=== PATIENT | male | born 1950 | race Caucasian/White ===

== ENCOUNTER → 2018-01-07 | Outpatient (CLI) | payer MEDICARE | LOC: M RAD 09:54 | DX: M51.36 Other intervertebral disc degeneration, lumbar region (principal) | CPT/HCPCS: 72148 ==

== ENCOUNTER → 2018-03-20 | Outpatient (REF) | payer MEDICARE ==
[2018-03-20 18:12] LABS: BASO % 0.4 % (0.0-1.0); EOS # 0.1 10^3/uL (0.0-0.50); EOS % 0.7 % (0.0-3.0); HEMATOCRIT 50.1 % (42.0-52.0); HEMOGLOBIN 16.7 g/dl (13.5-17.5); IMMATURE GRANULOCYTE % 0.4 % (0-3.0); LYMPH # 1.8 10^3/uL (1.5-4.5); LYMPH % 21.3 % (24.0-44.0); MEAN CORPUSCULAR HEMOGLOBIN 30.8 pg (27.0-33.0); MEAN CORPUSCULAR HGB CONC 33.3 g/dl (32.0-36.5); MEAN CORPUSCULAR VOLUME 92.4 fl (80.0-96.0); MONO # 0.8 10^3/uL (0.0-0.8); MONO % 8.9 % (0.0-5.0); NEUTROPHILS # 5.8 10^3/uL (1.8-7.7); NEUTROPHILS % 68.3 % (36.0-66.0); PLATELET COUNT, AUTOMATED 251 10^3/uL (150-450); RED BLOOD COUNT 5.42 10^6/uL (4.30-6.10); RED CELL DISTRIBUTION WIDTH 12.8 % (11.5-14.5); WHITE BLOOD COUNT 8.5 10^3/uL (4.0-10.0)
[2018-03-20 18:31] LABS: ALBUMIN 3.9 GM/DL (3.2-5.2); ALBUMIN/GLOBULIN RATIO 1.18 (1.00-1.93); ALKALINE PHOSPHATASE 97 U/L (45-117); ALT/SGPT 23 U/L (12-78); ANION GAP 11 MEQ/L (8-16); AST/SGOT 12 U/L (7-37); BILIRUBIN,TOTAL 1.1 MG/DL (0.2-1.0); BLOOD UREA NITROGEN 15 MG/DL (7-18); CALCIUM LEVEL 8.9 MG/DL (8.8-10.2); CARBON DIOXIDE LEVEL 24 MEQ/L (21-32); CHLORIDE LEVEL 107 MEQ/L (98-107); CHOLESTEROL LEVEL 163 MG/DL (<200); CHOLESTEROL RISK RATIO 3.468 (<5); CREATININE FOR GFR 0.99 MG/DL (0.70-1.30); GLOMERULAR FILTRATION RATE > 60.0 (>49); GLUCOSE, FASTING 126 MG/DL (70-100); HDL CHOLESTEROL 47 MG/DL (>40); LDL CHOLESTEROL 89 MG/DL (<100); NON-HDL-C 116 MG/DL; POTASSIUM SERUM 4.2 MEQ/L (3.5-5.1); SODIUM LEVEL 142 MEQ/L (136-145); TOTAL PROTEIN 7.2 GM/DL (6.4-8.2); TRIGLYCERIDES LEVEL 135 MG/DL (<150)
== END ==
LOC: M LAB REF 17:39
DX: Z00.00 Encounter for general adult medical examination without abnormal findings (principal); F32.9 Major depressive disorder, single episode, unspecified; E11.9 Type 2 diabetes mellitus without complications; M51.9 Unspecified thoracic, thoracolumbar and lumbosacral intervertebral disc disorder; K57.30 Diverticulosis of large intestine without perforation or abscess without bleeding; E78.4 Other hyperlipidemia
CPT/HCPCS: 80053

== ENCOUNTER → 2020-07-06 | Outpatient (CLI) | payer MEDICARE ==
[~2020-07-06] MED LIST: ALPR0.5T3; ATOR40TA75; INFL10VL IV; METO1TAB33; MIRT-60
== END ==
LOC: M LABSMTC 10:33
PROVIDERS: ATTEND Anesthesiology
DX: Z01.812 Encounter for preprocedural laboratory examination (principal); Z20.822 Contact with and (suspected) exposure to COVID-19

== ENCOUNTER 2020-07-11 08:59 | Day surgery (SDC) | payer MEDICARE ==
[~2020-07-11] VITALS: Ht 172.7 cm; Wt 107.2 kg
[~2020-07-11 08:59] MED LIST changes: +LIDOCAINE 2% 100MG/5ML SDV (FOR ANES.) As Ordered ONE; +propofoL 200 MG/20 ML VIAL As Ordered ONE
--- OUTSIDE RECORDS SUMMARY | 2020-07-11 09:05 | CCD ---
Author Author Amparo Pérez DO Organization mAparo Pérez DO Address [address] [address] [place], [place] [phone] Care Team Providers Care Schedule Manager Name Role Phone Elisa TODD MA, Raphael Robles Unavailable Amparo Pérez DO Unavailable Sloan Curiel MD Unavailable Amparo Pérez DO PCP ENCOUNTERS Encounter Performer Loca tion Date Hypertension [SNOMED-CT: 99355894] Mahesh Pérez DO 06-26-2020 RHEUMATOID ARTHRITIS [SNOMED-CT: 27833534] N/A N/A 06-26-2020 ANXIETY STATE UNSPECIFIED [SNOMED-CT: 406412432] N/A N/A 06-26-2020 BACKACHE UNSPECIFIED [SNOMED-CT: 847965849] Raphael Pérez DO 06-26-2020 Stool DNA-based colorectal cancer screen ing positive [SNOMED-CT: 644950142] Dr. Amparo Pérez DO 05-23-2020 RHEUMATOID ARTHRITIS [SNOMED-CT: 59235323] N/A N/A 04-26-2020 DEPRESSIVE DISORDER NOT ELSEWHERE CLASSI FIED [SNOMED-CT: 694607530] N/A N/A 04-26-2020 ANXIETY STATE UNSPECIFIED [SNOMED-CT: 286043703] N/A N/A 04-26-2020 ROUTINE GENERAL MEDICAL EXAMINATION AT A HEALTH CARE FACILITY [SNOMED-CT: 669202006] Raphael Pérez DO 04-26-2020 Adenomatous polyp of rectum [SNOMED-CT: 3482053566051] Dr. Amparo Pérez DO 04-26-2020 Hypertension [SNOMED-CT: 92402822] Mahesh Pérez, DO 04-26-2020 Prediabetes [SNOMED-CT: 294945257] Mahesh Pérez, DO 04-26-2020 DIVERTICULOSIS OF COLON (WITHOUT HEMORRH AGE) [SNOMED-CT: 830009136] Raphael Pérez, DO 04-26-2020 HYPERPLASIA OF PROSTATE UNSPECIFIED WITH OUT URINARY OBSTRUCTION AND OTHER LOWER URINARY TRACT SYMPTOMS (LUTS) [SNOMED-CT: 685183754] Raphael Pérez, DO 04-26-2020 Spinal stenosis [SNOMED-CT: 67324569] Dr. Amparo Pérez, DO 02-25-2020 ANXIETY STATE UNSPECIFIED [SNOMED-CT: 212527416] N/A N/A 02-25-2020 Hypertension [SNOMED-CT: 37794773] Mahesh Pérez, DO 02-25-2020 BACKACHE UNSPECIFIED [SNOMED-CT: 289523725] Raphael Pérez, DO 12-27-2019 ANXIETY STATE UNSPECIFIED [SNOMED-CT: 412784794] N/A N/A 12-27-2019 BACKACHE UNSPECIFIED [SNOMED-CT: 260243244] Raphael Pérez, DO 10-27-2019 ANXIETY STATE UNSPECIFIED [SNOMED-CT: 690703083] N/A N/A 10-27-2019 RHEUMATOID ARTHRITIS [SNOMED-CT: 92229905] N/A N/A 10-27-2019 Tinnitus of left ear [SNOMED-CT: 6921601078997] Dr. Amparo Pérez, DO 08-20-2019 ANXIETY STATE UNSPECIFIED [SNOMED-CT: 154273429] N/A N/A 08-20-2019 Spinal stenosis [SNOMED-CT: 47752407] Dr. Amparo Pérez, DO 06-18-2019 Bilateral tinnitus [SNOMED-CT: 9478146611140] Dr. Amparo Pérez, DO 06-18-2019 Prediabetes [SNOMED-CT: 353298700] Mahesh Pérez, DO 06-18-2019 ANXIETY STATE UNSPECIFIED [SNOMED-CT: 218642196] N/A N/A 06-18-2019 DEPRESSIVE DISORDER NOT ELSEWHERE CLASSI FIED [SNOMED-CT: 468128935] N/A N/A 06-18-2019 Other hyperlipidemia [ICD10: E78.49] Dr. Amparo Pérez, DO 04-26-2019 Hypertension [SNOMED-CT: 28915024] Mahesh Pérez, DO 04-26-2019 Disorder of lumbar disc [SNOMED-CT: 907673682] Dr. Amparo Pérez, DO 04-26-2019 RHEUMATOID ARTHRITIS [SNOMED-CT: 76835104] N/A N/A 04-26-2019 DEPRESSIVE DISORDER NOT ELSEWHERE CLASSI FIED [SNOMED-CT: 540323713] N/A N/A 04-26-2019 ANXIETY STATE UNSPECIFIED [SNOMED-CT: 437050160] N/A N/A 04-26-2019 Diabetes mellitus [SNOMED-CT: 89825100] Dr. Amparo Pérez, DO 04-26-2019 Diabetes mellitus [SNOMED-CT: 10362064] Dr. Amparo Pérez, DO 02-22-2019 Spinal stenosis [SNOMED-CT: 53366581] Dr. Amparo Pérez, DO 02-22-2019 Disorder of lumbar disc [SNOMED-CT: 920769265] Dr. Amparo Pérez, DO 02-22-2019 ANXIETY STATE UNSPECIFIED [SNOMED-CT: 904156278] N/A N/A 02-22-2019 DEPRESSIVE DISORDER NOT ELSEWHERE CLASSI FIED [SNOMED-CT: 909542767] N/A N/A 02-22-2019 Spinal stenosis [SNOMED-CT: 99391897] Dr. Amparo Pérez, DO 12-23-2018 PAIN IN LIMB [SNOMED-CT: 86726645] Raphael Pérez, DO 12-23-2018 RHEUMATOID ARTHRITIS [SNOMED-CT: 26038843] N/A N/A 12-23-2018 ANXIETY STATE UNSPECIFIED [SNOMED-CT: 675447961] N/A N/A 12-23-2018 Spinal stenosis [SNOMED-CT: 06728653] Dr. Amparo Pérez, DO 10-21-2018 ANXIETY STATE UNSPECIFIED [SNOMED-CT: 271996650] N/A N/A 10-21-2018 Diabetes mellitus [SNOMED-CT: 67209119] Dr. Amparo Pérez, DO 10-21-2018 RHEUMATOID ARTHRITIS [SNOMED-CT: 71824417] N/A N/A 08-24-2018 BACKACHE UNSPECIFIED [SNOMED-CT: 856879389] Raphael Pérez, DO 08-24-2018 Spinal stenosis [SNOMED-CT: 53686995] Dr. Amparo Pérez, DO 08-24-2018 UNSPECIFIED ESSENTIAL HYPERTENSION [SNOMED-CT: 1356772 0] N/A N/A 06-19-2018 BACKACHE UNSPECIFIED [SNOMED-CT: 866079782] Raphael Pérez, DO 06-19-2018 DEPRESSIVE DISORDER NOT ELSEWHERE CLASSI FIED [SNOMED-CT: 883743039] N/A N/A 06-19-2018 Bilateral cataracts [SNOMED-CT: 89041392] Dr. Amparo Pérez, DO 04-27-2018 UNSPECIFIED ESSENTIAL HYPERTENSION [SNOMED-CT: 7699230 0] N/A N/A 04-27-2018 Prediabetes [SNOMED-CT: 0247089] Dr. Amparo Pérez, DO 04-27-2018 Exogenous hyperlipidemia [SNOMED-CT: 206227005] Dr. Amparo Pérez, DO 04-27-2018 RHEUMATOID ARTHRITIS [SNOMED-CT: 17677193] N/A N/A 04-27-2018 Diabetes mellitus [SNOMED-CT: 23544023] Dr. Amparo Pérez, DO 03-20-2018 Exogenous hyperlipidemia [SNOMED-CT: 158256778] Dr. Amparo Pérez, DO 03-20-2018 Disorder of lumbar disc [SNOMED-CT: 349386461] Dr. Amparo Pérez, DO 03-20-2018 DIVERTICULOSIS OF COLON (WITHOUT HEMORRH AGE) [SNOMED-CT: 847750438] Raphael Pérez, DO 03-20-2018 Disorder of lumbar disc [SNOMED-CT: 006965619] Dr. Amparo Pérez, DO 01-16-2018 Diabetes mellitus [SNOMED-CT: 28781702] Dr. Amparo Pérez, DO 01-16-2018 RHEUMATOID ARTHRITIS [SNOMED-CT: 81324445] N/A N/A 01-16-2018 UNSPECIFIED ESSENTIAL HYPERTENSION [SNOMED-CT: 4133306 0] N/A N/A 01-16-2018 Bilateral tinnitus [SNOMED-CT: 7679876010668] Dr. Amparo Pérez, DO 10-31-2017 Exogenous hyperlipidemia [SNOMED-CT: 486793696] Dr. Amparo Pérez, DO 10-31-2017 ANXIETY STATE UNSPECIFIED [SNOMED-CT: 452082958] N/A N/A 10-31-2017 DEPRESSIVE DISORDER NOT ELSEWHERE CLASSI FIED [SNOMED-CT: 119361860] N/A N/A 10-31-2017 UNSPECIFIED ESSENTIAL HYPERTENSION [SNOMED-CT: 6793889 0] N/A N/A 08-29-2017 RHEUMATOID ARTHRITIS [SNOMED-CT: 68046674] N/A N/A 08-29-2017 DEPRESSIVE DISORDER NOT ELSEWHERE CLASSI FIED [SNOMED-CT: 776921955] N/A N/A 08-29-2017 ANXIETY STATE UNSPECIFIED [SNOMED-CT: 559610091] N/A N/A 08-29-2017 Tinnitus of left ear [SNOMED-CT: 1428943924438] Dr. Amparo Pérez, DO 07-21-2017 Altered mental status [SNOMED-CT: 848799055] Dr. Ampaor Pérez, DO 07-21-2017 Headache [SNOMED-CT: 94522616] Thierry Pérez, DO 07-21-2017 Diabetes mellitus [SNOMED-CT: 06477187] Dr. Amparo Pérez, DO 07-21-2017 Disorder of lumbar disc [SNOMED-CT: 682577973] Dr. Amparo Pérez, DO 06-27-2017 RHEUMATOID ARTHRITIS [SNOMED-CT: 95773552] N/A N/A 06-27-2017 Diabetes mellitus [SNOMED-CT: 57146963] Dr. Amparo Pérez, DO 06-27-2017 ANXIETY STATE UNSPECIFIED [SNOMED-CT: 067235051] N/A N/A 06-27-2017 DEPRESSIVE DISORDER NOT ELSEWHERE CLASSI FIED [SNOMED-CT: 115478114] N/A N/A 04-28-2017 ANXIETY STATE UNSPECIFIED [SNOMED-CT: 455103036] N/A N/A 04-28-2017 Diabetes mellitus [SNOMED-CT: 07217172] Dr. Amparo Pérez, DO 04-28-2017 RHEUMATOID ARTHRITIS [SNOMED-CT: 41689988] N/A N/A 02-26-2017 UNSPECIFIED ESSENTIAL HYPERTENSION [SNOMED-CT: 0539432 0] N/A N/A 02-26-2017 Exogenous hyperlipidemia [SNOMED-CT: 667440939] Dr. Amparo Pérez, DO 02-26-2017 Hyperglycemia [SNOMED-CT: 06278874] Dr. Amparo Pérez, DO 02-26-2017 UNSPECIFIED ESSENTIAL HYPERTENSION [SNOMED-CT: 5757917 0] N/A N/A 12-25-2016 ANXIETY STATE UNSPECIFIED [SNOMED-CT: 128893256] N/A N/A 12-25-2016 UNSPECIFIED ESSENTIAL HYPERTENSION [SNOMED-CT: 1460632 0] N/A N/A 10-09-2016 ANXIETY STATE UNSPECIFIED [SNOMED-CT: 125198988] N/A N/A 10-09-2016 RHEUMATOID ARTHRITIS [SNOMED-CT: 77803578] N/A N/A 10-09-2016 BACKACHE UNSPECIFIED [SNOMED-CT: 320677628] Raphael Pérez, DO 08-28-2016 Disorder of lumbar disc [SNOMED-CT: 603414582] Dr. Amparo Pérez, DO 08-28-2016 DEPRESSIVE DISORDER NOT ELSEWHERE CLASSI FIED [SNOMED-CT: 751721820] N/A N/A 08-28-2016 ANXIETY STATE UNSPECIFIED [SNOMED-CT: 975079693] N/A N/A 08-28-2016 RHEUMATOID ARTHRITIS [SNOMED-CT: 69376366] N/A N/A 08-28-2016 Prediabetes [SNOMED-CT: 5254941] Dr. Amparo Pérez, DO 07-17-2016 ANXIETY STATE UNSPECIFIED [SNOMED-CT: 492460080] N/A N/A 07-17-2016 Hyperglycemia [SNOMED-CT: 36994680] Dr. Amparo Pérez, DO 07-17-2016 Prediabetes [SNOMED-CT: 9972466] Dr. Amparo Pérez, DO 06-05-2016 Disorder of lumbar disc [SNOMED-CT: 526755728] Dr. Amparo Pérez, DO 06-05-2016 ANXIETY STATE UNSPECIFIED [SNOMED-CT: 493737374] N/A N/A 06-05-2016 Hyperlipidemia [SNOMED-CT: 76837791] Dr. Amparo Pérez, DO 04-24-2016 HYPERPLASIA OF PROSTATE UNSPECIFIED WITH OUT URINARY OBSTRUCTION AND OTHER LOWER URINARY TRACT SYMPTOMS (LUTS) [SNOMED-CT: 229982894] Raphael Pérez, DO 04-24-2016 Hyperlipidemia [SNOMED-CT: 57635731] Dr. Amparo Pérez, DO 03-13-2016 UNSPECIFIED ESSENTIAL HYPERTENSION [SNOMED-CT: 2152625 0] N/A N/A 03-13-2016 Prediabetes [SNOMED-CT: 5052801] Dr. Amparo Pérez, DO 03-13-2016 Other specified vaccination [ICD10: Z23] Raphael Pérez, DO 03-13-2016 Disorder of lumbar disc [SNOMED-CT: 996605213] Dr. Amparo Pérez, DO 01-31-2016 BACKACHE UNSPECIFIED [SNOMED-CT: 984917726] Raphael Pérez, DO 01-31-2016 DEPRESSIVE DISORDER NOT ELSEWHERE CLASSI FIED [SNOMED-CT: 848041326] N/A N/A 01-31-2016 RHEUMATOID ARTHRITIS [SNOMED-CT: 22509502] N/A N/A 01-31-2016 RHEUMATOID ARTHRITIS [SNOMED-CT: 61816763] N/A N/A 12-27-2015 BACKACHE UNSPECIFIED [SNOMED-CT: 129293795] Raphael Pérez, DO 12-27-2015 DEPRESSIVE DISORDER NOT ELSEWHERE CLASSI FIED [SNOMED-CT: 261256189] N/A N/A 12-27-2015 ANXIETY STATE UNSPECIFIED [SNOMED-CT: 047075351] N/A N/A 12-27-2015 ANXIETY STATE UNSPECIFIED [SNOMED-CT: 489940650] N/A N/A 11-22-2015 UNSPECIFIED ESSENTIAL HYPERTENSION [SNOMED-CT: 3597118 0] N/A N/A 11-22-2015 Hyperlipidemia [SNOMED-CT: 57438220] Dr. Amparo Pérez, DO 11-22-2015 Disorder of lumbar disc [SNOMED-CT: 401364778] Dr. Amparo Pérez, DO 10-18-2015 ANXIETY STATE UNSPECIFIED [SNOMED-CT: 765957082] N/A N/A 10-18-2015 Disorder of lumbar disc [SNOMED-CT: 739075406] Dr. Amparo Pérez, DO 09-13-2015 Hyperlipidemia [SNOMED-CT: 95767800] Dr. Amparo Pérez, DO 09-13-2015 DIVERTICULOSIS OF COLON (WITHOUT HEMORRH AGE) [SNOMED-CT: 815104535] Raphael Pérez, DO 09-13-2015 Hyperglycemia [SNOMED-CT: 24444480] Dr. Amparo Pérez, DO 09-13-2015 Prediabetes [SNOMED-CT: 5097724] Dr. Amparo Pérez, DO 09-13-2015 PAIN IN LIMB [SNOMED-CT: 68421744] Raphael Pérez, DO 08-09-2015 RHEUMATOID ARTHRITIS [SNOMED-CT: 67992621] N/A N/A 08-09-2015 DEPRESSIVE DISORDER NOT ELSEWHERE CLASSI FIED [SNOMED-CT: 811829524] N/A N/A 08-09-2015 Disorder of lumbar disc [SNOMED-CT: 740000813] Dr. Amparo Pérez, DO 07-05-2015 PAIN IN LIMB [SNOMED-CT: 27802879] Raphael Pérez, DO 07-05-2015 REFLUX ESOPHAGITIS [SNOMED-CT: 25986916] N/A N/A 07-05-2015 Acute suppurative otitis media [SNOMED-CT: 637550775] Dr. Amparo Pérez, DO 05-31-2015 BACKACHE UNSPECIFIED [SNOMED-CT: 663976555] Raphael Pérez, DO 05-31-2015 RHEUMATOID ARTHRITIS [SNOMED-CT: 50242139] N/A N/A 05-31-2015 Disorder of lumbar disc [SNOMED-CT: 080223157] Dr. Amparo Pérez, DO 05-31-2015 Acute suppurative otitis media [SNOMED-CT: 853069993] Dr. Amparo Pérez, DO 05-24-2015 RHEUMATOID ARTHRITIS [SNOMED-CT: 02806700] N/A N/A 05-24-2015 Personal history of immunosuppressive therapy [ICD10: Z92.25] Dr. Amparo Pérez, DO 05-24-2015 Acute suppurative otitis media [SNOMED-CT: 274027500] Dr. Amparo Pérez, DO 05-17-2015 UNSPECIFIED ESSENTIAL HYPERTENSION [SNOMED-CT: 8649129 0] N/A N/A 04-26-2015 BACKACHE UNSPECIFIED [SNOMED-CT: 276750875] Raphael Pérez, DO 04-26-2015 PAIN IN LIMB [SNOMED-CT: 64595966] Raphael Pérez, DO 04-26-2015 RHEUMATOID ARTHRITIS [SNOMED-CT: 86675369] N/A N/A 04-26-2015 Hyperlipidemia [SNOMED-CT: 94574453] Dr. Amparo Pérez, DO 04-26-2015 UNSPECIFIED ESSENTIAL HYPERTENSION [SNOMED-CT: 9634060 0] N/A N/A 03-22-2015 BACKACHE UNSPECIFIED [SNOMED-CT: 541402632] Raphael Pérez, DO 03-22-2015 PAIN IN LIMB [SNOMED-CT: 35535063] Raphael Pérez, DO 03-22-2015 RHEUMATOID ARTHRITIS [SNOMED-CT: 85169079] N/A N/A 03-22-2015 BACKACHE UNSPECIFIED [SNOMED-CT: 748454747] Raphael Pérez, DO 02-15-2015 UNSPECIFIED ESSENTIAL HYPERTENSION [SNOMED-CT: 3324255 0] N/A N/A 02-15-2015 RHEUMATOID ARTHRITIS [SNOMED-CT: 45432098] N/A N/A 02-15-2015 BACKACHE UNSPECIFIED [SNOMED-CT: 610409153] Raphael Pérez, DO 01-11-2015 UNSPECIFIED ESSENTIAL HYPERTENSION [SNOMED-CT: 3594800 0] N/A N/A 01-11-2015 RHEUMATOID ARTHRITIS [SNOMED-CT: 91614974] N/A N/A 01-11-2015 UNSPECIFIED ESSENTIAL HYPERTENSION [SNOMED-CT: 4048706 0] N/A N/A 12-07-2014 RHEUMATOID ARTHRITIS [SNOMED-CT: 72372241] N/A N/A 12-07-2014 GLOSSITIS [SNOMED-CT: 47327973] Dr. Amparo Pérez, DO 11-02-2014 BACKACHE UNSPECIFIED [SNOMED-CT: 870251781] Raphael Pérez, DO 11-02-2014 RHEUMATOID ARTHRITIS [SNOMED-CT: 50236340] N/A N/A 11-02-2014 BACKACHE UNSPECIFIED [SNOMED-CT: 671965350] Raphael Pérez, DO 10-05-2014 RHEUMATOID ARTHRITIS [SNOMED-CT: 69522771] N/A N/A 10-05-2014 UNSPECIFIED ESSENTIAL HYPERTENSION [SNOMED-CT: 7681844 0] N/A N/A 10-05-2014 ANXIETY STATE UNSPECIFIED [SNOMED-CT: 272709290] N/A N/A 10-05-2014 ROUTINE GENERAL MEDICAL EXAMINATION AT A HEALTH CARE FACILITY [SNOMED-CT: 642131146] Raphael Pérez, DO 09-07-2014 ANXIETY STATE UNSPECIFIED [SNOMED-CT: 119520423] N/A N/A 08-10-2014 BACKACHE UNSPECIFIED [SNOMED-CT: 578677991] Raphael Pérez, DO 08-10-2014 DEPRESSIVE DISORDER NOT ELSEWHERE CLASSI FIED [SNOMED-CT: 769129158] N/A N/A 08-10-2014 GLOSSITIS [SNOMED-CT: 69561067] Dr. Amparo Pérez, DO 07-13-2014 RHEUMATOID ARTHRITIS [SNOMED-CT: 07651725] N/A N/A 07-13-2014 UNSPECIFIED ESSENTIAL HYPERTENSION [SNOMED-CT: 0623732 0] N/A N/A 07-13-2014 DEPRESSIVE DISORDER NOT ELSEWHERE CLASSI FIED [SNOMED-CT: 407650777] N/A N/A 07-13-2014 UNSPECIFIED ESSENTIAL HYPERTENSION [SNOMED-CT: 5678606 0] N/A N/A 05-16-2014 BACKACHE UNSPECIFIED [SNOMED-CT: 140832356] Raphael Pérez, DO 05-16-2014 RHEUMATOID ARTHRITIS [SNOMED-CT: 23986876] N/A N/A 03-25-2014 GLOSSITIS [SNOMED-CT: 91723041] Dr. Amparo Pérez, DO 03-25-2014 BACKACHE UNSPECIFIED [SNOMED-CT: 208363737] Raphael Pérez, DO 01-26-2014 REFLUX ESOPHAGITIS [SNOMED-CT: 95778521] N/A N/A 01-26-2014 UNSPECIFIED ESSENTIAL HYPERTENSION [SNOMED-CT: 0229849 0] N/A N/A 01-26-2014 RHEUMATOID ARTHRITIS [SNOMED-CT: 75659750] N/A N/A 01-26-2014 ANXIETY STATE UNSPECIFIED [SNOMED-CT: 705518084] N/A N/A 01-26-2014 GLOSSITIS [SNOMED-CT: 37203026] Dr. Amparo Pérez, DO 01-26-2014 MICROSCOPIC HEMATURIA [SNOMED-CT: 841297518] Dr. Amparo Pérez, DO 12-13-2013 ANXIETY STATE UNSPECIFIED [SNOMED-CT: 034812095] N/A N/A 12-13-2013 RHEUMATOID ARTHRITIS [SNOMED-CT: 00039768] N/A N/A 12-13-2013 BACKACHE UNSPECIFIED [SNOMED-CT: 647939257] Raphael Pérez, DO 12-13-2013 HYPERPLASIA OF PROSTATE UNSPECIFIED WITH OUT URINARY OBSTRUCTION AND OTHER LOWER URINARY TRACT SYMPTOMS (LUTS) [SNOMED-CT: 958234622] Raphael Pérez, DO 12-13-2013 PAIN IN LIMB [SNOMED-CT: 62263758] Raphael Pérez, DO 10-18-2013 RHEUMATOID ARTHRITIS [SNOMED-CT: 06921644] N/A N/A 10-18-2013 BACKACHE UNSPECIFIED [SNOMED-CT: 811615105] Raphael Pérez, DO 10-18-2013 ROUTINE GENERAL MEDICAL EXAMINATION AT A HEALTH CARE FACILITY [SNOMED-CT: 846408033] Raphael Pérez, DO 08-30-2013 PAIN IN LIMB [SNOMED-CT: 49741855] Raphael Pérez, DO 07-02-2013 UNSPECIFIED ESSENTIAL HYPERTENSION [SNOMED-CT: 7736510 0] N/A N/A 07-02-2013 UNSPECIFIED ESSENTIAL HYPERTENSION [SNOMED-CT: 4745775 0] N/A N/A 05-17-2013 RHEUMATOID ARTHRITIS [SNOMED-CT: 81426559] N/A N/A 03-26-2013 ANXIETY STATE UNSPECIFIED [SNOMED-CT: 369635272] N/A N/A 03-26-2013 NEED FOR PROPHYLACTIC VACCINATION AND IN OCULATION AGAINST INFLUENZA [SNOMED-CT: 027995975] Raphael Pérez, DO 03-26-2013 RHEUMATOID ARTHRITIS [SNOMED-CT: 31435610] N/A N/A 02-08-2013 ANXIETY STATE UNSPECIFIED [SNOMED-CT: 309920323] N/A N/A 02-08-2013 RHEUMATOID ARTHRITIS [SNOMED-CT: 33874826] N/A N/A 12-14-2012 UNSPECIFIED ESSENTIAL HYPERTENSION [SNOMED-CT: 1934756 0] N/A N/A 12-14-2012 DEPRESSIVE DISORDER NOT ELSEWHERE CLASSI FIED [SNOMED-CT: 823952610] N/A N/A 12-14-2012 DEPRESSIVE DISORDER NOT ELSEWHERE CLASSI FIED [SNOMED-CT: 602565192] N/A N/A 10-23-2012 ANXIETY STATE UNSPECIFIED [SNOMED-CT: 732128920] N/A N/A 10-23-2012 RHEUMATOID ARTHRITIS [SNOMED-CT: 41113531] N/A N/A 08-24-2012 UNSPECIFIED ESSENTIAL HYPERTENSION [SNOMED-CT: 1116594 0] N/A N/A 08-24-2012 ANXIETY STATE UNSPECIFIED [SNOMED-CT: 405235179] N/A N/A 08-24-2012 RHEUMATOID ARTHRITIS [SNOMED-CT: 86152817] N/A N/A 06-15-2012 UNSPECIFIED ESSENTIAL HYPERTENSION [SNOMED-CT: 4468891 0] N/A N/A 06-15-2012 ANXIETY STATE UNSPECIFIED [SNOMED-CT: 047469104] N/A N/A 06-15-2012 UNSPECIFIED ESSENTIAL HYPERTENSION [SNOMED-CT: 8948885 0] N/A N/A 04-10-2012 NEED FOR PROPHYLACTIC VACCINATION AND IN OCULATION AGAINST INFLUENZA [SNOMED-CT: 683162300] Raphael Pérez DO 04-10-2012 UNSPECIFIED ESSENTIAL HYPERTENSION [SNOMED-CT: 0344439 0] N/A N/A 02-03-2012 ANXIETY STATE UNSPECIFIED [SNOMED-CT: 627432033] N/A N/A 02-03-2012 ANXIETY STATE UNSPECIFIED [SNOMED-CT: 224883731] N/A N/A 12-11-2011 RHEUMATOID ARTHRITIS [SNOMED-CT: 96083870] N/A N/A 12-11-2011 SCREENING EXAMINATION FOR PULMONARY TUBE RCULOSIS [SNOMED-CT: 150309479] Raphael Pérez DO 12-11-2011 DIVERTICULOSIS OF COLON (WITHOUT HEMORRH AGE) [SNOMED-CT: 363333462] Raphael Pérez, DO 10-25-2011 ANXIETY STATE UNSPECIFIED [SNOMED-CT: 739481633] N/A N/A 10-25-2011 UNSPECIFIED ESSENTIAL HYPERTENSION [SNOMED-CT: 3491522 0] N/A N/A 07-24-2011 ANXIETY STATE UNSPECIFIED [SNOMED-CT: 419520518] N/A N/A 07-24-2011 IMPACTED CERUMEN [SNOMED-CT: 81419226] Raphael Pérez, DO 07-24-2011 UNSPECIFIED ESSENTIAL HYPERTENSION [SNOMED-CT: 6803900 0] N/A N/A 01-11-2011 ANXIETY STATE UNSPECIFIED [SNOMED-CT: 777348928] N/A N/A 01-11-2011 IMPACTED CERUMEN [SNOMED-CT: 14458013] Raphael Pérez, DO 01-11-2011 UNSPECIFIED ESSENTIAL HYPERTENSION [SNOMED-CT: 7228448 0] N/A N/A 11-19-2010 ANXIETY STATE UNSPECIFIED [SNOMED-CT: 675192422] N/A N/A 11-19-2010 IMPACTED CERUMEN [SNOMED-CT: 09417495] Raphael Pérez, DO 11-19-2010 RHEUMATOID ARTHRITIS [SNOMED-CT: 77471818] N/A N/A 09-05-2010 ANXIETY STATE UNSPECIFIED [SNOMED-CT: 067102271] N/A N/A 09-03-2010 RHEUMATOID ARTHRITIS [SNOMED-CT: 32569881] N/A N/A 09-03-2010 PAIN IN LIMB [SNOMED-CT: 09394116] Raphael Pérez, DO 06-27-2010 ANXIETY STATE UNSPECIFIED [SNOMED-CT: 444247816] N/A N/A 06-27-2010 CARPAL TUNNEL SYNDROME [SNOMED-CT: 65073510] Raphael Pérez, DO 03-28-2010 RHEUMATOID ARTHRITIS [SNOMED-CT: 23771973] N/A N/A 03-28-2010 CARPAL TUNNEL SYNDROME [SNOMED-CT: 54398289] Raphael Antonioard, DO 11-10-2009 RHEUMATOID ARTHRITIS [SNOMED-CT: 93669812] N/A N/A 11-10-2009 REFLUX ESOPHAGITIS [SNOMED-CT: 90777132] N/A N/A 11-10-2009 DEPRESSIVE DISORDER NOT ELSEWHERE CLASSI FIED [SNOMED-CT: 738806950] N/A N/A 11-10-2009 OTHER ABNORMAL GLUCOSE [SNOMED-CT: 932485639] Raphael Pérez Amparo Dickson Elisa, DO 09-11-2009 RHEUMATOID ARTHRITIS [SNOMED-CT: 74653717] N/A N/A 09-11-2009 REFLUX ESOPHAGITIS [SNOMED-CT: 89837872] N/A N/A 09-11-2009 DEPRESSIVE DISORDER NOT ELSEWHERE CLASSI FIED [SNOMED-CT: 712927202] N/A N/A 09-11-2009 RHEUMATOID ARTHRITIS [SNOMED-CT: 85717215] N/A N/A 07-12-2009 REFLUX ESOPHAGITIS [SNOMED-CT: 67115449] N/A N/A 07-12-2009 DEPRESSIVE DISORDER NOT ELSEWHERE CLASSI FIED [SNOMED-CT: 935072806] N/A N/A 07-12-2009 RHEUMATOID ARTHRITIS [SNOMED-CT: 47524573] N/A N/A 04-14-2009 UNSPECIFIED ESSENTIAL HYPERTENSION [SNOMED-CT: 4823707 0] N/A N/A 04-14-2009 DEPRESSIVE DISORDER NOT ELSEWHERE CLASSI FIED [SNOMED-CT: 256872131] N/A N/A 04-14-2009 ANXIETY STATE UNSPECIFIED [SNOMED-CT: 599375239] N/A N/A 04-14-2009 RHEUMATOID ARTHRITIS [SNOMED-CT: 80364483] N/A N/A 12-16-2008 UNSPECIFIED ESSENTIAL HYPERTENSION [SNOMED-CT: 2669049 0] N/A N/A 12-16-2008 DEPRESSIVE DISORDER NOT ELSEWHERE CLASSI FIED [SNOMED-CT: 999850691] N/A N/A 12-16-2008 ANXIETY STATE UNSPECIFIED [SNOMED-CT: 403468653] N/A N/A 12-16-2008 RHEUMATOID ARTHRITIS [SNOMED-CT: 21349720] N/A N/A 10-24-2008 UNSPECIFIED ESSENTIAL HYPERTENSION [SNOMED-CT: 9800008 0] N/A N/A 10-24-2008 DEPRESSIVE DISORDER NOT ELSEWHERE CLASSI FIED [SNOMED-CT: 742030269] N/A N/A 10-24-2008 ANXIETY STATE UNSPECIFIED [SNOMED-CT: 351875354] N/A N/A 10-24-2008 ALLERGIES AND ADVERSE REACTIONS Substance Reaction Sever ity Status sulfa drug (RxNorm: 30699) -- -- Active Sulfa (RxNorm: Unknown) -- -- Active FUNCTIONAL STATUS There is no cognitive and functional status saved for this patient. IMMUNIZATIONS Vaccine Date Status Flucelvax Quadrivalent (171) 03/23/20 9:08:38 AM Completed Adacel (115) 10/21/2018 9:47:02 AM Completed Pneumovax 23 (33) 03/20/2018 3:23:51 PM Completed Fluvirin (141) 03/13/2016 10:35:54 AM Completed Zoster Live (121) 09/13/2015 10:05:47 AM Refused Influenza vaccine, unknown (88) 03/22 10:25:04 AM Completed Afluria (141) 03/26/2013 12:14:58 PM Completed Fluvirin (141) 04/10/2012 12:39:45 PM Completed H1N1 07/12/2009 12:00:00 AM Completed MEDICAL EQUIPMENT Patient has no history of implanted devices. MEDICATIONS Medication Generic Name Instructions Dosage Start Date Status hydrocodone-acetaminophen 5 mg-325 mg or al tablet, [RxNorm: 779393] hydrocodone-acetaminophen one or two po qid prn pain 45 06/26/2020 Active ALPRAZolam 0.5 mg oral tablet, [RxNorm: 834773] ALPRAZolam one or one half po qid prn anxiety MDD4 120 06/26/2020 Active spironolactone 25 mg oral tablet, [RxNorm: 586245] spironolactone one po daily 30 04/26/2020 Active mirtazapine 30 mg oral tablet, [RxNorm: 409257] mirtazapine one po hs daily 30 04/26 Active Metoprolol Succinate ER 100 mg oral tabl et, extended release, [RxNorm: 159094] metoprolol one po daily 30 04/26/2020 Active atorvastatin 40 mg oral tablet, [RxNorm: 011509] atorvastatin one po daily 30 04/26/20 20 Active glucose testing strips Unknown use as directed bid ac 60 04/28/2017 Active glucometer Unknown use a s directed ac bid 1 04/28/2017 Active Remicade 100 mg intravenous injection, [RxNorm: 459242 ] inFLIXimab injected in [place] q 8 weeks 0 09/13/2015 Active aspirin 81 mg oral tablet, [RxNorm: 566701] aspirin one daily 1 09/13/2015 Active INSURANCE PROVIDERS Payer Name Policy Type P olicy ID Covered [employer] ID Policy [employer] MEDICARE Health Insurance [id number] [facility] Health Insurance [id number] ALTHEA RIVAS ASSESSMENTS # UNSPECIFIED ESSENTIAL HYPERTENSION (I10): # RHEUMATOID ARTHRITIS (M06.9): # ANXIETY STATE UNSPECIFIED (F41.9): # BACKACHE UNSPECIFIED (M54.9): PROBLEMS Problem Problem Status D ate Started Date Resolved Date Inactivated MICROSCOPIC HEMATURIA [SNOMED-CT: 141674676] Active 12-13-2013 NA NA HYPERPLASIA OF PROSTATE UNSPECIFIED WITH OUT URINARY OBSTRUCTION AND OTHER LOWER URINARY TRACT SYMPTOMS (LUTS) [SNOMED-CT: 083573347] Active 12-13-2013 NA NA OTHER ABNORMAL GLUCOSE [SNOMED-CT: 226187919] Active 09-11-2009 NA NA Exogenous hyperlipidemia [SNOMED-CT: 155383789] Active 02-26-2017 NA NA Hyperglycemia [SNOMED-CT: 20798684] Active 02-26-2017 NA NA Tinnitus of left ear [SNOMED-CT: 9586876175261] Active 07-21-2017 NA NA Altered mental status [SNOMED-CT: 879516237] Active 07-21-2017 NA NA Stool DNA-based colorectal cancer screen ing positive [SNOMED-CT: 409426845] Active 05-23-2020 NA NA Prediabetes [SNOMED-CT: 2957766] Active 09-13-2015 NA NA BACKACHE UNSPECIFIED [SNOMED-CT: 368280025] Active 10-18-2013 NA NA SCREENING EXAMINATION FOR PULMONARY TUBE RCULOSIS [SNOMED-CT: 940103490] Active 12-11-2011 NA NA Adenomatous polyp of rectum [SNOMED-CT: 0586314002651] Active 04-26-2020 NA NA RHEUMATOID ARTHRITIS [SNOMED-CT: 83943720] Active 10-23-2008 NA NA UNSPECIFIED ESSENTIAL HYPERTENSION [SNOMED-CT: 7369224 0] Active 10-23-2008 NA NA DEPRESSIVE DISORDER NOT ELSEWHERE CLASSI FIED [SNOMED-CT: 429257806] Active 10-23-2008 NA NA ANXIETY STATE UNSPECIFIED [SNOMED-CT: 868567291] Active 10-23-2008 NA NA ROUTINE GENERAL MEDICAL EXAMINATION AT A HEALTH CARE FACILITY [SNOMED-CT: 424512711] Active 08-30-2013 NA NA Bilateral cataracts [SNOMED-CT: 78741973] Active 04-27-2018 NA NA Hyperlipidemia [SNOMED-CT: 20408013] Activ e 04-26-2015 NA NA Diabetes mellitus [SNOMED-CT: 52192798] Resolved 04-28-2017 04-26-2019 NA Prediabetes [SNOMED-CT: 918891600] Active 04-26-2019 NA NA Other hyperlipidemia [ICD10: E78.49] Activ e 04-26-2019 NA NA Hypertension [SNOMED-CT: 84856379] Active 04-26-2019 NA NA Other specified vaccination [ICD10: Z23] Active 03-13-2016 NA NA GLOSSITIS [SNOMED-CT: [id number]] Active 01-26-2014 NA NA CARPAL TUNNEL SYNDROME [SNOMED-CT: 85102393] Active 11-10-2009 NA NA PAIN IN LIMB [SNOMED-CT: 17759353] Active 06-27-2010 NA NA Headache [SNOMED-CT: 82764265] Active 07-21-2017 NA NA Bilateral tinnitus [SNOMED-CT: 2876807124743] Active 10-31-2017 NA NA IMPACTED CERUMEN [SNOMED-CT: 27288961] Active 11-19-2010 NA NA Spinal stenosis [SNOMED-CT: 86938877] Active 08-24-2018 NA NA Hyperglycemia [SNOMED-CT: 34547522] Active 09-13-2015 NA NA NEED FOR PROPHYLACTIC VACCINATION AND IN OCULATION AGAINST INFLUENZA [SNOMED-CT: 371644809] Active 04-10-2012 NA NA Acute suppurative otitis media [SNOMED-CT: 402526419] Active 05-17-2015 NA NA Personal history of immunosuppressive therapy [ICD10: Z92.25] Active 05-24-2015 NA NA Disorder of lumbar disc [SNOMED-CT: 251068776] Active 05-31-2015 NA NA DIVERTICULOSIS OF COLON (WITHOUT HEMORRH AGE) [SNOMED-CT: 040269531] Active 10-25-2011 NA NA REFLUX ESOPHAGITIS [SNOMED-CT: 85020227] Active 07-12-2009 NA NA HYPERPLASIA OF PROSTATE UNSPECIFIED [SNOMED-CT: 589903 004] Inactive 07-12-2009 NA 12-13-2013 PROCEDURES Procedure Date CPT Code Procedure 06/26/2020 08:54:10 [id number] Telephone evaluation and management service by a physician or other qualified health clinical care leader who may report evaluation and management services provided to an established patient, parent, or guardian not originating from a related E/M service provided within the previous 7 days nor leading to an E/M service or procedure within the next 24 hours or soonest available appointment; 5-10 minutes of medical discussion 05/23/2020 11:51:40 39859 Telephone evaluation and management service by a physician or other qualified health clinical care leader who may report evaluation and management services provided to an established patient, parent, or guardian not originating from a related E/M service provided within the previous 7 days nor leading to an E/M service or procedure within the next 24 hours or soonest available appointment; 5-10 minutes of medical discussion 04/26/2020 08:59:14 G0439 ANNUAL WELLNESS VISIT, SUBSEQUENT 04/26/2020 08:59:14 [id number] Eligible clinician attests to documenting in the medical record they obtained, updated, or reviewed the patient's current medications 04/26/2020 08:59:14 1036F Current tobacco non-user (CAD, CAP, COPD, PV) (DM) (IBD) 04/26/2020 08:59:14 1123F Advance Care Planning discussed and documented advance care plan or surrogate decision maker documented in the medical record (DEM) (ZAC, Pall Cr) 02/25/2020 09:27:14 [id number] Office or other outpatient visit for the evaluation and management of an established patient, which requires at least 2 of these 3 ruiz components: An expanded problem focused history; An expanded problem focused examination; Medical decision making of low complexity. Counseling and coordination of care with other providers or agencies are provided consistent with the nature of the problem(s) and the patient's and/or family's needs. Usually, the presenting problem(s) are of low to moderate severity. Physicians typically spend 15 minutes wsqw-mk-raiw with the patient and/or family. 12/27/2019 09:18:25 01583 Office or other outpatient visit for the evaluation and management of an established patient, which requires at least 2 of these 3 ruiz components: An expanded problem focused history; An expanded problem focused examination; Medical decision making of low complexity. Counseling and coordination of care with other providers or agencies are provided consistent with the nature of the problem(s) and the patient's and/or family's needs. Usually, the presenting problem(s) are of low to moderate severity. Physicians typically spend 15 minutes xamc-gq-pogi with the patient and/or family. 10/27/2019 09:14:09 63754 Office or other outpatient visit for the evaluation and management of an established patient, which requires at least 2 of these 3 ruiz components: An expanded problem focused history; An expanded problem focused examination; Medical decision making of low complexity. Counseling and coordination of care with other providers or agencies are provided consistent with the nature of the problem(s) and the patient's and/or family's needs. Usually, the presenting problem(s) are of low to moderate severity. Physicians typically spend 15 minutes ndmo-qz-klia with the patient and/or family. 08/20/2019 09:14:36 66408 Office or other outpatient visit for the evaluation and management of an established patient, which requires at least 2 of these 3 ruiz components: An expanded problem focused history; An expanded problem focused examination; Medical decision making of low complexity. Counseling and coordination of care with other providers or agencies are provided consistent with the nature of the problem(s) and the patient's and/or family's needs. Usually, the presenting problem(s) are of low to moderate severity. Physicians typically spend 15 minutes oene-zh-yemg with the patient and/or family. 06/18/2019 09:14:14 84459 Office or other outpatient visit for the evaluation and management of an established patient, which requires at least 2 of these 3 ruiz components: An expanded problem focused history; An expanded problem focused examination; Medical decision making of low complexity. Counseling and coordination of care with other providers or agencies are provided consistent with the nature of the problem(s) and the patient's and/or family's needs. Usually, the presenting problem(s) are of low to moderate severity. Physicians typically spend 15 minutes ldog-tf-ccvl with the patient and/or family. 04/26/2019 08:33:50 G0439 ANNUAL WELLNESS VISIT, SUBSEQUENT 04/26/2019 08:33:50 [id number] Eligible clinician attests to documenting in the medical record they obtained, updated, or reviewed the patient's current medications 04/26/2019 08:33:50 1036F Current tobacco non-user (CAD, CAP, COPD, PV) (DM) (IBD) 04/26/2019 08:33:50 1123F Advance Care Planning discussed and documented advance care plan or surrogate decision maker documented in the medical record (DEM) (ZAC, Pall Cr) 02/22/2019 08:35:14 72351 Office or other outpatient visit for the evaluation and management of an established patient, which requires at least 2 of these 3 ruiz components: An expanded problem focused history; An expanded problem focused examination; Medical decision making of low complexity. Counseling and coordination of care with other providers or agencies are provided consistent with the nature of the problem(s) and the patient's and/or family's needs. Usually, the presenting problem(s) are of low to moderate severity. Physicians typically spend 15 minutes dahq-ui-kvoe with the patient and/or family. 02/22/2019 08:35:14 [id number] Eligible clinician attests to documenting in the medical record they obtained, updated, or reviewed the patient's current medications 12/23/2018 09:11:54 59438 Office or other outpatient visit for the evaluation and management of an established patient, which requires at least 2 of these 3 ruiz components: An expanded problem focused history; An expanded problem focused examination; Medical decision making of low complexity. Counseling and coordination of care with other providers or agencies are provided consistent with the nature of the problem(s) and the patient's and/or family's needs. Usually, the presenting problem(s) are of low to moderate severity. Physicians typically spend 15 minutes jwar-xx-fitl with the patient and/or family. 12/23/2018 09:11:54 [id number] Eligible clinician attests to documenting in the medical record they obtained, updated, or reviewed the patient's current medications 10/21/2018 09:10:09 38748 Office or other outpatient visit for the evaluation and management of an established patient, which requires at least 2 of these 3 ruiz components: An expanded problem focused history; An expanded problem focused examination; Medical decision making of low complexity. Counseling and coordination of care with other providers or agencies are provided consistent with the nature of the problem(s) and the patient's and/or family's needs. Usually, the presenting problem(s) are of low to moderate severity. Physicians typically spend 15 minutes vlbd-nw-yaqd with the patient and/or family. 10/21/2018 09:10:09 52442 Hemoglobin; glycosylated (A1C) by device cleared by FDA for home use 10/21/2018 09:10:09 [id number] Eligible clinician attests to documenting in the medical record they obtained, updated, or reviewed the patient's current medications 10/21/2018 09:10:09 52527 Tetanus, diphtheria toxoids and acellular pertussis vaccine (Tdap), when administered to individuals 7 years or older, for intramuscular use 10/21/2018 09:10:09 66745 Immunization administration (includes percutaneous, intradermal, subcutaneous, or intramuscular injections); one vaccine (single or combination vaccine/toxoid) 08/24/2018 09:32:54 68744 Office or other outpatient visit for the evaluation and management of an established patient, which requires at least 2 of these 3 ruiz components: A detailed history; A detailed examination; Medical decision making of moderate complexity. Counseling and/or coordination of care with other providers or agencies are provided consistent with the nature of the problem(s) and the patient's and/or family's n eeds. Usually, the presenting problem(s) are of moderate to high severity. Physicians typically spend 25 minutes uzan-tq-zsgm with the patient and/or family. 06/19/2018 09:55:21 64500 Office or other outpatient visit for the evaluation and management of an established patient, which requires at least 2 of these 3 ruiz components: An expanded problem focused history; An expanded problem focused examination; Medical decision making of low complexity. Counseling and coordination of care with other providers or agencies are provided consistent with the nature of the problem(s) and the patient's and/or family's needs. Usually, the presenting problem(s) are of low to moderate severity. Physicians typically spend 15 minutes viky-nh-vzoq with the patient and/or family. 06/19/2018 09:55:21 [id number] Eligible clinician attests to documenting in the medical record they obtained, updated, or reviewed the patient's current medications 04/27/2018 11:19:49 65369 Office or other outpatient visit for the evaluation and management of an established patient, which requires at least 2 of these 3 ruiz components: A detailed history; A detailed examination; Medical decision making of moderate complexity. Counseling and/or coordination of care with other providers or agencies are provided consistent with the nature of the problem(s) and the patient's and/or family's n eeds. Usually, the presenting problem(s) are of moderate to high severity. Physicians typically spend 25 minutes qqmc-ih-hkty with the patient and/or family. 04/27/2018 11:19:49 [id number] Eligible clinician attests to documenting in the medical record they obtained, updated, or reviewed the patient's current medications 03/20/2018 09:03:16 G0439 ANNUAL WELLNESS VISIT, SUBSEQUENT 03/20/2018 09:03:16 06688 Collection of venous blood by venipuncture 03/20/2018 09:03:16 46729 Hemoglobin; glycosylated (A1C) by device cleared by FDA for home use 03/20/2018 09:03:16 3044F Most recent hemoglobin A1c (HbA1c) level less than 7.0% (DM) 03/20/2018 09:03:16 3017F Colorectal cancer screening results documented and reviewed (PV) 03/20/2018 09:03:16 1036F Current tobacco non-user (CAD, CAP, COPD, PV) (DM) (IBD) 03/20/2018 09:03:16 [id number] Eligible clinician attests to documenting in the medical record they obtained, updated, or reviewed the patient's current medications 03/20/2018 09:03:16 2022F Dilated retinal eye exam with interpretation by an dockmaster or theatrical rigger documented and reviewed (DM) 03/20/2018 09:03:16 1123F Advance Care Planning discussed and documented advance care plan or surrogate decision maker documented in the medical record (DEM) (ZAC, Pall Cr) 01/16/2018 08:30:09 62245 Office or other outpatient visit for the evaluation and management of an established patient, which requires at least 2 of these 3 ruiz components: An expanded problem focused history; An expanded problem focused examination; Medical decision making of low complexity. Counseling and coordination of care with other providers or agencies are provided consistent with the nature of the problem(s) and the patient's and/or family's needs. Usually, the presenting problem(s) are of low to moderate severity. Physicians typically spend 15 minutes wutc-rx-omqz with the patient and/or family. 01/16/2018 08:30:09 [id number] Eligible clinician attests to documenting in the medical record they obtained, updated, or reviewed the patient's current medications 01/16/2018 08:30:09 1036F Current tobacco non-user (CAD, CAP, COPD, PV) (DM) (IBD) 10/31/2017 09:17:00 10201 Office or other outpatient visit for the evaluation and management of an established patient, which requires at least 2 of these 3 ruiz components: A detailed history; A detailed examination; Medical decision making of moderate complexity. Counseling and/or coordination of care with other providers or agencies are provided consistent with the nature of the problem(s) and the patient's and/or family's n eeds. Usually, the presenting problem(s) are of moderate to high severity. Physicians typically spend 25 minutes aczr-sw-pbgr with the patient and/or family. 10/31/2017 09:17:00 [id number] Eligible clinician attests to documenting in the medical record they obtained, updated, or reviewed the patient's current medications 10/31/2017 09:17:00 1036F Current tobacco non-user (CAD, CAP, COPD, PV) (DM) (IBD) 10/31/2017 09:17:00 2021F Dilated retinal eye exam with interpretation by an dockmaster or theatrical rigger documented and reviewed (DM) 08/29/2017 08:33:05 68319 Office or other outpatient visit for the evaluation and management of an established patient, which requires at least 2 of these 3 ruiz components: A detailed history; A detailed examination; Medical decision making of moderate complexity. Counseling and/or coordination of care with other providers or agencies are provided consistent with the nature of the problem(s) and the patient's and/or family's n eeds. Usually, the presenting problem(s) are of moderate to high severity. Physicians typically spend 25 minutes rsrd-oz-ctnu with the patient and/or family. 07/21/2017 09:22:42 16638 Office or other outpatient visit for the evaluation and management of an established patient, which requires at least 2 of these 3 ruiz components: A detailed history; A detailed examination; Medical decision making of moderate complexity. Counseling and/or coordination of care with other providers or agencies are provided consistent with the nature of the problem(s) and the patient's and/or family's n eeds. Usually, the presenting problem(s) are of moderate to high severity. Physicians typically spend 25 minutes furb-bk-akno with the patient and/or family. 07/21/2017 09:22:42 50263 Hemoglobin; glycosylated (A1C) by device cleared by FDA for home use 07/21/2017 09:22:42 3044F Most recent hemoglobin A1c (HbA1c) level less than 7.0% (DM) 06/27/2017 08:36:35 50654 Office or other outpatient visit for the evaluation and management of an established patient, which requires at least 2 of these 3 ruiz components: A detailed history; A detailed examination; Medical decision making of moderate complexity. Counseling and/or coordination of care with other providers or agencies are provided consistent with the nature of the problem(s) and the patient's and/or family's n eeds. Usually, the presenting problem(s) are of moderate to high severity. Physicians typically spend 25 minutes lhei-qc-lcgk with the patient and/or family. 06/27/2017 08:36:35 1036F Current tobacco non-user (CAD, CAP, COPD, PV) (DM) (IBD) 06/27/2017 08:36:35 [id number] Eligible clinician attests to documenting in the medical record they obtained, updated, or reviewed the patient's current medications 04/28/2017 09:04:31 43847 Office or other outpatient visit for the evaluation and management of an established patient, which requires at least 2 of these 3 ruiz components: A detailed history; A detailed examination; Medical decision making of moderate complexity. Counseling and/or coordination of care with other providers or agencies are provided consistent with the nature of the problem(s) and the patient's and/or family's n eeds. Usually, the presenting problem(s) are of moderate to high severity. Physicians typically spend 25 minutes jzvg-do-xxfx with the patient and/or family. 04/28/2017 09:04:31 1036F Current tobacco non-user (CAD, CAP, COPD, PV) (DM) (IBD) 04/28/2017 09:04:31 3044F Most recent hemoglobin A1c (HbA1c) level less than 7.0% (DM) 04/28/2017 09:04:31 [id number] Eligible clinician attests to documenting in the medical record they obtained, updated, or reviewed the patient's current medications 03/10/2017 14:43:19 3044F Most recent hemoglobin A1c (HbA1c) level less than 7.0% (DM) 02/26/2017 08:57:30 G0439 ANNUAL WELLNESS VISIT, SUBSEQUENT 02/26/2017 08:57:30 1036F Current tobacco non-user (CAD, CAP, COPD, PV) (DM) (IBD) 02/26/2017 08:57:30 [id number] Eligible clinician attests to documenting in the medical record they obtained, updated, or reviewed the patient's current medications 12/25/2016 09:02:26 29479 Office or other outpatient visit for the evaluation and management of an established patient, which requires at least 2 of these 3 ruiz components: An expanded problem focused history; An expanded problem focused examination; Medical decision making of low complexity. Counseling and coordination of care with other providers or agencies are provided consistent with the nature of the problem(s) and the patient's and/or family's needs. Usually, the presenting problem(s) are of low to moderate severity. Physicians typically spend 15 minutes aqxt-rx-ttir with the patient and/or family. 10/09/2016 09:02:56 29828 Office or other outpatient visit for the evaluation and management of an established patient, which requires at least 2 of these 3 ruiz components: An expanded problem focused history; An expanded problem focused examination; Medical decision making of low complexity. Counseling and coordination of care with other providers or agencies are provided consistent with the nature of the problem(s) and the patient's and/or family's needs. Usually, the presenting problem(s) are of low to moderate severity. Physicians typically spend 15 minutes khmf-hg-qvzw with the patient and/or family. 08/28/2016 08:58:27 28248 Office or other outpatient visit for the evaluation and management of an established patient, which requires at least 2 of these 3 ruiz components: An expanded problem focused history; An expanded problem focused examination; Medical decision making of low complexity. Counseling and coordination of care with other providers or agencies are provided consistent with the nature of the problem(s) and the patient's and/or family's needs. Usually, the presenting problem(s) are of low to moderate severity. Physicians typically spend 15 minutes vkbd-sd-ahms with the patient and/or family. 07/17/2016 08:58:45 99971 Office or other outpatient visit for the evaluation and management of an established patient, which requires at least 2 of these 3 ruiz components: A detailed history; A detailed examination; Medical decision making of moderate complexity. Counseling and/or coordination of care with other providers or agencies are provided consistent with the nature of the problem(s) and the patient's and/or family's n eeds. Usually, the presenting problem(s) are of moderate to high severity. Physicians typically spend 25 minutes sfqi-cl-xsed with the patient and/or family. 06/05/2016 09:32:15 47700 Office or other outpatient visit for the evaluation and management of an established patient, which requires at least 2 of these 3 ruiz components: An expanded problem focused history; An expanded problem focused examination; Medical decision making of low complexity. Counseling and coordination of care with other providers or agencies are provided consistent with the nature of the problem(s) and the patient's and/or family's needs. Usually, the presenting problem(s) are of low to moderate severity. Physicians typically spend 15 minutes adqe-le-qcrk with the patient and/or family. 04/24/2016 09:41:36 38925 Office or other outpatient visit for the evaluation and management of an established patient, which requires at least 2 of these 3 ruiz components: An expanded problem focused history; An expanded problem focused examination; Medical decision making of low complexity. Counseling and coordination of care with other providers or agencies are provided consistent with the nature of the problem(s) and the patient's and/or family's needs. Usually, the presenting problem(s) are of low to moderate severity. Physicians typically spend 15 minutes peuw-oy-upab with the patient and/or family. 04/24/2016 09:41:36 65151 Collection of venous blood by venipuncture 03/13/2016 10:04:03 16653 Office or other outpatient visit for the evaluation and management of an established patient, which requires at least 2 of these 3 ruiz components: An expanded problem focused history; An expanded problem focused examination; Medical decision making of low complexity. Counseling and coordination of care with other providers or agencies are provided consistent with the nature of the problem(s) and the patient's and/or family's needs. Usually, the presenting problem(s) are of low to moderate severity. Physicians typically spend 15 minutes iswz-bh-gkfj with the patient and/or family. 03/13/2016 10:04:03 Q2037 FLUVRIN 03/13/2016 10:04:03 G0008 ADMINISTRATION OF FLU VACCINE (V04.81) 03/13/2016 10:04:03 76711 Skin test; tuberculosis, intradermal 01/31/2016 08:59:31 10098 Office or other outpatient visit for the evaluation and management of an established patient, which requires at least 2 of these 3 ruiz components: An expanded problem focused history; An expanded problem focused examination; Medical decision making of low complexity. Counseling and coordination of care with other providers or agencies are provided consistent with the nature of the problem(s) and the patient's and/or family's needs. Usually, the presenting problem(s) are of low to moderate severity. Physicians typically spend 15 minutes thtc-xb-sfet with the patient and/or family. 12/27/2015 09:34:39 43143 Office or other outpatient visit for the evaluation and management of an established patient, which requires at least 2 of these 3 ruiz components: A detailed history; A detailed examination; Medical decision making of moderate complexity. Counseling and/or coordination of care with other providers or agencies are provided consistent with the nature of the problem(s) and the patient's and/or family's n eeds. Usually, the presenting problem(s) are of moderate to high severity. Physicians typically spend 25 minutes hooj-ue-jmxy with the patient and/or family. 11/22/2015 09:35:26 24013 Office or other outpatient visit for the evaluation and management of an established patient, which requires at least 2 of these 3 ruiz components: An expanded problem focused history; An expanded problem focused examination; Medical decision making of low complexity. Counseling and coordination of care with other providers or agencies are provided consistent with the nature of the problem(s) and the patient's and/or family's needs. Usually, the presenting problem(s) are of low to moderate severity. Physicians typically spend 15 minutes uxiz-om-qrun with the patient and/or family. 10/18/2015 09:36:50 08051 Office or other outpatient visit for the evaluation and management of an established patient, which requires at least 2 of these 3 ruiz components: An expanded problem focused history; An expanded problem focused examination; Medical decision making of low complexity. Counseling and coordination of care with other providers or agencies are provided consistent with the nature of the problem(s) and the patient's and/or family's needs. Usually, the presenting problem(s) are of low to moderate severity. Physicians typically spend 15 minutes ldvw-wk-wpdh with the patient and/or family. 09/13/2015 09:28:05 [id number] Office or other outpatient visit for the evaluation and management of an established patient, which requires at least 2 of these 3 ruiz components: A detailed history; A detailed examination; Medical decision making of moderate complexity. Counseling and/or coordination of care with other providers or agencies are provided consistent with the nature of the problem(s) and the patient's and/or family's n eeds. Usually, the presenting problem(s) are of moderate to high severity. Physicians typically spend 25 minutes cvdv-ri-dcfm with the patient and/or family. 08/09/2015 09:28:48 [id number] Office or other outpatient visit for the evaluation and management of an established patient, which requires at least 2 of these 3 ruiz components: An expanded problem focused history; An expanded problem focused examination; Medical decision making of low complexity. Counseling and coordination of care with other providers or agencies are provided consistent with the nature of the problem(s) and the patient's and/or family's needs. Usually, the presenting problem(s) are of low to moderate severity. Physicians typically spend 15 minutes tgep-kx-aggp with the patient and/or family. 07/05/2015 09:26:40 [id number] Office or other outpatient visit for the evaluation and management of an established patient, which requires at least 2 of these 3 ruiz components: An expanded problem focused history; An expanded problem focused examination; Medical decision making of low complexity. Counseling and coordination of care with other providers or agencies are provided consistent with the nature of the problem(s) and the patient's and/or family's needs. Usually, the presenting problem(s) are of low to moderate severity. Physicians typically spend 15 minutes peua-ey-qxio with the patient and/or family. 05/31/2015 09:27:13 [id number] Office or other outpatient visit for the evaluation and management of an established patient, which requires at least 2 of these 3 ruiz components: An expanded problem focused history; An expanded problem focused examination; Medical decision making of low complexity. Counseling and coordination of care with other providers or agencies are provided consistent with the nature of the problem(s) and the patient's and/or family's needs. Usually, the presenting problem(s) are of low to moderate severity. Physicians typically spend 15 minutes vmry-sy-gkhp with the patient and/or family. 05/24/2015 09:31:02 [id number] Office or other outpatient visit for the evaluation and management of an established patient, which requires at least 2 of these 3 ruiz components: An expanded problem focused history; An expanded problem focused examination; Medical decision making of low complexity. Counseling and coordination of care with other providers or agencies are provided consistent with the nature of the problem(s) and the patient's and/or family's needs. Usually, the presenting problem(s) are of low to moderate severity. Physicians typically spend 15 minutes npub-ws-qlyp with the patient and/or family. 05/17/2015 08:45:07 [id number] Office or other outpatient visit for the evaluation and management of an established patient, which requires at least 2 of these 3 ruiz components: An expanded problem focused history; An expanded problem focused examination; Medical decision making of low complexity. Counseling and coordination of care with other providers or agencies are provided consistent with the nature of the problem(s) and the patient's and/or family's needs. Usually, the presenting problem(s) are of low to moderate severity. Physicians typically spend 15 minutes cmzo-bp-szqz with the patient and/or family. 04/26/2015 10:00:01 [id number] Office or other outpatient visit for the evaluation and management of an established patient, which requires at least 2 of these 3 ruiz components: An expanded problem focused history; An expanded problem focused examination; Medical decision making of low complexity. Counseling and coordination of care with other providers or agencies are provided consistent with the nature of the problem(s) and the patient's and/or family's needs. Usually, the presenting problem(s) are of low to moderate severity. Physicians typically spend 15 minutes mrmn-ns-rjza with the patient and/or family. 03/22/2015 10:00:36 91151 Office or other outpatient visit for the evaluation and management of an established patient, which requires at least 2 of these 3 ruiz components: An expanded problem focused history; An expanded problem focused examination; Medical decision making of low complexity. Counseling and coordination of care with other providers or agencies are provided consistent with the nature of the problem(s) and the patient's and/or family's needs. Usually, the presenting problem(s) are of low to moderate severity. Physicians typically spend 15 minutes frmh-qc-qkbl with the patient and/or family. 02/15/2015 10:03:31 [id number] Office or other outpatient visit for the evaluation and management of an established patient, which requires at least 2 of these 3 ruiz components: An expanded problem focused history; An expanded problem focused examination; Medical decision making of low complexity. Counseling and coordination of care with other providers or agencies are provided consistent with the nature of the problem(s) and the patient's and/or family's needs. Usually, the presenting problem(s) are of low to moderate severity. Physicians typically spend 15 minutes pxor-sj-gfef with the patient and/or family. 01/11/2015 10:12:53 [id number] Office or other outpatient visit for the evaluation and management of an established patient, which requires at least 2 of these 3 ruiz components: An expanded problem focused history; An expanded problem focused examination; Medical decision making of low complexity. Counseling and coordination of care with other providers or agencies are provided consistent with the nature of the problem(s) and the patient's and/or family's needs. Usually, the presenting problem(s) are of low to moderate severity. Physicians typically spend 15 minutes okrb-ql-jkzf with the patient and/or family. 12/07/2014 11:25:37 [id number] WELCOME TO MEDICARE " ANNUAL WELLNESS VISIT" 11/02/2014 09:32:01 [id number] Office or other outpatient visit for the evaluation and management of an established patient, which requires at least 2 of these 3 ruiz components: An expanded problem focused history; An expanded problem focused examination; Medical decision making of low complexity. Counseling and coordination of care with other providers or agencies are provided consistent with the nature of the problem(s) and the patient's and/or family's needs. Usually, the presenting problem(s) are of low to moderate severity. Physicians typically spend 15 minutes ydst-nk-lpch with the patient and/or family. 11/02/2014 09:32:01 [id number] Skin test; tuberculosis, intradermal 10/05/2014 09:30:13 [id number] Office or other outpatient visit for the evaluation and management of an established patient, which requires at least 2 of these 3 ruiz components: An expanded problem focused history; An expanded problem focused examination; Medical decision making of low complexity. Counseling and coordination of care with other providers or agencies are provided consistent with the nature of the problem(s) and the patient's and/or family's needs. Usually, the presenting problem(s) are of low to moderate severity. Physicians typically spend 15 minutes vtlz-yj-bsof with the patient and/or family. 10/05/2014 09:30:13 [id number] Collection of venous blood by venipuncture 09/07/2014 09:33:26 [id number] Periodic comprehensive preventive medicine reevaluation and management of an individual including an age and gender appropriate history, examination, counseling/anticipatory guidance/risk factor reduction interventions, and the ordering of laboratory/diagnostic procedures, established patient; 40-64 years 08/10/2014 00:00:00 [id number] Office or other outpatient visit for the evaluation and management of an established patient, which requires at least 2 of these 3 ruiz components: An expanded problem focused history; An expanded problem focused examination; Medical decision making of low complexity. Counseling and coordination of care with other providers or agencies are provided consistent with the nature of the problem(s) and the patient's and/or family's needs. Usually, the presenting problem(s) are of low to moderate severity. Physicians typically spend 15 minutes lomy-kz-lold with the patient and/or family. 07/13/2014 00:00:00 [id number] Office or other outpatient visit for the evaluation and management of an established patient, which requires at least 2 of these 3 ruiz components: An expanded problem focused history; An expanded problem focused examination; Medical decision making of low complexity. Counseling and coordination of care with other providers or agencies are provided consistent with the nature of the problem(s) and the patient's and/or family's needs. Usually, the presenting problem(s) are of low to moderate severity. Physicians typically spend 15 minutes xhbp-pp-jgjm with the patient and/or family. 05/16/2014 00:00:00 [id number] Office or other outpatient visit for the evaluation and management of an established patient, which requires at least 2 of these 3 ruiz components: An expanded problem focused history; An expanded problem focused examination; Medical decision making of low complexity. Counseling and coordination of care with other providers or agencies are provided consistent with the nature of the problem(s) and the patient's and/or family's needs. Usually, the presenting problem(s) are of low to moderate severity. Physicians typically spend 15 minutes skao-eq-snfp with the patient and/or family. 03/25/2014 00:00:00 [id number] Office or other outpatient visit for the evaluation and management of an established patient, which requires at least 2 of these 3 ruiz components: An expanded problem focused history; An expanded problem focused examination; Medical decision making of low complexity. Counseling and coordination of care with other providers or agencies are provided consistent with the nature of the problem(s) and the patient's and/or family's needs. Usually, the presenting problem(s) are of low to moderate severity. Physicians typically spend 15 minutes vqbu-fg-nzfh with the patient and/or family. 01/26/2014 00:00:00 [id number] Collection of venous blood by venipuncture 01/26/2014 00:00:00 [id number] Office or other outpatient visit for the evaluation and management of an established patient, which requires at least 2 of these 3 ruiz components: An expanded problem focused history; An expanded problem focused examination; Medical decision making of low complexity. Counseling and coordination of care with other providers or agencies are provided consistent with the nature of the problem(s) and the patient's and/or family's needs. Usually, the presenting problem(s) are of low to moderate severity. Physicians typically spend 15 minutes rziq-lt-aufl with the patient and/or family. 12/13/2013 00:00:00 21424 Office or other outpatient visit for the evaluation and management of an established patient, which requires at least 2 of these 3 ruiz components: An expanded problem focused history; An expanded problem focused examination; Medical decision making of low complexity. Counseling and coordination of care with other providers or agencies are provided consistent with the nature of the problem(s) and the patient's and/or family's needs. Usually, the presenting problem(s) are of low to moderate severity. Physicians typically spend 15 minutes bpgl-lo-gsuw with the patient and/or family. 12/13/2013 00:00:00 [id number] Skin test; tuberculosis, intradermal 10/18/2013 00:00:00 43012 Office or other outpatient visit for the evaluation and management of an established patient, which requires at least 2 of these 3 ruiz components: An expanded problem focused history; An expanded problem focused examination; Medical decision making of low complexity. Counseling and coordination of care with other providers or agencies are provided consistent with the nature of the problem(s) and the patient's and/or family's needs. Usually, the presenting problem(s) are of low to moderate severity. Physicians typically spend 15 minutes jyhu-gn-yvvu with the patient and/or family. 08/30/2013 00:00:00 [id number] Periodic comprehensive preventive medicine reevaluation and management of an individual including an age and gender appropriate history, examination, counseling/anticipatory guidance/risk factor reduction interventions, and the ordering of laboratory/diagnostic procedures, established patient; 40-64 years 07/02/2013 12:24:29 [id number] Office or other outpatient visit for the evaluation and management of an established patient, which requires at least 2 of these 3 ruiz components: An expanded problem focused history; An expanded problem focused examination; Medical decision making of low complexity. Counseling and coordination of care with other providers or agencies are provided consistent with the nature of the problem(s) and the patient's and/or family's needs. Usually, the presenting problem(s) are of low to moderate severity. Physicians typically spend 15 minutes uoyz-lo-fnty with the patient and/or family. 05/17/2013 10:00:23 [id number] Office or other outpatient visit for the evaluation and management of an established patient, which requires at least 2 of these 3 ruiz components: An expanded problem focused history; An expanded problem focused examination; Medical decision making of low complexity. Counseling and coordination of care with other providers or agencies are provided consistent with the nature of the problem(s) and the patient's and/or family's needs. Usually, the presenting problem(s) are of low to moderate severity. Physicians typically spend 15 minutes skhy-vu-fujh with the patient and/or family. 03/26/2013 12:08:28 62400 Immunization administration (includes percutaneous, intradermal, subcutaneous, or intramuscular injections); one vaccine (single or combination vaccine/toxoid) 03/26/2013 12:08:28 [id number] Office or other outpatient visit for the evaluation and management of an established patient, which requires at least 2 of these 3 ruiz components: An expanded problem focused history; An expanded problem focused examination; Medical decision making of low complexity. Counseling and coordination of care with other providers or agencies are provided consistent with the nature of the problem(s) and the patient's and/or family's needs. Usually, the presenting problem(s) are of low to moderate severity. Physicians typically spend 15 minutes ndjy-ms-shcn with the patient and/or family. 02/08/2013 11:26:02 [id number] Office or other outpatient visit for the evaluation and management of an established patient, which requires at least 2 of these 3 ruiz components: An expanded problem focused history; An expanded problem focused examination; Medical decision making of low complexity. Counseling and coordination of care with other providers or agencies are provided consistent with the nature of the problem(s) and the patient's and/or family's needs. Usually, the presenting problem(s) are of low to moderate severity. Physicians typically spend 15 minutes devw-ik-gmzr with the patient and/or family. 12/14/2012 10:21:27 11134 Office or other outpatient visit for the evaluation and management of an established patient, which requires at least 2 of these 3 ruiz components: An expanded problem focused history; An expanded problem focused examination; Medical decision making of low complexity. Counseling and coordination of care with other providers or agencies are provided consistent with the nature of the problem(s) and the patient's and/or family's needs. Usually, the presenting problem(s) are of low to moderate severity. Physicians typically spend 15 minutes epsw-if-hppg with the patient and/or family. 12/14/2012 10:21:27 81899 Skin test; tuberculosis, intradermal 10/23/2012 09:19:25 [id number] Office or other outpatient visit for the evaluation and management of an established patient, which requires at least 2 of these 3 ruiz components: An expanded problem focused history; An expanded problem focused examination; Medical decision making of low complexity. Counseling and coordination of care with other providers or agencies are provided consistent with the nature of the problem(s) and the patient's and/or family's needs. Usually, the presenting problem(s) are of low to moderate severity. Physicians typically spend 15 minutes xvqn-gn-eyhz with the patient and/or family. 08/24/2012 08:54:45 [id number] Office or other outpatient visit for the evaluation and management of an established patient, which requires at least 2 of these 3 ruiz components: An expanded problem focused history; An expanded problem focused examination; Medical decision making of low complexity. Counseling and coordination of care with other providers or agencies are provided consistent with the nature of the problem(s) and the patient's and/or family's needs. Usually, the presenting problem(s) are of low to moderate severity. Physicians typically spend 15 minutes jjkx-wq-bqzq with the patient and/or family. 06/15/2012 10:51:20 [id number] Office or other outpatient visit for the evaluation and management of an established patient, which requires at least 2 of these 3 ruiz components: An expanded problem focused history; An expanded problem focused examination; Medical decision making of low complexity. Counseling and coordination of care with other providers or agencies are provided consistent with the nature of the problem(s) and the patient's and/or family's needs. Usually, the presenting problem(s) are of low to moderate severity. Physicians typically spend 15 minutes mmld-pn-hily with the patient and/or family. 04/10/2012 12:16:15 [id number] FLUVRIN 04/10/2012 12:16:15 [id number] Immunization administration (includes percutaneous, intradermal, subcutaneous, or intramuscular injections); one vaccine (single or combination vaccine/toxoid) 04/10/2012 12:16:15 [id number] Office or other outpatient visit for the evaluation and management of an established patient, which requires at least 2 of these 3 ruiz components: An expanded problem focused history; An expanded problem focused examination; Medical decision making of low complexity. Counseling and coordination of care with other providers or agencies are provided consistent with the nature of the problem(s) and the patient's and/or family's needs. Usually, the presenting problem(s) are of low to moderate severity. Physicians typically spend 15 minutes hdsx-dj-nnee with the patient and/or family. 02/03/2012 08:29:20 [id number] Office or other outpatient visit for the evaluation and management of an established patient, which requires at least 2 of these 3 ruiz components: An expanded problem focused history; An expanded problem focused examination; Medical decision making of low complexity. Counseling and coordination of care with other providers or agencies are provided consistent with the nature of the problem(s) and the patient's and/or family's needs. Usually, the presenting problem(s) are of low to moderate severity. Physicians typically spend 15 minutes fbxe-sa-qazb with the patient and/or family. 12/11/2011 09:49:25 44631 Skin test; tuberculosis, intradermal 12/11/2011 09:49:25 [id number] Office or other outpatient visit for the evaluation and management of an established patient, which requires at least 2 of these 3 ruiz components: A problem focused history; A problem focused examination; Straightforward medical decision making. Counseling and/or coordination of care with other providers or agencies are provided consistent with the nature of the problem(s) and the patient's and/or f amily's needs. Usually, the presenting problem(s) are self limited or minor. Physicians typically spend 10 minutes vkqj-pf-toog with the patient and/or family. 10/25/2011 12:22:42 [id number] Office or other outpatient visit for the evaluation and management of an established patient, which requires at least 2 of these 3 ruiz components: An expanded problem focused history; An expanded problem focused examination; Medical decision making of low complexity. Counseling and coordination of care with other providers or agencies are provided consistent with the nature of the problem(s) and the patient's and/or family's needs. Usually, the presenting problem(s) are of low to moderate severity. Physicians typically spend 15 minutes vbhv-gl-ptoi with the patient and/or family. 07/24/2011 11:25:11 [id number] Office or other outpatient visit for the evaluation and management of an established patient, which requires at least 2 of these 3 ruiz components: An expanded problem focused history; An expanded problem focused examination; Medical decision making of low complexity. Counseling and coordination of care with other providers or agencies are provided consistent with the nature of the problem(s) and the patient's and/or family's needs. Usually, the presenting problem(s) are of low to moderate severity. Physicians typically spend 15 minutes dmpr-gc-uwtu with the patient and/or family. 01/11/2011 09:55:27 [id number] Office or other outpatient visit for the evaluation and management of an established patient, which requires at least 2 of these 3 ruiz components: An expanded problem focused history; An expanded problem focused examination; Medical decision making of low complexity. Counseling and coordination of care with other providers or agencies are provided consistent with the nature of the problem(s) and the patient's and/or family's needs. Usually, the presenting problem(s) are of low to moderate severity. Physicians typically spend 15 minutes twjx-kc-psln with the patient and/or family. 11/19/2010 11:12:31 [id number] Removal impacted cerumen (separate procedure), 1 or both ears 11/19/2010 11:12:31 [id number] Office or other outpatient visit for the evaluation and management of an established patient, which requires at least 2 of these 3 ruiz components: An expanded problem focused history; An expanded problem focused examination; Medical decision making of low complexity. Counseling and coordination of care with other providers or agencies are provided consistent with the nature of the problem(s) and the patient's and/or family's needs. Usually, the presenting problem(s) are of low to moderate severity. Physicians typically spend 15 minutes nxpe-xm-iajr with the patient and/or family. 09/05/2010 09:43:38 [id number] Skin test; tuberculosis, intradermal 09/03/2010 00:00:00 12138 Office or other outpatient visit for the evaluation and management of an established patient, which requires at least 2 of these 3 ruiz components: A problem focused history; A problem focused examination; Straightforward medical decision making. Counseling and/or coordination of care with other providers or agencies are provided consistent with the nature of the problem(s) and the patient's and/or f amily's needs. Usually, the presenting problem(s) are self limited or minor. Physicians typically spend 10 minutes zppv-pu-ccjk with the patient and/or family. 06/27/2010 00:00:00 [id number] Office or other outpatient visit for the evaluation and management of an established patient, which requires at least 2 of these 3 ruiz components: A detailed history; A detailed examination; Medical decision making of moderate complexity. Counseling and/or coordination of care with other providers or agencies are provided consistent with the nature of the problem(s) and the patient's and/or family's n eeds. Usually, the presenting problem(s) are of moderate to high severity. Physicians typically spend 25 minutes gpxz-qs-mbxg with the patient and/or family. 03/28/2010 00:00:00 [id number] Office or other outpatient visit for the evaluation and management of an established patient, which requires at least 2 of these 3 ruiz components: A detailed history; A detailed examination; Medical decision making of moderate complexity. Counseling and/or coordination of care with other providers or agencies are provided consistent with the nature of the problem(s) and the patient's and/or family's n eeds. Usually, the presenting problem(s) are of moderate to high severity. Physicians typically spend 25 minutes [id number] with the patient and/or family. 03/28/2010 00:00:00 [id number] Collection of venous blood by venipuncture 01/10/2010 00:00:00 [id number] Office or other outpatient visit for the evaluation and management of an established patient, which requires at least 2 of these 3 ruiz components: An expanded problem focused history; An expanded problem focused examination; Medical decision making of low complexity. Counseling and coordination of care with other providers or agencies are provided consistent with the nature of the problem(s) and the patient's and/or family's needs. Usually, the presenting problem(s) are of low to moderate severity. Physicians typically spend 15 minutes [id number] with the patient and/or family. 11/10/2009 00:00:00 [id number] Office or other outpatient visit for the evaluation and management of an established patient, which requires at least 2 of these 3 ruiz components: An expanded problem focused history; An expanded problem focused examination; Medical decision making of low complexity. Counseling and coordination of care with other providers or agencies are provided consistent with the nature of the problem(s) and the patient's and/or family's needs. Usually, the presenting problem(s) are of low to moderate severity. Physicians typically spend 15 minutes [id number] with the patient and/or family. 09/11/2009 00:00:00 [id number] Collection of venous blood by venipuncture 09/11/2009 00:00:00 [id number] Office or other outpatient visit for the evaluation and management of an established patient, which requires at least 2 of these 3 ruiz components: An expanded problem focused history; An expanded problem focused examination; Medical decision making of low complexity. Counseling and coordination of care with other providers or agencies are provided consistent with the nature of the problem(s) and the patient's and/or family's needs. Usually, the presenting problem(s) are of low to moderate severity. Physicians typically spend 15 minutes onau-[id number] with the patient and/or family. 07/12/2009 00:00:00 [id number] ADMINISTRATION OF TH H1N1 VACCINE 07/12/2009 00:00:00 [id number] Office or other outpatient visit for the evaluation and management of an established patient, which requires at least 2 of these 3 ruiz components: An expanded problem focused history; An expanded problem focused examination; Medical decision making of low complexity. Counseling and coordination of care with other providers or agencies are provided consistent with the nature of the problem(s) and the patient's and/or family's needs. Usually, the presenting problem(s) are of low to moderate severity. Physicians typically spend 15 minutes acbl-[id number] with the patient and/or family. 04/14/2009 00:00:00 [id number] Office or other outpatient visit for the evaluation and management of an established patient, which requires at least 2 of these 3 ruiz components: An expanded problem focused history; An expanded problem focused examination; Medical decision making of low complexity. Counseling and coordination of care with other providers or agencies are provided consistent with the nature of the problem(s) and the patient's and/or family's needs. Usually, the presenting problem(s) are of low to moderate severity. Physicians typically spend 15 minutes [id number] with the patient and/or family. 12/16/2008 00:00:00 [id number] Office or other outpatient visit for the evaluation and management of an established patient, which requires at least 2 of these 3 ruiz components: An expanded problem focused history; An expanded problem focused examination; Medical decision making of low complexity. Counseling and coordination of care with other providers or agencies are provided consistent with the nature of the problem(s) and the patient's and/or family's needs. Usually, the presenting problem(s) are of low to moderate severity. Physicians typically spend 15 minutes [id number]-[id number] with the patient and/or family. 10/24/2008 00:00:00 05813 Office or other outpatient visit for the evaluation and management of an established patient, which requires at least 2 of these 3 ruiz components: An expanded problem focused history; An expanded problem focused examination; Medical decision making of low complexity. Counseling and coordination of care with other providers or agencies are provided consistent with the nature of the problem(s) and the patient's and/or family's needs. Usually, the presenting problem(s) are of low to moderate severity. Physicians typically spend 15 minutes [id number] with the patient and/or family. 10/24/2008 00:00:00 [id number] Collection of venous blood by venipuncture REASON FOR REFERRAL No Reason for Referral information available. RESULTS Result Type Result Value Relevant Reference Range Interpretation Date HGBA1C 6.8 % 4.5-6.2 H 04/26/2019 10:59:00 ESTIMATED AVERAGE GLUCOSE 148.5 mg/dL -- No Flag 04/26/2019 10:59:00 PSA 0.78 ng/mL 0.0-4.0 No Flag 04/26/2019 10:55:00 CHOLESTEROL 141 mg/dL 0- 200 No Flag 04/26/2019 10:40:00 TRIGLYCERIDES 123 mg/dL 0-150 No Flag 04/26/2019 10:40:00 LDL CHOLESTEROL 79 mg/dL 0-100 No Flag 04/26/2019 10:40:00 HDL CHOLESTEROL 37 mg/dL 40-60 L 04/26/2019 10:40:00 CHOL/HDL RATIO 3.8 0.0- 5.0 No Flag 04/26/2019 10:40:00 WHITE BLOOD COUNT 6.5 K/mm3 4.0-10.0 No Flag 04/26/2019 10:11:00 RED BLOOD COUNT 5.18 M/mm3 4.50-6.00 No Flag 04/26/2019 10:11:00 HEMOGLOBIN 15.8 gm/dL 14 .0-18.0 No Flag 04/26/2019 10:11:00 HEMATOCRIT 46.5 % 42.0-5 4.0 No Flag 04/26/2019 10:11:00 MEAN CELL VOLUME 89.8 fl 80-96 No Flag 04/26/2019 10:11:00 MEAN CORPUSCULAR HEMOGLOB 30.5 pg 27.0-31.0 No Flag 04/26/2019 10:11:00 MEAN CORPUSCULAR HGB CONC 34.0 g/dl 32.0- 36.0 No Flag 04/26/2019 10:11:00 RED CELL DISTRIBUTION WID 12.0 % 10.0-14.5 No Flag 04/26/2019 10:11:00 PLATELET COUNT 236 K/mm3 172-450 No Flag 04/26/2019 10:11:00 MEAN PLATELET VOLUME 9.8 fl 9.0-13.0 No Flag 04/26/2019 10:11:00 GRAN % 57.7 % 50-80.0 No Flag 04/26/2019 10:11:00 IG% 0.2 % 0.0-0.2 No Flag 04/26/2019 10:11:00 LYMPH % 27.5 % 25.0-50.0 No Flag 04/26/2019 10:11:00 MONO % 10.0 % 2.0-10.0 No Flag 04/26/2019 10:11:00 EOS % 4.0 % 0-5.0 No Flag 04/26/2019 10:11:00 BASO % 0.6 % 0.0-2.0 No Flag 04/26/2019 10:11:00 GRAN # 3.7 K/mm3 2.0-8.00 No Flag 04/26/2019 10:11:00 IG# 0.0 K/mm3 0.0-0.2 No Flag 04/26/2019 10:11:00 LYMPH # 1.8 K/mm3 1.0-5.0 No Flag 04/26/2019 10:11:00 MONO # 0.7 K/mm3 0.10-1. 20 No Flag 04/26/2019 10:11:00 EOS # 0.3 K/mm3 0.0-0.5 No Flag 04/26/2019 10:11:00 BASO # 0.0 K/mm3 0.0-0.2 No Flag 04/26/2019 10:11:00 GLOMERULAR FILTRATION RATE > 60.0 >49 No Flag 03/20/2018 18:31:00 GLUCOSE, FASTING 126 MG/DL 70-100 H 03/20/2018 18:31:00 BLOOD UREA NITROGEN 15 MG/DL 7-18 No Flag 03/20/2018 18:31:00 CREATININE FOR GFR 0.99 MG/DL 0.70-1.30 No Flag 03/20/2018 18:31:00 SODIUM LEVEL 142 MEQ/L 1 36-145 No Flag 03/20/2018 18:31:00 POTASSIUM SERUM 4.2 MEQ/L 3.5-5.1 No Flag 03/20/2018 18:31:00 CHLORIDE LEVEL 107 MEQ/L 98-107 No Flag 03/20/2018 18:31:00 CARBON DIOXIDE LEVEL 24 MEQ/L 21-32 No Flag 03/20/2018 18:31:00 ANION GAP 11 MEQ/L 8-16 No Flag 03/20/2018 18:31:00 CALCIUM LEVEL 8.9 MG/DL 8.8-10.2 No Flag 03/20/2018 18:31:00 AST/SGOT 12 U/L 7-37 No Flag 03/20/2018 18:31:00 ALT/SGPT 23 U/L 12-78 No Flag 03/20/2018 18:31:00 ALKALINE PHOSPHATASE 97 U/L 45-117 No Flag 03/20/2018 18:31:00 BILIRUBIN,TOTAL 1.1 MG/DL 0.2-1.0 H 03/20/2018 18:31:00 TOTAL PROTEIN 7.2 GM/DL 6.4-8.2 No Flag 03/20/2018 18:31:00 ALBUMIN 3.9 GM/DL 3.2-5.2 No Flag 03/20/2018 18:31:00 ALBUMIN/GLOBULIN RATIO 1.18 1.00-1.93 No Flag 03/20/2018 18:31:00 TRIGLYCERIDES LEVEL 135 MG/DL <150 No Flag 03/20/2018 18:31:00 CHOLESTEROL LEVEL 163 MG/DL <200 No Flag 03/20/2018 18:31:00 HDL CHOLESTEROL 47 MG/DL >40 No Flag 03/20/2018 18:31:00 LDL CHOLESTEROL 89 MG/DL <100 No Flag 03/20/2018 18:31:00 NON-HDL-C 116 MG/DL -- No Flag 03/20/2018 18:31:00 CHOLESTEROL RISK RATIO 3.468 <5 No Flag 03/20/2018 18:31:00 WHITE BLOOD COUNT 8.5 10 3/uL 4.0-10.0 No Flag 03/20/2018 18:13:00 RED BLOOD COUNT 5.42 10 6/uL 4.30-6.10 No Flag 03/20/2018 18:13:00 HEMOGLOBIN 16.7 g/dl 13. 5-17.5 No Flag 03/20/2018 18:13:00 HEMATOCRIT 50.1 % 42.0-5 2.0 No Flag 03/20/2018 18:13:00 MEAN CORPUSCULAR VOLUME 92.4 fl 80.0-96.0 No Flag 03/20/2018 18:13:00 MEAN CORPUSCULAR HEMOGLOBIN 30.8 pg 27.0- 33.0 No Flag 03/20/2018 18:13:00 MEAN CORPUSCULAR HGB CONC 33.3 g/dl 32.0- 36.5 No Flag 03/20/2018 18:13:00 RED CELL DISTRIBUTION WIDTH 12.8 % 11.5-14.5 No Flag 03/20/2018 18:13:00 PLATELET COUNT, AUTOMATED 251 10 3/uL 150- 450 No Flag 03/20/2018 18:13:00 NUCLEATED RED BLOOD CELL % 0.0 % 0-0 No Flag 03/20/2018 18:13:00 NEUTROPHILS % 68.3 % 36. 0-66.0 H 03/20/2018 18:13:00 LYMPH % 21.3 % 24.0-44.0 L 03/20/2018 18:13:00 MONO % 8.9 % 0.0-5.0 H 03/20/2018 18:13:00 EOS % 0.7 % 0.0-3.0 No Flag 03/20/2018 18:13:00 BASO % 0.4 % 0.0-1.0 No Flag 03/20/2018 18:13:00 IMMATURE GRANULOCYTE % 0.4 % 0-3.0 No Flag 03/20/2018 18:13:00 NEUTROPHILS # 5.8 10 3/uL 1.8-7.7 No Flag 03/20/2018 18:13:00 LYMPH # 1.8 10 3/uL 1.5- 4.5 No Flag 03/20/2018 18:13:00 MONO # 0.8 10 3/uL 0.0-0 .8 No Flag 03/20/2018 18:13:00 EOS # 0.1 10 3/uL 0.0-0. 50 No Flag 03/20/2018 18:13:00 BASO # 0.0 10 3/uL 0.0-0 .2 No Flag 03/20/2018 18:13:00 IMMATURE GRANULOCYTE # 0.0 10 3/uL 0-0 No Flag 03/20/2018 18:13:00 AST 23 U/L 15-37 No Flag 08/16/2017 09:09:00 ALT 48 U/L 12-78 No Flag 08/16/2017 09:09:00 ALKALINE PHOSPHATASE 103 U/L 20-150 No Flag 08/16/2017 09:09:00 TOTAL BILIRUBIN 0.6 mg/dL 0.2-1.0 No Flag 08/16/2017 09:09:00 DIRECT BILIRUBIN 0.16 mg/dL 0-0.2 No Flag 08/16/2017 09:09:00 TOTAL PROTEIN 6.5 g/dl 6 .4-8.2 No Flag 08/16/2017 09:09:00 ALBUMIN 3.7 gm/dL 3.4-5.0 No Flag 08/16/2017 09:09:00 C REACTIVE PROTEIN 1.9 mg/L 0.0-5.0 No Flag 07/21/2017 10:13:00 WHITE BLOOD COUNT 8.2 K/mm3 4.0-10.0 No Flag 07/21/2017 09:22:00 RED BLOOD COUNT 5.59 M/mm3 4.50-6.00 No Flag 07/21/2017 09:22:00 HEMOGLOBIN 16.9 gm/dL 14 .0-18.0 No Flag 07/21/2017 09:22:00 HEMATOCRIT 49.9 % 42.0-5 4.0 No Flag 07/21/2017 09:22:00 MEAN CELL VOLUME 89.3 fl 80-96 No Flag 07/21/2017 09:22:00 MEAN CORPUSCULAR HEMOGLOB 30.2 pg 27.0-31.0 No Flag 07/21/2017 09:22:00 MEAN CORPUSCULAR HGB CONC 33.9 g/dl 32.0- 36.0 No Flag 07/21/2017 09:22:00 RED CELL DISTRIBUTION WID 12.7 % 10.0-14.5 No Flag 07/21/2017 09:22:00 PLATELET COUNT 335 K/mm3 172-450 No Flag 07/21/2017 09:22:00 MEAN PLATELET VOLUME 9.6 fl 9.0-13.0 No Flag 07/21/2017 09:22:00 GRAN % 63.9 % 50-80.0 No Flag 07/21/2017 09:22:00 LYMPH % 23.5 % 25.0-50.0 L 07/21/2017 09:22:00 MONO % 10.7 % 2.0-10.0 H 07/21/2017 09:22:00 EOS % 1.5 % 0-5.0 No Flag 07/21/2017 09:22:00 BASO % 0.4 % 0.0-2.0 No Flag 07/21/2017 09:22:00 GRAN # 5.2 2.0-8.00 No Flag 07/21/2017 09:22:00 LYMPH # 1.9 1.0-5.0 No Flag 07/21/2017 09:22:00 MONO # 0.9 0.10-1.20 No Flag 07/21/2017 09:22:00 EOS # 0.1 0.0-0.5 No Flag 07/21/2017 09:22:00 BASO # 0.0 K/mm3 0.0-0.2 No Flag 07/21/2017 09:22:00 WHITE BLOOD COUNT 8.2 K/mm3 4.0-10.0 No Flag 07/21/2017 09:22:00 RED BLOOD COUNT 5.59 M/mm3 4.50-6.00 No Flag 07/21/2017 09:22:00 HEMOGLOBIN 16.9 gm/dL 14 .0-18.0 No Flag 07/21/2017 09:22:00 HEMATOCRIT 49.9 % 42.0-5 4.0 No Flag 07/21/2017 09:22:00 MEAN CELL VOLUME 89.3 fl 80-96 No Flag 07/21/2017 09:22:00 MEAN CORPUSCULAR HEMOGLOB 30.2 pg 27.0-31.0 No Flag 07/21/2017 09:22:00 MEAN CORPUSCULAR HGB CONC 33.9 g/dl 32.0- 36.0 No Flag 07/21/2017 09:22:00 RED CELL DISTRIBUTION WID 12.7 % 10.0-14.5 No Flag 07/21/2017 09:22:00 PLATELET COUNT 335 K/mm3 172-450 No Flag 07/21/2017 09:22:00 MEAN PLATELET VOLUME 9.6 fl 9.0-13.0 No Flag 07/21/2017 09:22:00 GRAN % 63.9 % 50-80.0 No Flag 07/21/2017 09:22:00 LYMPH % 23.5 % 25.0-50.0 L 07/21/2017 09:22:00 MONO % 10.7 % 2.0-10.0 H 07/21/2017 09:22:00 EOS % 1.5 % 0-5.0 No Flag 07/21/2017 09:22:00 BASO % 0.4 % 0.0-2.0 No Flag 07/21/2017 09:22:00 GRAN # 5.2 2.0-8.00 No Flag 07/21/2017 09:22:00 LYMPH # 1.9 1.0-5.0 No Flag 07/21/2017 09:22:00 MONO # 0.9 0.10-1.20 No Flag 07/21/2017 09:22:00 EOS # 0.1 0.0-0.5 No Flag 07/21/2017 09:22:00 BASO # 0.0 K/mm3 0.0-0.2 No Flag 07/21/2017 09:22:00 GLOMERULAR FILTRATION RAT 67 mL/min -- No Flag 06/12/2017 09:07:00 GLUCOSE 125 mg/dL 74-106 H 06/12/2017 09:07:00 BLOOD UREA NITROGEN 11 mg/dL 7-18 No Flag 06/12/2017 09:07:00 CREATININE 1.1 mg/dL 0.7 -1.3 No Flag 06/12/2017 09:07:00 SODIUM 144 mmol/L 136-145 No Flag 06/12/2017 09:07:00 POTASSIUM 4.3 mmol/L 3.5 -5.1 No Flag 06/12/2017 09:07:00 CHLORIDE 105 mmol/L 98-1 07 No Flag 06/12/2017 09:07:00 CO2 32 mmol/L 23-34 No Flag 06/12/2017 09:07:00 CALCIUM 9.0 mg/dL 8.5-10 .1 No Flag 06/12/2017 09:07:00 ANION GAP 7.0 mmol/L 5-12 No Flag 06/12/2017 09:07:00 URINE MICROALBUMIN 16.3 mg/L 1.3-20.0 No Flag 06/12/2017 09:00:00 URINE CREATININE 228.9 mg/dL -- No Flag 06/12/2017 09:00:00 MICROALBUMIN/CREATININE R 7 ug/mg -- No Flag 06/12/2017 09:00:00 PSA 1.25 ng/mL 0.0-4.0 No Flag 03/10/2017 10:40:00 CHOLESTEROL 145 mg/dL 0- 200 No Flag 03/10/2017 10:24:00 TRIGLYCERIDES 119 mg/dL 0-150 No Flag 03/10/2017 10:24:00 LDL CHOLESTEROL 81 mg/dL 0-100 No Flag 03/10/2017 10:24:00 HDL CHOLESTEROL 40 mg/dL >40 No Flag 03/10/2017 10:24:00 CHOL/HDL RATIO 3.6 0.0- 5.0 No Flag 03/10/2017 10:24:00 HGBA1C 6.5 % 4.5-6.2 H 03/10/2017 10:04:00 ESTIMATED AVERAGE GLUCOSE 139.9 mg/dL -- No Flag 03/10/2017 10:04:00 WHITE BLOOD COUNT 7.2 K/mm3 4.0-10.0 No Flag 03/10/2017 09:47:00 RED BLOOD COUNT 5.00 M/mm3 4.50-6.00 No Flag 03/10/2017 09:47:00 HEMOGLOBIN 15.5 gm/dL 14 .0-18.0 No Flag 03/10/2017 09:47:00 HEMATOCRIT 45.6 % 42.0-5 4.0 No Flag 03/10/2017 09:47:00 MEAN CELL VOLUME 91.2 fl 80-96 No Flag 03/10/2017 09:47:00 MEAN CORPUSCULAR HEMOGLOB 31.0 pg 27.0-31.0 No [facility] 03/10/2017 09:47:00 MEAN CORPUSCULAR HGB CONC 34.0 g/dl 32.0- 36.0 No [facility] 03/10/2017 09:47:00 RED CELL DISTRIBUTION WID 13.1 % 10.0-14.5 No [facility] 03/10/2017 09:47:00 PLATELET COUNT 279 K/mm3 172-450 No [facility] 03/10/2017 09:47:00 MEAN PLATELET VOLUME 9.6 fl 9.0-13.0 No [facility] 03/10/2017 09:47:00 GRAN % 57.0 % 50-80.0 No [facility] 03/10/2017 09:47:00 LYMPH % 28.8 % 25.0-50.0 No [facility] 03/10/2017 09:47:00 MONO % 10.4 % 2.0-10.0 H 03/10/2017 09:47:00 EOS % 3.1 % 0-5.0 No [facility] 03/10/2017 09:47:00 BASO % 0.7 % 0.0-2.0 No [facility] 03/10/2017 09:47:00 GRAN # 4.1 2.0-8.00 No [facility] 03/10/2017 09:47:00 LYMPH # 2.1 1.0-5.0 No [facility] 03/10/2017 09:47:00 MONO # 0.8 0.10-1.20 No [facility] 03/10/2017 09:47:00 EOS # 0.2 0.0-0.5 No [facility] 03/10/2017 09:47:00 BASO # 0.1 K/mm3 0.0-0.2 No [facility] 03/10/2017 09:47:00 CREATININE 1.1 mg/dL 0.6 -1.3 No [facility] 09/09/2016 11:36:00 ALT 35 U/L 12-78 No [facility] 09/09/2016 11:36:00 WHITE BLOOD COUNT 8.7 K/mm3 4.0-10.0 No [facility] 09/09/2016 10:54:00 RED BLOOD COUNT 5.25 M/mm3 4.50-6.00 No [facility] 09/09/2016 10:54:00 HEMOGLOBIN 16.0 gm/dL 14 .0-18.0 No [facility] 09/09/2016 10:54:00 HEMATOCRIT 47.7 % 42.0-5 4.0 No Flag 09/09/2016 10:54:00 MEAN CELL VOLUME 90.9 fl 80-96 No Flag 09/09/2016 10:54:00 MEAN CORPUSCULAR HEMOGLOB 30.5 pg 27.0-31.0 No Flag 09/09/2016 10:54:00 MEAN CORPUSCULAR HGB CONC 33.5 g/dl 32.0- 36.0 No Flag 09/09/2016 10:54:00 RED CELL DISTRIBUTION WID 12.6 % 10.0-14.5 No Flag 09/09/2016 10:54:00 PLATELET COUNT 241 K/mm3 172-450 No Flag 09/09/2016 10:54:00 MEAN PLATELET VOLUME 9.7 fl 9.0-13.0 No Flag 09/09/2016 10:54:00 GRAN % 51.3 % 50-80.0 No Flag 09/09/2016 10:54:00 LYMPH % 32.6 % 25.0-50.0 No Flag 09/09/2016 10:54:00 MONO % 9.7 % 2.0-10.0 No Flag 09/09/2016 10:54:00 EOS % 5.5 % 0-5.0 H 09/09/2016 10:54:00 BASO % 0.9 % 0.0-2.0 No Flag 09/09/2016 10:54:00 GRAN # 4.5 2.0-8.00 No Flag 09/09/2016 10:54:00 LYMPH # 2.8 1.0-5.0 No Flag 09/09/2016 10:54:00 MONO # 0.8 0.10-1.20 No Flag 09/09/2016 10:54:00 EOS # 0.5 0.0-0.5 No Flag 09/09/2016 10:54:00 BASO # 0.1 K/mm3 0.0-0.2 No Flag 09/09/2016 10:54:00 GLOMERULAR FILTRATION RATE > 60.0 >49 No Flag 04/24/2016 17:15:00 GLUCOSE, FASTING 118 MG/DL 80-110 H 04/24/2016 17:15:00 BLOOD UREA NITROGEN 12 MG/DL 7-18 No Flag 04/24/2016 17:15:00 CREATININE FOR GFR 1.08 MG/DL 0.70-1.30 No Flag 04/24/2016 17:15:00 SODIUM LEVEL 140 MEQ/L 1 36-145 No Flag 04/24/2016 17:15:00 POTASSIUM SERUM 4.7 MEQ/L 3.5-5.1 No Flag 04/24/2016 17:15:00 CHLORIDE LEVEL 103 MEQ/L 98-107 No Flag 04/24/2016 17:15:00 CARBON DIOXIDE LEVEL 30 MEQ/L 21-32 No Flag 04/24/2016 17:15:00 ANION GAP 7 MEQ/L 8-16 L 04/24/2016 17:15:00 CALCIUM LEVEL 9.1 MG/DL 8.8-10.2 No Flag 04/24/2016 17:15:00 AST/SGOT 21 U/L 15-37 No Flag 04/24/2016 17:15:00 ALT/SGPT 46 U/L 12-78 No Flag 04/24/2016 17:15:00 ALKALINE PHOSPHATASE 107 U/L 45-117 No Flag 04/24/2016 17:15:00 BILIRUBIN,TOTAL 1.1 MG/DL 0.2-1.0 H 04/24/2016 17:15:00 TOTAL PROTEIN 7.7 GM/DL 6.4-8.2 No Flag 04/24/2016 17:15:00 ALBUMIN 4.2 GM/DL 3.2-5.2 No Flag 04/24/2016 17:15:00 ALBUMIN/GLOBULIN RATIO 1.20 1.00-1.93 No Flag 04/24/2016 17:15:00 TRIGLYCERIDES LEVEL 181 MG/DL <150 H 04/24/2016 17:15:00 CHOLESTEROL LEVEL 169 MG/DL <200 No Flag 04/24/2016 17:15:00 HDL CHOLESTEROL 45 MG/DL >40 No Flag 04/24/2016 17:15:00 LDL CHOLESTEROL 87.8 MG/DL <100 No Flag 04/24/2016 17:15:00 NON-HDL-C 124 MG/DL -- No Flag 04/24/2016 17:15:00 CHOLESTEROL RISK RATIO 3.755 <5 No Flag 04/24/2016 17:15:00 PROSTATIC SPECIFIC AG MONITOR 0.98 NG/ML < 4.0 No Flag 04/24/2016 17:15:00 N/A Service Date and Time: // Technologist: Exam Requested: Reason for Patient Visit: MOUTH & EPIGASTRIC BURNING Reason for Exam: Patient Name: Althea Rivas Procedure Date: 03/26/2016 1:53 PM Date of : 1950 Age: 65 Room: [facility] Gender: Male Note Status: Finalized Procedure: Upper GI endoscopy Indications: Burning sensation of mouth and throat Providers: Sloan Curiel MD Referring MD: Amparo Pérez DO Requesting Provider: Medicines: Monitored Anesthesia Care Complications: No immediate complications. Procedure: Pre-Anesthesia Assessment: - Prior to the procedure, a History and Physical was performed, and patient medications and allergies were reviewed. The patient is competent. The risks and benefits of the procedure and the sedation options and risks were discussed with the patient. All questions were answered and informed consent was obtained. Patient identification and proposed procedure were verified by the physician, the nurse and the double needle operator in the procedure room. Mental Status Examination: alert and oriented. Airway Examination: normal oropharyngeal airway and neck mobility. CV Examination: regular rate and rhythm. Prophylactic Antibiotics: The patient does not require prophylactic antibiotics. Prior Anticoagulants: The patient has taken no previous anticoagulant or antiplatelet agents. ASA Grade Assessment: II - A patient with mild systemic disease. After reviewing the risks and benefits, the patient was deemed in satisfactory condition to undergo the procedure. The anesthesia plan was to use monitored anesthesia care (MAC). Immediately prior to administration of medications, the patient was re-assessed for adequacy to receive sedatives. The heart rate, respiratory rate, oxygen saturations, blood pressure, adequacy of pulmonary ventilation, and response to care were monitored throughout the procedure. The physical status of the patient was re-assessed after the procedure. The Endoscope was introduced through the mouth, and advanced to the second part of duodenum. The upper GI endoscopy was accomplished without difficulty. The patient tolerated the procedure well. Findings: The examined esophagus was normal. Biopsies were taken with a cold forceps for histology from the distal esophagus.. A 2 cm hiatus hernia was present. The entire examined stomach was normal. Biopsies were taken with a cold forceps for Helicobacter pylori testing. Biopsies were taken from the prepyloric stomach and the 1st portion of the duodenum. The first part of the duodenum and 2nd part of the duodenum were normal. Impression: - Normal esophagus. Biopsied. - 2 cm hiatus hernia. - Normal stomach. Biopsied. - Normal first part of the duodenum and 2nd part of the duodenum. Recommendation: - Await pathology results. - Telephone endoscopist for pathology results in 10 days. Sloan Curiel MD 03/26/2016 4:24:25 PM Number of Addenda: 0 Note Initiated On: 03/26/2016 1:53 PM Estimated Blood Loss: Estimated blood loss was minimal. DD: MARTHA 03/26/2016 1353 DT: CAMERON 03/26/2016 1353 DS: MARTHA 03/26/2016 1624 N/A N/A 03/26/2016 13:53:00 CREATININE 1.1 mg/dL 0.6 -1.3 No Flag 12/11/2015 08:36:00 ALT 41 U/L 12-78 No Flag 12/11/2015 08:36:00 WHITE BLOOD COUNT 8.1 K/mm3 4.0-10.0 No Flag 12/11/2015 07:56:00 RED BLOOD COUNT 5.30 M/mm3 4.50-6.00 No Flag 12/11/2015 07:56:00 HEMOGLOBIN 16.7 gm/dL 14 .0-18.0 No Flag 12/11/2015 07:56:00 HEMATOCRIT 49.4 % 42.0-5 4.0 No Flag 12/11/2015 07:56:00 MEAN CELL VOLUME 93.2 fl 80-96 No Flag 12/11/2015 07:56:00 MEAN CORPUSCULAR HEMOGLOB 31.5 pg 27.0-31.0 H 12/11/2015 07:56:00 MEAN CORPUSCULAR HGB CONC 33.8 g/dl 32.0- 36.0 No Flag 12/11/2015 07:56:00 RED CELL DISTRIBUTION WID 12.8 % 10.0-14.5 No Flag 12/11/2015 07:56:00 PLATELET COUNT 261 K/mm3 172-450 No Flag 12/11/2015 07:56:00 MEAN PLATELET VOLUME 9.9 fl 9.0-13.0 No Flag 12/11/2015 07:56:00 GRAN % 60.9 % 50-80.0 No Flag 12/11/2015 07:56:00 LYMPH % 25.8 % 25.0-50.0 No Flag 12/11/2015 07:56:00 MONO % 9.9 % 2.0-10.0 No Flag 12/11/2015 07:56:00 EOS % 2.9 % 0-5.0 No Flag 12/11/2015 07:56:00 BASO % 0.5 % 0.0-2.0 No Flag 12/11/2015 07:56:00 GRAN # 4.9 2.0-8.00 No Flag 12/11/2015 07:56:00 LYMPH # 2.1 1.0-5.0 No Flag 12/11/2015 07:56:00 MONO # 0.8 0.10-1.20 No Flag 12/11/2015 07:56:00 EOS # 0.2 0.0-0.5 No Flag 12/11/2015 07:56:00 BASO # 0.0 K/mm3 0.0-0.2 No Flag 12/11/2015 07:56:00 C REACTIVE PROTEIN < 0.5 mg/L 0.0-5.0 No Flag 09/06/2015 10:09:00 WHITE BLOOD COUNT 8.6 K/mm3 4.0-10.0 No Flag 07/26/2015 10:48:00 RED BLOOD COUNT 5.35 M/mm3 4.50-6.00 No Flag 07/26/2015 10:48:00 HEMOGLOBIN 16.5 gm/dL 14 .0-18.0 No Flag 07/26/2015 10:48:00 HEMATOCRIT 49.1 % 42.0-5 4.0 No Flag 07/26/2015 10:48:00 MEAN CELL VOLUME 91.8 fl 80-96 No Flag 07/26/2015 10:48:00 MEAN CORPUSCULAR HEMOGLOB 30.8 pg 27.0-31.0 No Flag 07/26/2015 10:48:00 MEAN CORPUSCULAR HGB CONC 33.6 g/dl 32.0- 36.0 No Flag 07/26/2015 10:48:00 RED CELL DISTRIBUTION WID 12.8 % 10.0-14.5 No Flag 07/26/2015 10:48:00 PLATELET COUNT 267 K/mm3 172-450 No Flag 07/26/2015 10:48:00 MEAN PLATELET VOLUME 9.8 fl 9.0-13.0 No Flag 07/26/2015 10:48:00 GRAN % 53.1 % 50-80.0 No Flag 07/26/2015 10:48:00 LYMPH % 33.2 % 25.0-50.0 No Flag 07/26/2015 10:48:00 MONO % 10.0 % 2.0-10.0 No Flag 07/26/2015 10:48:00 EOS % 3.1 % 0-5.0 No Flag 07/26/2015 10:48:00 BASO % 0.6 % 0.0-2.0 No Flag 07/26/2015 10:48:00 GRAN # 4.6 2.0-8.00 No Flag 07/26/2015 10:48:00 LYMPH # 2.9 1.0-5.0 No Flag 07/26/2015 10:48:00 MONO # 0.9 0.10-1.20 No Flag 07/26/2015 10:48:00 EOS # 0.3 0.0-0.5 No Flag 07/26/2015 10:48:00 BASO # 0.1 K/mm3 0.0-0.2 No Flag 07/26/2015 10:48:00 PSA 1.0 ng/mL 0.0-4.0 No Flag 02/15/2015 11:31:00 CHOLESTEROL 153 mg/dL 0- 200 No Flag 02/13/2015 13:22:00 TRIGLYCERIDES 120 mg/dL 0-150 No Flag 02/13/2015 13:22:00 LDL CHOLESTEROL 91 mg/dL 0-100 No Flag 02/13/2015 13:22:00 HDL CHOLESTEROL 38 mg/dL >40 L 02/13/2015 13:22:00 CHOL/HDL RATIO 4.0 0.0- 5.0 No Flag 02/13/2015 13:22:00 WHITE BLOOD COUNT 6.8 K/mm3 4.0-10.0 No Flag 02/13/2015 12:12:00 RED BLOOD COUNT 5.20 M/mm3 4.50-6.00 No Flag 02/13/2015 12:12:00 HEMOGLOBIN 16.1 gm/dL 14 .0-18.0 No Flag 02/13/2015 12:12:00 HEMATOCRIT 48.0 % 42.0-5 4.0 No Flag 02/13/2015 12:12:00 MEAN CELL VOLUME 92.3 fl 80-96 No Flag 02/13/2015 12:12:00 MEAN CORPUSCULAR HEMOGLOB 31.0 pg 27.0-31.0 No Flag 02/13/2015 12:12:00 MEAN CORPUSCULAR HGB CONC 33.5 g/dl 32.0- 36.0 No Flag 02/13/2015 12:12:00 RED CELL DISTRIBUTION WID 12.6 % 10.0-14.5 No Flag 02/13/2015 12:12:00 PLATELET COUNT 241 K/mm3 172-450 No Flag 02/13/2015 12:12:00 MEAN PLATELET VOLUME 10.1 fl 9.0-13.0 No Flag 02/13/2015 12:12:00 GRAN % 57.8 % 50-80.0 No Flag 02/13/2015 12:12:00 LYMPH % 29.7 % 25.0-50.0 No Flag 02/13/2015 12:12:00 MONO % 8.4 % 2.0-10.0 No Flag 02/13/2015 12:12:00 EOS % 3.4 % 0-5.0 No Flag 02/13/2015 12:12:00 BASO % 0.7 % 0.0-2.0 No Flag 02/13/2015 12:12:00 GRAN # 3.9 2.0-8.00 No Flag 02/13/2015 12:12:00 LYMPH # 2.0 1.0-5.0 No Flag 02/13/2015 12:12:00 MONO # 0.6 -- No Flag 02/13/2015 12:12:00 EOS # 0.2 0.0-0.5 No Flag 02/13/2015 12:12:00 BASO # 0.1 K/mm3 0.0-0.4 No Flag 02/13/2015 12:12:00 SOCIAL HISTORY Social History Observation Description Dates Observed Smoking Status Former smoker, [SNOME D-CT: [id number]], 0.50 pk yrs/5.00 yrs quit 09/07/2014 - 09/07/2014 TREATMENT PLAN Encounter Date [facility] 06/26/2020 08:54:10 PRESCRIBE: hydrocodone-acetaminophen 5 mg-325 mg oral tablet, one or two po qid prn pain, # 45, RF: 0. (Transmitted by Amparo Pérez DO) (MDD 8 tab) PRESCRIBE: ALPRAZolam 0.5 mg oral tablet, one or one half po qid prn anxiety MDD4, # 120, RF: 0. (Transmitted by Amparo Pérez DO) 8 min phone only 06/26/2020 08:54:10 PRESCRIBE: hydrocodone-acetaminophen 5 mg-325 mg oral tablet, one or two po qid prn pain, # 45, RF: 0. (Transmitted by Amparo Pérez DO) (MDD 8 tab) PRESCRIBE: ALPRAZolam 0.5 mg oral tablet, one or one half po qid prn anxiety MDD4, # 120, RF: 0. (Transmitted by Amparo Pérez DO) 8 min phone only 06/26/2020 08:54:10 PRESCRIBE: hydrocodone-acetaminophen 5 mg-325 mg oral tablet, one or two po qid prn pain, # 45, RF: 0. (Transmitted by Amparo Pérez DO) (MDD 8 tab) PRESCRIBE: ALPRAZolam 0.5 mg oral tablet, one or one half po qid prn anxiety MDD4, # 120, RF: 0. (Transmitted by Amparo Pérez DO) 8 min phone only 05/23/2020 11:51:40 PRESCRIBE: ALPRAZolam 0.5 mg oral tablet, one or one half po qid prn anxiety MDD4, # 120, RF: 0. (Transmitted by Amparo Pérez DO) ORDERED/ADVISED: Order Date 05-24-2020 - Sloan Curiel (Surgery) (colonoscopy) 7 min phone only 05/23/2020 11:51:40 PRESCRIBE: ALPRAZolam 0.5 mg oral tablet, one or one half po qid prn anxiety MDD4, # 120, RF: 0. (Transmitted by Amparo Pérez DO) ORDERED/ADVISED: Order Date 05-24-2020 - [facility] Curiel (Surgery) (colonoscopy) 7 min phone only 05/23/2020 11:51:40 PRESCRIBE: ALPRAZolam 0.5 mg oral tablet, one or one half po qid prn anxiety MDD4, # 120, RF: 0. (Transmitted by Amparo Pérez DO) ORDERED/ADVISED: Order Date 05-24-2020 - Sloan Curiel (Surgery) (colonoscopy) 7 min phone only 04/26/2020 08:59:14 Plan printed and provided to patient: PRESCRIBE: hydrocodone-acetaminophen 5 mg-325 mg oral tablet, one or two po qid prn pain, # 45, RF: 0. (Transmitted by Amparo Pérez DO) (MDD 8 tab) PRESCRIBE: ALPRAZolam 0.5 mg oral tablet, one or one half po qid prn anxiety MDD4, # 120, RF: 0. (Transmitted by Amparo Pérez DO) PRESCRIBE: spironolactone 25 mg oral tablet, one po daily, # 30, RF: 5. (Transmitted by Amparo Pérez DO) PRESCRIBE: mirtazapine 30 mg oral tablet, one po hs daily, # 30, RF: 5. ( Transmitted by Amparo Pérez DO) PRESCRIBE: Metoprolol Succinate ER 100 mg oral tablet, extended release, one po daily, # 30, RF: 5. (Transmitted by Amparo Pérez DO) PRESCRIBE: atorvastatin 40 mg oral tablet, one po daily, # 30, RF: 5. (Transmitted by Amparo Pérez DO) CHANGED Current Meds: Remicade 100 mg intravenous injection PROVIDED HM: Tobacco use counseling and interventions: non- adults Given: NI PROVIDED HM: High Blood Pressure in Adults: Screening Given: good at infusion....114/80 ORDERED/ADVISED: Order Date 04-26-2020 - Cologuard (D12.8, F41.9, F32.9, K57.30, I10, R73.03, M06.9, Z00.00) ORDERED/ADVISED: Order Date 04-26-2020 - HGBA1C (D12.8, F41.9, F32.9, K57.30, N40.0, I10, R73.03, M06.9, Z00.00) - Lipid Panel (D12.8, F41.9, F32.9, K57.30, N40.0, I10, R73.03, M06.9, Z00.00) - PSA, total (Prostate Specific Antigen) (D12.8, F41.9, F32.9, K57.30, N40.0, I10, R73.03, M06.9, Z00.00) 04/26/2020 08:59:14 Plan printed and provided to patient: PRESCRIBE: hydrocodone-acetaminophen 5 mg-325 mg oral tablet, one or two po qid prn pain, # 45, RF: 0. (Transmitted by Amparo Pérez DO) (MDD 8 tab) PRESCRIBE: ALPRAZolam 0.5 mg oral tablet, one or one half po qid prn anxiety MDD4, # 120, RF: 0. (Transmitted by Amparo Pérez DO) PRESCRIBE: spironolactone 25 mg oral tablet, one po daily, # 30, RF: 5. (Transmitted by Amparo Pérez DO) PRESCRIBE: mirtazapine 30 mg oral tablet, one po hs daily, # 30, RF: 5. ( Transmitted by Amparo Pérez DO) PRESCRIBE: Metoprolol Succinate ER 100 mg oral tablet, extended release, one po daily, # 30, RF: 5. (Transmitted by Amparo Pérez DO) PRESCRIBE: atorvastatin 40 mg oral tablet, one po daily, # 30, RF: 5. (Transmitted by Amparo Pérez DO) CHANGED Current Meds: Remicade 100 mg intravenous injection PROVIDED HM: Tobacco use counseling and interventions: non- adults Given: NI PROVIDED HM: High Blood Pressure in Adults: Screening Given: good at infusion....114/80 ORDERED/ADVISED: Order Date 04-26-2020 - Cologuard (D12.8, F41.9, F32.9, K57.30, I10, R73.03, M06.9, Z00.00) ORDERED/ADVISED: Order Date 04-26-2020 - HGBA1C (D12.8, F41.9, F32.9, K57.30, N40.0, I10, R73.03, M06.9, Z00.00) - Lipid Panel (D12.8, F41.9, F32.9, K57.30, N40.0, I10, R73.03, M06.9, Z00.00) - PSA, total (Prostate Specific Antigen) (D12.8, F41.9, F32.9, K57.30, N40.0, I10, R73.03, M06.9, Z00.00) 04/26/2020 08:59:14 Plan printed and provided to patient: PRESCRIBE: hydrocodone-acetaminophen 5 mg-325 mg oral tablet, one or two po qid prn pain, # 45, RF: 0. (Transmitted by Amparo Pérez DO) (MDD 8 tab) PRESCRIBE: ALPRAZolam 0.5 mg oral tablet, one or one half po qid prn anxiety MDD4, # 120, RF: 0. (Transmitted by Amparo Pérez DO) PRESCRIBE: spironolactone 25 mg oral tablet, one po daily, # 30, RF: 5. (Transmitted by Amparo Pérez DO) PRESCRIBE: mirtazapine 30 mg oral tablet, one po hs daily, # 30, RF: 5. ( Transmitted by Amparo Pérez DO) PRESCRIBE: Metoprolol Succinate ER 100 mg oral tablet, extended release, one po daily, # 30, RF: 5. (Transmitted by Amparo Pérez DO) PRESCRIBE: atorvastatin 40 mg oral tablet, one po daily, # 30, RF: 5. (Transmitted by Amparo Pérez DO) CHANGED Current Meds: Remicade 100 mg intravenous injection PROVIDED HM: Tobacco use counseling and interventions: non- adults Given: NI PROVIDED HM: High Blood Pressure in Adults: Screening Given: good at infusion....114/80 ORDERED/ADVISED: Order Date 04-26-2020 - Cologuard (D12.8, F41.9, F32.9, K57.30, I10, R73.03, M06.9, Z00.00) ORDERED/ADVISED: Order Date 04-26-2020 - HGBA1C (D12.8, F41.9, F32.9, K57.30, N40.0, I10, R73.03, M06.9, Z00.00) - Lipid Panel (D12.8, F41.9, F32.9, K57.30, N40.0, I10, R73.03, M06.9, Z00.00) - PSA, total (Prostate Specific Antigen) (D12.8, F41.9, F32.9, K57.30, N40.0, I10, R73.03, M06.9, Z00.00) 02/25/2020 09:27:14 PRESCRIBE: hydrocodone-acetaminophen 5 mg-325 mg oral tablet, one or two po qid prn pain, # 45, RF: 0. (Transmitted by Amparo Pérez DO) (MDD 8 tab) PRESCRIBE: ALPRAZolam 0.5 mg oral tablet, one or one half po qid prn anxiety MDD4, # 120, RF: 0. (Transmitted by Amparo Pérez DO) 02/25/2020 09:27:14 PRESCRIBE: hydrocodone-acetaminophen 5 mg-325 mg oral tablet, one or two po qid prn pain, # 45, RF: 0. (Transmitted by Amparo Pérez DO) (MDD 8 tab) PRESCRIBE: ALPRAZolam 0.5 mg oral tablet, one or one half po qid prn anxiety MDD4, # 120, RF: 0. (Transmitted by Amparo Pérez DO) 02/25/2020 09:27:14 PRESCRIBE: hydrocodone-acetaminophen 5 mg-325 mg oral tablet, one or two po qid prn pain, # 45, RF: 0. (Transmitted by Amparo Pérez DO) (MDD 8 tab) PRESCRIBE: ALPRAZolam 0.5 mg oral tablet, one or one half po qid prn anxiety MDD4, # 120, RF: 0. (Transmitted by Amparo Pérez DO) 12/27/2019 09:18:25 PRESCRIBE: hydrocodone-acetaminophen 5 mg-325 mg oral tablet, one or two po qid prn pain, # 45, RF: 0. (Transmitted by Amparo Pérez DO) (MDD 8 tab) PRESCRIBE: ALPRAZolam 0.5 mg oral tablet, one or one half po qid prn anxiety MDD4, # 120, RF: 0. (Transmitted by Amparo Pérez DO) Be kind, be calm, be safe. phone/video 15min 12/27/2019 09:18:25 PRESCRIBE: hydrocodone-acetaminophen 5 mg-325 mg oral tablet, one or two po qid prn pain, # 45, RF: 0. (Transmitted by Amparo Pérez DO) (MDD 8 tab) PRESCRIBE: ALPRAZolam 0.5 mg oral tablet, one or one half po qid prn anxiety MDD4, # 120, RF: 0. (Transmitted by Amparo Pérez DO) Be kind, be calm, be safe. phone/video 15min 12/27/2019 09:18:25 PRESCRIBE: hydrocodone-acetaminophen 5 mg-325 mg oral tablet, one or two po qid prn pain, # 45, RF: 0. (Transmitted by Amparo Pérez DO) (MDD 8 tab) PRESCRIBE: ALPRAZolam 0.5 mg oral tablet, one or one half po qid prn anxiety MDD4, # 120, RF: 0. (Transmitted by Amparo Pérez DO) Be kind, be calm, be safe. phone/video 15min 10/27/2019 09:14:09 PRESCRIBE: spironolactone 25 mg oral tablet, one po daily, # 30, RF: 5. (Transmitted by Amparo Pérez DO) PRESCRIBE: mirtazapine 30 mg oral tablet, one po hs daily, # 30, RF: 5. (Transmitted by Amparo Pérez DO) PRESCRIBE: Metoprolol Succinate ER 100 mg oral tablet, extended release, one po daily, # 30, RF: 5. (Transmitted by Amparo Pérez DO) PRESCRIBE: atorvastatin 40 mg oral tablet, one po daily, # 30, RF: 5. (Transmitted by Amparo Pérez DO) PRESCRIBE: hydrocodone-acetaminophen 5 mg-325 mg oral tablet, one or two po qid prn pain, # 45, RF: 0. (Transmitted by Amparo Pérez DO) (MDD 8 tab) PRESCRIBE: ALPRAZolam 0.5 mg oral tablet, one or one half po qid prn anxiety MDD4, # 120, RF: 0. (Transmitted by Amparo Pérze DO) I have discussed with this patient the natural history of this disease and potential for worsening and what those early hallmarks maybe. Please call me should you have any further questions or concerns or worsening of your condition. Monitor temp and call if fever >100 You are the one to use a mask if sick and self quarentine for 14 days to protect others from you if necessary. "Social communication with physical isolation. " [facility] [phone] [facility] [phone] 10/27/2019 09:14:09 PRESCRIBE: spironolactone 25 mg oral tablet, one po daily, # 30, RF: 5. (Transmitted by Amparo Pérez DO) PRESCRIBE: mirtazapine 30 mg oral tablet, one po hs daily, # 30, RF: 5. (Transmitted by Amparo Pérez, ) PRESCRIBE: Metoprolol Succinate ER 100 mg oral tablet, extended release, one po daily, # 30, RF: 5. (Transmitted by Amparo Pérez DO) PRESCRIBE: atorvastatin 40 mg oral tablet, one po daily, # 30, RF: 5. (Transmitted by Amparo Pérez DO) PRESCRIBE: hydrocodone-acetaminophen 5 mg-325 mg oral tablet, one or two po qid prn pain, # 45, RF: 0. (Transmitted by Amparo Pérez DO) (MDD 8 tab) PRESCRIBE: ALPRAZolam 0.5 mg oral tablet, one or one half po qid prn anxiety MDD4, # 120, RF: 0. (Transmitted by Amparo Pérez DO) I have discussed with this patient the natural history of this disease and potential for worsening and what those early hallmarks maybe. Please call me should you have any further questions or concerns or worsening of your condition. Monitor temp and call if fever >100 You are the one to use a mask if sick and self quarentine for 14 days to protect others from you if necessary. "Social communication with physical isolation. " [facility] [phone] [facility] [phone] 10/27/2019 09:14:09 PRESCRIBE: spironolactone 25 mg oral tablet, one po daily, # 30, RF: 5. (Transmitted by Amparo Pérez, ) PRESCRIBE: mirtazapine 30 mg oral tablet, one po hs daily, # 30, RF: 5. (Transmitted by Amparo Pérez, DO) PRESCRIBE: Metoprolol Succinate ER 100 mg oral tablet, extended release, one po daily, # 30, RF: 5. (Transmitted by Amparo Péerz, DO) PRESCRIBE: atorvastatin 40 mg oral tablet, one po daily, # 30, RF: 5. (Transmitted by Amparo Pérez, ) PRESCRIBE: hydrocodone-acetaminophen 5 mg-325 mg oral tablet, one or two po qid prn pain, # 45, RF: 0. (Transmitted by Amparo Pérez DO) (MDD 8 tab) PRESCRIBE: ALPRAZolam 0.5 mg oral tablet, one or one half po qid prn anxiety MDD4, # 120, RF: 0. (Transmitted by Amparo Pérez DO) I have discussed with this patient the natural history of this disease and potential for worsening and what those early hallmarks maybe. Please call me should you have any further questions or concerns or worsening of your condition. Monitor temp and call if fever >100 You are the one to use a mask if sick and self quarentine for 14 days to protect others from you if necessary. "Social communication with physical isolation. " [facility] [phone] [facility] [phone] 08/20/2019 09:14:36 Plan printed and provided to patient: PRESCRIBE: ALPRAZolam 0.5 mg oral tablet, one or one half po qid prn anxiety MDD4, # 120, RF: 0. (Transmitted by Amparo Pérez DO) 08/20/2019 09:14:36 Plan printed and provided to patient: PRESCRIBE: ALPRAZolam 0.5 mg oral tablet, one or one half po qid prn anxiety MDD4, # 120, RF: 0. (Transmitted by Amparo Pérez DO) 08/20/2019 09:14:36 Plan printed and provided to patient: PRESCRIBE: ALPRAZolam 0.5 mg oral tablet, one or one half po qid prn anxiety MDD4, # 120, RF: 0. (Transmitted by Amparo Pérez DO) 06/18/2019 09:14:14 Plan printed and provided to patient: PRESCRIBE: hydrocodone-acetaminophen 5 mg-325 mg oral tablet, one or two po qid prn pain, # 45, RF: 0. (Transmitted by Amparo Pérez DO) (MDD 8 tab) PRESCRIBE: ALPRAZolam 0.5 mg oral tablet, one or one half po qid prn anxiety MDD4, # 120, RF: 0. (Transmitted by Amparo Pérez DO) 06/18/2019 09:14:14 Plan printed and provided to patient: PRESCRIBE: hydrocodone-acetaminophen 5 mg-325 mg oral tablet, one or two po qid prn pain, # 45, RF: 0. (Transmitted by Amparo Pérez DO) (MDD 8 tab) PRESCRIBE: ALPRAZolam 0.5 mg oral tablet, one or one half po qid prn anxiety MDD4, # 120, RF: 0. (Transmitted by Amparo Pérez DO) 06/18/2019 09:14:14 Plan printed and provided to patient: PRESCRIBE: hydrocodone-acetaminophen 5 mg-325 mg oral tablet, one or two po qid prn pain, # 45, RF: 0. (Transmitted by Amparo Pérez DO) (MDD 8 tab) PRESCRIBE: ALPRAZolam 0.5 mg oral tablet, one or one half po qid prn anxiety MDD4, # 120, RF: 0. (Transmitted by Amparo Pérez DO) 04/26/2019 08:33:50 Plan printed and provided to patient: PRESCRIBE: ALPRAZolam 0.5 mg oral tablet, one or one half po qid prn anxiety MDD4, # 120, RF: 0. (Transmitted by Amparo Pérez DO) PRESCRIBE: spironolactone 25 mg oral tablet, one po daily, # 30, RF: 5. (Transmitted by Amparo Pérez DO) PRESCRIBE: mirtazapine 30 mg oral tablet, one po hs daily, # 30, RF: 5. ( Transmitted by Amparo Pérez DO) PRESCRIBE: Metoprolol Succinate ER 100 mg oral tablet, extended release, one po daily, # 30, RF: 5. (Transmitted by Amparo Pérez DO) PRESCRIBE: atorvastatin 40 mg oral tablet, one po daily, # 30, RF: 5. (Transmitted by Amparo Pérez DO) CHANGED Current Meds: hydrocodone-acetaminophen 5 mg-325 mg oral tablet PROVIDED HM: High Blood Pressure in Adults: Screening Given: 144/96 PROVIDED HM: Assess Adult Immunization Status Given: You should get a prevnar 13 booster PROVIDED HM: Tobacco use counseling and interventions: non- adults Given: NI PROVIDED HM: Screening for Lung Cancer Given: not a candidate PROVIDED HM: Screening for Hepatitis C Given: done last year and neg PROVIDED HM: Screening and Behavioral Counseling Interventions in Primary Care to Reduce Alcohol Misuse in Adults Given: NI PROVIDED HM: Screening for Depression in Adults Given: 2 question screen neg PROVIDED HM: Screening for Anxiety Given: on meds okay ORDERED/ADVISED: Order Date 04-26-2019 - CBC with diff (automated) (F41.9, F32.9, M51.9, I10, E78.49, R73.03, M06.9, Z00.00) - CMP (Complete Metabolic Panel) (F41.9, F32.9, M51.9, I10, E78.49, R73.03, M06.9, Z00.00) - HGBA1C (F41.9, F32.9, M51.9, I10, E78.49, R73.03, M06.9, Z00.00) - Lipid Panel (F41.9, F32.9, M51.9, I10, E78.49, R73.03, M06.9, Z00.00) - PSA, total (Prostate Specific Antigen) (chronic prostatitis) (F41.9, F32.9, M51.9, I10, E78.49, R73.03, M06.9, Z00.00) 04/26/2019 08:33:50 Plan printed and provided to patient: PRESCRIBE: ALPRAZolam 0.5 mg oral tablet, one or one half po qid prn anxiety MDD4, # 120, RF: 0. (Transmitted by Amparo Pérez DO) PRESCRIBE: spironolactone 25 mg oral tablet, one po daily, # 30, RF: 5. (Transmitted by Amparo Pérez, ) PRESCRIBE: mirtazapine 30 mg oral tablet, one po hs daily, # 30, RF: 5. ( Transmitted by Amparo Pérez, ) PRESCRIBE: Metoprolol Succinate ER 100 mg oral tablet, extended release, one po daily, # 30, RF: 5. (Transmitted by Amparo Pérez, ) PRESCRIBE: atorvastatin 40 mg oral tablet, one po daily, # 30, RF: 5. (Transmitted by Amparo Pérez DO) CHANGED Current Meds: hydrocodone-acetaminophen 5 mg-325 mg oral tablet PROVIDED HM: High Blood Pressure in Adults: Screening Given: 144/96 PROVIDED HM: Assess Adult Immunization Status Given: You should get a prevnar 13 booster PROVIDED HM: Tobacco use counseling and interventions: non- adults Given: NI PROVIDED HM: Screening for Lung Cancer Given: not a candidate PROVIDED HM: Screening for Hepatitis C Given: done last year and neg PROVIDED HM: Screening and Behavioral Counseling Interventions in Primary Care to Reduce Alcohol Misuse in Adults Given: NI PROVIDED HM: Screening for Depression in Adults Given: 2 question screen neg PROVIDED HM: Screening for Anxiety Given: on meds okay ORDERED/ADVISED: Order Date 04-26-2019 - CBC with diff (automated) (F41.9, F32.9, M51.9, I10, E78.49, R73.03, M06.9, Z00.00) - CMP (Complete Metabolic Panel) (F41.9, F32.9, M51.9, I10, E78.49, R73.03, M06.9, Z00.00) - HGBA1C (F41.9, F32.9, M51.9, I10, E78.49, R73.03, M06.9, Z00.00) - Lipid Panel (F41.9, F32.9, M51.9, I10, E78.49, R73.03, M06.9, Z00.00) - PSA, total (Prostate Specific Antigen) (chronic prostatitis) (F41.9, F32.9, M51.9, I10, E78.49, R73.03, M06.9, Z00.00) 04/26/2019 08:33:50 Plan printed and provided to patient: PRESCRIBE: ALPRAZolam 0.5 mg oral tablet, one or one half po qid prn anxiety MDD4, # 120, RF: 0. (Transmitted by Amparo Pérez DO) PRESCRIBE: spironolactone 25 mg oral tablet, one po daily, # 30, RF: 5. (Transmitted by Amparo Pérez DO) PRESCRIBE: mirtazapine 30 mg oral tablet, one po hs daily, # 30, RF: 5. ( Transmitted by Amparo Pérez DO) PRESCRIBE: Metoprolol Succinate ER 100 mg oral tablet, extended release, one po daily, # 30, RF: 5. (Transmitted by Amparo Pérez DO) PRESCRIBE: atorvastatin 40 mg oral tablet, one po daily, # 30, RF: 5. (Transmitted by Amparo Pérez DO) CHANGED Current Meds: hydrocodone-acetaminophen 5 mg-325 mg oral tablet PROVIDED HM: High Blood Pressure in Adults: Screening Given: 144/96 PROVIDED HM: Assess Adult Immunization Status Given: You should get a prevnar 13 booster PROVIDED HM: Tobacco use counseling and interventions: non- adults Given: NI PROVIDED HM: Screening for Lung Cancer Given: not a candidate PROVIDED HM: Screening for Hepatitis C Given: done last year and neg PROVIDED HM: Screening and Behavioral Counseling Interventions in Primary Care to Reduce Alcohol Misuse in Adults Given: NI PROVIDED HM: Screening for Depression in Adults Given: 2 question screen neg PROVIDED HM: Screening for Anxiety Given: on meds okay ORDERED/ADVISED: Order Date 04-26-2019 - CBC with diff (automated) (F41.9, F32.9, M51.9, I10, E78.49, R73.03, M06.9, Z00.00) - CMP (Complete Metabolic Panel) (F41.9, F32.9, M51.9, I10, E78.49, R73.03, M06.9, Z00.00) - HGBA1C (F41.9, F32.9, M51.9, I10, E78.49, R73.03, M06.9, Z00.00) - Lipid Panel (F41.9, F32.9, M51.9, I10, E78.49, R73.03, M06.9, Z00.00) - PSA, total (Prostate Specific Antigen) (chronic prostatitis) (F41.9, F32.9, M51.9, I10, E78.49, R73.03, M06.9, Z00.00) 04/26/2019 08:33:50 Plan printed and provided to patient: PRESCRIBE: ALPRAZolam 0.5 mg oral tablet, one or one half po qid prn anxiety MDD4, # 120, RF: 0. (Transmitted by Amparo Pérez DO) PRESCRIBE: spironolactone 25 mg oral tablet, one po daily, # 30, RF: 5. (Transmitted by Amparo Pérez, ) PRESCRIBE: mirtazapine 30 mg oral tablet, one po hs daily, # 30, RF: 5. ( Transmitted by Amparo Pérez, ) PRESCRIBE: Metoprolol Succinate ER 100 mg oral tablet, extended release, one po daily, # 30, RF: 5. (Transmitted by Amparo Pérez DO) PRESCRIBE: atorvastatin 40 mg oral tablet, one po daily, # 30, RF: 5. (Transmitted by Amparo Pérez DO) CHANGED Current Meds: hydrocodone-acetaminophen 5 mg-325 mg oral tablet PROVIDED HM: High Blood Pressure in Adults: Screening Given: 144/96 PROVIDED HM: Assess Adult Immunization Status Given: You should get a prevnar 13 booster PROVIDED HM: Tobacco use counseling and interventions: non- adults Given: NI PROVIDED HM: Screening for Lung Cancer Given: not a candidate PROVIDED HM: Screening for Hepatitis C Given: done last year and neg PROVIDED HM: Screening and Behavioral Counseling Interventions in Primary Care to Reduce Alcohol Misuse in Adults Given: NI PROVIDED HM: Screening for Depression in Adults Given: 2 question screen neg PROVIDED HM: Screening for Anxiety Given: on meds okay ORDERED/ADVISED: Order Date 04-26-2019 - CBC with diff (automated) (F41.9, F32.9, M51.9, I10, E78.49, R73.03, M06.9, Z00.00) - CMP (Complete Metabolic Panel) (F41.9, F32.9, M51.9, I10, E78.49, R73.03, M06.9, Z00.00) - HGBA1C (F41.9, F32.9, M51.9, I10, E78.49, R73.03, M06.9, Z00.00) - Lipid Panel (F41.9, F32.9, M51.9, I10, E78.49, R73.03, M06.9, Z00.00) - PSA, total (Prostate Specific Antigen) (chronic prostatitis) (F41.9, F32.9, M51.9, I10, E78.49, R73.03, M06.9, Z00.00) 04/26/2019 08:33:50 Plan printed and provided to patient: PRESCRIBE: ALPRAZolam 0.5 mg oral tablet, one or one half po qid prn anxiety MDD4, # 120, RF: 0. (Transmitted by Amparo Pérez DO) PRESCRIBE: spironolactone 25 mg oral tablet, one po daily, # 30, RF: 5. (Transmitted by Amparo Pérez DO) PRESCRIBE: mirtazapine 30 mg oral tablet, one po hs daily, # 30, RF: 5. ( Transmitted by Amparo Pérez, ) PRESCRIBE: Metoprolol Succinate ER 100 mg oral tablet, extended release, one po daily, # 30, RF: 5. (Transmitted by Amparo Pérez DO) PRESCRIBE: atorvastatin 40 mg oral tablet, one po daily, # 30, RF: 5. (Transmitted by Amparo Pérez DO) CHANGED Current Meds: hydrocodone-acetaminophen 5 mg-325 mg oral tablet PROVIDED HM: High Blood Pressure in Adults: Screening Given: 144/96 PROVIDED HM: Assess Adult Immunization Status Given: You should get a prevnar 13 booster PROVIDED HM: Tobacco use counseling and interventions: non- adults Given: NI PROVIDED HM: Screening for Lung Cancer Given: not a candidate PROVIDED HM: Screening for Hepatitis C Given: done last year and neg PROVIDED HM: Screening and Behavioral Counseling Interventions in Primary Care to Reduce Alcohol Misuse in Adults Given: NI PROVIDED HM: Screening for Depression in Adults Given: 2 question screen neg PROVIDED HM: Screening for Anxiety Given: on meds okay ORDERED/ADVISED: Order Date 04-26-2019 - CBC with diff (automated) (F41.9, F32.9, M51.9, I10, E78.49, R73.03, M06.9, Z00.00) - CMP (Complete Metabolic Panel) (F41.9, F32.9, M51.9, I10, E78.49, R73.03, M06.9, Z00.00) - HGBA1C (F41.9, F32.9, M51.9, I10, E78.49, R73.03, M06.9, Z00.00) - Lipid Panel (F41.9, F32.9, M51.9, I10, E78.49, R73.03, M06.9, Z00.00) - PSA, total (Prostate Specific Antigen) (chronic prostatitis) (F41.9, F32.9, M51.9, I10, E78.49, R73.03, M06.9, Z00.00) 02/22/2019 08:35:14 Plan printed and provided to patient: PRESCRIBE: hydrocodone-acetaminophen 5 mg-325 mg oral tablet, one or two po qid prn pain, # 45, RF: 0. (Transmitted by Amparo Pérez DO) PRESCRIBE: ALPRAZolam 0.5 mg oral tablet, one or one half po qid prn anxiety MDD4, # 120, RF: 0. (Transmitted by Amparo Pérez DO) PRESCRIBE: mirtazapine 30 mg oral tablet, one po hs daily, # 30, RF: 1. (Transmitted by Amparo Pérez DO) PRESCRIBE: Metoprolol Succinate ER 100 mg oral tablet, extended release, one po daily, # 30, RF: 1. (Transmitted by Amparo Pérez DO) PRESCRIBE: atorvastatin 40 mg oral tablet, one po daily, # 30, RF: 1. (Transmitted by Amparo Pérez, ) 02/22/2019 08:35:14 Plan printed and provided to patient: PRESCRIBE: hydrocodone-acetaminophen 5 mg-325 mg oral tablet, one or two po qid prn pain, # 45, RF: 0. (Transmitted by Amparo Pérez DO) PRESCRIBE: ALPRAZolam 0.5 mg oral tablet, one or one half po qid prn anxiety MDD4, # 120, RF: 0. (Transmitted by Amparo Pérez DO) PRESCRIBE: mirtazapine 30 mg oral tablet, one po hs daily, # 30, RF: 1. (Transmitted by Amparo Pérez DO) PRESCRIBE: Metoprolol Succinate ER 100 mg oral tablet, extended release, one po daily, # 30, RF: 1. (Transmitted by Amparo Pérez DO) PRESCRIBE: atorvastatin 40 mg oral tablet, one po daily, # 30, RF: 1. (Transmitted by Amparo Pérez DO) 02/22/2019 08:35:14 Plan printed and provided to patient: PRESCRIBE: hydrocodone-acetaminophen 5 mg-325 mg oral tablet, one or two po qid prn pain, # 45, RF: 0. (Transmitted by Amparo Pérez DO) PRESCRIBE: ALPRAZolam 0.5 mg oral tablet, one or one half po qid prn anxiety MDD4, # 120, RF: 0. (Transmitted by Amparo Pérez DO) PRESCRIBE: mirtazapine 30 mg oral tablet, one po hs daily, # 30, RF: 1. (Transmitted by Amparo Pérez DO) PRESCRIBE: Metoprolol Succinate ER 100 mg oral tablet, extended release, one po daily, # 30, RF: 1. (Transmitted by Amparo Pérez DO) PRESCRIBE: atorvastatin 40 mg oral tablet, one po daily, # 30, RF: 1. (Transmitted by Amparo Pérez DO) 12/23/2018 09:11:54 Plan printed and provided to patient: PRESCRIBE: hydrocodone-acetaminophen 5 mg-325 mg oral tablet, one or two po qid prn pain, # 45, RF: 0. (Transmitted by Amparo Pérez DO) PRESCRIBE: ALPRAZolam 0.5 mg oral tablet, one or one half po qid prn anxiety MDD4, # 120, RF: 0. (Transmitted by Amparo Pérez DO) 12/23/2018 09:11:54 Plan printed and provided to patient: PRESCRIBE: hydrocodone-acetaminophen 5 mg-325 mg oral tablet, one or two po qid prn pain, # 45, RF: 0. (Transmitted by Amparo Pérez DO) PRESCRIBE: ALPRAZolam 0.5 mg oral tablet, one or one half po qid prn anxiety MDD4, # 120, RF: 0. (Transmitted by Amparo Pérez DO) 12/23/2018 09:11:54 Plan printed and provided to patient: PRESCRIBE: hydrocodone-acetaminophen 5 mg-325 mg oral tablet, one or two po qid prn pain, # 45, RF: 0. (Transmitted by Amparo Pérez DO) PRESCRIBE: ALPRAZolam 0.5 mg oral tablet, one or one half po qid prn anxiety MDD4, # 120, RF: 0. (Transmitted by Amparo Pérez DO) 10/21/2018 09:10:09 Plan printed and provided to patient: PRESCRIBE: spironolactone 25 mg oral tablet, one po daily, # 30, RF: 5. (Transmitted by Amparo Pérez DO) PRESCRIBE: hydrocodone-acetaminophen 5 mg-325 mg oral tablet, one or two po qid prn pain, # 45, RF: 0. (Transmitted by Amparo Pérez DO) PRESCRIBE: ALPRAZolam 0.5 mg oral tablet, one or one half po qid prn anxiety MDD4, # 120, RF: 0. (Transmitted by Amparo Pérez DO) PROVIDED HM: Recommendations for Testing HgbA1C in Individuals with Diabetes Mellitus Given: 5.9% PROVIDED VACCINATION: 1 dose of Adacel (Adolescent & Adult), 0.5 ml IM in the Left Deltoid (Mfg: [employer] PA[employer] lot no. [id number], expires 06/13/2020) 10/21/2018 09:10:09 Plan printed and provided to patient: PRESCRIBE: spironolactone 25 mg oral tablet, one po daily, # 30, RF: 5. (Transmitted by Amparo Pérez DO) PRESCRIBE: hydrocodone-acetaminophen 5 mg-325 mg oral tablet, one or two po qid prn pain, # 45, RF: 0. (Transmitted by Amparo Pérez DO) PRESCRIBE: ALPRAZolam 0.5 mg oral tablet, one or one half po qid prn anxiety MDD4, # 120, RF: 0. (Transmitted by Amparo Pérez DO) PROVIDED HM: Recommendations for Testing HgbA1C in Individuals with Diabetes Mellitus Given: 5.9% PROVIDED VACCINATION: 1 dose of Adacel (Adolescent & Adult), 0.5 ml IM in the Left Deltoid (Mfg: [employer] lot no. [id number], expires 06/13/2020) 10/21/2018 09:10:09 Plan printed and provided to patient: PRESCRIBE: spironolactone 25 mg oral tablet, one po daily, # 30, RF: 5. (Transmitted by Amparo Pérez DO) PRESCRIBE: hydrocodone-acetaminophen 5 mg-325 mg oral tablet, one or two po qid prn pain, # 45, RF: 0. (Transmitted by Amparo Pérez DO) PRESCRIBE: ALPRAZolam 0.5 mg oral tablet, one or one half po qid prn anxiety MDD4, # 120, RF: 0. (Transmitted by Amparo Pérez DO) PROVIDED HM: Recommendations for Testing HgbA1C in Individuals with Diabetes Mellitus Given: 5.9% PROVIDED VACCINATION: 1 dose of Adacel (Adolescent & Adult), 0.5 ml IM in the Left Deltoid (Mfg: [employer] PA[employer] lot no. [id number], expires 06/13/2020) 08/24/2018 09:32:54 Plan printed and provided to patient: PRESCRIBE: mirtazapine 30 mg oral tablet, one po hs daily, # 30, RF: 5. (Transmitted by Amparo Pérez DO) PRESCRIBE: ALPRAZolam 0.5 mg oral tablet, one or one half po qid prn anxiety MDD4, # 120, RF: 0. (Transmitted by Amparo Pérez DO) PRESCRIBE: hydrocodone-acetaminophen 5 mg-325 mg oral tablet, one or two po qid prn pain, # 45, RF: 0. (Transmitted by Amparo Pérez DO) Letter for remicaide written 08/24/2018 09:32:54 Plan printed and provided to patient: PRESCRIBE: mirtazapine 30 mg oral tablet, one po hs daily, # 30, RF: 5. (Transmitted by Amparo Pérez DO) PRESCRIBE: ALPRAZolam 0.5 mg oral tablet, one or one half po qid prn anxiety MDD4, # 120, RF: 0. (Transmitted by Amparo Pérez DO) PRESCRIBE: hydrocodone-acetaminophen 5 mg-325 mg oral tablet, one or two po qid prn pain, # 45, RF: 0. (Transmitted by Amparo Pérez DO) Letter for remicaide written 08/24/2018 09:32:54 Plan printed and provided to patient: PRESCRIBE: mirtazapine 30 mg oral tablet, one po hs daily, # 30, RF: 5. (Transmitted by Amparo Pérez DO) PRESCRIBE: ALPRAZolam 0.5 mg oral tablet, one or one half po qid prn anxiety MDD4, # 120, RF: 0. (Transmitted by Amparo Pérez DO) PRESCRIBE: hydrocodone-acetaminophen 5 mg-325 mg oral tablet, one or two po qid prn pain, # 45, RF: 0. (Transmitted by Amparo Pérez DO) Letter for remicaide written 06/19/2018 09:55:21 Plan printed and provided to patient: PRESCRIBE: hydrocodone-acetaminophen 5 mg-325 mg oral tablet, one or two po qid prn pain, # 45, RF: 0. (Transmitted by Amparo Pérez DO) PRESCRIBE: ALPRAZolam 0.5 mg oral tablet, one or one half po qid prn anxiety MDD4, # 120, RF: 0. (Transmitted by Amparo Pérez DO) 06/19/2018 09:55:21 Plan printed and provided to patient: PRESCRIBE: hydrocodone-acetaminophen 5 mg-325 mg oral tablet, one or two po qid prn pain, # 45, RF: 0. (Transmitted by Amparo Pérez DO) PRESCRIBE: ALPRAZolam 0.5 mg oral tablet, one or one half po qid prn anxiety MDD4, # 120, RF: 0. (Transmitted by Amparo Pérez DO) 06/19/2018 09:55:21 Plan printed and provided to patient: PRESCRIBE: hydrocodone-acetaminophen 5 mg-325 mg oral tablet, one or two po qid prn pain, # 45, RF: 0. (Transmitted by Amparo Pérez DO) PRESCRIBE: ALPRAZolam 0.5 mg oral tablet, one or one half po qid prn anxiety MDD4, # 120, RF: 0. (Transmitted by Amparo Pérez DO) 04/27/2018 11:19:49 PRESCRIBE: hydrocodone-acetaminophen 5 mg-325 mg oral tablet, one or two po qid prn pain, # 45, RF: 0. (Transmitted by Amparo Pérez DO) PRESCRIBE: ALPRAZolam 0.5 mg oral tablet, one or one half po qid prn anxiety MDD4, # 120, RF: 0. (Transmitted by Amparo [place], ) He has no clincal predictors of perioperative risk. His EKG shows NSR. His activity level is about 8 mets. He had some annual labs in february this year that were all normal. He will be fasting because his meds are all at night. ORDERED/ADVISED: Order Date 04-27-2018 - EKG (F41.9, H26.9, E78.4, R73.02, M06.9, I10) 04/27/2018 11:19:49 PRESCRIBE: hydrocodone-acetaminophen 5 mg-325 mg oral tablet, one or two po qid prn pain, # 45, RF: 0. (Transmitted by [employer], ) PRESCRIBE: ALPRAZolam 0.5 mg oral tablet, one or one half po qid prn anxiety MDD4, # 120, RF: 0. (Transmitted by Amparo [place], DO) He has no clincal predictors of perioperative risk. His EKG shows NSR. His activity level is about 8 mets. He had some annual labs in february this that were all normal. He will be fasting because his meds are all at night. ORDERED/ADVISED: Order Date 04-27-2018 - EKG (F41.9, H26.9, E78.4, R73.02, M06.9, I10) 04/27/2018 11:19:49 PRESCRIBE: hydrocodone-acetaminophen 5 mg-325 mg oral tablet, one or two po qid prn pain, # 45, RF: 0. (Transmitted by [employer], DO) PRESCRIBE: ALPRAZolam 0.5 mg oral tablet, one or one half po qid prn anxiety MDD4, # 120, RF: 0. (Transmitted by [employer], DO) He has no clincal predictors of perioperative risk. His EKG shows NSR. His activity level is about 8 mets. He had some annual labs in february this that were all normal. He will be fasting because his meds are all at night. ORDERED/ADVISED: Order Date 04-27-2018 - EKG (F41.9, H26.9, E78.4, R73.02, M06.9, I10) 03/20/2018 09:03:16 Plan printed and provided to patient: PRESCRIBE: hydrocodone-acetaminophen 5 mg-325 mg oral tablet, one or two po qid prn pain, # 45, RF: 0. (Transmitted by Amparo Pérez DO) PRESCRIBE: ALPRAZolam 0.5 mg oral tablet, one or one half po qid prn anxiety MDD4, # 120, RF: 0. (Transmitted by Amparo Pérez DO) PRESCRIBE: Metoprolol Succinate ER 100 mg oral tablet, extended release, one po daily, # 30, RF: 11. (Transmitted by Amparo Pérez DO) PRESCRIBE: atorvastatin 40 mg oral tablet, one po daily, # 30, RF: 11. (Transmitted by Amparo Pérez DO) ORDERED/ADVISED: Order Date 03-20-2018 - CBC with diff (automated) (F32.9, E11.9, M51.9, K57.30, E78.4, Z00.00) - CMP (Complete Metabolic Panel) (F32.9, E11.9, M51.9, K57.30, E78.4, Z00.00) - Lipid Panel (F32.9, E11.9, M51.9, K57.30, E78.4, Z00.00) PROVIDED HM: High Blood Pressure in Adults: Screening Given: 110/74 PROVIDED HM: Recommendations for Testing HgbA1C in Individuals with Diabetes Mellitus Given: 6.1% PROVIDED HM: Screening and Behavioral Counseling Interventions in Primary Care to Reduce Alcohol Misuse in Adults Given: NI PROVIDED HM: Screening for Lung Cancer Given: Patient has declined this Decision Support. No 30 pack year hx PROVIDED HM: Screening for Abdominal Aortic Aneurysm (AAA) in Male Ever Smokers Given: done and neg PROVIDED HM: Assess Adult Immunization Status Given: You could get prevnar 13 with your flushot this year. PROVIDED VACCINATION: (Given Elsewhere) Pneumococcal 23-valent, in the past 200503/20/2018 09:03:16 Plan printed and provided to patient: PRESCRIBE: hydrocodone-acetaminophen 5 mg-325 mg oral tablet, one or two po qid prn pain, # 45, RF: 0. (Transmitted by Amparo Pérez DO) PRESCRIBE: ALPRAZolam 0.5 mg oral tablet, one or one half po qid prn anxiety MDD4, # 120, RF: 0. (Transmitted by Amparo Pérez, ) PRESCRIBE: Metoprolol Succinate ER 100 mg oral tablet, extended release, one po daily, # 30, RF: 11. (Transmitted by Amparo Pérez DO) PRESCRIBE: atorvastatin 40 mg oral tablet, one po daily, # 30, RF: 11. (Transmitted by Amparo Pérez DO) ORDERED/ADVISED: Order Date 03-20-2018 - CBC with diff (automated) (F32.9, E11.9, M51.9, K57.30, E78.4, Z00.00) - CMP (Complete Metabolic Panel) (F32.9, E11.9, M51.9, K57.30, E78.4, Z00.00) - Lipid Panel (F32.9, E11.9, M51.9, K57.30, E78.4, Z00.00) PROVIDED HM: High Blood Pressure in Adults: Screening Given: 110/74 PROVIDED HM: Recommendations for Testing HgbA1C in Individuals with Diabetes Mellitus Given: 6.1% PROVIDED HM: Screening and Behavioral Counseling Interventions in Primary Care to Reduce Alcohol Misuse in Adults Given: NI PROVIDED HM: Screening for Lung Cancer Given: Patient has declined this Decision Support. No 30 pack year hx PROVIDED HM: Screening for Abdominal Aortic Aneurysm (AAA) in Male Ever Smokers Given: done and neg PROVIDED HM: Assess Adult Immunization Status Given: You could get prevnar 13 with your flushot this year. 03/20/2018 09:03:16 Plan printed and provided to patient: PRESCRIBE: hydrocodone-acetaminophen 5 mg-325 mg oral tablet, one or two po qid prn pain, # 45, RF: 0. (Transmitted by Amparo Pérez DO) PRESCRIBE: ALPRAZolam 0.5 mg oral tablet, one or one half po qid prn anxiety MDD4, # 120, RF: 0. (Transmitted by Amparo Pérez DO) PRESCRIBE: Metoprolol Succinate ER 100 mg oral tablet, extended release, one po daily, # 30, RF: 11. (Transmitted by Amparo Pérez DO) PRESCRIBE: atorvastatin 40 mg oral tablet, one po daily, # 30, RF: 11. (Transmitted by Amparo Pérez DO) ORDERED/ADVISED: Order Date 03-20-2018 - CBC with diff (automated) (F32.9, E11.9, M51.9, K57.30, E78.4, Z00.00) - CMP (Complete Metabolic Panel) (F32.9, E11.9, M51.9, K57.30, E78.4, Z00.00) - Lipid Panel (F32.9, E11.9, M51.9, K57.30, E78.4, Z00.00) PROVIDED HM: High Blood Pressure in Adults: Screening Given: 110/74 PROVIDED HM: Recommendations for Testing HgbA1C in Individuals with Diabetes Mellitus Given: 6.1% PROVIDED HM: Screening and Behavioral Counseling Interventions in Primary Care to Reduce Alcohol Misuse in Adults Given: NI PROVIDED HM: Screening for Lung Cancer Given: Patient has declined this Decision Support. No 30 pack year hx PROVIDED HM: Screening for Abdominal Aortic Aneurysm (AAA) in Male Ever Smokers Given: done and neg PROVIDED HM: Assess Adult Immunization Status Given: You could get prevnar 13 with your flushot this year. 01/16/2018 08:30:09 Plan printed and provided to patient: PRESCRIBE: hydrocodone-acetaminophen 5 mg-325 mg oral tablet, one or two po qid prn pain, # 45, RF: 0. (Transmitted by Amparo Pérez DO) PRESCRIBE: ALPRAZolam 0.5 mg oral tablet, one or one half po qid prn anxiety MDD4, # 120, RF: 0. (Transmitted by Amparo Pérez DO) PRESCRIBE: mirtazapine 30 mg oral tablet, one po hs daily, # 30, RF: 5. (Transmitted by Amparo Pérez DO) PROVIDED HM: Screening for Lung Cancer Given: Not a candidate. PROVIDED HM: Screening for Depression in Adults Given: Neg PROVIDED HM: Tobacco use counseling and interventions: non- adults Given: NI 01/16/2018 08:30:09 Plan printed and provided to patient: PRESCRIBE: hydrocodone-acetaminophen 5 mg-325 mg oral tablet, one or two po qid prn pain, # 45, RF: 0. (Transmitted by Amparo Pérez DO) PRESCRIBE: ALPRAZolam 0.5 mg oral tablet, one or one half po qid prn anxiety MDD4, # 120, RF: 0. (Transmitted by Amparo Pérez DO) PRESCRIBE: mirtazapine 30 mg oral tablet, one po hs daily, # 30, RF: 5. (Transmitted by Amparo Pérez DO) PROVIDED HM: Screening for Lung Cancer Given: Not a candidate. PROVIDED HM: Screening for Depression in Adults Given: Neg PROVIDED HM: Tobacco use counseling and interventions: non- adults Given: NI 01/16/2018 08:30:09 Plan printed and provided to patient: PRESCRIBE: hydrocodone-acetaminophen 5 mg-325 mg oral tablet, one or two po qid prn pain, # 45, RF: 0. (Transmitted by Amparo Pérez DO) PRESCRIBE: ALPRAZolam 0.5 mg oral tablet, one or one half po qid prn anxiety MDD4, # 120, RF: 0. (Transmitted by Amparo Pérez DO) PRESCRIBE: mirtazapine 30 mg oral tablet, one po hs daily, # 30, RF: 5. (Transmitted by Amparo Pérez DO) PROVIDED HM: Screening for Lung Cancer Given: Not a candidate. PROVIDED HM: Screening for Depression in Adults Given: Neg PROVIDED HM: Tobacco use counseling and interventions: non- adults Given: NI 10/31/2017 09:17:00 Plan printed and provided to patient: PRESCRIBE: ALPRAZolam 0.5 mg oral tablet, one or one half po qid prn anxiety MDD4, # 120, RF: 0. PROVIDED HM: Screening for Diabetic Retinopathy Given: two months ago has cataracts Counseling and coordination of care: time a significant factor for this patient encounter...30minutes FTF 10/31/2017 09:17:00 Plan printed and provided to patient: PRESCRIBE: ALPRAZolam 0.5 mg oral tablet, one or one half po qid prn anxiety MDD4, # 120, RF: 0. PROVIDED HM: Screening for Diabetic Retinopathy Given: two months ago has cataracts 10/31/2017 09:17:00 Plan printed and provided to patient: PRESCRIBE: ALPRAZolam 0.5 mg oral tablet, one or one half po qid prn anxiety MDD4, # 120, RF: 0. PROVIDED HM: Screening for Diabetic Retinopathy Given: two months ago has cataracts 08/29/2017 08:33:05 Plan printed and provided to patient: PRESCRIBE: hydrocodone-acetaminophen 5 mg-325 mg oral tablet, one or two po qid prn pain, # 45, RF: 0. PRESCRIBE: ALPRAZolam 0.5 mg oral tablet, one or one half po qid prn anxiety MDD4, # 120, RF: 0. PRESCRIBE: mirtazapine 30 mg oral tablet, one po hs daily, # 30, RF: 5. (Transmi tted by Amparo Pérez DO) PRESCRIBE: Metoprolol Succinate ER 100 mg oral tablet, extended release, one po daily, # 30, RF: 5. (Transmitted by Amparo Pérez DO) PRESCRIBE: atorvastatin 40 mg oral tablet, one po daily, # 30, RF: 5. (Transmitted by Amparo Pérez DO) ADDED Current Meds: mirtazapine 30 mg oral tablet, one po hs daily, # 0, RF: 0. Counseling and coordination of care: time a significant factor for this patient encounter...35minutes FTF Report fever chills or mental status changes. 08/29/2017 08:33:05 Plan printed and provided to patient: PRESCRIBE: hydrocodone-acetaminophen 5 mg-325 mg oral tablet, one or two po qid prn pain, # 45, RF: 0. PRESCRIBE: ALPRAZolam 0.5 mg oral tablet, one or one half po qid prn anxiety MDD4, # 120, RF: 0. PRESCRIBE: mirtazapine 30 mg oral tablet, one po hs daily, # 30, RF: 5. (Transmi tted by Amparo Pérez DO) PRESCRIBE: Metoprolol Succinate ER 100 mg oral tablet, extended release, one po daily, # 30, RF: 5. (Transmitted by Amparo Pérez DO) PRESCRIBE: atorvastatin 40 mg oral tablet, one po daily, # 30, RF: 5. (Transmitted by Amparo Pérez DO) ADDED Current Meds: mirtazapine 30 mg oral tablet, one po hs daily, # 0, RF: 0. Report fever chills or mental status changes. 08/29/2017 08:33:05 Plan printed and provided to patient: PRESCRIBE: hydrocodone-acetaminophen 5 mg-325 mg oral tablet, one or two po qid prn pain, # 45, RF: 0. PRESCRIBE: ALPRAZolam 0.5 mg oral tablet, one or one half po qid prn anxiety MDD4, # 120, RF: 0. PRESCRIBE: mirtazapine 30 mg oral tablet, one po hs daily, # 30, RF: 5. (Transmi tted by Amparo Pérez DO) PRESCRIBE: Metoprolol Succinate ER 100 mg oral tablet, extended release, one po daily, # 30, RF: 5. (Transmitted by Amparo Pérez DO) PRESCRIBE: atorvastatin 40 mg oral tablet, one po daily, # 30, RF: 5. (Transmitted by Amparo Pérez DO) ADDED Current Meds: mirtazapine 30 mg oral tablet, one po hs daily, # 0, RF: 0. Report fever chills or mental status changes. 07/21/2017 09:22:42 Plan printed and provided to patient: PRESCRIBE: Augmentin 875 mg-125 mg oral tablet, one po bid for 20 days, # 40, RF: 0. (Transmitted by Amparo Pérez DO) PRESCRIBE: mirtazapine 15 mg oral tablet, one or two po hs, # 60, RF: 1. (Transmitted by Amparo Pérez DO) ORDERED/ADVISED: - CT- IAC's (attn left) ICD Codes (R41.82, H93.12) - CT - Head ICD Codes (R41.82, H93.12) PROVIDED HM: Recommendations for Testing HgbA1C in Individuals with Diabetes Mellitus Given: 5.9% 07/21/2017 09:22:42 Plan printed and provided to patient: PRESCRIBE: Augmentin 875 mg-125 mg oral tablet, one po bid for 20 days, # 40, RF: 0. (Transmitted by Amparo Pérez DO) PRESCRIBE: mirtazapine 15 mg oral tablet, one or two po hs, # 60, RF: 1. (Transmitted by Amparo Pérez DO) ORDERED/ADVISED: - CT- IAC's (attn left) ICD Codes (R41.82, H93.12) - CT - Head ICD Codes (R41.82, H93.12) PROVIDED HM: Recommendations for Testing HgbA1C in Individuals with Diabetes Mellitus Given: 5.9% 07/21/2017 09:22:42 Plan printed and provided to patient: PRESCRIBE: Augmentin 875 mg-125 mg oral tablet, one po bid for 20 days, # 40, RF: 0. (Transmitted by Amparo Pérez DO) PRESCRIBE: mirtazapine 15 mg oral tablet, one or two po hs, # 60, RF: 1. (Transmitted by Amparo Pérez DO) ORDERED/ADVISED: - CT- IAC's (attn left) ICD Codes (R41.82, H93.12) - CT - Head ICD Codes (R41.82, H93.12) PROVIDED HM: Recommendations for Testing HgbA1C in Individuals with Diabetes Mellitus Given: 5.9% 06/27/2017 08:36:35 Plan printed and provided to patient: Counseling and coordination of care: time a significant factor for this patient encounter...35minutes FTF PRESCRIBE: ALPRAZolam 0.5 mg oral tablet, one or one half po qid prn anxiety MDD4, # 120 , RF: 0. PRESCRIBE: HYDROcodone-acetaminophen 5 mg-325 mg oral tablet, one or two po qid prn pain, # 45 , RF: 0. PRESCRIBE: HYDROcodone-acetaminophen 5 mg-325 mg oral tablet, one po tid prn pain, # 90, RF: 0. 06/27/2017 08:36:35 Plan printed and provided to patient: PRESCRIBE: ALPRAZolam 0.5 mg oral tablet, one or one half po qid prn anxiety MDD4, # 120 , RF: 0. PRESCRIBE: HYDROcodone-acetaminophen 5 mg-325 mg oral tablet, one or two po qid prn pain, # 45 , RF: 0. PRESCRIBE: HYDROcodone-acetaminophen 5 mg-325 mg oral tablet, one po tid prn pain, # 90, RF: 0. 06/27/2017 08:36:35 Plan printed and provided to patient: PRESCRIBE: ALPRAZolam 0.5 mg oral tablet, one or one half po qid prn anxiety MDD4, # 120 , RF: 0. PRESCRIBE: HYDROcodone-acetaminophen 5 mg-325 mg oral tablet, one or two po qid prn pain, # 45 , RF: 0. PRESCRIBE: HYDROcodone-acetaminophen 5 mg-325 mg oral tablet, one po tid prn pain, # 90, RF: 0. 04/28/2017 09:04:31 PRESCRIBE: glucose testing strips, use as directed bid ac, # 60, RF: 5. (Transmitted by Amparo Pérez DO) PRESCRIBE: glucometer, use as directed ac bid, # 1, RF: 0. (Transmitted by Amparo Pérez, DO) PRESCRIBE: glucose testing strips, use as directed bid ac, # 60 , RF: 5. PRESCRIBE: glucometer, use as directed ac bid, # 1 , RF: 0. Plan printed and provided to patient: PRESCRIBE: metFORMIN 500 mg oral tablet, extended release, one half po after largest meal, # 45, RF: 2. (Transmitted by Amparo Pérez, DO) PRESCRIBE: ALPRAZolam 0.5 mg oral tablet, one or one half po qid prn anxiety MDD4, # 120, RF: 0. PROVIDED HM: DSME Given: Ask: Did you know? For every 1% decrease in HGBAC, there is evidence for 21% decrease in diabetes related complication....14% decrease in risk of PR.....12%decrease risk of stroke...and a 37% decrease risk of microvascular complication(kidney failure/blindness/loss of limb). Advise: if young need tighter control....6% if possible ADA recommends <7% AACE recommend <6.5% If over 75 ok for <8% Where are you? 6.5% Assess: Where do you want your diabetes numbers to be? How do you want to manage this? Do you understand the balance between diet/excercise/medication? The tools available for management? What information do you need? Assist: I can get you the information/tools you desire? Can I get you the information/tools you desire? What do we have to work with? Time/Travel/Tastes/Treatments?? Arrange: Director Marketing Analytics? www.eatright.org Soft Shoe Dancer?www.diabeteseducator.org Pharmacy/Pharmacy benefits Literature? Recipes Diabetes [place] www.diabetes.org www.ncbde.org www.diabeeseducator.org/deap www.ndep.nih.gov www.diabetes.org www.learningaboutdiabetes.org www.diabeticconnect.com www.whatPressMatrixnow.com www.diabeteswhattoknow.com www.peersforprogress.org 7 ruiz areas PROVIDED HM: Recommendations for Testing HgbA1C in Individuals with Diabetes Mellitus Given: 6.5% PROVIDED HM: Screening for Diabetic Neuropathy Given: not present PROVIDED HM: Recommendations for Diabetic Foot Care Given: discussed ORDERED/ADVISED: - BMP (Basic Metabolic Panel) ICD Codes (E11.9) - Urine microalbumin ICD Codes (E11.9) 04/28/2017 09:04:31 PRESCRIBE: glucose testing strips, use as directed bid ac, # 60, RF: 5. (Transmitted by Amparo Pérez, DO) PRESCRIBE: glucometer, use as directed ac bid, # 1, RF: 0. (Transmitted by [employer], DO) PRESCRIBE: glucose testing strips, use as directed bid ac, # 60 , RF: 5. PRESCRIBE: glucometer, use as directed ac bid, # 1 , RF: 0. Plan printed and provided to patient: PRESCRIBE: metFORMIN 500 mg oral tablet, extended release, one half po after largest meal, # 45, RF: 2. (Transmitted by Amparo [place], DO) PRESCRIBE: ALPRAZolam 0.5 mg oral tablet, one or one half po qid prn anxiety MDD4, # 120, RF: 0. PROVIDED HM: DSME Given: Ask: Did you know? For every 1% decrease in HGBAC, there is evidence for 21% decrease in diabetes related complication....14% decrease in risk of PR.....12%decrease risk of stroke...and a 37% decrease risk of microvascular complication(kidney failure/blindness/loss of limb). Advise: if young need tighter control....6% if possible ADA recommends <7% AACE recommend <6.5% If over 75 ok for <8% Where are you? 6.5% Assess: Where do you want your diabetes numbers to be? How do you want to manage this? Do you understand the balance between diet/excercise/medication? The tools available for management? What information do you need? Assist: I can get you the information/tools you desire? Can I get you the information/tools you desire? What do we have to work with? Time/Travel/Tastes/Treatments?? Arrange: Director Marketing Analytics? www.eatright.org Soft Shoe Dancer?www.diabeteseducator.org Pharmacy/Pharmacy benefits Literature? Recipes Diabetes Jackson www.diabetes.org www.ncbde.org www.diabeeseducator.org/deap www.ndep.nih.gov www.diabetes.org www.learningaboutdiabetes.org www.diabeticconnect.com www.Kappa Primenow.com www.diabeteswhattoknow.com www.peersforprogress.org 7 ruiz areas PROVIDED HM: Recommendations for Testing HgbA1C in Individuals with Diabetes Mellitus Given: 6.5% PROVIDED HM: Screening for Diabetic Neuropathy Given: not present PROVIDED HM: Recommendations for Diabetic Foot Care Given: discussed ORDERED/ADVISED: - BMP (Basic Metabolic Panel) ICD Codes (E11.9) - Urine microalbumin ICD Codes (E11.9) 04/28/2017 09:04:31 PRESCRIBE: glucose testing strips, use as directed bid ac, # 60, RF: 5. (Transmitted by [employer] Deep Sea Technologiesard, DO) PRESCRIBE: glucometer, use as directed ac bid, # 1, RF: 0. (Transmitted by [employer] Deep Sea Technologiesard, DO) PRESCRIBE: glucose testing strips, use as directed bid ac, # 60 , RF: 5. PRESCRIBE: glucometer, use as directed ac bid, # 1 , RF: 0. Plan printed and provided to patient: PRESCRIBE: metFORMIN 500 mg oral tablet, extended release, one half po after largest meal, # 45, RF: 2. (Transmitted by [employer], Xcerion) PRESCRIBE: ALPRAZolam 0.5 mg oral tablet, one or one half po qid prn anxiety MDD4, # 120, RF: 0. PROVIDED HM: DSME Given: Ask: Did you know? For every 1% decrease in HGBAC, there is evidence for 21% decrease in diabetes related complication....14% decrease in risk of PR.....12%decrease risk of stroke...and a 37% decrease risk of microvascular complication(kidney failure/blindness/loss of limb). Advise: if young need tighter control....6% if possible ADA recommends <7% AACE recommend <6.5% If over 75 ok for <8% Where are you? 6.5% Assess: Where do you want your diabetes numbers to be? How do you want to manage this? Do you understand the balance between diet/excercise/medication? The tools available for management? What information do you need? Assist: I can get you the information/tools you desire? Can I get you the information/tools you desire? What do we have to work with? Time/Travel/Tastes/Treatments?? Arrange: Director Marketing Analytics? www.eatright.org Soft Shoe Dancer?www.diabeteseducator.org Pharmacy/Pharmacy benefits Literature? Recipes Diabetes Jackson www.diabetes.org www.ncbde.org www.diabeeseducator.org/deap www.ndep.nih.gov www.diabetes.org www.learningaboutdiabetes.org www.diabeticconnect.com www.Kappa Primeno[employer] Media.Iceberg www.diabeteswhattPressMatrixnow.com www.peersforprogress.org 7 ruiz areas PROVIDED HM: Recommendations for Testing HgbA1C in Individuals with Diabetes Mellitus Given: 6.5% PROVIDED HM: Screening for Diabetic Neuropathy Given: not present PROVIDED HM: Recommendations for Diabetic Foot Care Given: discussed ORDERED/ADVISED: - BMP (Basic Metabolic Panel) ICD Codes (E11.9) - Urine microalbumin ICD Codes (E11.9) 02/26/2017 08:57:30 Plan printed and provided to patient: PRESCRIBE: ALPRAZolam 0.5 mg oral tablet, one or one half po qid prn anxiety MDD4, # 120, RF: 0. PRESCRIBE: Metoprolol Succinate ER 100 mg oral tablet, extended release, one po daily, # 30, RF: 5. (Transmitted by Amparo Pérez DO) PRESCRIBE: metoprolol succinate 100 mg oral tablet, extended release, one po daily, # 30, RF: 5. (Transmitted by Amparo Pérez DO) PRESCRIBE: atorvastatin 40 mg oral tablet, one po daily, # 30, RF: 5. (Transmitted by Amparo Pérez DO) PROVIDED HM: Diabetes Prevention Program Given: Maura Manley....[phone] [facility]...[phone] ( Anita Frye) [facility]....[phone] [id number] (Haley Short) [facility] [place] [facility] [place]....[phone] (Maura Grissom) PROVIDED HM: medication adherence Given: No an issue ORDERED/ADVISED: - CBC with diff (automated) ICD Codes (E78.4, R73.9, M06.9, Z00.00, I10) - CMP (Complete Metabolic Panel) ICD Codes (E78.4, R73.9, M06.9, Z00.00, I10) - HGA1C ICD Codes (E78.4, R73.9, M06.9, Z00.00, I10) - Lipid Panel ICD Codes (E78.4, R73.9, M06.9, Z00.00, I10) - PSA, total (Prostate Specific Antigen) (BPH) ICD Codes (E78.4, R73.9, M06.9, Z00.00, I10) PROVIDED HM: Colorectal Cancer: Screening Given: will be seeing Dr. Curiel. Has heard from him. Patient will arrange this PROVIDED HM: High Blood Pressure in Adults: Screening Given: 132/70 02/26/2017 08:57:30 Plan printed and provided to patient: PRESCRIBE: ALPRAZolam 0.5 mg oral tablet, one or one half po qid prn anxiety MDD4, # 120, RF: 0. PRESCRIBE: Metoprolol Succinate ER 100 mg oral tablet, extended release, one po daily, # 30, RF: 5. (Transmitted by Amparo Pérez DO) PRESCRIBE: metoprolol succinate 100 mg oral tablet, extended release, one po daily, # 30, RF: 5. (Transmitted by Amparo Pérez DO) PRESCRIBE: atorvastatin 40 mg oral tablet, one po daily, # 30, RF: 5. (Transmitted by Amparo Pérez DO) PROVIDED HM: Diabetes Prevention Program Given: Maura Manley....[phone] [facility]...[phone] ( Anita Frye) [facility]....[phone] [id number] (Haley Short) [facility] [place] [place]....[phone] (Maura Grissom) PROVIDED HM: medication adherence Given: No an issue ORDERED/ADVISED: - CBC with diff (automated) ICD Codes (E78.4, R73.9, M06.9, Z00.00, I10) - CMP (Complete Metabolic Panel) ICD Codes (E78.4, R73.9, M06.9, Z00.00, I10) - HGA1C ICD Codes (E78.4, R73.9, M06.9, Z00.00, I10) - Lipid Panel ICD Codes (E78.4, R73.9, M06.9, Z00.00, I10) - PSA, total (Prostate Specific Antigen) (BPH) ICD Codes (E78.4, R73.9, M06.9, Z00.00, I10) PROVIDED HM: Colorectal Cancer: Screening Given: will be seeing Dr. Curiel. Has heard from him. Patient will arrange this PROVIDED HM: High Blood Pressure in Adults: Screening Given: 132/70 02/26/2017 08:57:30 Plan printed and provided to patient: PRESCRIBE: ALPRAZolam 0.5 mg oral tablet, one or one half po qid prn anxiety MDD4, # 120, RF: 0. PRESCRIBE: Metoprolol Succinate ER 100 mg oral tablet, extended release, one po daily, # 30, RF: 5. (Transmitted by Amparo Pérez DO) PRESCRIBE: metoprolol succinate 100 mg oral tablet, extended release, one po daily, # 30, RF: 5. (Transmitted by Amparo Pérez DO) PRESCRIBE: atorvastatin 40 mg oral tablet, one po daily, # 30, RF: 5. (Transmitted by Amparo Pérez DO) PROVIDED HM: Diabetes Prevention Program Given: Maura Manley....[phone] [facility]...[phone] ( Anita Frye) [facility]....[phone] [id number] ([facility]....[phone] (Maura Grissom) PROVIDED HM: medication adherence Given: No an issue ORDERED/ADVISED: - CBC with diff (automated) ICD Codes (E78.4, R73.9, M06.9, Z00.00, I10) - CMP (Complete Metabolic Panel) ICD Codes (E78.4, R73.9, M06.9, Z00.00, I10) - HGA1C ICD Codes (E78.4, R73.9, M06.9, Z00.00, I10) - Lipid Panel ICD Codes (E78.4, R73.9, M06.9, Z00.00, I10) - PSA, total (Prostate Specific Antigen) (BPH) ICD Codes (E78.4, R73.9, M06.9, Z00.00, I10) PROVIDED HM: Colorectal Cancer: Screening Given: will be seeing Dr. Curiel. Has heard from him. Patient will arrange this PROVIDED HM: High Blood Pressure in Adults: Screening Given: 132/70 12/25/2016 09:02:26 Plan printed and provided to patient: PRESCRIBE: ALPRAZolam 0.5 mg oral tablet, one or one half po qid prn anxiety MDD4, # 120, RF: 0. REMOVED from Current Meds: DULoxetine 60 mg oral delayed release capsule, one po daily for a week then two po daily, # 60, RF: 5. (Transmitted by Amparo Pérez Xcerion) Date Prescribed: 03/13/2016 12/25/2016 09:02:26 Plan printed and provided to patient: PRESCRIBE: ALPRAZolam 0.5 mg oral tablet, one or one half po qid prn anxiety MDD4, # 120, RF: 0. REMOVED from Current Meds: DULoxetine 60 mg oral delayed release capsule, one po daily for a week then two po daily, # 60, RF: 5. (Transmitted by Amparo FriedensburgDO elizabeth) Date Prescribed: 03/13/2016 12/25/2016 09:02:26 Plan printed and provided to patient: PRESCRIBE: ALPRAZolam 0.5 mg oral tablet, one or one half po qid prn anxiety MDD4, # 120, RF: 0. REMOVED from Current Meds: DULoxetine 60 mg oral delayed release capsule, one po daily for a week then two po daily, # 60, RF: 5. (Transmitted by [employer] Deep Sea Technologieselizabeth Xcerion) Date Prescribed: 03/13/2016 10/09/2016 09:02:56 Plan printed and provided to patient: PRESCRIBE: ALPRAZolam 0.5 mg oral tablet, one or one half po qid prn anxiety MDD4, # 120, RF: 0. PROVIDED HM: High Blood Pressure in Adults: Screening Given: 124/70 PROVIDED HM: Screening for Colorectal Cancer in Adults Aged 50-75 yrs Given: just received his letter from Dr. Finch PROVIDED HM: Tobacco use counseling and interventions: non- adults Given: NI 10/09/2016 09:02:56 Plan printed and provided to patient: PRESCRIBE: ALPRAZolam 0.5 mg oral tablet, one or one half po qid prn anxiety MDD4, # 120, RF: 0. PROVIDED HM: High Blood Pressure in Adults: Screening Given: 124/70 PROVIDED HM: Screening for Colorectal Cancer in Adults Aged 50-75 yrs Given: just received his letter from Dr. Finch PROVIDED HM: Tobacco use counseling and interventions: non- adults Given: NI 10/09/2016 09:02:56 Plan printed and provided to patient: PRESCRIBE: ALPRAZolam 0.5 mg oral tablet, one or one half po qid prn anxiety MDD4, # 120, RF: 0. PROVIDED HM: High Blood Pressure in Adults: Screening Given: 124/70 PROVIDED HM: Screening for Colorectal Cancer in Adults Aged 50-75 yrs Given: just received his letter from Dr. Finch PROVIDED HM: Tobacco use counseling and interventions: non- adults Given: NI 08/28/2016 08:58:27 Plan printed and provided to patient: PRESCRIBE: ALPRAZolam 0.5 mg oral tablet, one or one half po qid prn anxiety MDD4, # 120, RF: 0. PRESCRIBE: metoprolol succinate 100 mg oral tablet, extended release, one po daily, # 30, RF: 5. (Transmitted by Amparo Pérez DO) PRESCRIBE: atorvastatin 40 mg oral tablet, one po daily, # 30, RF: 5. (Transmitted by Amparo Pérez DO) PRESCRIBE: DULoxetine 30 mg oral delayed release capsule, one po daily, # 30, RF: 5. (Transmitted by Amparo Pérez DO) [email or web address] (tens units) 08/28/2016 08:58:27 Plan printed and provided to patient: PRESCRIBE: ALPRAZolam 0.5 mg oral tablet, one or one half po qid prn anxiety MDD4, # 120, RF: 0. PRESCRIBE: metoprolol succinate 100 mg oral tablet, extended release, one po daily, # 30, RF: 5. (Transmitted by Amparo Pérez DO) PRESCRIBE: atorvastatin 40 mg oral tablet, one po daily, # 30, RF: 5. (Transmitted by Amparo Pérez DO) PRESCRIBE: DULoxetine 30 mg oral delayed release capsule, one po daily, # 30, RF: 5. (Transmitted by [employer]) [employer] (tens units) 08/28/2016 08:58:27 Plan printed and provided to patient: PRESCRIBE: ALPRAZolam 0.5 mg oral tablet, one or one half po qid prn anxiety MDD4, # 120, RF: 0. PRESCRIBE: metoprolol succinate 100 mg oral tablet, extended release, one po daily, # 30, RF: 5. (Transmitted by [employer]) PRESCRIBE: atorvastatin 40 mg oral tablet, one po daily, # 30, RF: 5. (Transmitted by [employer]) PRESCRIBE: DULoxetine 30 mg oral delayed release capsule, one po daily, # 30, RF: 5. (Transmitted by [employer]) [email or web address] (tens units) 07/17/2016 08:58:45 Plan printed and provided to patient: PRESCRIBE: ALPRAZolam 0.5 mg oral tablet, one or one half po qid prn anxiety MDD4, # 120, RF: 0. PROVIDED HM: CDSMP Given: 1. Healthy Eating: Count Carbs/Read Labels/Measure Servings/Develop an eating plan/Set healthy eating goals. 2. Being Active: Think of things you like to do/Take it slow/Check BS levels/Keep track of Activity/Excercise with a friend/Take a class/Join an adult league 3. Monitoring: Blood sugar/BP/weight/cholesterol/kidney health/eye health/foot health 4. Taking Medication: Diabetes meds/bp meds/cholesterol meds(statins)/vaccinations. 5. Problem Solving: Don't beat yourself up/Analyze your day/Learn from it/Discuss possible solutions/Try new solutions 6. Reducing Risks: Don't smoke/Visit eye doc at least once a year/Don't forget the dentist/ Take care of your feet/Listen to your body 7. Healthy Coping: Seek support/Move your body/Think positive/Be good to yourself/ [place] [employer] Educators....7 behaviors for diabetes self m anagement. PROVIDED HM: DPP Given: Maura Manley....[phone] [facility]...[phone] ( Anita Merinomeghna) [facility]....[phone] [id number] (Haley Short) [facility] [place]....[phone] (Maura Jaciel) [facility] Diabetes education [phone] 07/17/2016 08:58:45 Plan printed and provided to patient: PRESCRIBE: ALPRAZolam 0.5 mg oral tablet, one or one half po qid prn anxiety MDD4, # 120, RF: 0. PROVIDED HM: CDSMP Given: 1. Healthy Eating: Count Carbs/Read Labels/Measure Servings/Develop an eating plan/Set healthy eating goals. 2. Being Active: Think of things you like to do/Take it slow/Check BS levels/Keep track of Activity/Excercise with a friend/Take a class/Join an adult league 3. Monitoring: Blood sugar/BP/weight/cholesterol/kidney health/eye health/foot health 4. Taking Medication: Diabetes meds/bp meds/cholesterol meds(statins)/vaccinations. 5. Problem Solving: Don't beat yourself up/Analyze your day/Learn from it/Discuss possible solutions/Try new solutions 6. Reducing Risks: Don't smoke/Visit eye doc at least once a year/Don't forget the dentist/ Take care of your feet/Listen to your body 7. Healthy Coping: Seek support/Move your body/Think positive/Be good to yourself/ [employer]ators....7 behaviors for diabetes self m anagement. PROVIDED HM: DPP Given: Maura Manley....[phone] [facility]...[phone] ( Anita Merinomeghna) [facility]....[phone] [id number] (AleishaMargarita Short) [facility] [place]....[phone] (Maura Jaciel) [facility] Diabetes education [phone] 07/17/2016 08:58:45 Plan printed and provided to patient: PRESCRIBE: ALPRAZolam 0.5 mg oral tablet, one or one half po qid prn anxiety MDD4, # 120, RF: 0. PROVIDED HM: CDSMP Given: 1. Healthy Eating: Count Carbs/Read Labels/Measure Servings/Develop an eating plan/Set healthy eating goals. 2. Being Active: Think of things you like to do/Take it slow/Check BS levels/Keep track of Activity/Excercise with a friend/Take a class/Join an adult league 3. Monitoring: Blood sugar/BP/weight/cholesterol/kidney health/eye health/foot health 4. Taking Medication: Diabetes meds/bp meds/cholesterol meds(statins)/vaccinations. 5. Problem Solving: Don't beat yourself up/Analyze your day/Learn from it/Discuss possible solutions/Try new solutions 6. Reducing Risks: Don't smoke/Visit eye doc at least once a year/Don't forget the dentist/ Take care of your feet/Listen to your body 7. Healthy Coping: Seek support/Move your body/Think positive/Be good to yourself/ [employer]ators....7 behaviors for diabetes self m anagement. PROVIDED HM: DPP Given: Maura Manley....[phone] [facility]...[phone] ( Anita Frye) [facility]....[phone] [id number] (Haley Short) [facility] [place]....[phone] (Maura Grissom) [facility] Diabetes education [phone] 06/05/2016 09:32:15 Plan printed and provided to patient: PRESCRIBE: Valtrex 1 g oral tablet, two po now then one bid for 12 hours, # 5, RF: 5. (Transmitted by Amparo Pérez DO) PRESCRIBE: Valtrex 1 g oral tablet, two po now then one bid for 12 hours, # 1, RF: 1. PRESCRIBE: ALPRAZolam 0.5 mg oral tablet, one or one half po qid prn anxiety MDD4, # 120, RF: 0. PROVIDED HM: Assessment of Fall Risk in Community-Dwelling Older Adults Given: Urged to walk at least 3 times/week and eat a more plant based diet. diabetes info given to patient PROVIDED HM: Screening for Depression in Adults Given: Neg PROVIDED HM: medication adherence Given: Today we discussed the possibility of combination medications and strategies for reminders to take medications to improve adherence to medication regimen. We discuss the risks and benefits of the medications, missing doses and possibility of self-management of medications 06/05/2016 09:32:15 Plan printed and provided to patient: PRESCRIBE: Valtrex 1 g oral tablet, two po now then one bid for 12 hours, # 5, RF: 5. (Transmitted by Amparo Pérez DO) PRESCRIBE: Valtrex 1 g oral tablet, two po now then one bid for 12 hours, # 1, RF: 1. PRESCRIBE: ALPRAZolam 0.5 mg oral tablet, one or one half po qid prn anxiety MDD4, # 120, RF: 0. PROVIDED HM: Assessment of Fall Risk in Community-Dwelling Older Adults Given: Urged to walk at least 3 times/week and eat a more plant based diet. diabetes info given to patient PROVIDED HM: Screening for Depression in Adults Given: Neg PROVIDED HM: medication adherence Given: Today we discussed the possibility of combination medications and strategies for reminders to take medications to improve adherence to medication regimen. We discuss the risks and benefits of the medications, missing doses and possibility of self-management of medications 06/05/2016 09:32:15 Plan printed and provided to patient: PRESCRIBE: Valtrex 1 g oral tablet, two po now then one bid for 12 hours, # 5, RF: 5. (Transmitted by Amparo Pérez DO) PRESCRIBE: Valtrex 1 g oral tablet, two po now then one bid for 12 hours, # 1, RF: 1. PRESCRIBE: ALPRAZolam 0.5 mg oral tablet, one or one half po qid prn anxiety MDD4, # 120, RF: 0. PROVIDED HM: Assessment of Fall Risk in Community-Dwelling Older Adults Given: Urged to walk at least 3 times/week and eat a more plant based diet. diabetes info given to patient PROVIDED HM: Screening for Depression in Adults Given: Neg PROVIDED HM: medication adherence Given: Today we discussed the possibility of combination medications and strategies for reminders to take medications to improve adherence to medication regimen. We discuss the risks and benefits of the medications, missing doses and possibility of self-management of medications 04/24/2016 09:41:36 Plan printed and provided to patient: PRESCRIBE: ALPRAZolam 0.5 mg oral tablet, one or one half po qid prn anxiety MDD4, # 120, RF: 0. ORDERED/ADVISED: - CMP (Complete Metabolic Panel) ICD Codes (E78.5, N40.0) - Lipid Panel ICD Codes (E78.5, N40.0) - PSA, total (Prostate Specific Antigen) ICD Codes (E78.5, N40.0) 04/24/2016 09:41:36 Plan printed and provided to patient: PRESCRIBE: ALPRAZolam 0.5 mg oral tablet, one or one half po qid prn anxiety MDD4, # 120, RF: 0. ORDERED/ADVISED: - CMP (Complete Metabolic Panel) ICD Codes (E78.5, N40.0) - Lipid Panel ICD Codes (E78.5, N40.0) - PSA, total (Prostate Specific Antigen) ICD Codes (E78.5, N40.0) 04/24/2016 09:41:36 Plan printed and provided to patient: PRESCRIBE: ALPRAZolam 0.5 mg oral tablet, one or one half po qid prn anxiety MDD4, # 120, RF: 0. ORDERED/ADVISED: - CMP (Complete Metabolic Panel) ICD Codes (E78.5, N40.0) - Lipid Panel ICD Codes (E78.5, N40.0) - PSA, total (Prostate Specific Antigen) ICD Codes (E78.5, N40.0) 03/13/2016 10:04:03 Plan printed and provided to patient: PRESCRIBE: DULoxetine 60 mg oral delayed release capsule, one po daily for a week then two po daily, # 60, RF: 5. (Transmitted by Amparo Pérez DO) PRESCRIBE: atorvastatin 40 mg oral tablet, one po daily, # 30, RF: 5. (Transmitted by Amparo Pérez, ) PRESCRIBE: metoprolol succinate 100 mg oral tablet, extended release, one po daily, # 30, RF: 5. (Transmitted by Amparo Pérez DO) PRESCRIBE: ALPRAZolam 0.5 mg oral tablet, one or one half po qid prn anxiety MDD4, # 120, RF: 0. PROVIDED VACCINATION: 1 dose of Fluvirin, 0.5 mL IM in the Left Deltoid ([facility]: [facility] lot no. [id number], expires 11/13/2016) PPD .1 intradermal [id number] 03/13/2016 10:04:03 Plan printed and provided to patient: PRESCRIBE: DULoxetine 60 mg oral delayed release capsule, one po daily for a week then two po daily, # 60, RF: 5. (Transmitted by Amparo Pérez DO) PRESCRIBE: atorvastatin 40 mg oral tablet, one po daily, # 30, RF: 5. (Transmitted by Amparo Pérez DO) PRESCRIBE: metoprolol succinate 100 mg oral tablet, extended release, one po daily, # 30, RF: 5. (Transmitted by Amparo Pérez DO) PRESCRIBE: ALPRAZolam 0.5 mg oral tablet, one or one half po qid prn anxiety MDD4, # 120, RF: 0. PROVIDED VACCINATION: 1 dose of Fluvirin, 0.5 mL IM in the Left Deltoid (Mfg: OT HER lot no. [id number], expires 11/13/2016) PPD .1 intradermal [id number] 03/13/2016 10:04:03 Plan printed and provided to patient: PRESCRIBE: DULoxetine 60 mg oral delayed release capsule, one po daily for a week then two po daily, # 60, RF: 5. (Transmitted by Amparo Pérez DO) PRESCRIBE: atorvastatin 40 mg oral tablet, one po daily, # 30, RF: 5. (Transmitted by Amparo Pérez DO) PRESCRIBE: metoprolol succinate 100 mg oral tablet, extended release, one po daily, # 30, RF: 5. (Transmitted by Amparo Pérez DO) PRESCRIBE: ALPRAZolam 0.5 mg oral tablet, one or one half po qid prn anxiety MDD4, # 120, RF: 0. PROVIDED VACCINATION: 1 dose of Fluvirin, 0.5 mL IM in the Left Deltoid (Mfg: OT [employer] lot no. [id number], expires 11/13/2016) PPD .1 intradermal [id number] 01/31/2016 08:59:31 Plan printed and provided to patient: PRESCRIBE: ALPRAZolam 0.5 mg oral tablet, one or one half po qid prn anxiety MDD4, # 120, RF: 0. PRESCRIBE: Xanax 0.5 mg oral tablet, one or one half po qid prn anxiety MDD4, # 120, RF: 0. PRESCRIBE: DULoxetine 30 mg oral delayed release capsule, one po daily for a week then two po daily, # 60, RF: 1. (Transmitted by Amparo Pérez DO) DISCONTINUE: gabapentin 100 mg oral capsule two at hs and one po qid prn neuropathic pain, REASON: PRESCRIBE: dicyclomine 20 mg oral tablet, one or two po qid prn abdomenal pain, # 120, RF: 5. (Transmitted by Amparo Pérez DO) PROVIDED HM: Healthy Diet and Physical Activity: Counseling Adults with High Risk of CVD Given: Urged to walk at least 3 times/week and eat a more plant based diet 01/31/2016 08:59:31 Plan printed and provided to patient: PRESCRIBE: ALPRAZolam 0.5 mg oral tablet, one or one half po qid prn anxiety MDD4, # 120, RF: 0. PRESCRIBE: Xanax 0.5 mg oral tablet, one or one half po qid prn anxiety MDD4, # 120, RF: 0. PRESCRIBE: DULoxetine 30 mg oral delayed release capsule, one po daily for a week then two po daily, # 60, RF: 1. (Transmitted by Amparo Pérez DO) DISCONTINUE: gabapentin 100 mg oral capsule two at hs and one po qid prn neuropathic pain, REASON: PRESCRIBE: dicyclomine 20 mg oral tablet, one or two po qid prn abdomenal pain, # 120, RF: 5. (Transmitted by Amparo Pérez DO) PROVIDED HM: Healthy Diet and Physical Activity: Counseling Adults with High Risk of CVD Given: Urged to walk at least 3 times/week and eat a more plant based diet 01/31/2016 08:59:31 Plan printed and provided to patient: PRESCRIBE: ALPRAZolam 0.5 mg oral tablet, one or one half po qid prn anxiety MDD4, # 120, RF: 0. PRESCRIBE: Xanax 0.5 mg oral tablet, one or one half po qid prn anxiety MDD4, # 120, RF: 0. PRESCRIBE: DULoxetine 30 mg oral delayed release capsule, one po daily for a week then two po daily, # 60, RF: 1. (Transmitted by Amparo Pérez DO) DISCONTINUE: gabapentin 100 mg oral capsule two at hs and one po qid prn neuropathic pain, REASON: PRESCRIBE: dicyclomine 20 mg oral tablet, one or two po qid prn abdomenal pain, # 120, RF: 5. (Transmitted by Amparo Pérez DO) PROVIDED HM: Healthy Diet and Physical Activity: Counseling Adults with High Risk of CVD Given: Urged to walk at least 3 times/week and eat a more plant based diet 12/27/2015 09:34:39 Plan printed and provided to patient: PRESCRIBE: baclofen 10 mg oral tablet, one or two po tid prn back spasms, # 90, RF: 5. (Transmitted by Amparo Pérez DO) Read about cymbalta or duloxetine. ORDERED/ADVISED: - Sloan Curiel (Surgery) (EGD stomach burning) 30minutes FTF 11/22/2015 09:35:26 Plan printed and provided to patient: PRESCRIBE: Xanax 0.5 mg oral tablet, one or one half po qid prn anxiety MDD4, # 120, RF: 0. PRESCRIBE: HYDROcodone-acetaminophen 5 mg-325 mg oral tablet, one po tid prn pain, # 90, RF: 0. 10/18/2015 09:36:50 Plan printed and provided to patient: Hydrocodone and Xanax scripts written. 09/13/2015 09:28:05 Plan printed and provided to patient: PRESCRIBE: Xanax 0.5 mg oral tablet, one or one half po qid prn anxiety MDD4, # 120, RF: 0. PRESCRIBE: HYDROcodone-acetaminophen 5 mg-325 mg oral tablet, one po tid prn pain, # 90, RF: 0. REMOVED from Current Meds: folic acid 1 mg oral tablet, one po daily, # 30, RF: 5. (Transmitted by Amparo Pérez DO) PRESCRIBE: metoprolol succinate 100 mg oral tablet, extended release, one po daily, # 30, RF: 5. (Transmitted by Amparo Pérez DO) PRESCRIBE: Lipitor 40 mg oral tablet, one po daily, # 30, RF: 5. (Transmitted by Amparo Pérez DO) PRESCRIBE: folic acid 1 mg oral tablet, one po daily, # 30, RF: 5. (Transmitted by Amparo Pérez DO) DISCONTINUE: Augmentin 875 mg-125 mg oral tablet one po bid, REASON: done PROVIDED HM: Counseling to Prevent Tobacco Use and Tobacco-Caused Disease in Adults and Women Given: NI PROVIDED HM: Screening for High Blood Pressure in Adults Given: 118/80 PROVIDED HM: Screening for Colorectal Cancer in Adults Aged 50-75 yrs Given: due 2017 PROVIDED VACCINATION: (Refused) Zoster, contraindicated with remicaide 08/09/2015 09:28:48 Plan printed and provided to patient: PRESCRIBE: HYDROcodone-acetaminophen 5 mg-325 mg oral tablet, one po tid prn pain, # 90, RF: 0. PRESCRIBE: Xanax 0.5 mg oral tablet, one or one half po qid prn anxiety MDD4, # 120, RF: 0. 07/05/2015 09:26:40 Plan printed and provided to patient: PRESCRIBE: HYDROcodone-acetaminophen 5 mg-325 mg oral tablet, one po tid prn pain, # 90, RF: 0. PRESCRIBE: Xanax 0.5 mg oral tablet, one or one half po qid prn anxiety MDD4, # 120, RF: 0. 05/31/2015 09:27:13 PRESCRIBE: Xanax 0.5 mg oral tablet, one or one half po qid prn anxiety MDD4, # 120, RF: 0. PRESCRIBE: HYDROcodone-acetaminophen 5 mg-325 mg oral tablet, one po tid prn pain, # 90, RF: 0. PRESCRIBE: Cortisporin otic solution, 4 gtts into EAC on the left qid, # 10, RF: 0. (Transmitted by Amparo Pérez DO) 05/24/2015 09:31:02 Plan printed and provided to patient: PRESCRIBE: Augmentin 875 mg-125 mg oral tablet, one po bid, # 20, RF: 0. (Transmitted by Amparo Pérez DO) Will extend the antibiotic tx another 10 days 05/17/2015 08:45:07 PRESCRIBE: Augmentin 875 mg-125 mg oral tablet, one po bid, # 20, RF: 0. (Transmitted by Amparo Pérez DO) 04/26/2015 10:00:01 PRESCRIBE: Xanax 0.5 mg oral tablet, one or one half po qid prn anxiety MDD4, # 120, RF: 0. PRESCRIBE: HYDROcodone-acetaminophen 5 mg-325 mg oral tablet, one po tid prn pain, # 90, RF: 0. 03/22/2015 10:00:36 Plan printed and provided to patient: PRESCRIBE: metoprolol succinate 100 mg oral tablet, extended release, one po daily, # 30, RF: 5. (Transmitted by Amparo Pérez DO) PRESCRIBE: Lipitor 40 mg oral tablet, one po daily, # 30, RF: 5. (Transmitted by Amparo Pérez DO) PRESCRIBE: Xanax 0.5 mg oral tablet, one or one half po qid prn anxiety MDD4, # 180, RF: 0. PRESCRIBE: HYDROcodone-acetaminophen 5 mg-325 mg oral tablet, one po tid prn pain, # 90, RF: 0. DISCONTINUE: Xanax 0.25 mg oral tablet One or two tablets po qid prn anxiety MDD #6, REASON: not taking PROVIDED VACCINATION: (Given Elsewhere) Influenza, done at [facility] 02/15/2015 10:03:31 Plan printed and provided to patient: PRESCRIBE: Zostavax subcutaneous injection, one dose sq now or in 30 days, # 1, RF: 0. PRESCRIBE: Xanax 0.25 mg oral tablet, One or two tablets po qid prn anxiety MDD #6, # 180, RF: 0. PRESCRIBE: HYDROcodone-acetaminophen 5 mg-325 mg oral tablet, one po tid prn pain, # 90, RF: 0. 01/11/2015 10:12:53 PRESCRIBE: Xanax 0.25 mg oral tablet, One or two tablets po qid prn anxiety MDD #6, # 180, RF: 0. PRESCRIBE: HYDROcodone-acetaminophen 5 mg-325 mg oral tablet, one po tid prn pain, # 90, RF: 0. Maximize the gabapention 12/07/2014 11:25:37 Plan printed and provided to patient: PRESCRIBE: Lidoderm 5% topical film, apply one or two to affected area for 12 hours daily prn, # 60, RF: 5. (Transmitted by Amparo Pérez DO) PRESCRIBE: HYDROcodone-acetaminophen 5 mg-325 mg oral tablet, one po tid prn pain, # 90, RF: 0. PRESCRIBE: Xanax 0.25 mg oral tablet, One or two tablets po qid prn anxiety MDD #6, # 180, RF: 0. ORDERED/ADVISED: - CBC with diff (automated) ICD Codes (272.4, 714.0, V70.0, 401.9) - CMP (Complete Metabolic Panel) ICD Codes (272.4, 714.0, V70.0, 401.9) - Lipid Panel ICD Codes (272.4, 714.0, V70.0, 401.9) - PSA, total (Prostate Specific Antigen) ICD Codes (272.4, 714.0, V70.0, 401.9) ORDERED/ADVISED: - CXR - PA & Lat ICD Codes (272.4, 714.0, V70.0, 401.9) - EKG ICD Codes (272.4, 714.0, V70.0, 401.9) ORDERED/ADVISED: - Ultrasound Aorta ICD Codes (401.9) 11/02/2014 09:32:01 PRESCRIBE: Xanax 0.25 mg oral tablet, One or two tablets po qid prn anxiety MDD #6, # 180, RF: 0. PRESCRIBE: HYDROcodone-acetaminophen 5 mg-325 mg oral tablet, one or two po daily prn pain, # 60, RF: 0. PPD .1ml Left forearm [id number] Exp 10/13 implanted The following text was added by Alex Pérez, [facility], [place] on Tuesday November 04, 2014 12:00 PM: PPD read: Omm negative 10/05/2014 09:30:13 PRESCRIBE: cholecalciferol 50,000 intl units oral capsule, one po weekly, # 12, RF: 1. (Transmitted by Amparo Pérez DO) Instructions printed and provided to patient: PRESCRIBE: HYDROcodone-acetaminophen 5 mg-325 mg oral tablet, one or two po daily prn pain, # 60, RF: 0. PRESCRIBE: Xanax 0.25 mg oral tablet, One or two tablets po qid prn anxiety MDD #6, # 180, RF: 0. ORDERED/ADVISED: - CBC with diff (automated) ICD9 Codes (300.00, 724.5, 714.0, 401.9) - CMP (Complete Metabolic Panel) ICD9 Codes (300.00, 724.5, 714.0, 401.9) 09/07/2014 09:33:26 PRESCRIBE: Xanax 0.25 mg oral tablet, One or two tablets po qid prn anxiety MDD #6, # 180, RF: 0. PRESCRIBE: HYDROcodone-acetaminophen 5 mg-325 mg oral tablet, one or two po daily prn pain, # 60, RF: 0. PROVIDED HM: Screening for Lipid Disorders in Adults (Male) Given: LDL 83 last january PROVIDED HM: Counseling to Prevent Tobacco Use and Tobacco-Caused Disease in Adults and Women Given: NI PROVIDED HM: Screening for Colorectal Cancer in Adults Aged 50-75 yrs Given: due in 2017 PROVIDED: Patient Education (09/07/2014) 08/10/2014 09:28:21 PRESCRIBE: Xanax 0.25 mg oral tablet, One or two tablets po qid prn anxiety MDD #6, # 180, RF: 0. PRESCRIBE: HYDROcodone-acetaminophen 5 mg-325 mg oral tablet, one or two po daily prn pain, # 60, RF: 0. We discussed next months scripts and getting them timely. 07/13/2014 12:33:34 Instructions printed and provided to patient: PRESCRIBE: Lidocaine Viscous 2% mucous membrane solution, swish and spit bid prn burning tongue, DO NOT SWALLOW, # 100, RF: 1. (Transmitted by Amparo Pérez DO) REMOVED from Current Meds: METHOTREXATE 2.5mg, 6 po weekly, # 0, RF: NONE. Date Prescribed: 10/23/2008 PRESCRIBE: Xanax 0.25 mg oral tablet, One or two tablets po qid prn anxiety MDD #6, # 180, RF: 0. PRESCRIBE: HYDROcodone-acetaminophen 5 mg-325 mg oral tablet, one or two po daily prn pain, # 60, RF: 0. 05/16/2014 11:04:57 CHANGED Current Meds: gabapentin 100 mg oral capsule PRESCRIBE: Xanax 0.25 mg oral tablet, One or two tablets po qid prn anxiety MDD #6, # 180, RF: 0. PRESCRIBE: HYDROcodone-acetaminophen 5 mg-325 mg oral tablet, one or two po daily prn pain, # 60, RF: 0. PROVIDED: Patient Education (05/16/2014) 03/25/2014 09:52:29 Instructions printed and provided to patient: PRESCRIBE: gabapentin 100 mg oral capsule, two at hs and one po qid prn neuropathic pain, # 120, RF: 5. PRESCRIBE: Xanax 0.25 mg oral tablet, One or two tablets po qid prn anxiety MDD #6, # 180, RF: 0. PRESCRIBE: Vicodin 5 mg-500 mg oral tablet, one or two po daily prn pain, # 60, RF: 0. PRESCRIBE: metoprolol succinate 100 mg oral tablet, extended release, one po daily, # 30, RF: 5. (Transmitted by Amparo Pérez DO) PRESCRIBE: Lipitor 40 mg oral tablet, one po daily, # 30, RF: 5. (Transmitted by Amparo Pérez, ) PRESCRIBE: Vitamin D3 2000 intl units oral capsule, one po daily, 01/26/2014 09:29:10 Instructions printed and provided to patient: PRESCRIBE: Xanax 0.25 mg oral tablet, One or two tablets po qid prn anxiety MDD #6, # 180, RF: 0. PRESCRIBE: Vicodin 5 mg-500 mg oral tablet, one or two po daily prn pain, # 60, RF: 0. ORDERED/ADVISED: - 25 vit D and 1, 25 vit D ICD9 Codes (300.00, 724.5, 272.4, 530.11, 714.0, 401.9) - B12 level, Folate ICD9 Codes (300.00, 724.5, 272.4, 530.11, 714.0, 401.9) - CBC with diff (automated) ICD9 Codes (300.00, 724.5, 272.4, 530.11, 714.0, 401.9) - CMP (Complete Metabolic Panel) ICD9 Codes (300.00, 724.5, 272.4, 530.11, 714.0, 401.9) - Lipid Panel ICD9 Codes (300.00, 724.5, 272.4, 530.11, 714.0, 401.9) - Magnesium Level ICD9 Codes (300.00, 724.5, 272.4, 530.11, 714.0, 401.9) - TSH ICD9 Codes (300.00, 724.5, 272.4, 530.11, 714.0, 401.9) ORDERED/ADVISED: - Blood Draw QUALITY NURSE site consulted prior to scheduled drug prescription. 12/13/2013 09:01:43 Instructions printed and provided to patient: PRESCRIBE: Xanax 0.25 mg oral tablet, One or two tablets po qid prn anxiety MDD #6, # 180, RF: 0. PRESCRIBE: Vicodin 5 mg-500 mg oral tablet, one or two po daily prn pain, # 60, RF: 0. QUALITY NURSE site consulted prior to scheduled drug prescription. ORDERED/ADVISED: - Urine for cytology (x3) ICD9 Codes (599.72) ORDERED/ADVISED: - Ultrasound, kidneys and bladder ICD9 Codes (599.72) .1 ml sq left forearm Lot [id number] Exp 11/11 PPD ORDERED/ADVISED: - Ultrasound, kidneys and bladder The following text was added by Paulette Hanley, NOT YET REVIEWED on Tuesday December 17, 2013 12:03 PM: PPD : PPD read: 0mm Negative 10/18/2013 12:05:56 PRESCRIBE: XANAX TABLETS 0.25 MG, One or two tablets po qid prn anxiety MDD #6, # 180, RF: NONE. PRESCRIBE: Vicodin 5 mg-500 mg oral tablet, one or two po daily prn pain, # 60, RF: 0. QUALITY NURSE site consulted prior to scheduled drug prescription. Recommend that he start taking a multiple 08/30/2013 10:28:36 PRESCRIBE: PriLOSEC 20 mg oral delayed release capsule, one po daily, # 30, RF: 5. (Transmitted by Amparo Pérez DO) PRESCRIBE: metoprolol succinate 100 mg oral tablet, extended release, one po daily, # 30, RF: 5. (Transmitted by Amparo Pérez, ) PRESCRIBE: Lipitor 40 mg oral tablet, one po daily, # 30, RF: 5. (Transmitted by Amparo Pérez DO) Instructions printed and provided to patient: PRESCRIBE: Vicodin 5 mg-500 mg oral tablet, one or two po daily prn pain, # 60, RF: 0. PRESCRIBE: XANAX TABLETS 0.25 MG, One or two tablets po qid prn anxiety MDD #6, # 180, RF: NONE. REVIEWED EBM:Sjorgren's syndrome PROVIDED HM: Screening for Colorectal Cancer in Adults Aged 50-75 yrs Given: due in 2017 PROVIDED HM: Screening for High Blood Pressure in Adults Given: 100/80 PROVIDED HM: Screening for Lipid Disorders in Adults (Male) Given: LDL 148 He was actually off his lipitor when this was done. PROVIDED HM: Counseling to Prevent Tobacco Use and Tobacco-Caused Disease in Adults and Women Given: NI ORDERED/ADVISED: - CMP (Complete Metabolic Panel) ICD9 Codes (272.4, 714.0, 401.9) - Lipid Panel ICD9 Codes (272.4, 714.0, 401.9) 07/02/2013 12:24:29 PRESCRIBE: XANAX TABLETS 0.25 MG, One tablet po qid prn anxiety MDD #4, # 120, RF: NONE. PRESCRIBE: Vicodin 5 mg-500 mg oral tablet, one or two po daily prn pain, # 60, RF: 0. QUALITY NURSE site consulted prior to scheduled drug prescription. 05/17/2013 10:00:23 Instructions printed and provided to patient: PRESCRIBE: Vicodin 5 mg-500 mg oral tablet, one or two po daily prn pain, # 60, RF: 0. PRESCRIBE: XANAX TABLETS 0.25 MG, One tablet po qid prn anxiety MDD #4, # 120, RF: NONE. QUALITY NURSE site consulted prior to scheduled drug prescription. 03/26/2013 12:08:28 PRESCRIBE: XANAX TABLETS 0.25 MG, One tablet po qid prn anxiety MDD #4, # 120, RF: NONE. PRESCRIBE: Vicodin 5 mg-500 mg oral tablet, one or two po daily prn pain, # 60, RF: 0. PRESCRIBE: Lipitor 40 mg oral tablet, one po daily, # 30, RF: 5. (Transmitted by Amparo Pérez DO) PRESCRIBE: metoprolol succinate 100 mg oral tablet, extended release, one po daily, # 30, RF: 5. (Transmitted by Amparo Pérez DO) PROVIDED VACCINATION: 1 dose of Afluria, 0.5 ml IM in the L DELTOID (Mfg: [facility] lot no. [id number], expires 12/17/2013) QUALITY NURSE site consulted prior to scheduled drug prescription. 02/08/2013 11:26:02 Instructions printed and provided to patient: PRESCRIBE: XANAX TABLETS 0.25 MG, One tablet po qid prn anxiety MDD #4, # 120, RF: NONE. PRESCRIBE: Vicodin 5 mg-500 mg oral tablet, one or two po daily prn pain, # 60, RF: 0. 12/14/2012 10:21:27 Instructions printed and provided to patient: [id number] .1 ml left forearm exp 12/11 [employer] PRESCRIBE: PriLOSEC 20 mg oral delayed release capsule, one po daily, # 30, RF: 5. (Transmitted by Amparo Pérez DO) PRESCRIBE: XANAX TABLETS 0.25 MG, One tablet po qid prn anxiety MDD #4, # 120, RF: NONE. PRESCRIBE: Vicodin 5 mg-500 mg oral tablet, one or two po daily prn pain, # 60, RF: 0. ORDERED/ADVISED: - CBC with diff (automated) ICD9 Codes (311, 600.9, 272.4, 714.0, 401.9) - CMP (Complete Metabolic Panel) ICD9 Codes (311, 600.9, 272.4, 714.0, 401.9) - Lipid Panel ICD9 Codes (311, 600.9, 272.4, 714.0, 401.9) - PSA, total (Prostate Specific Antigen) ICD9 Codes (311, 600.9, 272.4, 714.0, 401.9) PROVIDED: Patient Education (12/14/2012) prostate cancer screening The following text was added by Paulette Hanley, NOT YET REVIEWED on Sunday December 16, 2012 09:16 AM: PPD: PPD read: Negative "0"mm 10/23/2012 09:19:25 PRESCRIBE: Vicodin 5 mg-500 mg oral tablet, one or two po daily prn pain, # 60, RF: 0. PRESCRIBE: XANAX TABLETS 0.25 MG, One tablet po qid prn anxiety MDD #4, # 120, RF: NONE. 50% of this visit was spent discussing the diagnosis, natural history of the disease, risks/benefits of and various treatment options. 08/24/2012 08:54:45 Instructions printed and provided to patient: PRESCRIBE: XANAX TABLETS 0.25 MG, One tablet po qid prn anxiety MDD #4, # 120, RF: NONE. PRESCRIBE: Vicodin 5 mg-500 mg oral tablet, one or two po daily prn pain, # 30, RF: 1. PRESCRIBE: metoprolol succinate 100 mg oral tablet, extended release, one po daily, # 30, RF: 5. (Transmitted by Amparo Pérez DO) PRESCRIBE: Lipitor 40 mg oral tablet, one po daily, # 30, RF: 5. (Transmitted by Amparo Pérez DO) PROVIDED HM: Screening for Colorectal Cancer in Adults Aged 50-75 yrs Given: done 2011 PROVIDED HM: Screening for Lipid Disorders in Adults (Male) Given: LDL 93 PROVIDED HM: Counseling to Prevent Tobacco Use and Tobacco-Caused Disease in Adults Given: NI 06/15/2012 10:51:20 PRESCRIBE: Vicodin 5 mg-500 mg oral tablet, one or two po daily prn pain, # 30, RF: 1. Instructions printed and provided to patient: PRESCRIBE: PriLOSEC 20 mg oral delayed release capsule, one po daily, # 30, RF: 5. (Transmitted by Amparo Pérez DO) PRESCRIBE: XANAX TABLETS 0.25 MG, One tablet po qid prn anxiety MDD #4, # 120, RF: NONE. Date Prescribed: 06/26/2012 ORDERED/ADVISED: - Right foot (metatarsal pain) ORDERED/ADVISED: - BMP (Basic Metabolic Panel) ICD9 Codes (300.00, 714.0, 401.9) - Uric Acid ICD9 Codes (300.00, 714.0, 401.9) 04/10/2012 12:16:15 PRESCRIBE: XANAX TABLETS 0.25 MG, One tablet po qid prn anxiety MDD #4, # 120, RF: NONE. PROVIDED VACCINATION: 1 dose of Fluvirin, 0.5 ml IM in the L DELTOID (Mfg: [employer] lot no. [id number], expires 12/18/2012) 02/03/2012 08:29:20 Instructions printed and provided to patient: PRESCRIBE: Zostavax subcutaneous injection, one dose now, # 1, RF: 0. PRESCRIBE: metoprolol succinate 100 mg oral tablet, extended release, one po daily, # 30, RF: 5. (Transmitted by Amparo Pérez DO) PRESCRIBE: Lipitor 40 mg oral tablet, one po daily, # 30, RF: 5. (Transmitted by Amparo Pérez DO) PRESCRIBE: XANAX TABLETS 0.25 MG, One tablet po qid prn anxiety MDD #4, # 120, RF: NONE. ORDERED/ADVISED: - CBC with diff (automated) ICD9 Codes (300.00, 272.4, 401.9) - CMP (Complete Metabolic Panel) ICD9 Codes (300.00, 272.4, 401.9) - Lipid Panel ICD9 Codes (300.00, 272.4, 401.9) 12/11/2011 09:49:25 PRESCRIBE: XANAX TABLETS 0.25 MG, One tablet po qid prn anxiety MDD #4, # 120, RF: NONE. PPD planted left [id number] .1ml 10/25/2011 12:22:42 PRESCRIBE: XANAX TABLETS 0.25 MG, One tablet po qid prn anxiety MDD #4, # 120, RF: NONE. 07/24/2011 11:25:11 Instructions printed and provided to patient: PRESCRIBE: XANAX TABLETS 0.25 MG, One tablet po qid prn anxiety MDD #4, # 120, RF: NONE. PRESCRIBE: Denavir 1% topical cream, use as directed prn, # 1, RF: 5. (Transmitted by Amparo Pérez, DO) PRESCRIBE: VALTREX CAPLETS 1 GM, two po now then one bid for 12 hours, # 4, RF: 5. (Transmitted by Amparo Pérez, DO) PRESCRIBE: Prozac 20 mg oral capsule, one po daily, # 30, RF: 5. (Transmitted by Amparo Pérez, DO) PRESCRIBE: metoprolol succinate 100 mg oral tablet, extended release, one po daily, # 30, RF: 5. (Transmitted by Amparo Pérez, DO) PRESCRIBE: Lipitor 40 mg oral tablet, one po daily, # 30, RF: 5. (Transmitted by Amparo Pérez, DO) PROVIDED HM: Aspirin for the Primary Prevention of Myocardial Infarction Given: Longstanding PROVIDED HM: Counseling to Prevent Tobacco Use and Tobacco-Caused Disease in Adults Given: NI PROVIDED HM: Screening for Lipid Disorders in Adults (Male) Given: LDL 116 07/10 PROVIDED HM: Screening for High Blood Pressure in Adults Given: 110/72 PROVIDED HM: Screening for Colorectal Cancer in Adults Aged 50-75 yrs Given: [place] [address] Curiel. adenomatous polyps Will need to go this year as he was supposed to go two years later. He got a letter from [facility] a few years ago. ORDERED/ADVISED: - Lipid Panel (Hyperlipidemia) ICD9 Codes (300.00, 380.4, 272.4, 401.9) ORDERED/ADVISED: - Sloan Curiel (Surgery) (colonoscopy) ICD9 Codes (300.00, 380.4, 272.4, 401.9) 01/11/2011 09:55:27 PRESCRIBE: Lipitor 80 mg oral tablet, One half tablet once daily, # 15, RF: 5. (Transmitted by Amparo Pérez DO) PRESCRIBE: XANAX TABLETS 0.25 MG, One tablet po qid prn anxiety MDD #4, # 120, RF: NONE. ORDERED/ADVISED: - HgAc ICD9 Codes (300.00, 380.4, 272.4, 401.9) - BMP (Basic Metabolic Panel) (Hyperglycemia) ICD9 Codes (300.00, 380.4, 272.4, 401.9) 11/19/2010 11:12:31 50% of this visit was spent discussing the diagnosis, natural history of the disease, risks/benefits of and various treatment options. PRESCRIBE: XANAX TABLETS 0.25 MG, One tablet po qid prn anxiety MDD #4, # 120, RF: NONE. PRESCRIBE: metoprolol succinate 100 mg oral tablet, extended release, one po daily, # 30, RF: 5. (transmitted to pharmacy) PRESCRIBE: Prozac 20 mg oral capsule, one po daily, # 30, RF: 5. (transmitted to pharmacy) PRESCRIBE: Lipitor 80 mg oral tablet, One half tablet once daily, # 15, RF: 5. (transmitted to pharmacy) Ears irrigated. 09/05/2010 09:43:38 PPD planted left [id number] Exp 09/08 The following text was added by Alex Pérez, [facility], [place] on 09/07/2010 3:45:36 PM: PPD read: 0mm....negative 09/03/2010 11:30:18 He will need to return for ppd as we are out. We will call when it comes in. PRESCRIBE: XANAX TABLETS 0.25 MG, One tablet po qid prn anxiety MDD #4, # 120, RF: NONE. 06/27/2010 09:02:02 50% of this visit (25 minutes) was spent discussing the diagnosis, natural history of the disease, risks/benefits of and various treatment options. Pt is probably going to help. PRESCRIBE: Lipitor 80 mg oral tablet, One half tablet once daily, # 15, RF: 5. (transmitted to pharmacy) PRESCRIBE: XANAX TABLETS 0.25 MG, One tablet po qid prn anxiety MDD #4, # 120, RF: NONE. (transmitted to pharmacy) PRESCRIBE: XANAX TABLETS 0.25 MG, One tablet po qid prn anxiety MDD #4, # 120, RF: NONE. Ordered/Advised: - Custom Order (PT eval and treat regarding post op carpal tunnel with persistent hand pain.) ICD9 Codes (354.0) 03/28/2010 11:43:53 He is free of cardiovascular symptoms. He is already on a beta stacie. He has no history of DARCI. His only predictor of increased cardiovascular risk would be his sinus bradycardia being a rhythm other than sinus but this is due to betablocker and should not interfer with his proposed surgery. His activity level is over 4 mets. He plays golf. He does not yet have a diagnosis of diabetes but he is being careful as his bs has been elevated in the past. I will check this again today. His last remicaid was over 8 weeks ago. He takes his methotrexate on friday and plans to skip it the day of surgery. He takes ASA 81mg daily. Ordered/Advised: - BMP (Basic Metabolic Panel) ICD9 Codes (790.6, 272.4) His medical conditions would be considered optimized for him to proceed with his surgery. 01/10/2010 10:39:42 50% of this visit was spent discussing the diagnosis, natural history of the disease, risks/benefits of and various treatment options. Extensive discussion regarding the diagnosis of diabetes , its natural history, nutrition and excercise and medication effects on blood sugars. Questions were answered. PRESCRIBE: XANAX TABLETS 0.25 MG, One tablet po qid prn anxiety MDD #4, # 120, RF: NONE. PRESCRIBE: LIPITOR TABLET 80 MG, One half tablet once daily, # 15, RF: 5. Ordered/Advised: - Diabetic Teaching ICD9 Codes (354.0, 311, 600.9, 790.6, 530.11, 714.0) 11/10/2009 10:17:43 50% of this visit was spent discussing the diagnosis, natural history of the disease, risks/benefits of and various treatment options. Purpose, side effects, and potential unintended consequences of nsaid usage. PRESCRIBE: Prozac 20mg, one po daily, # 30, RF: 5. PRESCRIBE: Toprol XL 100mg, one po daily, # 30, RF: 5. PRESCRIBE: XANAX TABLETS 0.25 MG, One tablet po qid prn anxiety MDD #4, # 120, RF: NONE. Ordered/Advised: - Keshawn Gaytan (OrthopedicSurgery) ICD9 Codes (311, 600.9, 790.29, 272.4, 530.11, 714.0) 09/11/2009 08:42:21 50% of this visit was spent discussing the diagnosis, natural history of the disease, risks/benefits of and various treatment options. Extensive discussion regarding the diagnosis of diabetes , its natural history, nutrition and excercise and medication effects on blood sugars. Questions were answered. Carbs, calories and fat. Excercise. Ordered/Advised: - HgAc ICD9 Codes (311, 600.9, 272.4, 530.11, 714.0) - BMP (Basic Metabolic Panel) (Hyperglycemia) ICD9 Codes (311, 600.9, 272.4, 530.11, 714.0) PRESCRIBE: XANAX TABLETS 0.25 MG, One tablet po qid prn anxiety MDD #4, # 120, RF: NONE. 07/12/2009 11:37:47 PRESCRIBE: LIPITOR TABLET 80 MG, One half tablet once daily, # 15, RF: 5. PRESCRIBE: XANAX TABLETS 0.25 MG, One tablet po qid prn anxiety MDD #4, # 120, RF: NONE. ADVISED/ORDERED: LFS BMP Lipid profile PSA VACCINATION: First dose of H1N1, 0.5 ml IM in the Left deltoid (Mfg: [employer] lot no. [id number], expires 12/27/2009) 04/14/2009 10:58:27 PRESCRIBE: Toprol XL 100mg, one po daily, # 30, RF: 5. PRESCRIBE: Prozac 20mg, one po daily, # 30, RF: 5. PRESCRIBE: XANAX TABLETS 0.25 MG, One tablet po qid prn anxiety MDD #4, # 120, RF: NONE. He will do his colonoscopy this winter. He will call Dr. Curiel himself. 50% of this visits was spent discussing diagnoses and treatment options as well as R/B of various options. Fluvaccine discussion.....has had his regular flushot. 12/16/2008 14:22:42 PRESCRIBE: XANAX TABLETS 0.25 MG, One tablet po qid prn anxiety, # 120, RF: NONE. ADVISED/ORDERED: Urinalysis 10/24/2008 10:50:45 PRESCRIBE: LIPITOR TABLET 80 MG, One half tablet once daily, # 15, RF: 5. PRESCRIBE: Toprol XL 100mg, one po daily, # 30, RF: 5. ADVISED/ORDERED: Complete Blood Count (CBC) Basic Metabolic Panel (BMP) Liver Function Tests (LFTs) Lipids PSA ADVISED/ORDERED: Urinalysis Vision Exam VITAL SIGNS Encounter Height (in) We ight (lb) BMI (kg/m2) BP Sys (mmHg) BP Fernandez (mmHg) Heart Rate (/min) O2 % BldC Oximetry O2 % BldC Oximetry (on O2) Body Temp erature Respiratory Rate (/min) Head Circumf OFC by Tape measure 04/26/2020 08:59:14 -- 2 37 -- 114 80 -- -- -- -- - - -- 08/20/2019 09:14:36 68 2 41 36.6 132 76 54 98 -- -- -- -- 06/18/2019 09:14:14 68 2 42 36.8 108 80 56 98 -- -- -- -- 04/26/2019 08:33:50 68 2 46 37.4 128 72 55 98 -- -- -- -- 02/22/2019 08:35:14 68 2 40 36.5 110 80 63 98 -- -- -- -- 12/23/2018 09:11:54 68 2 44 37.1 114 74 58 98 -- -- -- -- 10/21/2018 09:10:09 68 2 46 37.4 150 84 58 98 -- -- -- -- 08/24/2018 09:32:54 68 2 43 36.9 122 84 61 98 -- -- -- -- 06/19/2018 09:55:21 68 2 38 36.2 134 82 56 97 -- -- -- -- 04/27/2018 11:19:49 68 2 34 35.6 110 86 60 97 -- -- -- -- 03/20/2018 09:03:16 68 2 32 35.3 110 74 50 98 -- -- -- -- 01/16/2018 08:30:09 68 2 31 35.1 116 80 57 98 -- -- -- -- 10/31/2017 09:17:00 68 2 31 35.1 110 82 52 98 -- -- -- -- 08/29/2017 08:33:05 68 2 30 35.0 120 86 63 98 -- -- -- -- 07/21/2017 09:22:42 68 2 45 37.3 118 86 53 98 -- 95.2 F -- -- 06/27/2017 08:36:35 68 2 45 37.3 120 80 57 99 -- -- -- -- 04/28/2017 09:04:31 68 2 36 35.9 110 82 77 98 -- -- -- -- 02/26/2017 08:57:30 68 2 34 35.6 132 70 62 98 -- -- -- -- 12/25/2016 09:02:26 68 2 36 35.9 132 94 65 98 -- -- -- -- 10/09/2016 09:02:56 68 2 35 35.7 124 74 60 98 -- -- -- -- 08/28/2016 08:58:27 68 2 39 36.3 120 60 63 98 -- -- -- -- 07/17/2016 08:58:45 68 2 28 34.7 106 66 65 98 -- -- -- -- 06/05/2016 09:32:15 68 2 36 35.9 108 70 57 98 -- -- -- -- 04/24/2016 09:41:36 68 2 21 33.6 108 80 62 99 -- -- -- -- 03/13/2016 10:04:03 68 2 19 33.3 90 70 64 98 -- -- -- -- 01/31/2016 08:59:31 68 2 20 33.5 132 68 52 98 -- -- -- -- 12/27/2015 09:34:39 68 2 19 33.3 108 74 50 98 -- -- -- -- 11/22/2015 09:35:26 68 2 25 34.2 126 70 58 98 -- -- -- -- 10/18/2015 09:36:50 68 2 22 33.8 120 80 53 98 -- -- -- -- 09/13/2015 09:28:05 68 2 26 34.4 118 80 52 98 -- -- -- -- 08/09/2015 09:28:48 68 2 26 34.4 120 80 58 98 -- -- -- -- 07/05/2015 09:26:40 68 2 21 33.6 100 68 52 98 -- -- -- -- 05/31/2015 09:27:13 68 2 17 33.0 92 70 60 98 -- -- -- -- 05/24/2015 09:31:02 -- -- -- 108 70 100 98 -- -- -- -- 05/17/2015 08:45:07 68 2 28 34.7 130 88 57 98 -- 97.9 F -- -- 04/26/2015 10:00:01 68 2 30 35.0 108 76 53 99 -- -- -- -- 03/22/2015 10:00:36 68 2 26 34.4 120 80 52 97 -- -- -- -- 02/15/2015 10:03:31 68 2 26 34.4 104 74 50 98 -- -- -- -- 01/11/2015 10:12:53 68 2 30 35.0 118 86 58 98 -- -- -- -- 12/07/2014 11:25:37 68 2 31 35.1 122 90 55 98 -- -- -- -- 11/02/2014 09:32:01 68 2 32 35.3 122 80 52 98 -- -- -- -- 10/05/2014 09:30:13 68 2 33 35.4 110 86 59 98 -- -- -- -- 09/07/2014 09:33:26 68 2 37 36.0 110 82 60 98 -- -- -- -- 08/10/2014 09:28:21 68 2 37 36.1 104 70 65 98 -- -- -- -- 07/13/2014 12:33:34 68 2 38 36.3 110 80 52 99 -- -- -- -- 05/16/2014 11:04:57 68 2 36 36.0 108 80 58 98 -- -- -- -- 03/25/2014 09:52:29 68 2 36 36.0 120 86 63 97 -- -- -- -- 01/26/2014 09:29:10 68 2 37 36.1 110 76 65 98 -- -- -- -- 12/13/2013 09:01:43 68 2 37 36.1 102 76 58 98 -- -- -- -- 10/18/2013 12:05:56 68 2 30 35.0 98 70 60 98 -- -- -- -- 08/30/2013 10:28:36 68 2 30 35.0 100 80 56 98 -- -- -- -- 07/02/2013 12:24:29 68 2 30 35.0 100 70 66 -- -- -- - - -- 05/17/2013 10:00:23 68 2 36 36.0 118 84 52 -- -- -- - - -- 03/26/2013 12:08:28 68 2 34 35.7 106 80 65 -- -- -- - - -- 02/08/2013 11:26:02 68 2 34 35.7 104 80 65 -- -- -- - - -- 12/14/2012 10:21:27 68 2 34 35.7 108 78 61 -- -- -- - - -- 10/23/2012 09:19:25 68 2 35 35.8 102 76 50 -- -- -- - - -- 08/24/2012 08:54:45 68 2 41 36.7 120 88 82 -- -- -- - - -- 06/15/2012 10:51:20 68 2 39 36.4 108 78 55 -- -- -- - - -- 04/10/2012 12:16:15 68 2 38 36.3 110 86 59 -- -- -- - - -- 02/03/2012 08:29:20 68 2 41 36.7 98 70 61 -- -- -- - - -- 12/11/2011 09:49:25 68 2 38 36.3 106 72 60 -- -- -- - - -- 10/25/2011 12:22:42 68 2 43 37.0 108 70 56 -- -- -- - - -- 07/24/2011 11:25:11 68 2 42 36.9 110 72 57 -- -- -- - - -- 01/11/2011 09:55:27 68 2 27 34.6 108 74 59 -- -- -- - - -- 11/19/2010 11:12:31 68 2 32 35.2 110 76 56 -- -- -- - - -- 09/03/2010 11:30:18 68 2 32 35.2 96 62 61 -- -- -- - - -- 06/27/2010 09:02:02 -- -- -- 102 70 64 -- -- -- - - -- 03/28/2010 11:43:53 68 2 25 34.2 114 80 50 -- -- -- - - -- 01/10/2010 10:39:42 -- 2 18.5 -- 120 78 58 -- -- -- - - -- 11/10/2009 10:17:43 68 2 25 34.2 120 88 63 -- -- -- - - -- 09/11/2009 08:42:21 -- -- -- 102 76 62 -- -- -- - - -- 07/12/2009 11:37:47 -- -- -- 110 80 53 -- -- -- - - -- 04/14/2009 10:58:27 68 2 35 35.7 112 80 61 -- -- -- - - -- 12/16/2008 14:22:42 68 2 35 35.7 132 92 80 -- -- -- - - -- 10/24/2008 10:50:45 68 2 31 35.1 112 92 58 -- -- -- - - -- GOALS No Goals Information. HEALTH CONCERNS No health concerns information is available. MENTAL STATUS No Mental Status information.
--- OUTSIDE RECORDS SUMMARY | 2020-07-11 09:05 | CCD | Continuity of Care Document ---
Author Author [facility] Organization [facility] Address Unknown Phone Unavailable Care Team Providers Care Powder Room Attendant Name Role Phone [facility] [place] JACKSON Unavailable Unavailable Allergies, Adverse Reactions, Alerts Substance Reaction Status Criticality No Known Allergies Active No Information Medications Medication Instructions Dosage Effective Dates (start - stop) Sta tus Comments Remicade 100 mg intravenous solution infuse 800 millig kiley by intravenous route every 8 weeks 800 milligram - Active prednisone 5 mg tablet take 3 Tablet by oral route every day decrease by 1 tab every 5 days 15 MG - Active atorvastatin 40 mg tablet take 1 tablet by oral route every day 40 MG - Active metoprolol tartrate 100 mg tablet take 1 tablet by ora l route 2 times every day with meals 100 MG - Active alprazolam 0.5 mg tablet take 1 tablet by oral route 3 times dianna day 0.5 MG - Active Problems Condition Type Effective Dates (start - stop) Clinical S tatus Comments Rheumatoid arthritis with rheumatoid fac tor of multiple sites without organ or systems involvement Diagnosis interpretation (observable entity) Other terminal carman (current) drug therapy Diagnosis inter pretation (observable entity) Rheu arthritis w rheu factor mult site w/o org/sys inv olv Diagnosis interpretation (observable entity) Rheu arthritis w rheu factor mult site w/o org/sys inv olv Diagnosis interpretation (observable entity) Rheu arthritis w rheu factor mult site w/o org/sys inv olv Diagnosis interpretation (observable entity) Other skilled nursing (current) drug therapy Diagnosis inter pretation (observable entity) Rheu arthritis w rheu factor mult site w/o org/sys inv olv Diagnosis interpretation (observable entity) Rheu arthritis w rheu factor mult site w/o org/sys inv olv Diagnosis interpretation (observable entity) Other terminal carman (current) drug therapy Diagnosis inter pretation (observable entity) Rheu arthritis w rheu factor mult site w/o org/sys inv olv Diagnosis interpretation (observable entity) Rheu arthritis w rheu factor mult site w/o org/sys inv olv Diagnosis interpretation (observable entity) Rheu arthritis w rheu factor mult site w/o org/sys inv olv Diagnosis interpretation (observable entity) Other skilled nursing (current) drug therapy Diagnosis inter pretation (observable entity) Rheu arthritis w rheu factor mult site w/o org/sys inv olv Diagnosis interpretation (observable entity) Rheu arthritis w rheu factor mult site w/o org/sys inv olv Diagnosis interpretation (observable entity) Rheu arthritis w rheu factor mult site w/o org/sys inv olv Diagnosis interpretation (observable entity) Other terminal carman (current) drug therapy Diagnosis inter pretation (observable entity) Rheu arthritis w rheu factor mult site w/o org/sys inv olv Diagnosis interpretation (observable entity) Other terminal carman (current) drug therapy Diagnosis inter pretation (observable entity) Rheu arthritis w rheu factor mult site w/o org/sys inv olv Diagnosis interpretation (observable entity) Rheu arthritis w rheu factor mult site w/o org/sys inv olv Diagnosis interpretation (observable entity) Rheu arthritis w rheu factor mult site w/o org/sys inv olv Diagnosis interpretation (observable entity) Rheu arthritis w rheu factor mult site w/o org/sys inv olv Diagnosis interpretation (observable entity) Other skilled nursing (current) drug therapy Diagnosis inter pretation (observable entity) Rheu arthritis w rheu factor mult site w/o org/sys inv olv Diagnosis interpretation (observable entity) Rheu arthritis w rheu factor mult site w/o org/sys inv olv Diagnosis interpretation (observable entity) Other terminal carman (current) drug therapy Diagnosis inter pretation (observable entity) Polyarthritis, unspecified Diagnosis interpretation (observable ent ity) Rheu arthritis w rheu factor mult site w/o org/sys inv olv Diagnosis interpretation (observable entity) Rheu arthritis w rheu factor mult site w/o org/sys inv olv Diagnosis interpretation (observable entity) Other skilled nursing (current) drug therapy Diagnosis inter pretation (observable entity) Rheu arthritis w rheu factor mult site w/o org/sys inv olv Diagnosis interpretation (observable entity) Rheu arthritis w rheu factor mult site w/o org/sys inv olv Diagnosis interpretation (observable entity) Other terminal carman (current) drug therapy Diagnosis inter pretation (observable entity) Rheumatoid arthritis w/ rheumatoid facto r of multiple sites w/o organ involvement Diagnosis interpretation (observable entity) Rheumatoid arthritis w/ rheumatoid facto r of multiple sites w/o organ involvement Diagnosis interpretation (observable entity) Rheumatoid arthritis w/ rheumatoid facto r of multiple sites w/o organ involvement Diagnosis interpretation (observable entity) Other skilled nursing drug therapy Diagnosis interpretation (observable e ntity) Rheumatoid arthritis w/ rheumatoid facto r of multiple sites w/o organ involvement Diagnosis interpretation (observable entity) Other terminal carman drug therapy Diagnosis interpretation (observable e ntity) Polyarthritis Diagnosis interpretation (observable entity) Rheumatoid arthritis, unspecified Diagnosis interpretation ( observable entity) Rheumatoid arthritis, unspecified Diagnosis interpretation ( observable entity) Rheumatoid arthritis, unspecified Diagnosis interpretation ( observable entity) Other terminal carman drug therapy Diagnosis interpretation (observable e ntity) High Blood Pressure Problem (finding) Active High Cholesterol Problem (finding) Active Anxiety Problem (finding) Active Rheumatoid Arthritis Problem (finding) Active Procedures Procedure Date OFFICE/OUTPATIENT VISIT, EST Results Test Name Date and Time Measure Units Reference Range Abnormal Flag St atus Comments No Information Advance Directives Directive Yes / No Effective Date File Name No Information Encounters Encounter Description Practice Location Reason(s) For Visit Diagnose s Date Provider Providers Copied on Encounter OFFICE/OUTPATIENT VISIT, EST [facility], [address] [place], [place], [id number], tel:[phone] [facility] Rheumatoid arthritis (chief complaint) Rheumatoid arth ritis with rheumatoid factor of multiple sites without organ or systems involvementOther skilled nursing (current) drug therapy [facility]. [address], [place], [id number], [place]. tel:[phone] Referring Provider: Amparo Pérez, [address] [place] [address], [address]. tel:[phone] [facility], [address] [place] [address], [id number], [place] tel:[phone] [facility] Rheu arthritis w rheu factor mult site w/o org/sys involv A bdquincy Cho. [address] [place] [address], [id number], [place]. tel:[phone] Referring Provider: Amparo Pérez, [address] [place] [address], [address]. tel:[phone] [facility], [address] [place] [address], [id number], [place] tel:[phone] [facility] Rheu arthritis w rheu factor mult site w/o org/sys involv A bdquincy Cho. [address] [place] [address], [id number], [place]. tel:[phone] Referring Provider: Amparo Pérez, [address] [place] [address], [address]. tel:[phone] [facility], [address] [place] [address], [id number], [place] tel:[phone] [facility] Rheu arthritis w rheu factor mult site w/o org/sys involvOther skilled nursing (current) drug therapy Yessy Cueva. [address] [place] [address], [id number], [place]. tel:[phone] Referring Provider: Amparo Pérez, [address] [place] [address], [address]. tel:[phone] [facility], [address] [place] [address], [id number], [place] tel:[phone] [facility] Rheu arthritis w rheu factor mult site w/o org/sys involv A bdquincy Cho. [address] [place] [address], [id number], [place]. tel:[phone] Referring Provider: Amparo Pérez, [address] [place] [address], [address]. tel:[phone] [facility], [address] [place] [address], [id number], [place] tel:[phone] [facility] Rheu arthritis w rheu factor mult site w/o org/sys involvOther terminal carman (current) [facility] [address] [facility], [address], [place], [address], [place]. tel:[phone] Referring Provider: Amparo Pérez, [address] [place] [address], [address]. tel:[phone] [facility], [address] [place] [address], [id number], [place] tel:[phone] [facility] Rhe arthritis w rheu factor mult site w/o org/sys involv Marah pearsonmaryanne Severiano. [address] [place] [address], [id number], [place]. tel:[phone] Referring Provider: Amparo Pérez, [address] [place] [address], [address]. tel:[phone] [facility], [address] [place] [address], [id number], [place] tel:[phone] [facility] Rhe arthritis w rheu factor mult site w/o org/sys involv Marah العلي. [address] [place] [address], [id number], [place]. tel:[phone] Referring Provider: Amparo Pérez, [address] [place] [address], [address]. tel:[phone] [facility], [address] [place] [address], [id number], [place] tel:[phone] [facility] Rheu arthritis w rheu factor mult site w/o org/sys involvOther skilled nursing (current) drug therapy Koby FRANCIS September. [address] [facility], [address], [place], [address], [place]. tel:[phone] Referring Provider: Amparo Pérez, [address] [place] [address], [address]. tel:[phone] [facility], [address] [place] [address], [id number], [place] tel:[phone] [facility] Rheu arthritis w rheu factor mult site w/o org/sys involv Marah pearsonmaryanne Severiano. [address] [place] [address], [id number], [place]. tel:[phone] Referring Provider: Amparo Pérez, [address] [place] [address], [address]. tel:[phone] [facility], [address] [place] [address], [id number], [place] tel:[phone] [facility] Rheu arthritis w rheu factor mult site w/o org/sys involv Marah العلي. [address] [place] [address], [id number], [place]. tel:[phone] Referring Provider: Amparo Pérez, [address] [place] [address], [address]. tel:[phone] [facility], [address] [place] [address], [id number], [place] tel:[phone] [facility] Rheu arthritis w rheu factor mult site w/o org/sys involvOther terminal carman (current) drug therapy Yessy Cueva. [address] [place] [address], [id number], [place]. tel:[phone] Referring Provider: Amparo Pérez [address] [place], [address]. tel:[phone] [facility], [address] [place] [address], [id number], [place] tel:[phone] [facility] Rheu arthritis w rheu factor mult site w/o org/sys involv Marah العلي. [address] [place] [address], [id number], [place]. tel:[phone] Referring Provider: Amparo Pérez, [address] [place] [address], [address]. tel:[phone] [facility], [address] [place] [address], [id number], [place] tel:[phone] [facility] Other terminal carman (current) drug therapyRheu arthritis w rheu factor mult site w/o org/sys involv Koby FRANCIS September. [address] [facility], [address], [place], [address], [place]. tel:[phone] Referring Provider: Amparo Pérez, [address] [place] [address], [address]. tel:[phone] [facility], [address] [place] [address], [id number], [place] tel:[phone] [facility] Rheu arthritis w rheu factor mult site w/o org/sys involv Marah العلي. [address] [place] [address], [id number], [place]. tel:[phone] Referring Provider: Amparo Pérez, [address] [place] [address], [address]. tel:[phone] [facility], [address] [place] [address], [id number], [place] tel:[phone] [facility] Rheu arthritis w rheu factor mult site w/o org/sys involv Marah pearsonmaryanne Severiano. [address] [place] [address], [id number], [place]. tel:[phone] Referring Provider: Amparo Pérez, [address] [place] [address], [address]. tel:[phone] [facility], [address] [place] [address], [id number], [place] tel:[phone] [facility] Rheu arthritis w rheu factor mult site w/o org/sys involvOther terminal carman (current) drug therapy Koby FRANCIS September. [address] [facility], [address] [place] [address], [address], [place]. tel:[phone] Referring Provider: Amparo Pérez, [address] [place] [address], [address]. tel:[phone] [facility], [address] [place] [address], [id number], [place] tel:[phone] [facility] Rheu arthritis w rheu factor mult site w/o org/sys involv Marah العلي. [address] [place] [address], [id number], [place]. tel:[phone] Referring Provider: Amparo Pérez, [address] [place] [address], [address]. tel:[phone] [facility], [address] [place] [address], [id number], [place] tel:[phone] [facility] Rheu arthritis w rheu factor mult site w/o org/sys involvOther skilled nursing (current) drug therapyPolyarthritis, unspecified Koby Reyes September. [address], [address], [place], [address], [place]. tel:[phone] Referring Provider: Amparo Pérez, [address] [place] [address] [place], [address]. tel:[phone] [facility], [address] [place] [address], [id number], [place] tel:[phone] [facility] Rheu arthritis w rheu factor mult site w/o org/sys involv Marah lilimaryanne Iniguezgonzález. [address] [place] [address], [id number], [place]. tel:[phone] Referring Provider: Amparo Pérez, [address] [place] [address], [address]. tel:[phone] [facility], [address] [place] [address], [id number], [place] tel:[phone] [facility] Rheu arthritis w rheu factor mult site w/o org/sys involvOther skilled nursing (current) drug therapy Koby FRANCIS [place]. [address], [address], [place], [address], [place]. tel:[phone] Referring Provider: Amparo Pérez, [address] [place] [address], [address]. tel:[phone] [facility], [address] [place] [address], [id number], [place] tel:[phone] [facility] Rheu arthritis w rheu factor mult site w/o org/sys involv Marah العلي. [address] [place] [address], [id number], [place]. tel:[phone] Referring Provider: Amparo Pérez, [address] [place] [address], [address]. tel:[phone] [facility], [address] [place] [address], [id number], [place] tel:[phone] [facility] Rheu arthritis w rheu factor mult site w/o org/sys involvOther terminal carman (current) drug therapy Koby FRANCIS September. [address], [address], [place], [address], [place]. tel:[phone] Referring Provider: Amparo Pérez, [address] [place] [address], [address]. tel:[phone] [facility], [address] [place] [address], [id number], [place] tel:[phone] [facility] Rheumatoid arthritis w/ rheumatoid factor of multiple sites w/o organ involvement Ann-Marie العلي. [address] [place] [address], [id number], [place]. tel:[phone] Referring Provider: Kishor Ambrosio, [address] [place] [address], [address]. tel:[phone] [facility], [address] [place] [address], [id number], [place] tel:[phone] [facility] Rheumatoid arthritis w/ rheumatoid factor of multiple sites w/o organ involvement Ann-Marie العلي. [address] [place] [address], [id number], [place]. tel:[phone] Referring Provider: Amparo Pérez, [address] [place] [address], [address]. tel:[phone] [facility], [address] [place] [address], [id number], [place] tel:[phone] [facility] Rheumatoid arthritis w/ rheumatoid factor of multiple sites w/o organ involvementOther skilled nursing drug therapy Koby FRANCIS September. [address] [facility], [address], [place], [address], [place]. tel:[phone] [facility], [address] [place] [address], [id number], [place] tel:[phone] [facility] Rheumatoid arthritis w/ rheumatoid factor of multiple sites w/o organ involvementOther skilled nursing drug therapyPolyarthritis Koby FRANCIS [place]. [address], [address], [place], [address], [place]. tel:[phone] Referring Provider: Amparo Pérez, [address] [facility], [place], [address]. tel:[phone] [facility], [address] [place] [address], [id number], [place] tel:[phone] [facility] Rheumatoid arthritis, unspecified Ann-Marie العلي. [address] [place], [place], [id number], [place]. tel:[phone] Referring Provider: Kishor Ambrosio, [address] [place] [address], [address]. tel:[phone] [facility], [address] [place] [address], [id number], [place] tel:[phone] [facility] Rheumatoid arthritis, unspecified Giselemaryanne Severiano. [address] [place] [address], [id number], [place]. tel:[phone] Referring Provider: Kishor Ambrosio, [address] [place] [address], [address]. tel:[phone] [facility], [address] [place] [address], [id number], [place] tel:[phone] [facility] Rheumatoid arthritis, unspecifiedOther skilled nursing drug therapy Keyon العلي. [address] [place] [address], [id number], [place]. tel:[phone] Referring Provider: Kishor Ambrosio, [address] [place] [address], [address]. tel:[phone] Family History Family Member Type Diagnosis Age At Onset Brother Problem (finding) Rheumatoid Arthritis Immunizations Vaccine Date Status Comments Flucelvax administered Source: Othe r Provider Pneumo (2 yrs or older) (PPV23) administered Source: Other Provider Influenza, injectable, MDCK, preservativ e free, 0.5 mL dosage, Flucelvax Quad administered Source: New Immuniza tion Record Influenza, injectable, quadrivalent, spl it virus, 18 years or older Afluria Quad [id number] administered Note: Invalid docume nted admin date was //2016. ; Source: Other Provider Payers Payer name Insurance type Covered republican ID Authorization(s ) Medicare [id number] AARP Supplement CI [id number] Medicare [id number] AARP Supplement CI [id number] Social History Type Description Quantity Date Captured Comments Alcohol Use Details Unknown Caffeine Use Details Unknown Tobacco Use Status No Information Smoking Status No Information Sex Male Vital Signs Date / Time: Height Weight BMI Pulse Rate Blood Pressure Temperatu re Respiratory Rate Body Surface Area Head Circumference BMI percentile Pulse Ox In haled Ox No Information Chief Complaint And Reason For Visit From encounter dated '06/20/2020 10:23'. Rheumatoid arthritis (chief complaint). Description: Patient is experiencing gen eralized morning stiffness for 10 Minutes. Patient denies having abdominal pain , diarrhea, infection, loss of appetite, fever, rash, pleuritic pain and shortne ss of breath (dyspnea).Patient is currently taking Remicade IV with no side effe cts. Reason For Referral Reason For Referral No Information Plan Of Treatment Date Type Action Status Goal Tobacco cessation counseling com pleted Goal Tobacco cessation counseling com pleted Goal Tobacco cessation counseling com pleted Appointment Tommy Busch BOOKED Appointment Tommy Busch BOOKED Appointment Tommy Busch BOOKED History Of Present Illness Encounter Date Complaint History Of Present I llness Rheumatoid arthritis Patient is experien cing generalized morning stiffness for 10 Minutes. Patient denies having abdominal pain, diarrhea, infection, loss of appetite, fever, rash, pleuritic pain and shortness of breath (dyspnea).Patient is currently taking Remicade IV with no side effects. Functional Status Date Functional Assessment No Information Medications Administered Medication Instructions Dosage Effective Dates (start - stop) Sta tus Comments No Information Instructions Date Instruction Additional Informati on Risks/benefits of medications reviewed Discussed importance of hold ing DMARDs/ biologics if patient develops an infection and to notify the treating physician Discussed / Reviewed Labs Risks/benefits of medications reviewed Discussed importance of hold ing DMARDs/ biologics if patient develops an infection and to notify the treating physician Labs ordered to check disease activity. Labs ordered to check blood counts, liver and kidney functions to monitor safety of medication. Discussed / Reviewed Labs Reviewed importance of compl iance/adherence to medications prescribed Risks/benefits of medications reviewed Discussed importance of hold ing DMARDs/ biologics if patient develops an infection and to notify the treating physician Reviewed importance of compl iance/adherence to medications prescribed Risks/benefits of medications reviewed Discussed importance of hold ing DMARDs/ biologics if patient develops an infection and to notify the treating physician Reviewed importance of compl iance/adherence to medications prescribed Risks/benefits of medications reviewed Discussed importance of hold ing DMARDs/ biologics if patient develops an infection and to notify the treating physician Reviewed importance of compl iance/adherence to medications prescribed Risks/benefits of medications reviewed Discussed importance of hold ing DMARDs/ biologics if patient develops an infection and to notify the treating physician Reviewed importance of compl iance/adherence to medications prescribed Risks/benefits of medications reviewed Discussed importance of hold ing DMARDs/ biologics if patient develops an infection and to notify the treating physician Call if symptoms persist Reviewed importance of compl iance/adherence to medications prescribed Risks/benefits of medications reviewed Discussed importance of hold ing DMARDs/ biologics if patient develops an infection and to notify the treating physician Reviewed importance of compl iance/adherence to medications prescribed Risks/benefits of medications reviewed Discussed importance of hold ing DMARDs/ biologics if patient develops an infection and to notify the treating physician Reviewed importance of compl iance/adherence to medications prescribed Risks/benefits of medications reviewed Discussed importance of hold ing DMARDs/ biologics if patient develops an infection and to notify the treating physician Call if symptoms persist Physical Examination Exam Findings Details Head/Face Normal Skull - Normal. Hair and scalp - Normal.
--- OUTSIDE RECORDS SUMMARY | 2020-07-11 09:06 | CCD | Continuity of Care Document ---
Author Author Tommy ANNA [facility] Organization Unknown Address [address], [address] [place] [address] Phone [phone] Care Team Providers [employer] Name Role Phone Amparo Pérez D.O. AUTM [phone] Problems Active Problems Provider Date Essential hypertension Sloan Curiel M.D. Onset: 6 Social History Type Date Description Comments Sex Unknown ETOH Use Denies alcohol use Recreational Drug Use Denies Drug Use Tobacco Use Start: Unknown End: Patient is a former smoker Allergies, Adverse Reactions, Alerts Description No Known Drug Allergies Medications Active Medications SIG Qnty Indications Ordering Provide r Date Remicade 100mg Solution Rec q 8weeks Unknown Aspirin 81mg Tablets DR 1 by mouth every day Unknown Alprazolam 0.5mg Tablets 1 by mouth three times a day Unknown Atorvastatin Calcium 40mg Tablets 1 by mouth every day Unknown Metoprolol Tartrate 100mg Tablets daily Unknown Milk Of Magnesia 1200mg/15ML Suspe nsion 30ML Daily Unknown Spironolactone 25mg Tablets Take One Tablet By Mouth Daily Unknown Mirtazapine 30mg Tablets Take One Tablet By Mouth AT Bedtime Unknown Immunizations Description No Information Available Vital Signs Date Vital Result Comment 06/07/2020 11:38am BP Systolic 142 mmHg BP Diastolic 86 mmHg Height 68 inches 5'8" Weight 241.25 lb BMI (Body Mass Index) 36.7 kg/m2 [place] Body Weight 140 lb Weight 109.431 kg BSA (Body Surface Area) 2.21 m2 02/19/2016 9:58am BP Systolic 151 mmHg BP Diastolic 90 mmHg Heart Rate 64 /min Height 68 inches 5'8" Weight 221.50 lb BMI (Body Mass Index) 33.7 kg/m2 [place] Body Weight 140 lb Weight 100.472 kg BSA (Body Surface Area) 2.13 m2 Results Description No Information Available Procedures Description No Information Available Medical Devices Description No Information Available Encounters Description No Information Available Assessments Description No Information Available Plan of Treatment No Information Available Functional Status Description No Information Available Mental Status Description No Information Available Referrals Refer to Reason for Referral Status Appt Date Sloan Curiel M.D. +AINSLEY, TIFF Scheduled 1 08/08/2019 [facility] [address] [place] [address] [phone]
--- OUTSIDE RECORDS SUMMARY | 2020-07-11 09:06 | CCD ---
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 Amparo Pérez DO 05-23-2020 RHEUMATOID ARTHRITIS [SNOMED-CT: 06214576] N/A N/A 04-26-2020 DEPRESSIVE DISORDER NOT ELSEWHERE CLASSI FIED [SNOMED-CT: 592155658] N/A N/A 04-26-2020 ANXIETY STATE UNSPECIFIED [SNOMED-CT: 422287254] N/A N/A 04-26-2020 ROUTINE GENERAL MEDICAL EXAMINATION AT A HEALTH CARE FACILITY [SNOMED-CT: 670595065] Raphael Pérez DO 04-26-2020 Adenomatous polyp of rectum [SNOMED-CT: 7626682092394] Dr. Amparo Pérez DO 04-26-2020 Hypertension [SNOMED-CT: 79659194] Mahesh Pérez DO 04-26-2020 Prediabetes [SNOMED-CT: 174801306] Mahesh Pérez DO 04-26-2020 DIVERTICULOSIS OF COLON (WITHOUT HEMORRH AGE) [SNOMED-CT: 613763968] Raphael Pérez DO 04-26-2020 HYPERPLASIA OF PROSTATE UNSPECIFIED WITH OUT URINARY OBSTRUCTION AND OTHER LOWER URINARY TRACT SYMPTOMS (LUTS) [SNOMED-CT: 777364356] Raphael Pérez, DO 04-26-2020 Spinal stenosis [SNOMED-CT: 36411499] Dr. Amparo Pérez, DO 02-25-2020 ANXIETY STATE UNSPECIFIED [SNOMED-CT: 588591895] N/A N/A 02-25-2020 Hypertension [SNOMED-CT: 42573624] Mahesh Pérez, DO 02-25-2020 BACKACHE UNSPECIFIED [SNOMED-CT: 493686665] Raphael Pérez, DO 12-27-2019 ANXIETY STATE UNSPECIFIED [SNOMED-CT: 507766728] N/A N/A 12-27-2019 BACKACHE UNSPECIFIED [SNOMED-CT: 608187437] Raphael Pérez, DO 10-27-2019 ANXIETY STATE UNSPECIFIED [SNOMED-CT: 826114175] N/A N/A 10-27-2019 RHEUMATOID ARTHRITIS [SNOMED-CT: 09420617] N/A N/A 10-27-2019 Tinnitus of left ear [SNOMED-CT: 5532478129454] Dr. Amparo Pérez, DO 08-20-2019 ANXIETY STATE UNSPECIFIED [SNOMED-CT: 173236386] N/A N/A 08-20-2019 Spinal stenosis [SNOMED-CT: 26175460] Dr. Amparo Pérez, DO 06-18-2019 Bilateral tinnitus [SNOMED-CT: 8363527647139] Dr. Amparo Pérez, DO 06-18-2019 Prediabetes [SNOMED-CT: 595911778] Mahesh Pérez, DO 06-18-2019 ANXIETY STATE UNSPECIFIED [SNOMED-CT: 216790748] N/A N/A 06-18-2019 DEPRESSIVE DISORDER NOT ELSEWHERE CLASSI FIED [SNOMED-CT: 474695886] N/A N/A 06-18-2019 Other hyperlipidemia [ICD10: E78.49] Dr. Amparo Pérez, DO 04-26-2019 Hypertension [SNOMED-CT: 00804375] Mahesh Pérez, DO 04-26-2019 Disorder of lumbar disc [SNOMED-CT: 341957113] Dr. Amparo Pérez, DO 04-26-2019 RHEUMATOID ARTHRITIS [SNOMED-CT: 24154130] N/A N/A 04-26-2019 DEPRESSIVE DISORDER NOT ELSEWHERE CLASSI FIED [SNOMED-CT: 634711507] N/A N/A 04-26-2019 ANXIETY STATE UNSPECIFIED [SNOMED-CT: 671036488] N/A N/A 04-26-2019 Diabetes mellitus [SNOMED-CT: 46424924] Dr. Ampaor Pérez, DO 04-26-2019 Diabetes mellitus [SNOMED-CT: 81611434] Dr. Amparo Pérez, DO 02-22-2019 Spinal stenosis [SNOMED-CT: 01187561] Dr. Amparo Pérez, DO 02-22-2019 Disorder of lumbar disc [SNOMED-CT: 748998805] Dr. Amparo Pérez, DO 02-22-2019 ANXIETY STATE UNSPECIFIED [SNOMED-CT: 221506905] N/A N/A 02-22-2019 DEPRESSIVE DISORDER NOT ELSEWHERE CLASSI FIED [SNOMED-CT: 418063451] N/A N/A 02-22-2019 Spinal stenosis [SNOMED-CT: 53705037] Dr. Amparo Pérez, DO 12-23-2018 PAIN IN LIMB [SNOMED-CT: 78518962] Raphael Pérez, DO 12-23-2018 RHEUMATOID ARTHRITIS [SNOMED-CT: 41380343] N/A N/A 12-23-2018 ANXIETY STATE UNSPECIFIED [SNOMED-CT: 537082724] N/A N/A 12-23-2018 Spinal stenosis [SNOMED-CT: 82445895] Dr. Amparo Pérez, DO 10-21-2018 ANXIETY STATE UNSPECIFIED [SNOMED-CT: 683818669] N/A N/A 10-21-2018 Diabetes mellitus [SNOMED-CT: 40364590] Dr. Amparo Pérez, DO 10-21-2018 RHEUMATOID ARTHRITIS [SNOMED-CT: 25276241] N/A N/A 08-24-2018 BACKACHE UNSPECIFIED [SNOMED-CT: 108414070] Raphael Pérez, DO 08-24-2018 Spinal stenosis [SNOMED-CT: 47715797] Dr. Amparo Pérez, DO 08-24-2018 UNSPECIFIED ESSENTIAL HYPERTENSION [SNOMED-CT: 9001343 0] N/A N/A 06-19-2018 BACKACHE UNSPECIFIED [SNOMED-CT: 330864871] Raphael Pérez, DO 06-19-2018 DEPRESSIVE DISORDER NOT ELSEWHERE CLASSI FIED [SNOMED-CT: 528196253] N/A N/A 06-19-2018 Bilateral cataracts [SNOMED-CT: 99305400] Dr. Amparo Pérez, DO 04-27-2018 UNSPECIFIED ESSENTIAL HYPERTENSION [SNOMED-CT: 4976467 0] N/A N/A 04-27-2018 Prediabetes [SNOMED-CT: 5778746] Dr. Amparo Pérez, DO 04-27-2018 Exogenous hyperlipidemia [SNOMED-CT: 105556599] Dr. Amparo Pérez, DO 04-27-2018 RHEUMATOID ARTHRITIS [SNOMED-CT: 94663055] N/A N/A 04-27-2018 Diabetes mellitus [SNOMED-CT: 14435188] Dr. Amparo Pérez, DO 03-20-2018 Exogenous hyperlipidemia [SNOMED-CT: 793592424] Dr. Amparo Pérez, DO 03-20-2018 Disorder of lumbar disc [SNOMED-CT: 956590893] Dr. Amparo Pérez, DO 03-20-2018 DIVERTICULOSIS OF COLON (WITHOUT HEMORRH AGE) [SNOMED-CT: 764378774] Raphael Pérez, DO 03-20-2018 Disorder of lumbar disc [SNOMED-CT: 873248687] Dr. Amparo Pérez, DO 01-16-2018 Diabetes mellitus [SNOMED-CT: 72117801] Dr. Amparo Pérez, DO 01-16-2018 RHEUMATOID ARTHRITIS [SNOMED-CT: 12109153] N/A N/A 01-16-2018 UNSPECIFIED ESSENTIAL HYPERTENSION [SNOMED-CT: 4216233 0] N/A N/A 01-16-2018 Bilateral tinnitus [SNOMED-CT: 5578948508482] Dr. Amparo Pérez, DO 10-31-2017 Exogenous hyperlipidemia [SNOMED-CT: 201521555] Dr. Amparo Pérez, DO 10-31-2017 ANXIETY STATE UNSPECIFIED [SNOMED-CT: 770672018] N/A N/A 10-31-2017 DEPRESSIVE DISORDER NOT ELSEWHERE CLASSI FIED [SNOMED-CT: 723048368] N/A N/A 10-31-2017 UNSPECIFIED ESSENTIAL HYPERTENSION [SNOMED-CT: 3296949 0] N/A N/A 08-29-2017 RHEUMATOID ARTHRITIS [SNOMED-CT: 70148460] N/A N/A 08-29-2017 DEPRESSIVE DISORDER NOT ELSEWHERE CLASSI FIED [SNOMED-CT: 078233567] N/A N/A 08-29-2017 ANXIETY STATE UNSPECIFIED [SNOMED-CT: 032564318] N/A N/A 08-29-2017 Tinnitus of left ear [SNOMED-CT: 3015974695888] Dr. Amparo Pérez, DO 07-21-2017 Altered mental status [SNOMED-CT: 099764232] Dr. Amparo Pérez, DO 07-21-2017 Headache [SNOMED-CT: 54941833] Thierry Pérez, DO 07-21-2017 Diabetes mellitus [SNOMED-CT: 43232275] Dr. Amparo Pérez, DO 07-21-2017 Disorder of lumbar disc [SNOMED-CT: 174899789] Dr. Amparo Pérez, DO 06-27-2017 RHEUMATOID ARTHRITIS [SNOMED-CT: 87131059] N/A N/A 06-27-2017 Diabetes mellitus [SNOMED-CT: 91689389] Dr. Amparo Pérez, DO 06-27-2017 ANXIETY STATE UNSPECIFIED [SNOMED-CT: 295894560] N/A N/A 06-27-2017 DEPRESSIVE DISORDER NOT ELSEWHERE CLASSI FIED [SNOMED-CT: 814962029] N/A N/A 04-28-2017 ANXIETY STATE UNSPECIFIED [SNOMED-CT: 957732984] N/A N/A 04-28-2017 Diabetes mellitus [SNOMED-CT: 49146229] Dr. Amparo Pérez, DO 04-28-2017 RHEUMATOID ARTHRITIS [SNOMED-CT: 67077004] N/A N/A 02-26-2017 UNSPECIFIED ESSENTIAL HYPERTENSION [SNOMED-CT: 5160866 0] N/A N/A 02-26-2017 Exogenous hyperlipidemia [SNOMED-CT: 717211132] Dr. Amparo Pérez, DO 02-26-2017 Hyperglycemia [SNOMED-CT: 89862398] Dr. Amparo Pérez, DO 02-26-2017 UNSPECIFIED ESSENTIAL HYPERTENSION [SNOMED-CT: 3414979 0] N/A N/A 12-25-2016 ANXIETY STATE UNSPECIFIED [SNOMED-CT: 814400848] N/A N/A 12-25-2016 UNSPECIFIED ESSENTIAL HYPERTENSION [SNOMED-CT: 5770074 0] N/A N/A 10-09-2016 ANXIETY STATE UNSPECIFIED [SNOMED-CT: 631284078] N/A N/A 10-09-2016 RHEUMATOID ARTHRITIS [SNOMED-CT: 00466483] N/A N/A 10-09-2016 BACKACHE UNSPECIFIED [SNOMED-CT: 028043826] Raphael Pérez, DO 08-28-2016 Disorder of lumbar disc [SNOMED-CT: 403272002] Dr. Amparo Pérez, DO 08-28-2016 DEPRESSIVE DISORDER NOT ELSEWHERE CLASSI FIED [SNOMED-CT: 140804242] N/A N/A 08-28-2016 ANXIETY STATE UNSPECIFIED [SNOMED-CT: 515091821] N/A N/A 08-28-2016 RHEUMATOID ARTHRITIS [SNOMED-CT: 08443355] N/A N/A 08-28-2016 Prediabetes [SNOMED-CT: 4812174] Dr. Amparo Pérez, DO 07-17-2016 ANXIETY STATE UNSPECIFIED [SNOMED-CT: 785793036] N/A N/A 07-17-2016 Hyperglycemia [SNOMED-CT: 81908356] Dr. Amparo Pérez, DO 07-17-2016 Prediabetes [SNOMED-CT: 6600329] Dr. Amparo Pérez, DO 06-05-2016 Disorder of lumbar disc [SNOMED-CT: 336712405] Dr. Amparo Pérez, DO 06-05-2016 ANXIETY STATE UNSPECIFIED [SNOMED-CT: 945901921] N/A N/A 06-05-2016 Hyperlipidemia [SNOMED-CT: 54924604] Dr. Amparo Pérez, DO 04-24-2016 HYPERPLASIA OF PROSTATE UNSPECIFIED WITH OUT URINARY OBSTRUCTION AND OTHER LOWER URINARY TRACT SYMPTOMS (LUTS) [SNOMED-CT: 536681845] Raphael Pérez, DO 04-24-2016 Hyperlipidemia [SNOMED-CT: 04442894] Dr. Amparo Pérez, DO 03-13-2016 UNSPECIFIED ESSENTIAL HYPERTENSION [SNOMED-CT: 2638364 0] N/A N/A 03-13-2016 Prediabetes [SNOMED-CT: 8246404] Dr. Amparo Pérez, DO 03-13-2016 Other specified vaccination [ICD10: Z23] Raphael Pérez, DO 03-13-2016 Disorder of lumbar disc [SNOMED-CT: 519743776] Dr. Amparo Pérez, DO 01-31-2016 BACKACHE UNSPECIFIED [SNOMED-CT: 645346545] Raphael Pérez, DO 01-31-2016 DEPRESSIVE DISORDER NOT ELSEWHERE CLASSI FIED [SNOMED-CT: 742289962] N/A N/A 01-31-2016 RHEUMATOID ARTHRITIS [SNOMED-CT: 23103841] N/A N/A 01-31-2016 RHEUMATOID ARTHRITIS [SNOMED-CT: 12266304] N/A N/A 12-27-2015 BACKACHE UNSPECIFIED [SNOMED-CT: 226865794] Raphael Pérez, DO 12-27-2015 DEPRESSIVE DISORDER NOT ELSEWHERE CLASSI FIED [SNOMED-CT: 938494410] N/A N/A 12-27-2015 ANXIETY STATE UNSPECIFIED [SNOMED-CT: 681596362] N/A N/A 12-27-2015 ANXIETY STATE UNSPECIFIED [SNOMED-CT: 225486544] N/A N/A 11-22-2015 UNSPECIFIED ESSENTIAL HYPERTENSION [SNOMED-CT: 0821565 0] N/A N/A 11-22-2015 Hyperlipidemia [SNOMED-CT: 18047433] Dr. Amparo Pérez, DO 11-22-2015 Disorder of lumbar disc [SNOMED-CT: 403145418] Dr. Amparo Pérez, DO 10-18-2015 ANXIETY STATE UNSPECIFIED [SNOMED-CT: 801394394] N/A N/A 10-18-2015 Disorder of lumbar disc [SNOMED-CT: 883762353] Dr. Amparo Pérez, DO 09-13-2015 Hyperlipidemia [SNOMED-CT: 32409229] Dr. Amparo Pérez, DO 09-13-2015 DIVERTICULOSIS OF COLON (WITHOUT HEMORRH AGE) [SNOMED-CT: 018559762] Raphael Pérez, DO 09-13-2015 Hyperglycemia [SNOMED-CT: 96159207] Dr. Amparo Pérez, DO 09-13-2015 Prediabetes [SNOMED-CT: 4348874] Dr. Amparo Pérez, DO 09-13-2015 PAIN IN LIMB [SNOMED-CT: 13413677] Raphael Pérez, DO 08-09-2015 RHEUMATOID ARTHRITIS [SNOMED-CT: 20303407] N/A N/A 08-09-2015 DEPRESSIVE DISORDER NOT ELSEWHERE CLASSI FIED [SNOMED-CT: 777772710] N/A N/A 08-09-2015 Disorder of lumbar disc [SNOMED-CT: 908120716] Dr. Amparo Pérez, DO 07-05-2015 PAIN IN LIMB [SNOMED-CT: 39871959] Raphael Pérez, DO 07-05-2015 REFLUX ESOPHAGITIS [SNOMED-CT: 63062962] N/A N/A 07-05-2015 Acute suppurative otitis media [SNOMED-CT: 655374698] Dr. Amparo Pérez, DO 05-31-2015 BACKACHE UNSPECIFIED [SNOMED-CT: 553763620] Raphael Pérez, DO 05-31-2015 RHEUMATOID ARTHRITIS [SNOMED-CT: 18711324] N/A N/A 05-31-2015 Disorder of lumbar disc [SNOMED-CT: 975245092] Dr. Amparo Pérez, DO 05-31-2015 Acute suppurative otitis media [SNOMED-CT: 460146990] Dr. Amparo Pérez, DO 05-24-2015 RHEUMATOID ARTHRITIS [SNOMED-CT: 56121197] N/A N/A 05-24-2015 Personal history of immunosuppressive therapy [ICD10: Z92.25] Dr. Amparo Pérez, DO 05-24-2015 Acute suppurative otitis media [SNOMED-CT: 636021808] Dr. Amparo Pérez, DO 05-17-2015 UNSPECIFIED ESSENTIAL HYPERTENSION [SNOMED-CT: 3700471 0] N/A N/A 04-26-2015 BACKACHE UNSPECIFIED [SNOMED-CT: 231447128] Raphael Pérez, DO 04-26-2015 PAIN IN LIMB [SNOMED-CT: 57041175] Raphael Pérez, DO 04-26-2015 RHEUMATOID ARTHRITIS [SNOMED-CT: 14762834] N/A N/A 04-26-2015 Hyperlipidemia [SNOMED-CT: 39031609] Dr. Amparo Pérez, DO 04-26-2015 UNSPECIFIED ESSENTIAL HYPERTENSION [SNOMED-CT: 1738215 0] N/A N/A 03-22-2015 BACKACHE UNSPECIFIED [SNOMED-CT: 827534934] Raphael Pérez, DO 03-22-2015 PAIN IN LIMB [SNOMED-CT: 51142511] Raphael Pérez, DO 03-22-2015 RHEUMATOID ARTHRITIS [SNOMED-CT: 61747888] N/A N/A 03-22-2015 BACKACHE UNSPECIFIED [SNOMED-CT: 180476617] Raphael Pérez, DO 02-15-2015 UNSPECIFIED ESSENTIAL HYPERTENSION [SNOMED-CT: 2301710 0] N/A N/A 02-15-2015 RHEUMATOID ARTHRITIS [SNOMED-CT: 70169544] N/A N/A 02-15-2015 BACKACHE UNSPECIFIED [SNOMED-CT: 996083987] Raphael Pérez, DO 01-11-2015 UNSPECIFIED ESSENTIAL HYPERTENSION [SNOMED-CT: 2151402 0] N/A N/A 01-11-2015 RHEUMATOID ARTHRITIS [SNOMED-CT: 90346902] N/A N/A 01-11-2015 UNSPECIFIED ESSENTIAL HYPERTENSION [SNOMED-CT: 4379105 0] N/A N/A 12-07-2014 RHEUMATOID ARTHRITIS [SNOMED-CT: 28964749] N/A N/A 12-07-2014 GLOSSITIS [SNOMED-CT: 14889367] Dr. Amparo Pérez, DO 11-02-2014 BACKACHE UNSPECIFIED [SNOMED-CT: 091485606] Raphael Pérez, DO 11-02-2014 RHEUMATOID ARTHRITIS [SNOMED-CT: 77534622] N/A N/A 11-02-2014 BACKACHE UNSPECIFIED [SNOMED-CT: 119712500] Raphael Pérez, DO 10-05-2014 RHEUMATOID ARTHRITIS [SNOMED-CT: 00790600] N/A N/A 10-05-2014 UNSPECIFIED ESSENTIAL HYPERTENSION [SNOMED-CT: 1466035 0] N/A N/A 10-05-2014 ANXIETY STATE UNSPECIFIED [SNOMED-CT: 623336168] N/A N/A 10-05-2014 ROUTINE GENERAL MEDICAL EXAMINATION AT A HEALTH CARE FACILITY [SNOMED-CT: 014632985] Raphael Pérez, DO 09-07-2014 ANXIETY STATE UNSPECIFIED [SNOMED-CT: 151110362] N/A N/A 08-10-2014 BACKACHE UNSPECIFIED [SNOMED-CT: 605248827] Raphael Pérez, DO 08-10-2014 DEPRESSIVE DISORDER NOT ELSEWHERE CLASSI FIED [SNOMED-CT: 068695151] N/A N/A 08-10-2014 GLOSSITIS [SNOMED-CT: 99054915] Dr. Amparo Pérez, DO 07-13-2014 RHEUMATOID ARTHRITIS [SNOMED-CT: 63517573] N/A N/A 07-13-2014 UNSPECIFIED ESSENTIAL HYPERTENSION [SNOMED-CT: 4495698 0] N/A N/A 07-13-2014 DEPRESSIVE DISORDER NOT ELSEWHERE CLASSI FIED [SNOMED-CT: 546171749] N/A N/A 07-13-2014 UNSPECIFIED ESSENTIAL HYPERTENSION [SNOMED-CT: 4274930 0] N/A N/A 05-16-2014 BACKACHE UNSPECIFIED [SNOMED-CT: 537139558] Raphael Pérez, DO 05-16-2014 RHEUMATOID ARTHRITIS [SNOMED-CT: 86534805] N/A N/A 03-25-2014 GLOSSITIS [SNOMED-CT: 36101028] Dr. Amparo Pérez, DO 03-25-2014 BACKACHE UNSPECIFIED [SNOMED-CT: 841642981] Raphael Pérez, DO 01-26-2014 REFLUX ESOPHAGITIS [SNOMED-CT: 30153731] N/A N/A 01-26-2014 UNSPECIFIED ESSENTIAL HYPERTENSION [SNOMED-CT: 4559854 0] N/A N/A 01-26-2014 RHEUMATOID ARTHRITIS [SNOMED-CT: 38164846] N/A N/A 01-26-2014 ANXIETY STATE UNSPECIFIED [SNOMED-CT: 025960228] N/A N/A 01-26-2014 GLOSSITIS [SNOMED-CT: 03126480] Dr. Amparo Pérez, DO 01-26-2014 MICROSCOPIC HEMATURIA [SNOMED-CT: 839523498] Dr. Amparo Pérez, DO 12-13-2013 ANXIETY STATE UNSPECIFIED [SNOMED-CT: 097307141] N/A N/A 12-13-2013 RHEUMATOID ARTHRITIS [SNOMED-CT: 44316910] N/A N/A 12-13-2013 BACKACHE UNSPECIFIED [SNOMED-CT: 139179023] Raphael Pérez, DO 12-13-2013 HYPERPLASIA OF PROSTATE UNSPECIFIED WITH OUT URINARY OBSTRUCTION AND OTHER LOWER URINARY TRACT SYMPTOMS (LUTS) [SNOMED-CT: 212080140] Raphael Pérez, DO 12-13-2013 PAIN IN LIMB [SNOMED-CT: 18508042] Raphael Pérez, DO 10-18-2013 RHEUMATOID ARTHRITIS [SNOMED-CT: 42499578] N/A N/A 10-18-2013 BACKACHE UNSPECIFIED [SNOMED-CT: 808332446] Raphael Pérez, DO 10-18-2013 ROUTINE GENERAL MEDICAL EXAMINATION AT A HEALTH CARE FACILITY [SNOMED-CT: 600896631] Raphael Pérez, DO 08-30-2013 PAIN IN LIMB [SNOMED-CT: 58573995] Raphael Pérez, DO 07-02-2013 UNSPECIFIED ESSENTIAL HYPERTENSION [SNOMED-CT: 4517437 0] N/A N/A 07-02-2013 UNSPECIFIED ESSENTIAL HYPERTENSION [SNOMED-CT: 0224261 0] N/A N/A 05-17-2013 RHEUMATOID ARTHRITIS [SNOMED-CT: 86585396] N/A N/A 03-26-2013 ANXIETY STATE UNSPECIFIED [SNOMED-CT: 136038681] N/A N/A 03-26-2013 NEED FOR PROPHYLACTIC VACCINATION AND IN OCULATION AGAINST INFLUENZA [SNOMED-CT: 712529973] Raphael Pérez, DO 03-26-2013 RHEUMATOID ARTHRITIS [SNOMED-CT: 14821345] N/A N/A 02-08-2013 ANXIETY STATE UNSPECIFIED [SNOMED-CT: 787490822] N/A N/A 02-08-2013 RHEUMATOID ARTHRITIS [SNOMED-CT: 48394585] N/A N/A 12-14-2012 UNSPECIFIED ESSENTIAL HYPERTENSION [SNOMED-CT: 7410761 0] N/A N/A 12-14-2012 DEPRESSIVE DISORDER NOT ELSEWHERE CLASSI FIED [SNOMED-CT: 563317719] N/A N/A 06-17-2013 DEPRESSIVE DISORDER NOT ELSEWHERE CLASSI FIED [SNOMED-CT: 443940952] N/A N/A 10-23-2012 ANXIETY STATE UNSPECIFIED [SNOMED-CT: 870044806] N/A N/A 10-23-2012 RHEUMATOID ARTHRITIS [SNOMED-CT: 13920780] N/A N/A 08-24-2012 UNSPECIFIED ESSENTIAL HYPERTENSION [SNOMED-CT: 4513537 0] N/A N/A 08-24-2012 ANXIETY STATE UNSPECIFIED [SNOMED-CT: 221807775] N/A N/A 08-24-2012 RHEUMATOID ARTHRITIS [SNOMED-CT: 12667437] N/A N/A 06-15-2012 UNSPECIFIED ESSENTIAL HYPERTENSION [SNOMED-CT: 8331981 0] N/A N/A 06-15-2012 ANXIETY STATE UNSPECIFIED [SNOMED-CT: 541273456] N/A N/A 06-15-2012 UNSPECIFIED ESSENTIAL HYPERTENSION [SNOMED-CT: 8263863 0] N/A N/A 04-10-2012 NEED FOR PROPHYLACTIC VACCINATION AND IN OCULATION AGAINST INFLUENZA [SNOMED-CT: 661123154] Raphael Pérez DO 04-10-2012 UNSPECIFIED ESSENTIAL HYPERTENSION [SNOMED-CT: 1063031 0] N/A N/A 02-03-2012 ANXIETY STATE UNSPECIFIED [SNOMED-CT: 372079216] N/A N/A 02-03-2012 ANXIETY STATE UNSPECIFIED [SNOMED-CT: 769836085] N/A N/A 12-11-2011 RHEUMATOID ARTHRITIS [SNOMED-CT: 72319965] N/A N/A 12-11-2011 SCREENING EXAMINATION FOR PULMONARY TUBE RCULOSIS [SNOMED-CT: 098878016] Raphael Pérez DO 12-11-2011 DIVERTICULOSIS OF COLON (WITHOUT HEMORRH AGE) [SNOMED-CT: 227310317] Raphael Pérez DO 10-25-2011 ANXIETY STATE UNSPECIFIED [SNOMED-CT: 283293682] N/A N/A 10-25-2011 UNSPECIFIED ESSENTIAL HYPERTENSION [SNOMED-CT: 2731405 0] N/A N/A 07-24-2011 ANXIETY STATE UNSPECIFIED [SNOMED-CT: 509688997] N/A N/A 07-24-2011 IMPACTED CERUMEN [SNOMED-CT: 11729747] Raphael Dickson Elisa, DO 07-24-2011 UNSPECIFIED ESSENTIAL HYPERTENSION [SNOMED-CT: 2912636 0] N/A N/A 01-11-2011 ANXIETY STATE UNSPECIFIED [SNOMED-CT: 587903666] N/A N/A 01-11-2011 IMPACTED CERUMEN [SNOMED-CT: 81312344] Raphael Dickson Elisa, DO 01-11-2011 UNSPECIFIED ESSENTIAL HYPERTENSION [SNOMED-CT: 8124406 0] N/A N/A 11-19-2010 ANXIETY STATE UNSPECIFIED [SNOMED-CT: 247910091] N/A N/A 11-19-2010 IMPACTED CERUMEN [SNOMED-CT: 85042126] Raphael Elisa Lymanann-marie Dickosn Elisa, DO 11-19-2010 RHEUMATOID ARTHRITIS [SNOMED-CT: 33747973] N/A N/A 09-05-2010 ANXIETY STATE UNSPECIFIED [SNOMED-CT: 499891031] N/A N/A 09-03-2010 RHEUMATOID ARTHRITIS [SNOMED-CT: 82883653] N/A N/A 09-03-2010 PAIN IN LIMB [SNOMED-CT: 25964474] Raphael Pérez, DO 06-27-2010 ANXIETY STATE UNSPECIFIED [SNOMED-CT: 193520804] N/A N/A 06-27-2010 CARPAL TUNNEL SYNDROME [SNOMED-CT: 07937336] Raphael Pérez, DO 03-28-2010 RHEUMATOID ARTHRITIS [SNOMED-CT: 62261092] N/A N/A 03-28-2010 CARPAL TUNNEL SYNDROME [SNOMED-CT: 13820979] Raphael Christensen Yessi Elisa, DO 11-10-2009 RHEUMATOID ARTHRITIS [SNOMED-CT: 72200819] N/A N/A 11-10-2009 REFLUX ESOPHAGITIS [SNOMED-CT: 63971378] N/A N/A 11-10-2009 DEPRESSIVE DISORDER NOT ELSEWHERE CLASSI FIED [SNOMED-CT: 557258443] N/A N/A 11-10-2009 OTHER ABNORMAL GLUCOSE [SNOMED-CT: 431499831] Raphael Pérez DO 09-11-2009 RHEUMATOID ARTHRITIS [SNOMED-CT: 77760550] N/A N/A 09-11-2009 REFLUX ESOPHAGITIS [SNOMED-CT: 92766957] N/A N/A 09-11-2009 DEPRESSIVE DISORDER NOT ELSEWHERE CLASSI FIED [SNOMED-CT: 625224408] N/A N/A 09-11-2009 RHEUMATOID ARTHRITIS [SNOMED-CT: 60143638] N/A N/A 07-12-2009 REFLUX ESOPHAGITIS [SNOMED-CT: 42406547] N/A N/A 07-12-2009 DEPRESSIVE DISORDER NOT ELSEWHERE CLASSI FIED [SNOMED-CT: 903890113] N/A N/A 07-12-2009 RHEUMATOID ARTHRITIS [SNOMED-CT: 84610761] N/A N/A 04-14-2009 UNSPECIFIED ESSENTIAL HYPERTENSION [SNOMED-CT: 5191028 0] N/A N/A 04-14-2009 DEPRESSIVE DISORDER NOT ELSEWHERE CLASSI FIED [SNOMED-CT: 611449653] N/A N/A 04-14-2009 ANXIETY STATE UNSPECIFIED [SNOMED-CT: 251284471] N/A N/A 04-14-2009 RHEUMATOID ARTHRITIS [SNOMED-CT: 37349063] N/A N/A 12-16-2008 UNSPECIFIED ESSENTIAL HYPERTENSION [SNOMED-CT: 5228130 0] N/A N/A 12-16-2008 DEPRESSIVE DISORDER NOT ELSEWHERE CLASSI FIED [SNOMED-CT: 048318749] N/A N/A 12-16-2008 ANXIETY STATE UNSPECIFIED [SNOMED-CT: 047445405] N/A N/A 12-16-2008 RHEUMATOID ARTHRITIS [SNOMED-CT: 04492908] N/A N/A 10-24-2008 UNSPECIFIED ESSENTIAL HYPERTENSION [SNOMED-CT: 3630411 0] N/A N/A 10-24-2008 DEPRESSIVE DISORDER NOT ELSEWHERE CLASSI FIED [SNOMED-CT: 918722251] N/A N/A 10-24-2008 ANXIETY STATE UNSPECIFIED [SNOMED-CT: 102691394] N/A N/A 10-24-2008 ALLERGIES AND ADVERSE REACTIONS Substance Reaction Sever ity Status sulfa drug (RxNorm: 84102) -- -- Active Sulfa (RxNorm: Unknown) -- -- Active FUNCTIONAL STATUS There is no cognitive and functional status saved for this patient. IMMUNIZATIONS Vaccine Date Status Flucelvax Quadrivalent (171) 03/23/20 19 9:08:38 AM Completed Adacel (115) 10/21/2018 9:47:02 [...] Generic Name Instructions Dosage Start Date Status ALPRAZolam 0.5 mg oral tablet, [RxNorm: 685042] ALPRAZolam one or one half po qid prn anxiety MDD4 120 05/24/2020 Active hydrocodone-acetaminophen 5 mg-325 mg or al tablet, [RxNorm: 354617] hydrocodone-acetaminophen one or two po qid prn pain 45 04/26/2020 Active spironolactone 25 mg oral tablet, [RxNorm: 562754] spironolactone one po daily 30 04/26/2020 Active mirtazapine 30 mg oral tablet, [RxNorm: 849296] mirtazapine one po hs daily 30 04/26 Active Metoprolol Succinate ER 100 mg oral tabl et, extended release, [RxNorm: 621511] metoprolol one po daily 30 04/26/2020 Active atorvastatin 40 mg oral tablet, [RxNorm: 449227] atorvastatin one po daily 30 04/26/20 20 Active glucose testing strips Unknown use as directed bid ac 60 04/28/2017 Active glucometer Unknown use a s directed ac bid 1 04/28/2017 Active Remicade 100 mg intravenous injection, [RxNorm: 567960 ] inFLIXimab injected in [place] q 8 weeks 0 09/13/2015 Active aspirin 81 mg oral tablet, [RxNorm: 542315] aspirin one daily 1 09/13/2015 Active INSURANCE PROVIDERS Payer Name Policy Type P robert ID Covered Libertarian ID Policy [employer] MEDICARE Health Insurance [id number] [facility] Health Insurance [id number] ALTHEA RIVAS ASSESSMENTS # Stool DNA-based colorectal cancer screening positive (R85.89): PROBLEMS Problem Problem Status D ate Started Date Resolved Date Inactivated MICROSCOPIC HEMATURIA [SNOMED-CT: 061197406] Active 12-13-2013 NA NA HYPERPLASIA OF PROSTATE UNSPECIFIED WITH OUT URINARY OBSTRUCTION AND OTHER LOWER URINARY TRACT SYMPTOMS (LUTS) [SNOMED-CT: 909921187] Active 12-13-2013 NA NA OTHER ABNORMAL GLUCOSE [SNOMED-CT: 528380500] Active 09-11-2009 NA NA Exogenous hyperlipidemia [SNOMED-CT: 015965876] Active 02-26-2017 NA NA Hyperglycemia [SNOMED-CT: 34234748] Active 02-26-2017 NA NA Tinnitus of left ear [SNOMED-CT: 2199722455872] Active 07-21-2017 NA NA Altered mental status [SNOMED-CT: 092081782] Active 07-21-2017 NA NA Stool DNA-based colorectal cancer screen ing positive [SNOMED-CT: 567906903] Active 05-23-2020 NA NA Prediabetes [SNOMED-CT: 1997767] Active 09-13-2015 NA NA BACKACHE UNSPECIFIED [SNOMED-CT: 806893828] Active 10-18-2013 NA NA SCREENING EXAMINATION FOR PULMONARY TUBE RCULOSIS [SNOMED-CT: 287575523] Active 12-11-2011 NA NA Adenomatous polyp of rectum [SNOMED-CT: 8254482624487] Active 04-26-2020 NA NA RHEUMATOID ARTHRITIS [SNOMED-CT: 63424542] Active 10-23-2008 NA NA UNSPECIFIED ESSENTIAL HYPERTENSION [SNOMED-CT: 9597838 0] Active 10-23-2008 NA NA DEPRESSIVE DISORDER NOT ELSEWHERE CLASSI FIED [SNOMED-CT: 228129829] Active 10-23-2008 NA NA ANXIETY STATE UNSPECIFIED [SNOMED-CT: 217483991] Active 10-23-2008 NA NA ROUTINE GENERAL MEDICAL EXAMINATION AT A HEALTH CARE FACILITY [SNOMED-CT: 281132751] Active 08-30-2013 NA NA Bilateral cataracts [SNOMED-CT: 44009883] Active 04-27-2018 NA NA Hyperlipidemia [SNOMED-CT: 84340470] Activ e 04-26-2015 NA NA Diabetes mellitus [SNOMED-CT: 73581991] Resolved 04-28-2017 04-26-2019 NA Prediabetes [SNOMED-CT: 540742349] Active 04-26-2019 NA NA Other hyperlipidemia [ICD10: E78.49] Activ e 04-26-2019 NA NA Hypertension [SNOMED-CT: 26138137] Active 04-26-2019 NA NA Other specified vaccination [ICD10: Z23] Active 03-13-2016 NA NA GLOSSITIS [SNOMED-CT: 18858348] Active 01-26-2014 NA NA CARPAL TUNNEL SYNDROME [SNOMED-CT: 80721264] Active 11-10-2009 NA NA PAIN IN LIMB [SNOMED-CT: 91093450] Active 06-27-2010 NA NA Headache [SNOMED-CT: 86063510] Active 07-21-2017 NA NA Bilateral tinnitus [SNOMED-CT: 5121915233151] Active 10-31-2017 NA NA IMPACTED CERUMEN [SNOMED-CT: 90161106] Active 11-19-2010 NA NA Spinal stenosis [SNOMED-CT: 70826122] Active 08-24-2018 NA NA Hyperglycemia [SNOMED-CT: 05506876] Active 09-13-2015 NA NA NEED FOR PROPHYLACTIC VACCINATION AND IN OCULATION AGAINST INFLUENZA [SNOMED-CT: 128610725] Active 04-10-2012 NA NA Acute suppurative otitis media [SNOMED-CT: 958062576] Active 05-17-2015 NA NA Personal history of immunosuppressive therapy [ICD10: Z92.25] Active 05-24-2015 NA NA Disorder of lumbar disc [SNOMED-CT: 873697106] Active 05-31-2015 NA NA DIVERTICULOSIS OF COLON (WITHOUT HEMORRH AGE) [SNOMED-CT: 311464656] Active 10-25-2011 NA NA REFLUX ESOPHAGITIS [SNOMED-CT: 25968244] Active 07-12-2009 NA NA HYPERPLASIA OF PROSTATE UNSPECIFIED [SNOMED-CT: 067556 004] Inactive 07-12-2009 NA 12-13-2013 PROCEDURES Procedure Date CPT Code Procedure 05/23/2020 11:51:40 81037 Telephone evaluation and management service by a physician or other qualified health tree care foreman who may report evaluation and management services [...] record (DEM) ([facility], [facility]) 02/25/2020 09:27:14 09424 Office or other outpatient visit for the [...] moderate severity. Physicians typically spend 15 minutes ezbd-zo-pwek with the patient and/or family. 12/27/2019 09:18:25 11757 Office or other outpatient visit for the [...] moderate severity. Physicians typically spend 15 minutes ebmt-nr-jrad with the patient and/or family. 10/27/2019 09:14:09 51334 Office or other outpatient visit for the [...] moderate severity. Physicians typically spend 15 minutes gkoi-hj-uzgh with the patient and/or family. 08/20/2019 09:14:36 51478 Office or other outpatient visit for the [...] moderate severity. Physicians typically spend 15 minutes kask-gu-gybx with the patient and/or family. 06/18/2019 09:14:14 95602 Office or other outpatient visit for the [...] moderate severity. Physicians typically spend 15 minutes iabe-is-ksok with the patient and/or family. 04/26/2019 08:33:50 [...] record (DEM) ([facility], Pall [facility]) 02/22/2019 08:35:14 40670 Office or other outpatient visit for the [...] moderate severity. Physicians typically spend 15 minutes gvpp-co-pemr with the patient and/or family. 02/22/2019 08:35:14 [id number] Eligible clinician attests to documenting in the medical record they obtained, updated, or reviewed the patient's current medications 12/23/2018 09:11:54 18778 Office or other outpatient visit for the [...] moderate severity. Physicians typically spend 15 minutes eyfz-cq-sgyt with the patient and/or family. 12/23/2018 09:11:54 [id number] Eligible clinician attests to documenting in the medical record they obtained, updated, or reviewed the patient's current medications 10/21/2018 09:10:09 66051 Office or other outpatient visit for the [...] moderate severity. Physicians typically spend 15 minutes nmsv-oz-nnsz with the patient and/or family. 10/21/2018 09:10:09 44377 Hemoglobin; glycosylated (A1C) by device cleared by FDA for home use 10/21/2018 09:10:09 [id number] Eligible clinician attests to documenting in the medical record they obtained, updated, or reviewed the patient's current medications 10/21/2018 09:10:09 52069 Tetanus, diphtheria toxoids and acellular pertussis vaccine (Tdap), when administered to individuals 7 years or older, for intramuscular use 10/21/2018 09:10:09 59392 Immunization administration (includes percutaneous, intradermal, subcutaneous, or intramuscular injections); one vaccine (single or combination vaccine/toxoid) 08/24/2018 09:32:54 60931 Office or other outpatient visit for the [...] high severity. Physicians typically spend 25 minutes xmlb-qv-tgql with the patient and/or family. 06/19/2018 09:55:21 54837 Office or other outpatient visit for the [...] moderate severity. Physicians typically spend 15 minutes dgzb-dl-llmq with the patient and/or family. 06/19/2018 09:55:21 [id number] Eligible clinician attests to documenting in the medical record they obtained, updated, or reviewed the patient's current medications 04/27/2018 11:19:49 11605 Office or other outpatient visit for the [...] high severity. Physicians typically spend 25 minutes ybaz-sg-xymu with the patient and/or family. 04/27/2018 11:19:49 [id number] Eligible clinician attests to documenting in the medical record they obtained, updated, or reviewed the patient's current medications 03/20/2018 09:03:16 G0439 ANNUAL WELLNESS VISIT, SUBSEQUENT 03/20/2018 09:03:16 55454 Collection of venous blood by venipuncture 03/20/2018 09:03:16 05882 Hemoglobin; glycosylated (A1C) by device cleared by [...] reviewed the patient's current medications 03/20/2018 09:03:16 2F Dilated retinal eye exam with interpretation by an bobbin inspector or supervisor waterworks documented and reviewed (DM) 03/20/2018 09:03:16 1123F Advance Care Planning discussed and documented advance care plan or surrogate decision maker documented in the medical record (DEM) ([facility], [facility]) 01/16/2018 08:30:09 79005 Office or other outpatient visit for the [...] moderate severity. Physicians typically spend 15 minutes fiut-zm-oppw with the patient and/or family. 01/16/2018 08:30:09 [id number] Eligible clinician attests to documenting in the medical record they obtained, updated, or reviewed the patient's current medications 01/16/2018 08:30:09 1036F Current tobacco non-user (CAD, CAP, COPD, PV) (DM) (IBD) 10/31/2017 09:17:00 31080 Office or other outpatient visit for the [...] high severity. Physicians typically spend 25 minutes dawz-df-kdgc with the patient and/or family. 10/31/2017 09:17:00 [id number] Eligible clinician attests to documenting in the medical record they obtained, updated, or reviewed the patient's current medications 10/31/2017 09:17:00 1036F Current tobacco non-user (CAD, CAP, COPD, PV) (DM) (IBD) 10/31/2017 09:17:00 2022F Dilated retinal eye exam with interpretation by an bobbin inspector or supervisor waterworks documented and reviewed (DM) 08/29/2017 08:33:05 86712 Office or other outpatient visit for the [...] high severity. Physicians typically spend 25 minutes prag-ya-ijgn with the patient and/or family. 07/21/2017 09:22:42 20747 Office or other outpatient visit for the [...] high severity. Physicians typically spend 25 minutes ztmm-cy-bjgw with the patient and/or family. 07/21/2017 09:22:42 91649 Hemoglobin; glycosylated (A1C) by device cleared by FDA for home use 07/21/2017 09:22:42 3044F Most recent hemoglobin A1c (HbA1c) level less than 7.0% (DM) 06/27/2017 08:36:35 61187 Office or other outpatient visit for the [...] high severity. Physicians typically spend 25 minutes loow-gs-xird with the patient and/or family. 06/27/2017 08:36:35 1036F Current tobacco non-user (CAD, CAP, COPD, PV) (DM) (IBD) 06/27/2017 08:36:35 G8427 Eligible clinician attests to documenting in the medical record they obtained, updated, or reviewed the patient's current medications 04/28/2017 09:04:31 03536 Office or other outpatient visit for the [...] high severity. Physicians typically spend 25 minutes ttnc-av-dppy with the patient and/or family. 04/28/2017 09:04:31 [...] reviewed the patient's current medications 12/25/2016 09:02:26 91721 Office or other outpatient visit for the [...] moderate severity. Physicians typically spend 15 minutes bhch-gp-gabs with the patient and/or family. 10/09/2016 09:02:56 35827 Office or other outpatient visit for the [...] moderate severity. Physicians typically spend 15 minutes isly-cv-ajay with the patient and/or family. 08/28/2016 08:58:27 65123 Office or other outpatient visit for the [...] moderate severity. Physicians typically spend 15 minutes qxtr-aq-yvak with the patient and/or family. 07/17/2016 08:58:45 11243 Office or other outpatient visit for the [...] high severity. Physicians typically spend 25 minutes qfjl-ym-lboa with the patient and/or family. 06/05/2016 09:32:15 30209 Office or other outpatient visit for the [...] moderate severity. Physicians typically spend 15 minutes pafr-kg-nbtm with the patient and/or family. 04/24/2016 09:41:36 64514 Office or other outpatient visit for the [...] moderate severity. Physicians typically spend 15 minutes fdvq-xs-laln with the patient and/or family. 04/24/2016 09:41:36 91207 Collection of venous blood by venipuncture 03/13/2016 10:04:03 29355 Office or other outpatient visit for the [...] moderate severity. Physicians typically spend 15 minutes cvib-hj-iakb with the patient and/or family. 03/13/2016 10:04:03 Q2037 FLUVRIN 03/13/2016 10:04:03 G0008 ADMINISTRATION OF FLU VACCINE (V04.81) 03/13/2016 10:04:03 88818 Skin test; tuberculosis, intradermal 01/31/2016 08:59:31 53048 Office or other outpatient visit for the [...] moderate severity. Physicians typically spend 15 minutes ggma-yx-bvei with the patient and/or family. 12/27/2015 09:34:39 57134 Office or other outpatient visit for the [...] high severity. Physicians typically spend 25 minutes iusz-sy-rchl with the patient and/or family. 11/22/2015 09:35:26 32141 Office or other outpatient visit for the [...] moderate severity. Physicians typically spend 15 minutes gajy-gj-wntd with the patient and/or family. 10/18/2015 09:36:50 97599 Office or other outpatient visit for the [...] moderate severity. Physicians typically spend 15 minutes zlbs-kp-gdwz with the patient and/or family. 09/13/2015 09:28:05 57201 Office or other outpatient visit for the [...] high severity. Physicians typically spend 25 minutes kyec-mn-xyzr with the patient and/or family. 08/09/2015 09:28:48 83024 Office or other outpatient visit for the [...] moderate severity. Physicians typically spend 15 minutes ezjy-pp-uppq with the patient and/or family. 07/05/2015 09:26:40 75680 Office or other outpatient visit for the [...] moderate severity. Physicians typically spend 15 minutes gkib-rp-jwvl with the patient and/or family. 05/31/2015 09:27:13 89907 Office or other outpatient visit for the [...] moderate severity. Physicians typically spend 15 minutes tusv-iw-gxby with the patient and/or family. 05/24/2015 09:31:02 47984 Office or other outpatient visit for the [...] moderate severity. Physicians typically spend 15 minutes gidd-sy-jckr with the patient and/or family. 05/17/2015 08:45:07 28321 Office or other outpatient visit for the [...] moderate severity. Physicians typically spend 15 minutes xswl-zm-yvga with the patient and/or family. 04/26/2015 10:00:01 22273 Office or other outpatient visit for the [...] moderate severity. Physicians typically spend 15 minutes rotp-zt-tkho with the patient and/or family. 03/22/2015 10:00:36 53018 Office or other outpatient visit for the [...] moderate severity. Physicians typically spend 15 minutes veej-if-bmms with the patient and/or family. 02/15/2015 10:03:31 36781 Office or other outpatient visit for the [...] moderate severity. Physicians typically spend 15 minutes lycf-du-aqrg with the patient and/or family. 01/11/2015 10:12:53 09076 Office or other outpatient visit for the [...] moderate severity. Physicians typically spend 15 minutes bmpm-dh-pjtn with the patient and/or family. 12/07/2014 11:25:37 G0402 WELCOME TO MEDICARE " ANNUAL WELLNESS VISIT" 11/02/2014 09:32:01 57504 Office or other outpatient visit for the [...] moderate severity. Physicians typically spend 15 minutes mben-tw-fyrp with the patient and/or family. 11/02/2014 09:32:01 90917 Skin test; tuberculosis, intradermal 10/05/2014 09:30:13 81511 Office or other outpatient visit for the [...] moderate severity. Physicians typically spend 15 minutes cnwk-gk-gvyl with the patient and/or family. 10/05/2014 09:30:13 60547 Collection of venous blood by venipuncture 09/07/2014 09:33:26 09278 Periodic comprehensive preventive medicine reevaluation and management of an individual including an age and gender appropriate history, examination, counseling/anticipatory guidance/risk factor reduction interventions, and the ordering of laboratory/diagnostic procedures, established patient; 40-64 years 08/10/2014 00:00:00 84883 Office or other outpatient visit [...] moderate severity. Physicians typically spend 15 minutes ybxc-xg-tbvv with the patient and/or family. 07/13/2014 00:00:00 54040 Office or other outpatient visit for the [...] moderate severity. Physicians typically spend 15 minutes jmvj-sl-dzjq with the patient and/or family. 05/16/2014 00:00:00 50242 Office or other outpatient visit for the [...] moderate severity. Physicians typically spend 15 minutes qxrn-po-xaqa with the patient and/or family. 03/25/2014 00:00:00 17766 Office or other outpatient visit for the [...] moderate severity. Physicians typically spend 15 minutes dkbf-de-nind with the patient and/or family. 01/26/2014 00:00:00 42265 Collection of venous blood by venipuncture 01/26/2014 00:00:00 74063 Office or other outpatient visit for the [...] moderate severity. Physicians typically spend 15 minutes eure-ov-oorf with the patient and/or family. 12/13/2013 00:00:00 26989 Office or other outpatient visit for the [...] moderate severity. Physicians typically spend 15 minutes mnlb-gv-hfon with the patient and/or family. 12/13/2013 00:00:00 37286 Skin test; tuberculosis, intradermal 10/18/2013 00:00:00 86593 Office or other outpatient visit for the [...] moderate severity. Physicians typically spend 15 minutes mgwt-wx-cigm with the patient and/or family. 08/30/2013 00:00:00 52208 Periodic comprehensive preventive medicine reevaluation and management of an individual including an age and gender appropriate history, examination, counseling/anticipatory guidance/risk factor reduction interventions, and the ordering of laboratory/diagnostic procedures, established patient; 40-64 years 07/02/2013 12:24:29 15457 Office or other outpatient visit for the [...] moderate severity. Physicians typically spend 15 minutes qnnf-ir-kgec with the patient and/or family. 05/17/2013 10:00:23 82493 Office or other outpatient visit for the [...] moderate severity. Physicians typically spend 15 minutes ncdz-ts-exsw with the patient and/or family. 03/26/2013 12:08:28 89345 Immunization administration (includes percutaneous, intradermal, subcutaneous, or intramuscular injections); one vaccine (single or combination vaccine/toxoid) 03/26/2013 12:08:28 25592 Office or other outpatient visit for the [...] moderate severity. Physicians typically spend 15 minutes lbzb-dq-rpsh with the patient and/or family. 02/08/2013 11:26:02 42903 Office or other outpatient visit for the [...] moderate severity. Physicians typically spend 15 minutes gupt-bt-klqh with the patient and/or family. 12/14/2012 10:21:27 79165 Office or other outpatient visit for the [...] moderate severity. Physicians typically spend 15 minutes mqpf-mk-amjj with the patient and/or family. 12/14/2012 10:21:27 74134 Skin test; tuberculosis, intradermal 10/23/2012 09:19:25 53132 Office or other outpatient visit for the [...] moderate severity. Physicians typically spend 15 minutes xhvq-wl-mzxu with the patient and/or family. 08/24/2012 08:54:45 03050 Office or other outpatient visit for the [...] moderate severity. Physicians typically spend 15 minutes bypo-wj-zqnp with the patient and/or family. 06/15/2012 10:51:20 94202 Office or other outpatient visit for the [...] moderate severity. Physicians typically spend 15 minutes fdoc-wh-jpjm with the patient and/or family. 04/10/2012 12:16:15 Q2037 FLUVRIN 04/10/2012 12:16:15 07061 Immunization administration (includes percutaneous, intradermal, subcutaneous, or intramuscular injections); one vaccine (single or combination vaccine/toxoid) 04/10/2012 12:16:15 27112 Office or other outpatient visit for the [...] moderate severity. Physicians typically spend 15 minutes wcao-mm-wiwt with the patient and/or family. 02/03/2012 08:29:20 51615 Office or other outpatient visit for the [...] moderate severity. Physicians typically spend 15 minutes vidp-os-gdoo with the patient and/or family. 12/11/2011 09:49:25 45131 Skin test; tuberculosis, intradermal 12/11/2011 09:49:25 30689 Office or other outpatient visit for the [...] or minor. Physicians typically spend 10 minutes amwm-op-iaam with the patient and/or family. 10/25/2011 12:22:42 03048 Office or other outpatient visit for the [...] moderate severity. Physicians typically spend 15 minutes dwml-vh-hfec with the patient and/or family. 07/24/2011 11:25:11 06645 Office or other outpatient visit for the [...] moderate severity. Physicians typically spend 15 minutes jznr-zu-bipa with the patient and/or family. 01/11/2011 09:55:27 01881 Office or other outpatient visit for the [...] moderate severity. Physicians typically spend 15 minutes eysb-hg-gxer with the patient and/or family. 11/19/2010 11:12:31 87000 Removal impacted cerumen (separate procedure), 1 or both ears 11/19/2010 11:12:31 39521 Office or other outpatient visit for the [...] moderate severity. Physicians typically spend 15 minutes tsah-tl-rsxv with the patient and/or family. 09/05/2010 09:43:38 83998 Skin test; tuberculosis, intradermal 09/03/2010 00:00:00 41570 Office or other outpatient visit for the [...] or minor. Physicians typically spend 10 minutes fkix-tu-pwnf with the patient and/or family. 06/27/2010 00:00:00 18421 Office or other outpatient visit for the [...] high severity. Physicians typically spend 25 minutes icbm-we-xzox with the patient and/or family. 03/28/2010 00:00:00 18670 Office or other outpatient visit for the [...] high severity. Physicians typically spend 25 minutes erqc-qc-wdub with the patient and/or family. 03/28/2010 00:00: 46469 Collection of venous blood by venipuncture 01/10/2010 00:00:00 35482 Office or other outpatient visit for the [...] moderate severity. Physicians typically spend 15 minutes ihjj-oq-cbsm with the patient and/or family. 11/10/2009 00:00:00 08763 Office or other outpatient visit for the [...] moderate severity. Physicians typically spend 15 minutes duci-ig-amlc with the patient and/or family. 09/11/2009 00:00:00 87742 Collection of venous blood by venipuncture 09/11/2009 00:00:00 50609 Office or other outpatient visit for the [...] moderate severity. Physicians typically spend 15 minutes oczf-jk-amij with the patient and/or family. 07/12/2009 00:00:00 79083 ADMINISTRATION OF TH H1N1 VACCINE 07/12/2009 00:00:00 23102 Office or other outpatient visit for the [...] moderate severity. Physicians typically spend 15 minutes qxja-nm-sjym with the patient and/or family. 04/14/2009 00:00:00 50221 Office or other outpatient visit for the [...] moderate severity. Physicians typically spend 15 minutes ycrz-pc-tnql with the patient and/or family. 12/16/2008 00:00:00 41756 Office or other outpatient visit for the [...] moderate severity. Physicians typically spend 15 minutes sion-sh-vyvp with the patient and/or family. 10/24/2008 00:00:00 30985 Office or other outpatient visit for the [...] moderate severity. Physicians typically spend 15 minutes vlqz-ba-vyhy with the patient and/or family. 10/24/2008 00:00:00 68013 Collection of venous blood by venipuncture REASON [...] 03/10/2017 10:24:00 TRIGLYCERIDES 119 mg/dL 0-150 No [facility] 03/10/2017 10:24:00 LDL CHOLESTEROL 81 mg/dL 0-100 No [facility] 03/10/2017 10:24:00 HDL CHOLESTEROL 40 mg/dL >40 No [facility] 03/10/2017 10:24:00 CHOL/HDL RATIO 3.6 0.0- 5.0 No [facility] 03/10/2017 10:24:00 HGBA1C 6.5 % 4.5-6.2 H 03/10/2017 10:04:00 ESTIMATED AVERAGE GLUCOSE 139.9 mg/dL -- No [facility] 03/10/2017 10:04:00 WHITE BLOOD COUNT 7.2 K/mm3 4.0-10.0 No [facility] 03/10/2017 09:47:00 RED BLOOD COUNT 5.00 M/mm3 4.50-6.00 No [facility] 03/10/2017 09:47:00 HEMOGLOBIN 15.5 gm/dL 14 .0-18.0 No [facility] 03/10/2017 09:47:00 HEMATOCRIT 45.6 % 42.0-5 4.0 No [facility] 03/10/2017 09:47:00 MEAN CELL VOLUME 91.2 fl 80-96 No [facility] 03/10/2017 09:47:00 MEAN CORPUSCULAR HEMOGLOB 31.0 pg 27.0-31.0 No [facility] 03/10/2017 09:47:00 MEAN CORPUSCULAR HGB CONC 34.0 g/dl 32.0- 36.0 No [facility] 03/10/2017 09:47:00 RED CELL DISTRIBUTION WID 13.1 % 10.0-14.5 No [facility] 03/10/2017 09:47:00 PLATELET COUNT 279 K/mm3 172-450 No [facility] 03/10/2017 09:47:00 MEAN PLATELET VOLUME 9.6 fl 9.0-13.0 No [facility] 03/10/2017 09:47:00 GRAN % 57.0 % 50-80.0 No [facility] 03/10/2017 09:47:00 LYMPH % 28.8 % 25.0-50.0 No [facility] 03/10/2017 09:47:00 MONO % 10.4 % 2.0-10.0 H 03/10/2017 09:47:00 EOS % 3.1 % 0-5.0 No [facility] 03/10/2017 09:47:00 BASO % 0.7 % 0.0-2.0 No Flag 03/10/2017 09:47:00 GRAN # 4.1 2.0-8.00 No Flag 03/10/2017 09:47:00 LYMPH # 2.1 1.0-5.0 No Flag 03/10/2017 09:47:00 MONO # 0.8 0.10-1.20 No Flag 03/10/2017 09:47:00 EOS # 0.2 0.0-0.5 No Flag 03/10/2017 09:47:00 BASO # 0.1 K/mm3 0.0-0.2 No Flag 03/10/2017 09:47:00 CREATININE 1.1 mg/dL 0.6 -1.3 No Flag 09/09/2016 11:36:00 ALT 35 U/L No Flag 09/09/2016 11:36:00 WHITE BLOOD COUNT 8.7 K/mm3 4.0-10.0 No Flag 09/09/2016 10:54:00 RED BLOOD COUNT 5.25 M/mm3 4.50-6.00 No Flag 09/09/2016 10:54:00 HEMOGLOBIN 16.0 gm/dL 14 .0-18.0 No Flag 09/09/2016 10:54:00 HEMATOCRIT 47.7 % 42.0-5 4.0 [...] Date of : 1950 Age: 65 Room: [facility] Gender: Male Note Status: Finalized Procedure: [...] by the physician, the nurse and the drapery examiner in the procedure room. Mental Status Examination: [...] Loss: Estimated blood loss was minimal. DD: KIMRO 03/26/2016 1353 DT: PROVATION 03/26/2016 1353 DS: KIMRO 03/26/2016 1624 N/A N/A 03/26/2016 13:53:00 CREATININE 1.1 mg/dL 0.6 -1.3 No Flag 12/11/2015 08:36:00 ALT 41 U/L 12 No Flag 12/11/2015 08:36:00 WHITE BLOOD COUNT [...] Observed Smoking Status Former smoker, [[facility] D-CT: 1868017], 0.50 pk yrs/5.00 yrs quit 09/07/2014 - 09/07/2014 TREATMENT PLAN Encounter Date Planned Care 05/23/2020 11:51:40 PRESCRIBE: ALPRAZolam 0.5 mg oral [...] at infusion....114/80 ORDERED/ADVISED: Order Date 04-26-2020 - Emigdio (D12.8, F41.9, F32.9, K57.30, I10, R73.03, M06.9, [...] 45, RF: 0. (Transmitted by Amparo Pérez ) (MDD 8 tab) PRESCRIBE: ALPRAZolam 0.5 mg oral tablet, one or one half po qid prn anxiety MDD4, # 120, RF: 0. (Transmitted by Amparo Pérez, ) I have discussed with this patient the [...] necessary. "Social communication with physical isolation. " [facility] [phone] [facility] [phone] 10/27/2019 09:14:09 PRESCRIBE: spironolactone 25 mg oral tablet, one po daily, # 30, RF: 5. (Transmitted by Amparo Pérez, DO) PRESCRIBE: mirtazapine 30 mg oral tablet, one po hs daily, # 30, RF: 5. (Transmitted by Amparo Pérez, DO) PRESCRIBE: Metoprolol Succinate ER 100 mg oral tablet, extended release, one po daily, # 30, RF: 5. (Transmitted by Amparo Pérez, DO) PRESCRIBE: atorvastatin 40 mg oral tablet, one po daily, # 30, RF: 5. (Transmitted by Amparo Pérez, DO) PRESCRIBE: hydrocodone-acetaminophen 5 mg-325 mg oral tablet, one or two po qid prn pain, # 45, RF: 0. (Transmitted by Amparo Pérez, ) (MDD 8 tab) PRESCRIBE: ALPRAZolam 0.5 mg oral tablet, one or one half po qid prn anxiety MDD4, # 120, RF: 0. (Transmitted by Amparo Pérez, ) I have discussed with this patient the [...] necessary. "Social communication with physical isolation. " [facility] [phone] [facility] [phone] 10/27/2019 09:14:09 PRESCRIBE: spironolactone 25 mg oral tablet, one po daily, # 30, RF: 5. (Transmitted by Amparo Pérez, ) PRESCRIBE: mirtazapine 30 mg oral tablet, one po hs daily, # 30, RF: 5. (Transmitted by Amparo Pérez, DO) PRESCRIBE: Metoprolol Succinate ER 100 mg oral tablet, extended release, one po daily, # 30, RF: 5. (Transmitted by Amparo Pérez, DO) PRESCRIBE: atorvastatin 40 mg oral tablet, one po daily, # 30, RF: 5. (Transmitted by Amparo Pérez, DO) PRESCRIBE: hydrocodone-acetaminophen 5 mg-325 mg oral tablet, one or two po qid prn pain, # 45, RF: 0. (Transmitted by Amparo Pérez, ) (MDD 8 tab) PRESCRIBE: ALPRAZolam 0.5 mg [...] necessary. "Social communication with physical isolation. " [facility] [phone] [facility] [phone] 08/20/2019 09:14:36 Plan printed and provided to patient: PRESCRIBE: ALPRAZolam 0.5 mg oral tablet, one or one half po qid prn anxiety MDD4, # 120, RF: 0. (Transmitted by Amparo Pérez, ) 08/20/2019 09:14:36 Plan printed and provided to patient: PRESCRIBE: ALPRAZolam 0.5 mg oral tablet, one or one half po qid prn anxiety MDD4, # 120, RF: 0. (Transmitted by Amparo Pérez, ) 08/20/2019 09:14:36 Plan printed and provided to [...] HM: Screening for Anxiety Given: on meds ledy ORDERED/ADVISED: Order Date 04-26-2019 - CBC with [...] 0. (Transmitted by Amparo Pérez, ) PRESCRIBE: spironolactone 25 mg oral tablet, one po daily, # 30, RF: 5. (Transmitted by Amparo Pérez, ) PRESCRIBE: mirtazapine 30 mg oral tablet, one po hs daily, # 30, RF: 5. ( Transmitted by Amparo Pérez, DO) PRESCRIBE: Metoprolol Succinate ER 100 mg oral tablet, extended release, one po daily, # 30, RF: 5. (Transmitted by Amparo Pérez, DO) PRESCRIBE: atorvastatin 40 mg oral tablet, one po daily, # 30, RF: 5. (Transmitted by Amparo Pérez, ) CHANGED Current Meds: hydrocodone-acetaminophen 5 mg-325 mg [...] 0. (Transmitted by Amparo Pérez, ) PRESCRIBE: spironolactone 25 mg oral tablet, one po daily, # 30, RF: 5. (Transmitted by Amparo Pérez, DO) PRESCRIBE: mirtazapine 30 mg oral tablet, one po hs daily, # 30, RF: 5. ( Transmitted by Amparo Pérez, DO) PRESCRIBE: Metoprolol Succinate [...] MDD4, # 120, RF: 0. (Transmitted by Apmaro Pérez DO) 12/23/2018 09:11:54 Plan printed and [...] ml IM in the Left Deltoid (Mfg: [employer] lot no. [id number], expires 06/13/2020) 10/21/2018 09:10:09 Plan printed and [...] ml IM in the Left Deltoid (Mfg: [employer] PASTEUR lot no. [id number], expires 06/13/2020) 10/21/2018 09:10:09 Plan printed and [...] Left Deltoid (Mfg: SANOFI PASTEUR lot no. [id number], expires 06/13/2020) 08/24/2018 09:32:54 Plan printed and [...] RF: 0. (Transmitted by Amparo Pérez DO) He has no clincal predictors of [...] # 45, RF: 0. (Transmitted by Amparo Pérez, DO) PRESCRIBE: ALPRAZolam 0.5 mg oral tablet, one or one half po qid prn anxiety MDD4, # 120, RF: 0. (Transmitted by Amparo Elisa, DO) He has no clincal predictors of [...] # 45, RF: 0. (Transmitted by Amparo [place], DO) PRESCRIBE: ALPRAZolam 0.5 mg oral tablet, one or one half po qid prn anxiety MDD4, # 120, RF: 0. (Transmitted by AmparoAlion Science and Technologyard, DO) He has no clincal predictors of [...] # 45, RF: 0. (Transmitted by Amparo Pérez, ) PRESCRIBE: ALPRAZolam 0.5 mg oral tablet, one or one half po qid prn anxiety MDD4, # 120, RF: 0. (Transmitted by Amparo Pérez, DO) PRESCRIBE: Metoprolol Succinate ER 100 mg oral tablet, extended release, one po daily, # 30, RF: 11. (Transmitted by Amparo Pérez, DO) PRESCRIBE: atorvastatin 40 mg oral tablet, one po daily, # 30, RF: 11. (Transmitted by Amparo Pérez, ) ORDERED/ADVISED: Order Date 03-20-2018 - CBC with [...] # 45, RF: 0. (Transmitted by Amparo Pérez, ) PRESCRIBE: ALPRAZolam 0.5 mg oral tablet, [...] 0. (Transmitted by Amparo Pérez, ) PRESCRIBE: mirtazapine [...] 60, RF: 5. (Transmitted by Amparo Pérez, ) PRESCRIBE: glucometer, use as directed ac bid, # 1, RF: 0. (Transmitted by Amparo Pérez, ) PRESCRIBE: glucose testing strips, use as directed bid ac, # 60 , RF: 5. PRESCRIBE: glucometer, use as directed ac bid, # 1 , RF: 0. Plan printed and provided to patient: PRESCRIBE: metFORMIN 500 mg oral tablet, extended release, one half po after largest meal, # 45, RF: 2. (Transmitted by Amparo Pérez DO) PRESCRIBE: ALPRAZolam 0.5 mg oral tablet, one or one half po qid prn anxiety MDD4, # 120, RF: 0. PROVIDED HM: DSME Given: Ask: Did you know? For every 1% decrease in HGBAC, there is evidence for 21% decrease in diabetes related complication....14% decrease in risk of [place].....12%decrease risk of stroke...and a 37% decrease risk [...] we have to work with? Time/Travel/Tastes/Treatments?? Arrange: Homicide Squad Lieutenant? www.eatright.org Embossing Calender Operator?www.diabeteseducator.org Pharmacy/Pharmacy benefits Literature? [employer] Diabetes [place] www.diabetes.org www.ncbde.org www.diabeeseducator.org/deap www.ndep.nih.gov www.diabetes.org www.learningaboutdiabetes.org www.diabeticconnect.com www.whatPlayrcartnoIngenious Med.com www.diabeteswhattPlayrcartnow.com www.peersforprogress.org 7 ruiz areas PROVIDED HM: Recommendations [...] diabetes related complication....14% decrease in risk of [place].....12%decrease risk of stroke...and a 37% decrease risk [...] we have to work with? Time/Travel/Tastes/Treatments?? Arrange: Homicide Squad Lieutenant? www.eatright.org Embossing Calender Operator?www.diabeteseducator.org Pharmacy/Pharmacy benefits Literature? [employer] Diabetes [place] www.diabetes.org www.ncbde.org www.diabeeseducator.org/deap www.ndep.nih.gov www.diabetes.org www.learningaboutdiabetes.org www.diabeticconnect.com www.whatPlayrcartnow.com www.diabeteswhattoknow.com www.peersforprogress.org 7 ruiz areas PROVIDED HM: [...] # 1, RF: 0. (Transmitted by Amparo Elisa, DO) PRESCRIBE: glucose testing strips, use as directed bid ac, # 60 , RF: 5. PRESCRIBE: glucometer, use as directed ac bid, # 1 , RF: 0. Plan printed and provided to patient: PRESCRIBE: metFORMIN 500 mg oral tablet, extended release, one half po after largest meal, # 45, RF: 2. (Transmitted by MTX Connectard, DO) PRESCRIBE: ALPRAZolam 0.5 mg oral tablet, one or one half po qid prn anxiety MDD4, # 120, RF: 0. PROVIDED HM: DSME Given: Ask: Did you know? For every 1% decrease in HGBAC, there is evidence for 21% decrease in diabetes related complication....14% decrease in risk of [place].....12%decrease risk of stroke...and a 37% decrease risk [...] we have to work with? Time/Travel/Tastes/Treatments?? Arrange: Homicide Squad Lieutenant? www.eatright.org Embossing Calender Operator?www.diabeteseducator.org Pharmacy/Pharmacy benefits Literature? [employer] Diabetes [place] www.diabetes.org www.ncbde.org www.diabeeseducator.org/deap www.ndep.nih.gov www.diabetes.org www.learningaboutdiabetes.org www.diabeticconnect.com www.[employer] www.diabeteswhattPlayrcartnow.com www.peersforprogress.org 7 ruiz areas PROVIDED HM: Recommendations [...] PROVIDED HM: Diabetes Prevention Program Given: Maura Manley....[phone] [facility]...[phone] ( Anita Frye) [facility]....[phone] [id number] (Haley Short) [facility]....[phone] (Maura Grissom) PROVIDED HM: medication adherence Given: [...] PROVIDED HM: Diabetes Prevention Program Given: Maura Manley....[phone] [facility]...[phone] ( Anita Frye) [facility]....[phone] [id number] ([facility]....[phone] (Maura Grissom) PROVIDED HM: medication adherence Given: [...] PROVIDED HM: Diabetes Prevention Program Given: Maura Manley....[phone] [facility]...[phone] ( Anita Frye) [facility]....[phone] [id number] (Haley Short) [facility]....[phone] (Maura Grissom) PROVIDED HM: medication adherence Given: [...] daily, # 60, RF: 5. (Transmitted by MTX Connectard, Surgient) Date Prescribed: 03/13/2016 12/25/2016 09:02:26 Plan printed and provided to patient: PRESCRIBE: ALPRAZolam 0.5 mg oral tablet, one or one half po qid prn anxiety MDD4, # 120, RF: 0. REMOVED from Current Meds: DULoxetine 60 mg oral delayed release capsule, one po daily for a week then two po daily, # 60, RF: 5. (Transmitted by marinanow, Surgient) Date Prescribed: 03/13/2016 12/25/2016 09:02:26 Plan printed and provided to patient: PRESCRIBE: ALPRAZolam 0.5 mg oral tablet, one or one half po qid prn anxiety MDD4, # 120, RF: 0. REMOVED from Current Meds: DULoxetine 60 mg oral delayed release capsule, one po daily for a week then two po daily, # 60, RF: 5. (Transmitted by marinanow, DO) Date Prescribed: 03/13/2016 10/09/2016 09:02:56 Plan printed [...] # 30, RF: 5. (Transmitted by Amparo Elisa, Surgient) PRESCRIBE: atorvastatin 40 mg oral tablet, one po daily, # 30, RF: 5. (Transmitted by Amparo [place], Surgient) PRESCRIBE: DULoxetine 30 mg oral delayed release capsule, one po daily, # 30, RF: 5. (Transmitted by Amparo [place], Surgient) [employer] (tens units) 08/28/2016 08:58:27 Plan printed and provided to patient: PRESCRIBE: ALPRAZolam 0.5 mg oral tablet, one or one half po qid prn anxiety MDD4, # 120, RF: 0. PRESCRIBE: metoprolol succinate 100 mg oral tablet, extended release, one po daily, # 30, RF: 5. (Transmitted by Amparo Elisa, Surgient) PRESCRIBE: atorvastatin 40 mg oral tablet, one po daily, # 30, RF: 5. (Transmitted by Amparo Elisa, Surgient) PRESCRIBE: DULoxetine 30 mg oral delayed release capsule, one po daily, # 30, RF: 5. (Transmitted by Amparo [place], Surgient) [employer] (tens units) 08/28/2016 08:58:27 Plan printed and provided to patient: PRESCRIBE: ALPRAZolam 0.5 mg oral tablet, one or one half po qid prn anxiety MDD4, # 120, RF: 0. PRESCRIBE: metoprolol succinate 100 mg oral tablet, extended release, one po daily, # 30, RF: 5. (Transmitted by Amparo Pérez, DO) PRESCRIBE: atorvastatin 40 mg oral tablet, one po daily, # 30, RF: 5. (Transmitted by Amparo Pérez, ) PRESCRIBE: DULoxetine 30 mg oral delayed release capsule, one po daily, # 30, RF: 5. (Transmitted by Amparo Pérez, ) www.[employer] (tens units) 07/17/2016 08:58:45 Plan printed and [...] support/Move your body/Think positive/Be good to yourself/ [place] [employer] Diabetic Educators....7 behaviors for diabetes self m anagement. PROVIDED HM: DPP Given: Maura Manley....[phone] [facility]...[phone] ( Anita Frye) [facility]....[phone] [id number] (Haley Short) [facility]....[phone] (Maura Grissom) [facility] Diabetes education [phone] 07/17/2016 08:58:45 Plan printed and provided to [...] support/Move your body/Think positive/Be good to yourself/ [place] [employer] Diabetic Educators....7 behaviors for diabetes self m anagement. PROVIDED HM: DPP Given: Maura Manley....[phone] [facility]...[phone] ( Anita Frye) [facility]....[phone] [id number] (Haley Short) [facility]....[phone] (Maura Jaciel) [facility] Diabetes education [phone] 07/17/2016 08:58:45 Plan printed and provided to [...] support/Move your body/Think positive/Be good to yourself/ [place] [employer] Diabetic Educators....7 behaviors for diabetes self m anagement. PROVIDED HM: DPP Given: Maura Manley....[phone] [facility]...[phone] ( Anita Frye) [facility]....[phone] [id number] (Haley Short) [facility]....[phone] (Maura Grissom) [facility] Diabetes education [phone] 06/05/2016 09:32:15 Plan printed and provided to [...] Left Deltoid (Mfg: OT HER lot no. [id number], expires 11/13/2016) PPD .1 intradermal [id number] 03/13/2016 10:04:03 Plan printed and provided to patient: PRESCRIBE: DULoxetine 60 mg oral delayed release capsule, one po daily for a week then two po daily, # 60, RF: 5. (Transmitted by Amparo ElisaDO elizabeth) PRESCRIBE: atorvastatin 40 mg oral tablet, one [...] Left Deltoid (Mfg: OT HER lot no. [id number], expires 11/13/2016) PPD .1 intradermal [id number] 03/13/2016 10:04:03 Plan printed and provided to [...] Left Deltoid (Mfg: OT HER lot no. [id number], expires 11/13/2016) PPD .1 intradermal [id number] 01/31/2016 08:59:31 Plan printed and provided to [...] in Adults Aged 50-75 yrs Given: due 2016 PROVIDED VACCINATION: (Refused) Zoster, contraindicated with remicaide [...] 60, RF: 0. PPD .1ml Left forearm [id number] Exp 10/13 implanted The following text was added by Alex Pérez, [facility] [place] on Tuesday November 04, 2014 12:00 PM: [...] 530.11, 714.0, 401.9) ORDERED/ADVISED: - Blood Draw QUARRYING SPECIALIST site consulted prior to scheduled drug prescription. 12/13/2013 09:01:43 Instructions printed and provided to patient: PRESCRIBE: Xanax 0.25 mg oral tablet, One or two tablets po qid prn anxiety MDD #6, # 180, RF: 0. PRESCRIBE: Vicodin 5 mg-500 mg oral tablet, one or two po daily prn pain, # 60, RF: 0. QUARRYING SPECIALIST site consulted prior to scheduled drug prescription. ORDERED/ADVISED: - Urine for cytology (x3) ICD9 Codes (599.72) ORDERED/ADVISED: - Ultrasound, kidneys and bladder ICD9 Codes (599.72) .1 ml sq left forearm Lot [id number] Exp 11/11 PPD ORDERED/ADVISED: - Ultrasound, kidneys [...] daily prn pain, # 60, RF: 0. QUARRYING SPECIALIST site consulted prior to scheduled drug prescription. [...] RF: 5. (Transmitted by Amparo Pérez, DO) Instructions printed and provided to patient: [...] daily prn pain, # 60, RF: 0. QUARRYING SPECIALIST site consulted prior to scheduled drug prescription. 05/17/2013 10:00:23 Instructions printed and provided to patient: PRESCRIBE: Vicodin 5 mg-500 mg oral tablet, one or two po daily prn pain, # 60, RF: 0. PRESCRIBE: XANAX TABLETS 0.25 MG, One tablet po qid prn anxiety MDD #4, # 120, RF: NONE. QUARRYING SPECIALIST site consulted prior to scheduled drug prescription. [...] 0.5 ml IM in the L DELTOID (g: [facility] lot no. [id number], expires 12/17/2013) QUARRYING SPECIALIST site consulted prior to scheduled drug prescription. 02/08/2013 11:26:02 Instructions printed and provided to patient: PRESCRIBE: XANAX TABLETS 0.25 MG, One tablet po qid prn anxiety MDD #4, # 120, RF: NONE. PRESCRIBE: Vicodin 5 mg-500 mg oral tablet, one or two po daily prn pain, # 60, RF: 0. 12/14/2012 10:21:27 Instructions printed and provided to patient: [id number] .1 ml left forearm exp 12/11 [employer]i PRESCRIBE: PriLOSEC 20 mg oral delayed release capsule, one po daily, # 30, RF: 5. (Transmitted by Amparo Pérez, DO) PRESCRIBE: XANAX TABLETS 0.25 MG, One [...] the L DELTOID (Mfg: NOVARTIS lot no. [id number], expires 12/18/2012) 02/03/2012 08:29:20 Instructions printed and [...] # 120, RF: NONE. PPD planted left [id number] .1ml 10/25/2011 12:22:42 PRESCRIBE: XANAX TABLETS 0.25 MG, One tablet po qid prn anxiety MDD #4, # 120, RF: NONE. 07/24/2011 11:25:11 Instructions printed and provided to patient: PRESCRIBE: XANAX TABLETS 0.25 MG, One tablet po qid prn anxiety MDD #4, # 120, RF: NONE. PRESCRIBE: Denavir 1% topical cream, use as directed prn, # 1, RF: 5. (Transmitted by Amparo Pérez DO) PRESCRIBE: VALTREX CAPLETS 1 GM, two [...] RF: 5. (Transmitted by Amparo Pérez, ) PROVIDED HM: Aspirin for the Primary Prevention [...] Ears irrigated. 09/05/2010 09:43:38 PPD planted left forearm,[id number] Exp 09/08 The following text was added by Alex Pérez, [facility], [place] on 09/07/2010 3:45:36 PM: PPD read: [...] 0.5 ml IM in the Left deltoid (g: [employer]otherap[employer] lot no. [id number], expires 12/27/2009) 04/14/2009 10:58:27 PRESCRIBE: Toprol XL [...]
--- OUTSIDE RECORDS SUMMARY | 2020-07-11 09:06 | CCD | Continuity of Care Document ---
Author Author [facility] Organization [facility] Address Unknown Phone Unavailable Care Team Providers Care Slip Presser Name Role Phone Tammie Zavala MD Unavailable Unavailable Allergies, Adverse Reactions, Alerts Substance [...] (start - stop) Clinical S tatus Comments Rheu arthritis w rheu factor [facility] [place] w/o org/sys inv olv Diagnosis interpretation (observable entity) Rheu arthritis w rheu factor mult site w/o org/sys inv olv Diagnosis interpretation (observable entity) Rheu arthritis w rheu factor mult site w/o org/sys inv olv Diagnosis interpretation (observable entity) Other residential (current) drug therapy Diagnosis inter pretation (observable entity) Rheu arthritis w rheu factor mult site w/o org/sys inv olv Diagnosis interpretation (observable entity) Rheu arthritis w rheu factor mult site w/o org/sys inv olv Diagnosis interpretation (observable entity) Other residential (current) drug therapy Diagnosis inter pretation (observable entity) Rheu arthritis w rheu factor mult site w/o org/sys inv olv Diagnosis interpretation (observable entity) Rheu arthritis w rheu factor mult site w/o org/sys inv olv Diagnosis interpretation (observable entity) Rheu arthritis w rheu factor mult site w/o org/sys inv olv Diagnosis interpretation (observable entity) Other residential (current) drug therapy Diagnosis inter pretation (observable entity) Rheu arthritis w rheu factor mult site w/o org/sys inv olv Diagnosis interpretation (observable entity) Rheu arthritis w rheu factor mult site w/o org/sys inv olv Diagnosis interpretation (observable entity) Rheu arthritis w rheu factor mult site w/o org/sys inv olv Diagnosis interpretation (observable entity) Other termite helper (current) drug therapy Diagnosis inter pretation (observable entity) Rheu arthritis w rheu factor mult site w/o org/sys inv olv Diagnosis interpretation (observable entity) Other termite helper (current) drug therapy Diagnosis inter pretation (observable [...] inv olv Diagnosis interpretation (observable entity) Other residential (current) drug therapy Diagnosis inter pretation (observable entity) Rheu arthritis w rheu factor mult site w/o org/sys inv olv Diagnosis interpretation (observable entity) Rheu arthritis w rheu factor mult site w/o org/sys inv olv Diagnosis interpretation (observable entity) Other termite helper (current) drug therapy Diagnosis inter pretation (observable entity) Polyarthritis, unspecified Diagnosis interpretation (observable ent ity) Rheu arthritis w rheu factor mult site w/o org/sys inv olv Diagnosis interpretation (observable entity) Rheu arthritis w rheu factor mult site w/o org/sys inv olv Diagnosis interpretation (observable entity) Other termite helper (current) drug therapy Diagnosis inter pretation (observable entity) Rheu arthritis w rheu factor mult site w/o org/sys inv olv Diagnosis interpretation (observable entity) Rheu arthritis w rheu factor mult site w/o org/sys inv olv Diagnosis interpretation (observable entity) Other residential (current) drug therapy Diagnosis inter pretation (observable entity) Rheumatoid arthritis w/ rheumatoid facto r of multiple sites w/o organ involvement Diagnosis interpretation (observable entity) Rheumatoid arthritis w/ rheumatoid facto r of multiple sites w/o organ involvement Diagnosis interpretation (observable entity) Rheumatoid arthritis w/ rheumatoid facto r of multiple sites w/o organ involvement Diagnosis interpretation (observable entity) Other termite helper drug therapy Diagnosis interpretation (observable e ntity) Rheumatoid arthritis w/ rheumatoid facto r of multiple sites w/o organ involvement Diagnosis interpretation (observable entity) Other residential drug therapy Diagnosis interpretation (observable e ntity) Polyarthritis Diagnosis interpretation (observable entity) Rheumatoid arthritis, unspecified Diagnosis interpretation ( observable entity) Rheumatoid arthritis, unspecified Diagnosis interpretation ( observable entity) Rheumatoid arthritis, unspecified Diagnosis interpretation ( observable entity) Other termite helper drug therapy Diagnosis interpretation (observable e ntity) High Blood Pressure Problem (finding) Active High Cholesterol Problem (finding) Active Anxiety Problem (finding) Active Rheumatoid Arthritis Problem (finding) Active Procedures Procedure Date CHEMO, IV INFUSION, 1 HR CHEMO, IV INFUSION, ADDL HR Infliximab injection Remicade Normal saline solution infus Results Test Name Date and Time Measure Units Reference Range Abnormal Flag St atus Comments No Information Advance Directives Directive Yes / No Effective Date File Name No Information Encounters Encounter Description Practice Location Reason(s) For Visit Diagnose s Date Provider Providers Copied on Encounter [facility], [address] [place] [address], [id number], tel:[phone] [facility] Rheu arthritis w rheu factor mult site w/o org/sys involv Yessi Cho. [address] [place] [address], [id number], . tel:[phone] Referring Provider: Amparo Pérez, [address] [place] [address], [id number]. tel:[phone] [facility], [address] [place] [address], [id number], [place] tel:[phone] [facility] Rheu arthritis w rheu factor mult site w/o org/sys involv A edison Cho. [address] [place] [address], [id number], [place]. tel:[phone] Referring Provider: Amparo Pérez, [address] [place] [address], [id number]. tel:[phone] [facility], [address] [place] [address], [id number], [place] tel:[phone] [facility] Rheu arthritis w rheu factor mult site w/o org/sys involvOther residential (current) drug therapy Yessy Cueva. [address] [place] [address], [id number], [place]. tel:[phone] Referring Provider: Amparo Pérez, [address] [place] [address], [address]. tel:[phone] [facility], [address] [place] [address], [id number], [place] tel:[phone] [facility] Rheu arthritis w rheu factor mult site w/o org/sys involv A edison Cho. [address] [place] [address], [id number], [place]. tel:[phone] Referring Provider: Amparo Pérez, [address] [place] [address], [address]. tel:[phone] [facility], [address] [place] [address], [id number], [place] tel:[phone] [facility] Rheu arthritis w rheu factor mult site w/o org/sys involvOther termite helper (current) drug therapy Koby FRANCIS [place]. [address] [place] [address], [id number], [place]. tel:[phone] Referring Provider: Amparo Pérez, [address] [place] [address], [address]. tel:[phone] [facility], [address] [place] [address], [id number], [place] tel:[phone] [facility] Rheu arthritis w rheu factor mult site w/o org/sys involv Marah pearsonmaryanne Severiano. [address] [place] [address], [id number], [place]. tel:[phone] Referring Provider: Amparo Pérez, [address] [place] [address], [address]. tel:[phone] [facility], [address] [place] [address], [id number], [place] tel:[phone] [facility] Rheu arthritis w rheu factor mult site w/o org/sys involv K yuri العلي. [address] [place] [address], [id number], [place]. tel:[phone] Referring Provider: Amparo Pérez, [address] [place] [address], [address]. tel:[phone] [facility], [address] [place] [address], [id number], [place] tel:[phone] [facility] Rheu arthritis w rheu factor mult site w/o org/sys involvOther residential (current) drug therapy Koby FARNCIS [place]. [address] [place] [address], [id number], [place]. tel:[phone] Referring Provider: Amparo Pérez, [address] [place] [address], [address]. tel:[phone] [facility], [address] [place] [address], [id number], [place] tel:[phone] [facility] Rheu arthritis w rheu factor mult site w/o org/sys involv Marah العلي. [address] [place] [address], [id number], [place]. tel:[phone] Referring Provider: Amparo Pérez, [address] [place] [address], [address]. tel:[phone] [facility], [address] [place] [address], [id number], [place] tel:[phone] [facility] Rheu arthritis w rheu factor mult site w/o org/sys involv Marah العلي. [address] [place] [address], [id number], [place]. tel:[phone] Referring Provider: Amparo Pérez, [address] [place] [address], [address]. tel:[phone] [facility], [address] [place] [address], [id number], [place] tel:[phone] [facility] Rheu arthritis w rheu factor mult site w/o org/sys involvOther residential (current) drug therapy Yessy Cueva. [address] [place] [address], [id number], [place]. tel:[phone] Referring Provider: Amparo Pérez, [address] [place] [address], [address]. tel:[phone] [facility], [address] [place] [address], [id number], [place] tel:[phone] [facility] Rheu arthritis w rheu factor mult site w/o org/sys involv Marah العلي. [address] [place] [address], [id number], [place]. tel:[phone] Referring Provider: Amparo Pérez, [address] [place] [address], [address]. tel:[phone] [facility], [address] [place] [address], [id number], [place] tel:[phone] [facility] Other termite helper (current) drug therapyRheu arthritis w rheu factor mult site w/o org/sys involv Koby FRANCIS [place]. [address] [place] [address], [id number], [place]. tel:[phone] Referring Provider: Amparo Pérez, [address] [place] [address], [address]. tel:[phone] [facility], [address] [place] [address], [id number], [place] tel:[phone] [facility] Rheu arthritis w rheu factor mult site w/o org/sys involv Marah العلي. [address] [place] [address], [id number], [place]. tel:[phone] Referring Provider: Amparo Pérez, [address] [place] [address], [address]. tel:[phone] [facility], [address] [place] [address], [id number], [place] tel:[phone] [facility] Rheu arthritis w rheu factor mult site w/o org/sys involv Marah العلي. [address] [place] [address], [id number], [place]. tel:[phone] Referring Provider: Amparo Pérez, [address] [place] [address], [address]. tel:[phone] [facility], [address] [place] [address], [id number], [place] tel:[phone] [facility] Rheu arthritis w rheu factor mult site w/o org/sys involvOther termite helper (current) drug therapy Koby FRANCIS September. [address] [place] [address], [id number], [place]. tel:[phone] Referring Provider: Amparo Pérez, [address] [place] [address], [address]. tel:[phone] [facility], [address] [place] [address], [id number], [place] tel:[phone] [facility] Rheu arthritis w rheu factor mult site w/o org/sys involv Marah العلي. [address] [place] [address], [id number], [place]. tel:[phone] Referring Provider: Amparo Pérez, [address] [place] [address], [address]. tel:[phone] [facility], [address] [place] [address], [id number], [place] tel:[phone] [facility] Rheu arthritis w rheu factor mult site w/o org/sys involvOther residential (current) drug therapyPolyarthritis, unspecified Koby Reyes [place]. [address] [place] [address], [id number], [place]. tel:[phone] Referring Provider: Amparo Pérez, [address] [place] [address], [address]. tel:[phone] [facility], [address] [place] [address], [id number], [place] tel:[phone] [facility] Rheu arthritis w rheu factor mult site w/o org/sys involv Marah العلي. [address] [place] [address], [id number], [place]. tel:[phone] Referring Provider: Amparo Pérez, [address] [place] [address], [address]. tel:[phone] [facility], [address] [place] [address], [id number], [place] tel:[phone] [facility] Rheu arthritis w rheu factor mult site w/o org/sys involvOther residential (current) drug therapy Koby FRANCIS September. [address] [place] [address], [id number], [place]. tel:[phone] Referring Provider: Amparo Pérez, [address] [place] [address], [address]. tel:[phone] [facility], [address] [place] [address], [id number], [place] tel:[phone] [facility] Rheu arthritis w rheu factor mult site w/o org/sys involv Marah العلي. [address] [place] [address], [id number], [place]. tel:[phone] Referring Provider: Amparo Pérez, [address] [place] [address], [address]. tel:[phone] [facility], [address] [place] [address], [id number], [place] tel:[phone] [facility] Rheu arthritis w rheu factor mult site w/o org/sys involvOther residential (current) drug therapy Koby FARNCIS September. [address] [place] [address], [id number], [place]. tel:[phone] Referring Provider: Amparo Pérez, [address] [place] [address], [address]. tel:[phone] [facility], [address] [place] [address], [id number], [place] tel:[phone] [facility] Rheumatoid arthritis w/ rheumatoid factor of multiple sites w/o organ involvement Ann-Marie العلي. [address] [place] [address], [id number], [place]. tel:[phone] Referring Provider: Kishor Ambrosio, [address] [place], [address]. tel:[phone] [facility], [address] [place] [address], [id number], [place] tel:[phone] [facility] Rheumatoid arthritis w/ rheumatoid factor of multiple sites w/o organ involvement Ann-Marie العلي. [address] [place] [address], [id number], [place]. tel:[phone] Referring Provider: Amparo Pérez, [address] [place] [address], [address]. tel:[phone] [facility], [address] [place] [address], [id number], [place] tel:[phone] [facility] Rheumatoid arthritis w/ rheumatoid factor of multiple sites w/o organ involvementOther termite helper drug therapy Koby FRANCIS [place]. [address] [place] [address], [id number], [place]. tel:[phone] [facility], [address] [place] [address], [id number], [place] tel:[phone] [facility] Rheumatoid arthritis w/ rheumatoid factor of multiple sites w/o organ involvementOther termite helper drug therapyPolyarthritis Koby FRANCIS [place]. [address] [place] [address], [id number], [place]. tel:[phone] Referring Provider: Amparo Pérez, [address] [place] [address], [address]. tel:[phone] [facility], [address] [place] [address], [id number], [place] tel:[phone] [facility] Rheumatoid arthritis, unspecified Ann-Marie العلي. [address] [place] [address], [id number], [place]. tel:[phone] Referring Provider: Kishor Ambrosio, [address] [place] [address], [address]. tel:[phone] [facility], [address] [place] [address], [id number], [place] tel:[phone] [facility] Rheumatoid arthritis, unspecified Giselemaryanne Severiano. [address] [place] [address], [id number], [place]. tel:[phone] Referring Provider: Kishor Ambrosio, [address] [place] [address], [address]. tel:[phone] [facility], [address] [place] [address], [id number], [place] tel:[phone] [facility] Rheumatoid arthritis, unspecifiedOther termite helper drug therapy Keyon العلي. [address] [place] [address], [id number], [place]. tel:[phone] Referring Provider: Kishor Ambrosio, [address] [place] [address], [address]. tel:[phone] Family History Family Member Type Diagnosis Age [...] virus, 18 years or older Afluria Quad administered Note: Invalid docume nted admin date was /. ; Source: Other Provider Payers Payer name Insurance type Covered republican ID Authorization(s ) Medicare [id number] AARP Supplement CI [id number] Medicare [id number] AARP Supplement [place] [id number] Social History Type Description Quantity Date Captured Comments Alcohol Use Details Unknown Caffeine Use Details Unknown Tobacco Use Status No Information Smoking Status No Information Sex Male Vital Signs Date / Time: Height Weight BMI Pulse Rate Blood Pressure Temperatu re Respiratory Rate Body Surface Area Head Circumference BMI percentile Pulse Ox In haled Ox 9:35 AM 242.00 lbs 78 /min 138/82 mm[Hg] 97.00 F 1 7 /min 11:55 AM 136/80 mm[Hg] Chief Complaint And Reason For Visit No Information Reason For Referral Reason For Referral No Information Plan Of Treatment Date Type Action Status Goal Tobacco cessation counseling com pleted Goal Tobacco cessation counseling com pleted Goal Tobacco cessation counseling com pleted Appointment Tommy Busch BOOKED Appointment Tommy Busch BOOKED Appointment Tommy Busch BOOKED History Of Present Illness Encounter Date Complaint History Of Present I llness No Information Functional Status Date Functional Assessment No Information Medications Administered Medication Instructions Dosage Effective Dates (start - stop) Sta tus Comments No Information Instructions Date Instruction Additional Informati on Discussed / Reviewed Labs Labs ordered to check blood counts, liver and kidney functions to monitor safety of medication. Risks/benefits of medications reviewed Discussed importance of hold ing DMARDs/ biologics if patient develops an infection and to notify the treating physician Labs ordered to check disease activity. Reviewed importance of compl iance/adherence to medications [...] and to notify the treating physician Discussed importance of hold ing DMARDs/ biologics if patient develops an infection and to notify the treating physician Call if symptoms persist Reviewed importance of compl iance/adherence to medications prescribed Risks/benefits of medications reviewed Reviewed importance of compl iance/adherence to medications [...] symptoms persist Physical Examination Exam Findings Details No Information
--- OUTSIDE RECORDS SUMMARY | 2020-07-11 09:07 | CCD ---
Author Author Amparo Pérez DO Organization Amparo Pérez DO Address [address] [facility] [address] [place], [place] [id number] Care Team Providers Care Regional Ehs Manager Name Role Phone Elisa TODD MA, Raphael Robles Unavailable Amparo Pérez DO Unavailable Sloan Curiel MD Unavailable Amparo Pérez DO PCP ENCOUNTERS Encounter Performer Loca tion Date RHEUMATOID ARTHRITIS [SNOMED-CT: 07519975] N/A N/A 04-26-2020 DEPRESSIVE DISORDER NOT ELSEWHERE CLASSI FIED [SNOMED-CT: 641241932] N/A N/A 04-26-2020 ANXIETY STATE UNSPECIFIED [SNOMED-CT: 386168017] N/A N/A 04-26-2020 ROUTINE GENERAL MEDICAL EXAMINATION AT A HEALTH CARE FACILITY [SNOMED-CT: 938860117] Raphael Pérez DO 04-26-2020 Adenomatous polyp of rectum [SNOMED-CT: 2828666585544] Dr. Amparo Pérez DO 04-26-2020 Hypertension [SNOMED-CT: 19846359] Mahseh Pérez DO 04-26-2020 Prediabetes [SNOMED-CT: 756478529] Mahesh Pérez DO 04-26-2020 DIVERTICULOSIS OF COLON (WITHOUT HEMORRH AGE) [SNOMED-CT: 290381802] Raphael Pérez DO 04-26-2020 HYPERPLASIA OF PROSTATE UNSPECIFIED WITH OUT URINARY OBSTRUCTION AND OTHER LOWER URINARY TRACT SYMPTOMS (LUTS) [SNOMED-CT: 670896225] Raphael Pérez DO 04-26-2020 Spinal stenosis [SNOMED-CT: 02508472] Dr. Amparo Pérez, DO 02-25-2020 ANXIETY STATE UNSPECIFIED [SNOMED-CT: 211713481] N/A N/A 02-25-2020 Hypertension [SNOMED-CT: 10266096] Mahesh Pérez, DO 02-25-2020 BACKACHE UNSPECIFIED [SNOMED-CT: 781642693] Raphael Pérez, DO 12-27-2019 ANXIETY STATE UNSPECIFIED [SNOMED-CT: 410323329] N/A N/A 12-27-2019 BACKACHE UNSPECIFIED [SNOMED-CT: 936329570] Raphael Pérez, DO 10-27-2019 ANXIETY STATE UNSPECIFIED [SNOMED-CT: 649558043] N/A N/A 10-27-2019 RHEUMATOID ARTHRITIS [SNOMED-CT: 65479294] N/A N/A 10-27-2019 Tinnitus of left ear [SNOMED-CT: 2952998779016] Dr. Amparo Pérez, DO 08-20-2019 ANXIETY STATE UNSPECIFIED [SNOMED-CT: 005486015] N/A N/A 08-20-2019 Spinal stenosis [SNOMED-CT: 18661764] Dr. Amparo Pérez, DO 06-18-2019 Bilateral tinnitus [SNOMED-CT: 7662129180992] Dr. Amparo Pérez, DO 06-18-2019 Prediabetes [SNOMED-CT: 379420250] Mahesh Pérez, DO 06-18-2019 ANXIETY STATE UNSPECIFIED [SNOMED-CT: 974558966] N/A N/A 06-18-2019 DEPRESSIVE DISORDER NOT ELSEWHERE CLASSI FIED [SNOMED-CT: 904300659] N/A N/A 06-18-2019 Other hyperlipidemia [ICD10: E78.49] Dr. Amparo Pérez, DO 04-26-2019 Hypertension [SNOMED-CT: 82895085] Mahesh Pérez, DO 04-26-2019 Disorder of lumbar disc [SNOMED-CT: 985402538] Dr. Amparo Pérez, DO 04-26-2019 RHEUMATOID ARTHRITIS [SNOMED-CT: 04374226] N/A N/A 04-26-2019 DEPRESSIVE DISORDER NOT ELSEWHERE CLASSI FIED [SNOMED-CT: 617073903] N/A N/A 04-26-2019 ANXIETY STATE UNSPECIFIED [SNOMED-CT: 847800071] N/A N/A 04-26-2019 Diabetes mellitus [SNOMED-CT: 92313600] Dr. Amparo Pérez, DO 04-26-2019 Diabetes mellitus [SNOMED-CT: 00825909] Dr. Amparo Pérez, DO 02-22-2019 Spinal stenosis [SNOMED-CT: 77917274] Dr. Amparo Pérez, DO 02-22-2019 Disorder of lumbar disc [SNOMED-CT: 923338696] Dr. Amparo Pérez, DO 02-22-2019 ANXIETY STATE UNSPECIFIED [SNOMED-CT: 615175490] N/A N/A 02-22-2019 DEPRESSIVE DISORDER NOT ELSEWHERE CLASSI FIED [SNOMED-CT: 059596540] N/A N/A 02-22-2019 Spinal stenosis [SNOMED-CT: 89862484] Dr. Amparo Pérez, DO 12-23-2018 PAIN IN LIMB [SNOMED-CT: 21472800] Raphael Pérez, DO 12-23-2018 RHEUMATOID ARTHRITIS [SNOMED-CT: 60924536] N/A N/A 12-23-2018 ANXIETY STATE UNSPECIFIED [SNOMED-CT: 974438143] N/A N/A 12-23-2018 Spinal stenosis [SNOMED-CT: 32536434] Dr. Amparo Pérez, DO 10-21-2018 ANXIETY STATE UNSPECIFIED [SNOMED-CT: 120751693] N/A N/A 10-21-2018 Diabetes mellitus [SNOMED-CT: 43664500] Dr. Amparo Pérez, DO 10-21-2018 RHEUMATOID ARTHRITIS [SNOMED-CT: 63680969] N/A N/A 08-24-2018 BACKACHE UNSPECIFIED [SNOMED-CT: 382596287] Raphael Pérez, DO 08-24-2018 Spinal stenosis [SNOMED-CT: 15077061] Dr. Amparo Pérez, DO 08-24-2018 UNSPECIFIED ESSENTIAL HYPERTENSION [SNOMED-CT: 1092796 0] N/A N/A 06-19-2018 BACKACHE UNSPECIFIED [SNOMED-CT: 796572741] Raphael Pérez, DO 06-19-2018 DEPRESSIVE DISORDER NOT ELSEWHERE CLASSI FIED [SNOMED-CT: 239092026] N/A N/A 06-19-2018 Bilateral cataracts [SNOMED-CT: 49302928] Dr. Amparo Pérez, DO 04-27-2018 UNSPECIFIED ESSENTIAL HYPERTENSION [SNOMED-CT: 4256247 0] N/A N/A 04-27-2018 Prediabetes [SNOMED-CT: 5887328] Dr. Amparo Pérez, DO 04-27-2018 Exogenous hyperlipidemia [SNOMED-CT: 165417677] Dr. Amparo Pérez, DO 04-27-2018 RHEUMATOID ARTHRITIS [SNOMED-CT: 07202679] N/A N/A 04-27-2018 Diabetes mellitus [SNOMED-CT: 73835272] Dr. Amparo Pérez, DO 03-20-2018 Exogenous hyperlipidemia [SNOMED-CT: 447110952] Dr. Amparo Pérez, DO 03-20-2018 Disorder of lumbar disc [SNOMED-CT: 223485332] Dr. Amparo Pérez, DO 03-20-2018 DIVERTICULOSIS OF COLON (WITHOUT HEMORRH AGE) [SNOMED-CT: 934140727] Raphael Pérez, DO 03-20-2018 Disorder of lumbar disc [SNOMED-CT: 731857960] Dr. Amparo Pérez, DO 01-16-2018 Diabetes mellitus [SNOMED-CT: 14639459] Dr. Amparo Pérez, DO 01-16-2018 RHEUMATOID ARTHRITIS [SNOMED-CT: 25789890] N/A N/A 01-16-2018 UNSPECIFIED ESSENTIAL HYPERTENSION [SNOMED-CT: 6242296 0] N/A N/A 01-16-2018 Bilateral tinnitus [SNOMED-CT: 7682749918163] Dr. Amparo Pérez, DO 10-31-2017 Exogenous hyperlipidemia [SNOMED-CT: 944117512] Dr. Amparo Pérez, DO 10-31-2017 ANXIETY STATE UNSPECIFIED [SNOMED-CT: 012735676] N/A N/A 10-31-2017 DEPRESSIVE DISORDER NOT ELSEWHERE CLASSI FIED [SNOMED-CT: 695684883] N/A N/A 10-31-2017 UNSPECIFIED ESSENTIAL HYPERTENSION [SNOMED-CT: 4202157 0] N/A N/A 08-29-2017 RHEUMATOID ARTHRITIS [SNOMED-CT: 55278330] N/A N/A 08-29-2017 DEPRESSIVE DISORDER NOT ELSEWHERE CLASSI FIED [SNOMED-CT: 904041439] N/A N/A 08-29-2017 ANXIETY STATE UNSPECIFIED [SNOMED-CT: 464085243] N/A N/A 08-29-2017 Tinnitus of left ear [SNOMED-CT: 7784000791623] Dr. Amparo Pérez, DO 07-21-2017 Altered mental status [SNOMED-CT: 699192727] Dr. Amparo Pérez, DO 07-21-2017 Headache [SNOMED-CT: 34714684] Thierry Pérez, DO 07-21-2017 Diabetes mellitus [SNOMED-CT: 69395488] Dr. Amparo Pérez, DO 07-21-2017 Disorder of lumbar disc [SNOMED-CT: 723172786] Dr. Amparo Pérez, DO 06-27-2017 RHEUMATOID ARTHRITIS [SNOMED-CT: 49812251] N/A N/A 06-27-2017 Diabetes mellitus [SNOMED-CT: 65722504] Dr. Amparo Pérez, DO 06-27-2017 ANXIETY STATE UNSPECIFIED [SNOMED-CT: 302926728] N/A N/A 06-27-2017 DEPRESSIVE DISORDER NOT ELSEWHERE CLASSI FIED [SNOMED-CT: 530915468] N/A N/A 04-28-2017 ANXIETY STATE UNSPECIFIED [SNOMED-CT: 090666943] N/A N/A 04-28-2017 Diabetes mellitus [SNOMED-CT: 80924580] Dr. Amparo Pérez, DO 04-28-2017 RHEUMATOID ARTHRITIS [SNOMED-CT: 22384491] N/A N/A 02-26-2017 UNSPECIFIED ESSENTIAL HYPERTENSION [SNOMED-CT: 4972690 0] N/A N/A 02-26-2017 Exogenous hyperlipidemia [SNOMED-CT: 963145954] Dr. Amparo Pérez, DO 02-26-2017 Hyperglycemia [SNOMED-CT: 48852102] Dr. Amparo Pérez, DO 02-26-2017 UNSPECIFIED ESSENTIAL HYPERTENSION [SNOMED-CT: 8310246 0] N/A N/A 12-25-2016 ANXIETY STATE UNSPECIFIED [SNOMED-CT: 790988815] N/A N/A 12-25-2016 UNSPECIFIED ESSENTIAL HYPERTENSION [SNOMED-CT: 2008204 0] N/A N/A 10-09-2016 ANXIETY STATE UNSPECIFIED [SNOMED-CT: 768137104] N/A N/A 10-09-2016 RHEUMATOID ARTHRITIS [SNOMED-CT: 69124667] N/A N/A 10-09-2016 BACKACHE UNSPECIFIED [SNOMED-CT: 690257256] Raphael Pérez, DO 08-28-2016 Disorder of lumbar disc [SNOMED-CT: 317949153] Dr. Amparo Pérez, DO 08-28-2016 DEPRESSIVE DISORDER NOT ELSEWHERE CLASSI FIED [SNOMED-CT: 854347847] N/A N/A 08-28-2016 ANXIETY STATE UNSPECIFIED [SNOMED-CT: 773995793] N/A N/A 08-28-2016 RHEUMATOID ARTHRITIS [SNOMED-CT: 74318911] N/A N/A 08-28-2016 Prediabetes [SNOMED-CT: 2313654] Dr. Amparo Pérez, DO 07-17-2016 ANXIETY STATE UNSPECIFIED [SNOMED-CT: 847472950] N/A N/A 07-17-2016 Hyperglycemia [SNOMED-CT: 94623518] Dr. Amparo Pérez, DO 07-17-2016 Prediabetes [SNOMED-CT: 0916265] Dr. Amparo Pérez, DO 06-05-2016 Disorder of lumbar disc [SNOMED-CT: 683869257] Dr. Amparo Pérez, DO 06-05-2016 ANXIETY STATE UNSPECIFIED [SNOMED-CT: 642713029] N/A N/A 06-05-2016 Hyperlipidemia [SNOMED-CT: 84792766] Dr. Amparo Pérez, DO 04-24-2016 HYPERPLASIA OF PROSTATE UNSPECIFIED WITH OUT URINARY OBSTRUCTION AND OTHER LOWER URINARY TRACT SYMPTOMS (LUTS) [SNOMED-CT: 264579525] Raphael Pérez, DO 04-24-2016 Hyperlipidemia [SNOMED-CT: 38973895] Dr. Amparo Pérez, DO 03-13-2016 UNSPECIFIED ESSENTIAL HYPERTENSION [SNOMED-CT: 2590482 0] N/A N/A 03-13-2016 Prediabetes [SNOMED-CT: 6007674] Dr. Amparo Pérez, DO 03-13-2016 Other specified vaccination [ICD10: Z23] Raphael Pérez, DO 03-13-2016 Disorder of lumbar disc [SNOMED-CT: 062328555] Dr. Amparo Pérez, DO 01-31-2016 BACKACHE UNSPECIFIED [SNOMED-CT: 541517628] Raphael Pérez, DO 01-31-2016 DEPRESSIVE DISORDER NOT ELSEWHERE CLASSI FIED [SNOMED-CT: 217991593] N/A N/A 01-31-2016 RHEUMATOID ARTHRITIS [SNOMED-CT: 51592680] N/A N/A 01-31-2016 RHEUMATOID ARTHRITIS [SNOMED-CT: 06573449] N/A N/A 12-27-2015 BACKACHE UNSPECIFIED [SNOMED-CT: 657393828] Raphael Pérez, DO 12-27-2015 DEPRESSIVE DISORDER NOT ELSEWHERE CLASSI FIED [SNOMED-CT: 781074034] N/A N/A 12-27-2015 ANXIETY STATE UNSPECIFIED [SNOMED-CT: 526877181] N/A N/A 12-27-2015 ANXIETY STATE UNSPECIFIED [SNOMED-CT: 758442942] N/A N/A 11-22-2015 UNSPECIFIED ESSENTIAL HYPERTENSION [SNOMED-CT: 2643514 0] N/A N/A 11-22-2015 Hyperlipidemia [SNOMED-CT: 95835206] Dr. Amparo Pérez, DO 11-22-2015 Disorder of lumbar disc [SNOMED-CT: 791404623] Dr. Amparo Pérez, DO 10-18-2015 ANXIETY STATE UNSPECIFIED [SNOMED-CT: 568843197] N/A N/A 10-18-2015 Disorder of lumbar disc [SNOMED-CT: 853018383] Dr. Amparo Pérez, DO 09-13-2015 Hyperlipidemia [SNOMED-CT: 21780164] Dr. Amparo Pérez, DO 09-13-2015 DIVERTICULOSIS OF COLON (WITHOUT HEMORRH AGE) [SNOMED-CT: 908692443] Raphael Pérez, DO 09-13-2015 Hyperglycemia [SNOMED-CT: 13427706] Dr. Amparo Pérez, DO 09-13-2015 Prediabetes [SNOMED-CT: 2711051] Dr. Amparo Pérez, DO 09-13-2015 PAIN IN LIMB [SNOMED-CT: 83109222] Raphael Pérez, DO 08-09-2015 RHEUMATOID ARTHRITIS [SNOMED-CT: 05033270] N/A N/A 08-09-2015 DEPRESSIVE DISORDER NOT ELSEWHERE CLASSI FIED [SNOMED-CT: 404393146] N/A N/A 08-09-2015 Disorder of lumbar disc [SNOMED-CT: 296280555] Dr. Amparo Pérez, DO 07-05-2015 PAIN IN LIMB [SNOMED-CT: 92409760] Raphael Pérez, DO 07-05-2015 REFLUX ESOPHAGITIS [SNOMED-CT: 77681243] N/A N/A 07-05-2015 Acute suppurative otitis media [SNOMED-CT: 880825221] Dr. Amparo Pérez, DO 05-31-2015 BACKACHE UNSPECIFIED [SNOMED-CT: 434908161] Raphael Pérez, DO 05-31-2015 RHEUMATOID ARTHRITIS [SNOMED-CT: 12066521] N/A N/A 05-31-2015 Disorder of lumbar disc [SNOMED-CT: 891345012] Dr. Amparo Pérez, DO 05-31-2015 Acute suppurative otitis media [SNOMED-CT: 928320190] Dr. Amparo Pérez, DO 05-24-2015 RHEUMATOID ARTHRITIS [SNOMED-CT: 69015180] N/A N/A 05-24-2015 Personal history of immunosuppressive therapy [ICD10: Z92.25] Dr. Amparo Pérez, DO 05-24-2015 Acute suppurative otitis media [SNOMED-CT: 089291774] Dr. Amparo Pérez, DO 05-17-2015 UNSPECIFIED ESSENTIAL HYPERTENSION [SNOMED-CT: 6474989 0] N/A N/A 04-26-2015 BACKACHE UNSPECIFIED [SNOMED-CT: 841121607] Raphael Pérez, DO 04-26-2015 PAIN IN LIMB [SNOMED-CT: 42426069] Raphael Pérez, DO 04-26-2015 RHEUMATOID ARTHRITIS [SNOMED-CT: 94763568] N/A N/A 04-26-2015 Hyperlipidemia [SNOMED-CT: 24463197] Dr. Amparo Pérez, DO 04-26-2015 UNSPECIFIED ESSENTIAL HYPERTENSION [SNOMED-CT: 7628106 0] N/A N/A 03-22-2015 BACKACHE UNSPECIFIED [SNOMED-CT: 065991117] Raphael Pérez, DO 03-22-2015 PAIN IN LIMB [SNOMED-CT: 45094252] Raphael Pérez, DO 03-22-2015 RHEUMATOID ARTHRITIS [SNOMED-CT: 57457952] N/A N/A 03-22-2015 BACKACHE UNSPECIFIED [SNOMED-CT: 994342549] Raphael Pérez, DO 02-15-2015 UNSPECIFIED ESSENTIAL HYPERTENSION [SNOMED-CT: 1634365 0] N/A N/A 02-15-2015 RHEUMATOID ARTHRITIS [SNOMED-CT: 71344837] N/A N/A 02-15-2015 BACKACHE UNSPECIFIED [SNOMED-CT: 117046037] Raphael Pérez, DO 01-11-2015 UNSPECIFIED ESSENTIAL HYPERTENSION [SNOMED-CT: 5998833 0] N/A N/A 01-11-2015 RHEUMATOID ARTHRITIS [SNOMED-CT: 87287222] N/A N/A 01-11-2015 UNSPECIFIED ESSENTIAL HYPERTENSION [SNOMED-CT: 9801533 0] N/A N/A 12-07-2014 RHEUMATOID ARTHRITIS [SNOMED-CT: 22058726] N/A N/A 12-07-2014 GLOSSITIS [SNOMED-CT: 75036031] Dr. Amparo Pérez, DO 11-02-2014 BACKACHE UNSPECIFIED [SNOMED-CT: 496829201] Raphael Pérez, DO 11-02-2014 RHEUMATOID ARTHRITIS [SNOMED-CT: 53852228] N/A N/A 11-02-2014 BACKACHE UNSPECIFIED [SNOMED-CT: 735772357] Raphael Pérez, DO 10-05-2014 RHEUMATOID ARTHRITIS [SNOMED-CT: 77799620] N/A N/A 10-05-2014 UNSPECIFIED ESSENTIAL HYPERTENSION [SNOMED-CT: 7762603 0] N/A N/A 10-05-2014 ANXIETY STATE UNSPECIFIED [SNOMED-CT: 311352660] N/A N/A 10-05-2014 ROUTINE GENERAL MEDICAL EXAMINATION AT A HEALTH CARE FACILITY [SNOMED-CT: 793929790] Raphael Pérez, DO 09-07-2014 ANXIETY STATE UNSPECIFIED [SNOMED-CT: 025233454] N/A N/A 08-10-2014 BACKACHE UNSPECIFIED [SNOMED-CT: 379590325] Raphael Pérez, DO 08-10-2014 DEPRESSIVE DISORDER NOT ELSEWHERE CLASSI FIED [SNOMED-CT: 858191422] N/A N/A 08-10-2014 GLOSSITIS [SNOMED-CT: 75234890] Dr. Amparo Pérez, DO 07-13-2014 RHEUMATOID ARTHRITIS [SNOMED-CT: 67537886] N/A N/A 07-13-2014 UNSPECIFIED ESSENTIAL HYPERTENSION [SNOMED-CT: 8697051 0] N/A N/A 07-13-2014 DEPRESSIVE DISORDER NOT ELSEWHERE CLASSI FIED [SNOMED-CT: 903290992] N/A N/A 07-13-2014 UNSPECIFIED ESSENTIAL HYPERTENSION [SNOMED-CT: 4840415 0] N/A N/A 05-16-2014 BACKACHE UNSPECIFIED [SNOMED-CT: 614508730] Raphael Pérez, DO 05-16-2014 RHEUMATOID ARTHRITIS [SNOMED-CT: 66118525] N/A N/A 03-25-2014 GLOSSITIS [SNOMED-CT: 34757976] Dr. Amparo Pérez, DO 03-25-2014 BACKACHE UNSPECIFIED [SNOMED-CT: 523638071] Raphael Pérez, DO 01-26-2014 REFLUX ESOPHAGITIS [SNOMED-CT: 09290021] N/A N/A 01-26-2014 UNSPECIFIED ESSENTIAL HYPERTENSION [SNOMED-CT: 7508253 0] N/A N/A 01-26-2014 RHEUMATOID ARTHRITIS [SNOMED-CT: 72480013] N/A N/A 01-26-2014 ANXIETY STATE UNSPECIFIED [SNOMED-CT: 910033294] N/A N/A 01-26-2014 GLOSSITIS [SNOMED-CT: 51248400] Dr. Amparo Pérez, DO 01-26-2014 MICROSCOPIC HEMATURIA [SNOMED-CT: 390395781] Dr. Amparo Pérez, DO 12-13-2013 ANXIETY STATE UNSPECIFIED [SNOMED-CT: 801398195] N/A N/A 12-13-2013 RHEUMATOID ARTHRITIS [SNOMED-CT: 46334005] N/A N/A 12-13-2013 BACKACHE UNSPECIFIED [SNOMED-CT: 346818278] Raphael Pérez, DO 12-13-2013 HYPERPLASIA OF PROSTATE UNSPECIFIED WITH OUT URINARY OBSTRUCTION AND OTHER LOWER URINARY TRACT SYMPTOMS (LUTS) [SNOMED-CT: 259752890] Raphael Pérez, DO 12-13-2013 PAIN IN LIMB [SNOMED-CT: 92045833] Raphael Pérez, DO 10-18-2013 RHEUMATOID ARTHRITIS [SNOMED-CT: 11095515] N/A N/A 10-18-2013 BACKACHE UNSPECIFIED [SNOMED-CT: 516672209] Raphael Pérez, DO 10-18-2013 ROUTINE GENERAL MEDICAL EXAMINATION AT A HEALTH CARE FACILITY [SNOMED-CT: 767059865] Raphael Pérez, DO 08-30-2013 PAIN IN LIMB [SNOMED-CT: 86750837] Raphael Pérez, DO 07-02-2013 UNSPECIFIED ESSENTIAL HYPERTENSION [SNOMED-CT: 0142557 0] N/A N/A 07-02-2013 UNSPECIFIED ESSENTIAL HYPERTENSION [SNOMED-CT: 9951009 0] N/A N/A 05-17-2013 RHEUMATOID ARTHRITIS [SNOMED-CT: 95293734] N/A N/A 03-26-2013 ANXIETY STATE UNSPECIFIED [SNOMED-CT: 414916087] N/A N/A 03-26-2013 NEED FOR PROPHYLACTIC VACCINATION AND IN OCULATION AGAINST INFLUENZA [SNOMED-CT: 569313303] Raphael Pérez, DO 03-26-2013 RHEUMATOID ARTHRITIS [SNOMED-CT: 60025795] N/A N/A 02-08-2013 ANXIETY STATE UNSPECIFIED [SNOMED-CT: 127522251] N/A N/A 02-08-2013 RHEUMATOID ARTHRITIS [SNOMED-CT: 35187040] N/A N/A 12-14-2012 UNSPECIFIED ESSENTIAL HYPERTENSION [SNOMED-CT: 7519972 0] N/A N/A 12-14-2012 DEPRESSIVE DISORDER NOT ELSEWHERE CLASSI FIED [SNOMED-CT: 702410569] N/A N/A 12-14-2012 DEPRESSIVE DISORDER NOT ELSEWHERE CLASSI FIED [SNOMED-CT: 051996288] N/A N/A 10-23-2012 ANXIETY STATE UNSPECIFIED [SNOMED-CT: 833058492] N/A N/A 10-23-2012 RHEUMATOID ARTHRITIS [SNOMED-CT: 76540807] N/A N/A 08-24-2012 UNSPECIFIED ESSENTIAL HYPERTENSION [SNOMED-CT: 6425831 0] N/A N/A 08-24-2012 ANXIETY STATE UNSPECIFIED [SNOMED-CT: 873550497] N/A N/A 08-24-2012 RHEUMATOID ARTHRITIS [SNOMED-CT: 07371370] N/A N/A 06-15-2012 UNSPECIFIED ESSENTIAL HYPERTENSION [SNOMED-CT: 3969970 0] N/A N/A 06-15-2012 ANXIETY STATE UNSPECIFIED [SNOMED-CT: 815603409] N/A N/A 06-15-2012 UNSPECIFIED ESSENTIAL HYPERTENSION [SNOMED-CT: 4657327 0] N/A N/A 04-10-2012 NEED FOR PROPHYLACTIC VACCINATION AND IN OCULATION AGAINST INFLUENZA [SNOMED-CT: 079243431] Raphael Pérez DO 04-10-2012 UNSPECIFIED ESSENTIAL HYPERTENSION [SNOMED-CT: 3260762 0] N/A N/A 02-03-2012 ANXIETY STATE UNSPECIFIED [SNOMED-CT: 035597190] N/A N/A 02-03-2012 ANXIETY STATE UNSPECIFIED [SNOMED-CT: 417909587] N/A N/A 12-11-2011 RHEUMATOID ARTHRITIS [SNOMED-CT: 79326607] N/A N/A 12-11-2011 SCREENING EXAMINATION FOR PULMONARY TUBE RCULOSIS [SNOMED-CT: 577103568] Raphael Pérez DO 12-11-2011 DIVERTICULOSIS OF COLON (WITHOUT HEMORRH AGE) [SNOMED-CT: 808719985] Raphael Pérez DO 10-25-2011 ANXIETY STATE UNSPECIFIED [SNOMED-CT: 420300597] N/A N/A 10-25-2011 UNSPECIFIED ESSENTIAL HYPERTENSION [SNOMED-CT: 6406677 0] N/A N/A 07-24-2011 ANXIETY STATE UNSPECIFIED [SNOMED-CT: 737672376] N/A N/A 07-24-2011 IMPACTED CERUMEN [SNOMED-CT: 27115170] Raphael Pérez DO 07-24-2011 UNSPECIFIED ESSENTIAL HYPERTENSION [SNOMED-CT: 5027883 0] N/A N/A 01-11-2011 ANXIETY STATE UNSPECIFIED [SNOMED-CT: 770539446] N/A N/A 01-11-2011 IMPACTED CERUMEN [SNOMED-CT: 06842622] Raphael Pérez, DO 01-11-2011 UNSPECIFIED ESSENTIAL HYPERTENSION [SNOMED-CT: 3335031 0] N/A N/A 11-19-2010 ANXIETY STATE UNSPECIFIED [SNOMED-CT: 388813401] N/A N/A 11-19-2010 IMPACTED CERUMEN [SNOMED-CT: 19415344] Raphael Pérez, DO 11-19-2010 RHEUMATOID ARTHRITIS [SNOMED-CT: 45003242] N/A N/A 09-05-2010 ANXIETY STATE UNSPECIFIED [SNOMED-CT: 912829069] N/A N/A 09-03-2010 RHEUMATOID ARTHRITIS [SNOMED-CT: 62967558] N/A N/A 09-03-2010 PAIN IN LIMB [SNOMED-CT: 25404751] Raphael Pérez, DO 06-27-2010 ANXIETY STATE UNSPECIFIED [SNOMED-CT: 862077652] N/A N/A 06-27-2010 CARPAL TUNNEL SYNDROME [SNOMED-CT: 28956888] Raphael Pérez, DO 03-28-2010 RHEUMATOID ARTHRITIS [SNOMED-CT: 53990551] N/A N/A 03-28-2010 CARPAL TUNNEL SYNDROME [SNOMED-CT: 49717734] Raphael Dickson Lawrence, DO 11-10-2009 RHEUMATOID ARTHRITIS [SNOMED-CT: 94060580] N/A N/A 11-10-2009 REFLUX ESOPHAGITIS [SNOMED-CT: 89713399] N/A N/A 11-10-2009 DEPRESSIVE DISORDER NOT ELSEWHERE CLASSI FIED [SNOMED-CT: 316291377] N/A N/A 11-10-2009 OTHER ABNORMAL GLUCOSE [SNOMED-CT: 622812680] Raphael Pérez, DO 09-11-2009 RHEUMATOID ARTHRITIS [SNOMED-CT: 63065121] N/A N/A 09-11-2009 REFLUX ESOPHAGITIS [SNOMED-CT: 96723553] N/A N/A 09-11-2009 DEPRESSIVE DISORDER NOT ELSEWHERE CLASSI FIED [SNOMED-CT: 428564932] N/A N/A 09-11-2009 RHEUMATOID ARTHRITIS [SNOMED-CT: 53386584] N/A N/A 07-12-2009 REFLUX ESOPHAGITIS [SNOMED-CT: 83818371] N/A N/A 07-12-2009 DEPRESSIVE DISORDER NOT ELSEWHERE CLASSI FIED [SNOMED-CT: 814831303] N/A N/A 07-12-2009 RHEUMATOID ARTHRITIS [SNOMED-CT: 37002362] N/A N/A 04-14-2009 UNSPECIFIED ESSENTIAL HYPERTENSION [SNOMED-CT: 3203428 0] N/A N/A 04-14-2009 DEPRESSIVE DISORDER NOT ELSEWHERE CLASSI FIED [SNOMED-CT: 529711610] N/A N/A 04-14-2009 ANXIETY STATE UNSPECIFIED [SNOMED-CT: 704582479] N/A N/A 04-14-2009 RHEUMATOID ARTHRITIS [SNOMED-CT: 95837023] N/A N/A 12-16-2008 UNSPECIFIED ESSENTIAL HYPERTENSION [SNOMED-CT: 1687315 0] N/A N/A 12-16-2008 DEPRESSIVE DISORDER NOT ELSEWHERE CLASSI FIED [SNOMED-CT: 012816380] N/A N/A 12-16-2008 ANXIETY STATE UNSPECIFIED [SNOMED-CT: 941255551] N/A N/A 12-16-2008 RHEUMATOID ARTHRITIS [SNOMED-CT: 30818192] N/A N/A 10-24-2008 UNSPECIFIED ESSENTIAL HYPERTENSION [SNOMED-CT: 1374449 0] N/A N/A 10-24-2008 DEPRESSIVE DISORDER NOT ELSEWHERE CLASSI FIED [SNOMED-CT: 392983503] N/A N/A 10-24-2008 ANXIETY STATE UNSPECIFIED [SNOMED-CT: 130909061] N/A N/A 10-24-2008 ALLERGIES AND ADVERSE REACTIONS Substance Reaction Sever ity Status sulfa drug (RxNorm: 04313) -- -- Active Sulfa (RxNorm: Unknown) -- [...] 5 mg-325 mg or al tablet, [RxNorm: 914659] hydrocodone-acetaminophen one or two po qid prn pain 45 04/26/2020 Active ALPRAZolam 0.5 mg oral tablet, [RxNorm: 785473] ALPRAZolam one or one half po qid prn anxiety MDD4 120 04/26/2020 Active spironolactone 25 mg oral tablet, [RxNorm: 918477] spironolactone one po daily 30 04/26/2020 Active mirtazapine 30 mg oral tablet, [RxNorm: 436475] mirtazapine one po hs daily 30 04/26 Active Metoprolol Succinate ER 100 mg oral tabl et, extended release, [RxNorm: 311236] metoprolol one po daily 30 04/26/2020 Active atorvastatin 40 mg oral tablet, [RxNorm: 725934] atorvastatin one po daily 30 04/26/20 20 Active glucose testing strips Unknown use as directed bid ac 60 04/28/2017 Active glucometer Unknown use a s directed ac bid 1 04/28/2017 Active Remicade 100 mg intravenous injection, [RxNorm: 959951 ] inFLIXimab injected in [place] q 8 weeks 0 09/13/2015 Active aspirin 81 mg oral tablet, [RxNorm: 740284] aspirin one daily 1 09/13/2015 Active INSURANCE PROVIDERS Payer Name Policy Type P olicy ID Covered Alliance Party ID Policy [employer] Health Insurance [id number] [facility] Health Insurance [id number] [facility] ASSESSMENTS # RHEUMATOID ARTHRITIS (M06.9): # DEPRESSIVE DISORDER NOT ELSEWHERE CLASSIFIED (F32.9): # ANXIETY STATE UNSPECIFIED (F41.9): # Routine general medical examination at a health care facility (Z00.00):# 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):# Hypertension (I10): # Prediabetes (R73.03): # DIVERTICULOSIS OF COLON (WITHOUT HEMORRHAGE) (K57.30): # HYPERPLASIA OF PROSTATE UNSPECIFIED WITHOUT URINARY OBSTRUCTION AND OTHER LOWER URINARY TRACT SYMPTOMS (LUTS) (N40.0): PROBLEMS Problem Problem Status D ate Started Date Resolved Date Inactivated MICROSCOPIC HEMATURIA [SNOMED-CT: 309631854] Active 12-13-2013 NA NA HYPERPLASIA OF PROSTATE UNSPECIFIED WITH OUT URINARY OBSTRUCTION AND OTHER LOWER URINARY TRACT SYMPTOMS (LUTS) [SNOMED-CT: 550798569] Active 12-13-2013 NA NA OTHER ABNORMAL GLUCOSE [SNOMED-CT: 780443136] Active 09-11-2009 NA NA Exogenous hyperlipidemia [SNOMED-CT: 413701490] Active 02-26-2017 NA NA Hyperglycemia [SNOMED-CT: 57090252] Active 02-26-2017 NA NA Tinnitus of left ear [SNOMED-CT: 4045691731093] Active 07-21-2017 NA NA Altered mental status [SNOMED-CT: 480701473] Active 07-21-2017 NA NA Prediabetes [SNOMED-CT: 8829711] Active 09-13-2015 NA NA BACKACHE UNSPECIFIED [SNOMED-CT: 916921607] Active 10-18-2013 NA NA SCREENING EXAMINATION FOR PULMONARY TUBE RCULOSIS [SNOMED-CT: 279495905] Active 12-11-2011 NA NA Adenomatous polyp of rectum [SNOMED-CT: 7819908375747] Active 04-26-2020 NA NA RHEUMATOID ARTHRITIS [SNOMED-CT: 50218047] Active 10-23-2008 NA NA UNSPECIFIED ESSENTIAL HYPERTENSION [SNOMED-CT: 6943900 0] Active 10-23-2008 NA NA DEPRESSIVE DISORDER NOT ELSEWHERE CLASSI FIED [SNOMED-CT: 321038225] Active 10-23-2008 NA NA ANXIETY STATE UNSPECIFIED [SNOMED-CT: 418146961] Active 10-23-2008 NA NA ROUTINE GENERAL MEDICAL EXAMINATION AT A HEALTH CARE FACILITY [SNOMED-CT: 818405830] Active 08-30-2013 NA NA Bilateral cataracts [SNOMED-CT: 75078439] Active 04-27-2018 NA NA Hyperlipidemia [SNOMED-CT: 76167922] Activ e 04-26-2015 NA NA Diabetes mellitus [SNOMED-CT: 43386081] Resolved 04-28-2017 04-26-2019 NA Prediabetes [SNOMED-CT: 527876607] Active 04-26-2019 NA NA Other hyperlipidemia [ICD10: E78.49] Activ e 04-26-2019 NA NA Hypertension [SNOMED-CT: 95228724] Active 04-26-2019 NA NA Other specified vaccination [ICD10: Z23] Active 03-13-2016 NA NA GLOSSITIS [SNOMED-CT: 50486050] Active 01-26-2014 NA NA CARPAL TUNNEL SYNDROME [SNOMED-CT: 02076175] Active 11-10-2009 NA NA PAIN IN LIMB [SNOMED-CT: 83379770] Active 06-27-2010 NA NA Headache [SNOMED-CT: 31445066] Active 07-21-2017 NA NA Bilateral tinnitus [SNOMED-CT: 0081006727627] Active 10-31-2017 NA NA IMPACTED CERUMEN [SNOMED-CT: 64026680] Active 11-19-2010 NA NA Spinal stenosis [SNOMED-CT: 59184718] Active 08-24-2018 NA NA Hyperglycemia [SNOMED-CT: 41128244] Active 09-13-2015 NA NA NEED FOR PROPHYLACTIC VACCINATION AND IN OCULATION AGAINST INFLUENZA [SNOMED-CT: 001311978] Active 04-10-2012 NA NA Acute suppurative otitis media [SNOMED-CT: 565355655] Active 05-17-2015 NA NA Personal history of immunosuppressive therapy [ICD10: Z92.25] Active 05-24-2015 NA NA Disorder of lumbar disc [SNOMED-CT: 048413604] Active 05-31-2015 NA NA DIVERTICULOSIS OF COLON (WITHOUT HEMORRH AGE) [SNOMED-CT: [id number]] Active 10-25-2011 NA NA REFLUX ESOPHAGITIS [SNOMED-CT: 04742023] Active 07-12-2009 NA NA HYPERPLASIA OF PROSTATE UNSPECIFIED [SNOMED-CT: 105491 004] Inactive 07-12-2009 NA 12-13-2013 PROCEDURES Procedure Date CPT Code Procedure 04/26/2020 08:59:14 G0439 ANNUAL WELLNESS VISIT, SUBSEQUENT [...] record (DEM) ([facility], [facility]) 02/25/2020 09:27:14 [id number] Office or other outpatient visit for the [...] moderate severity. Physicians typically spend 15 minutes zhnr-dz-cmev with the patient and/or family. 12/27/2019 09:18:25 47493 Office or other outpatient visit for the [...] moderate severity. Physicians typically spend 15 minutes cilc-of-juxg with the patient and/or family. 10/27/2019 09:14:09 22609 Office or other outpatient visit for the [...] moderate severity. Physicians typically spend 15 minutes atwb-hb-kkls with the patient and/or family. 08/20/2019 09:14:36 49927 Office or other outpatient visit for the [...] moderate severity. Physicians typically spend 15 minutes exbh-an-ndmt with the patient and/or family. 06/18/2019 09:14:14 27665 Office or other outpatient visit for the [...] moderate severity. Physicians typically spend 15 minutes vxmc-uk-lpce with the patient and/or family. 04/26/2019 08:33:50 [...] record (DEM) (Z[facility], Pall Cr) 02/22/2019 08:35:14 64582 Office or other outpatient visit for the [...] moderate severity. Physicians typically spend 15 minutes mvzd-oa-dbip with the patient and/or family. 02/22/2019 08:35:14 [id number] Eligible clinician attests to documenting in the medical record they obtained, updated, or reviewed the patient's current medications 12/23/2018 09:11:54 24175 Office or other outpatient visit for the [...] moderate severity. Physicians typically spend 15 minutes xdqb-gv-cpij with the patient and/or family. 12/23/2018 09:11:54 [id number] Eligible clinician attests to documenting in the medical record they obtained, updated, or reviewed the patient's current medications 10/21/2018 09:10:09 91118 Office or other outpatient visit for the [...] moderate severity. Physicians typically spend 15 minutes ykib-ts-wkaf with the patient and/or family. 10/21/2018 09:10:09 11151 Hemoglobin; glycosylated (A1C) by device cleared by FDA for home use 10/21/2018 09:10:09 [id number] Eligible clinician attests to documenting in the medical record they obtained, updated, or reviewed the patient's current medications 10/21/2018 09:10:09 07186 Tetanus, diphtheria toxoids and acellular pertussis vaccine (Tdap), when administered to individuals 7 years or older, for intramuscular use 10/21/2018 09:10:09 35988 Immunization administration (includes percutaneous, intradermal, subcutaneous, or intramuscular injections); one vaccine (single or combination vaccine/toxoid) 08/24/2018 09:32:54 74759 Office or other outpatient visit for the [...] high severity. Physicians typically spend 25 minutes edpe-hq-sfmn with the patient and/or family. 06/19/2018 09:55:21 73030 Office or other outpatient visit for the [...] moderate severity. Physicians typically spend 15 minutes qswi-pw-gesg with the patient and/or family. 06/19/2018 09:55:21 [id number] Eligible clinician attests to documenting in the medical record they obtained, updated, or reviewed the patient's current medications 04/27/2018 11:19:49 33693 Office or other outpatient visit for the [...] high severity. Physicians typically spend 25 minutes yjpg-vw-bqst with the patient and/or family. 04/27/2018 11:19:49 [id number] Eligible clinician attests to documenting in the medical record they obtained, updated, or reviewed the patient's current medications 03/20/2018 09:03:16 G0439 ANNUAL WELLNESS VISIT, SUBSEQUENT 03/20/2018 09:03:16 43794 Collection of venous blood by venipuncture 03/20/2018 09:03:16 03802 Hemoglobin; glycosylated (A1C) by device cleared by [...] retinal eye exam with interpretation by an child welfare social worker or sales review clerk documented and reviewed (DM) 03/20/2018 09:03:16 1123F Advance Care Planning discussed and documented advance care plan or surrogate decision maker documented in the medical record (DEM) (Z[facility], Pall Cr) 01/16/2018 08:30:09 63359 Office or other outpatient visit for the [...] moderate severity. Physicians typically spend 15 minutes abkz-pk-vxop with the patient and/or family. 01/16/2018 08:30:09 [id number] Eligible clinician attests to documenting in the medical record they obtained, updated, or reviewed the patient's current medications 01/16/2018 08:30:09 1036F Current tobacco non-user (CAD, CAP, COPD, PV) (DM) (IBD) 10/31/2017 09:17:00 06786 Office or other outpatient visit for the [...] high severity. Physicians typically spend 25 minutes rbcv-kf-culs with the patient and/or family. 10/31/2017 09:17:00 [id number] Eligible clinician attests to documenting in the medical record they obtained, updated, or reviewed the patient's current medications 10/31/2017 09:17:00 1036F Current tobacco non-user (CAD, CAP, COPD, PV) (DM) (IBD) 10/31/2017 09:17:00 2022F Dilated retinal eye exam with interpretation by an child welfare social worker or sales review clerk documented and reviewed (DM) 08/29/2017 08:33:05 54744 Office or other outpatient visit for the [...] high severity. Physicians typically spend 25 minutes ogsk-sw-xlra with the patient and/or family. 07/21/2017 09:22:42 43676 Office or other outpatient visit for the [...] high severity. Physicians typically spend 25 minutes gxhi-aq-tkzh with the patient and/or family. 07/21/2017 09:22:42 26369 Hemoglobin; glycosylated (A1C) by device cleared by FDA for home use 07/21/2017 09:22:42 3044F Most recent hemoglobin A1c (HbA1c) level less than 7.0% (DM) 06/27/2017 08:36:35 69250 Office or other outpatient visit for the [...] high severity. Physicians typically spend 25 minutes mgcf-id-ifmt with the patient and/or family. 06/27/2017 08:36:35 1036F Current tobacco non-user (CAD, CAP, COPD, PV) (DM) (IBD) 06/27/2017 08:36:35 [id number] Eligible clinician attests to documenting in the medical record they obtained, updated, or reviewed the patient's current medications 04/28/2017 09:04:31 40280 Office or other outpatient visit for the [...] high severity. Physicians typically spend 25 minutes daqx-bg-yfyx with the patient and/or family. 04/28/2017 09:04:31 [...] reviewed the patient's current medications 12/25/2016 09:02:26 06246 Office or other outpatient visit for the [...] moderate severity. Physicians typically spend 15 minutes uwrs-nv-djje with the patient and/or family. 10/09/2016 09:02:56 85220 Office or other outpatient visit for the [...] moderate severity. Physicians typically spend 15 minutes okfm-jt-dxph with the patient and/or family. 08/28/2016 08:58:27 69022 Office or other outpatient visit for the [...] moderate severity. Physicians typically spend 15 minutes pdqy-xt-rwyd with the patient and/or family. 07/17/2016 08:58:45 63209 Office or other outpatient visit for the [...] high severity. Physicians typically spend 25 minutes tpkl-gw-lpio with the patient and/or family. 06/05/2016 09:32:15 64221 Office or other outpatient visit for the [...] moderate severity. Physicians typically spend 15 minutes tyhc-xh-tvhs with the patient and/or family. 04/24/2016 09:41:36 65665 Office or other outpatient visit for the [...] moderate severity. Physicians typically spend 15 minutes jphr-wd-mqtu with the patient and/or family. 04/24/2016 09:41:36 22311 Collection of venous blood by venipuncture 03/13/2016 10:04:03 61034 Office or other outpatient visit for the [...] moderate severity. Physicians typically spend 15 minutes aztu-ti-znkx with the patient and/or family. 03/13/2016 10:04:03 Q2037 FLUVRIN 03/13/2016 10:04:03 G0008 ADMINISTRATION OF FLU VACCINE (V04.81) 03/13/2016 10:04:03 61023 Skin test; tuberculosis, intradermal 01/31/2016 08:59:31 15295 Office or other outpatient visit for the [...] moderate severity. Physicians typically spend 15 minutes aake-lt-tkjv with the patient and/or family. 12/27/2015 09:34:39 35958 Office or other outpatient visit for the [...] high severity. Physicians typically spend 25 minutes torv-ar-olvo with the patient and/or family. 11/22/2015 09:35:26 64434 Office or other outpatient visit for the [...] moderate severity. Physicians typically spend 15 minutes refb-tr-zcyn with the patient and/or family. 10/18/2015 09:36:50 93598 Office or other outpatient visit for the [...] moderate severity. Physicians typically spend 15 minutes ywhh-gr-igct with the patient and/or family. 09/13/2015 09:28:05 44993 Office or other outpatient visit for the [...] high severity. Physicians typically spend 25 minutes fsix-zq-wqbq with the patient and/or family. 08/09/2015 09:28:48 46843 Office or other outpatient visit for the [...] moderate severity. Physicians typically spend 15 minutes xgul-wq-horv with the patient and/or family. 07/05/2015 09:26:40 58302 Office or other outpatient visit for the [...] moderate severity. Physicians typically spend 15 minutes fked-ac-ojpr with the patient and/or family. 05/31/2015 09:27:13 70955 Office or other outpatient visit for the [...] moderate severity. Physicians typically spend 15 minutes jbnn-so-lfwc with the patient and/or family. 05/24/2015 09:31:02 23674 Office or other outpatient visit for the [...] moderate severity. Physicians typically spend 15 minutes omcw-jw-lqcg with the patient and/or family. 05/17/2015 08:45:07 41883 Office or other outpatient visit for the [...] moderate severity. Physicians typically spend 15 minutes otal-cz-yrat with the patient and/or family. 04/26/2015 10:00:01 98283 Office or other outpatient visit for the [...] moderate severity. Physicians typically spend 15 minutes olnq-wp-kdzq with the patient and/or family. 03/22/2015 10:00:36 53854 Office or other outpatient visit for the [...] moderate severity. Physicians typically spend 15 minutes btxq-xq-obqo with the patient and/or family. 02/15/2015 10:03:31 61374 Office or other outpatient visit for the [...] moderate severity. Physicians typically spend 15 minutes svcc-bw-dinv with the patient and/or family. 01/11/2015 10:12:53 39232 Office or other outpatient visit for the [...] moderate severity. Physicians typically spend 15 minutes zhlt-le-pgcm with the patient and/or family. 12/07/2014 11:25:37 G0402 GUYS TO MEDICARE " ANNUAL WELLNESS VISIT" 11/02/2014 09:32:01 09786 Office or other outpatient visit for the [...] moderate severity. Physicians typically spend 15 minutes aiqt-dd-tiyg with the patient and/or family. 11/02/2014 09:32:01 69368 Skin test; tuberculosis, intradermal 10/05/2014 09:30:13 13908 Office or other outpatient visit for the [...] moderate severity. Physicians typically spend 15 minutes xbnd-jh-tcpu with the patient and/or family. 10/05/2014 09:30:13 45524 Collection of venous blood by venipuncture 09/07/2014 09:33:26 39220 Periodic comprehensive preventive medicine reevaluation and management of an individual including an age and gender appropriate history, examination, counseling/anticipatory guidance/risk factor reduction interventions, and the ordering of laboratory/diagnostic procedures, established patient; 40-64 years 08/10/2014 00:00:00 82971 Office or other outpatient visit for the [...] moderate severity. Physicians typically spend 15 minutes qldd-br-calc with the patient and/or family. 07/13/2014 00:00:00 96375 Office or other outpatient visit for the [...] moderate severity. Physicians typically spend 15 minutes irkb-zs-mjcv with the patient and/or family. 05/16/2014 00:00:00 96632 Office or other outpatient visit for the [...] moderate severity. Physicians typically spend 15 minutes fyhi-qs-bdml with the patient and/or family. 03/25/2014 00:00:00 41611 Office or other outpatient visit for the [...] moderate severity. Physicians typically spend 15 minutes ypaj-zq-lwwv with the patient and/or family. 01/26/2014 00:00:00 76281 Collection of venous blood by venipuncture 01/26/2014 00:00:00 45494 Office or other outpatient visit for the [...] moderate severity. Physicians typically spend 15 minutes cfof-cp-lbmw with the patient and/or family. 12/13/2013 00:00:213 Office or other outpatient visit for the [...] moderate severity. Physicians typically spend 15 minutes dfir-zc-xlnw with the patient and/or family. 12/13/2013 00:00:00 51314 Skin test; tuberculosis, intradermal 10/18/2013 00:00:00 86703 Office or other outpatient visit for the [...] moderate severity. Physicians typically spend 15 minutes bwhv-fu-ecfp with the patient and/or family. 08/30/2013 00:00:00 62199 Periodic comprehensive preventive medicine reevaluation and management of an individual including an age and gender appropriate history, examination, counseling/anticipatory guidance/risk factor reduction interventions, and the ordering of laboratory/diagnostic procedures, established patient; 40-64 years 07/02/2013 12:24:29 56968 Office or other outpatient visit for the [...] moderate severity. Physicians typically spend 15 minutes xwcf-ip-xpnq with the patient and/or family. 05/17/2013 10:00:23 30393 Office or other outpatient visit for the [...] moderate severity. Physicians typically spend 15 minutes yauz-sq-dnem with the patient and/or family. 03/26/2013 12:08:28 13483 Immunization administration (includes percutaneous, intradermal, subcutaneous, or intramuscular injections); one vaccine (single or combination vaccine/toxoid) 03/26/2013 12:08:28 52085 Office or other outpatient visit for the [...] moderate severity. Physicians typically spend 15 minutes epkt-ua-apig with the patient and/or family. 02/08/2013 11:26:02 59813 Office or other outpatient visit for the [...] moderate severity. Physicians typically spend 15 minutes djsw-as-qswa with the patient and/or family. 12/14/2012 10:21:27 05981 Office or other outpatient visit for the [...] moderate severity. Physicians typically spend 15 minutes fznz-or-fzcr with the patient and/or family. 12/14/2012 10:21:27 68039 Skin test; tuberculosis, intradermal 10/23/2012 09:19:25 60377 Office or other outpatient visit for the [...] moderate severity. Physicians typically spend 15 minutes gpmg-di-legv with the patient and/or family. 08/24/2012 08:54:45 94704 Office or other outpatient visit for the [...] moderate severity. Physicians typically spend 15 minutes bpcb-th-okrh with the patient and/or family. 06/15/2012 10:51:20 10067 Office or other outpatient visit for the [...] moderate severity. Physicians typically spend 15 minutes vgrp-eu-qvib with the patient and/or family. 04/10/2012 12:16:15 Q2037 FLUVRIN 04/10/2012 12:16:15 97707 Immunization administration (includes percutaneous, intradermal, subcutaneous, or intramuscular injections); one vaccine (single or combination vaccine/toxoid) 04/10/2012 12:16:15 13669 Office or other outpatient visit for the [...] moderate severity. Physicians typically spend 15 minutes xhxt-ak-xdbo with the patient and/or family. 02/03/2012 08:29:20 90897 Office or other outpatient visit for the [...] moderate severity. Physicians typically spend 15 minutes atky-xq-spjy with the patient and/or family. 12/11/2011 09:49:25 04992 Skin test; tuberculosis, intradermal 12/11/2011 09:49:25 55238 Office or other outpatient visit for the [...] or minor. Physicians typically spend 10 minutes rquc-rc-yuhi with the patient and/or family. 10/25/2011 12:22:42 50340 Office or other outpatient visit for the [...] moderate severity. Physicians typically spend 15 minutes ovvw-mz-crgb with the patient and/or family. 07/24/2011 11:25:11 01496 Office or other outpatient visit for the [...] moderate severity. Physicians typically spend 15 minutes jtgg-lr-ldpo with the patient and/or family. 01/11/2011 09:55:27 31394 Office or other outpatient visit for the [...] moderate severity. Physicians typically spend 15 minutes pgsa-dk-moju with the patient and/or family. 11/19/2010 11:12:31 28696 Removal impacted cerumen (separate procedure), 1 or both ears 11/19/2010 11:12:31 86988 Office or other outpatient visit for the [...] moderate severity. Physicians typically spend 15 minutes jiqv-nh-ylwr with the patient and/or family. 09/05/2010 09:43:38 66923 Skin test; tuberculosis, intradermal 09/03/2010 00:00:00 91533 Office or other outpatient visit for the [...] or minor. Physicians typically spend 10 minutes rbab-fv-qmcr with the patient and/or family. 06/27/2010 00:00:00 52099 Office or other outpatient visit for the [...] high severity. Physicians typically spend 25 minutes wmvy-ci-saae with the patient and/or family. 03/28/2010 00:00:00 38953 Office or other outpatient visit for the [...] high severity. Physicians typically spend 25 minutes pvlo-gj-bplj with the patient and/or family. 03/28/2010 00:00:00 90831 Collection of venous blood by venipuncture 01/10/2010 00:00:00 78733 Office or other outpatient visit for the [...] moderate severity. Physicians typically spend 15 minutes mtbm-er-jfsh with the patient and/or family. 11/10/2009 00:00:00 15526 Office or other outpatient visit for the [...] moderate severity. Physicians typically spend 15 minutes gjwt-gu-hvsa with the patient and/or family. 09/11/2009 00:00:00 42429 Collection of venous blood by venipuncture 09/11/2009 00:00:00 68900 Office or other outpatient visit for the [...] moderate severity. Physicians typically spend 15 minutes ylds-dl-oelp with the patient and/or family. 07/12/2009 00:00:00 16231 ADMINISTRATION OF TH H1N1 VACCINE 07/12/2009 00:00:00 77504 Office or other outpatient visit for the [...] moderate severity. Physicians typically spend 15 minutes ydlk-tb-ksdl with the patient and/or family. 04/14/2009 00:00:00 01307 Office or other outpatient visit for the [...] moderate severity. Physicians typically spend 15 minutes udty-vl-kdjj with the patient and/or family. 12/16/2008 00:00:00 52158 Office or other outpatient visit for the [...] moderate severity. Physicians typically spend 15 minutes shey-kv-uzza with the patient and/or family. 10/24/2008 00:00:00 42734 Office or other outpatient visit for the [...] moderate severity. Physicians typically spend 15 minutes dara-cz-kpzi with the patient and/or family. 10/24/2008 00:00:00 67065 Collection of venous blood by venipuncture REASON [...] 10:24:00 CHOL/HDL RATIO 3.6 0.0- 5.0 No [facility] 03/10/2017 10:24:00 HGBA1C 6.5 % 4.5-6.2 H 03/10/2017 10:04:00 ESTIMATED AVERAGE GLUCOSE 139.9 mg/dL -- No [facility] 03/10/2017 10:04:00 WHITE BLOOD COUNT 7.2 K/mm3 4.0-10.0 No [facility] 03/10/2017 09:47:00 RED BLOOD COUNT 5.00 M/mm3 4.50-6.00 No [facility] 03/10/2017 09:47:00 HEMOGLOBIN 15.5 gm/dL 14 .0-18.0 No [facility] 03/10/2017 09:47:00 HEMATOCRIT 45.6 % 42.0-5 4.0 No [facility] 03/10/2017 09:47:00 MEAN CELL VOLUME 91.2 fl 80-96 No [facility] 03/10/2017 09:47:00 MEAN CORPUSCULAR HEMOGLOB 31.0 pg 27.0-31.0 No [facility] 03/10/2017 09:47:00 MEAN CORPUSCULAR HGB CONC 34.0 g/dl 32.0- 36.0 No [facility] 03/10/2017 09:47:00 RED CELL DISTRIBUTION WID 13.1 % 10.0-14.5 No [facility] 03/10/2017 09:47:00 PLATELET COUNT 279 K/mm3 172-450 No [facility] 03/10/2017 09:47:00 MEAN PLATELET VOLUME 9.6 fl 9.0-13.0 No [facility] 03/10/2017 09:47:00 GRAN % 57.0 % 50-80.0 No [facility] 03/10/2017 09:47:00 LYMPH % 28.8 % 25.0-50.0 No [facility] 03/10/2017 09:47:00 MONO % 10.4 % 2.0-10.0 H 03/10/2017 09:47:00 EOS % 3.1 % 0-5.0 No [facility] 03/10/2017 09:47:00 BASO % 0.7 % 0.0-2.0 No [facility] 03/10/2017 09:47:00 GRAN # 4.1 2.0-8.00 No [facility] 03/10/2017 09:47:00 LYMPH # 2.1 1.0-5.0 No [...] Date of : 1950 Age: 65 Room: [facility] Gender: Male Note Status: Finalized Procedure: Upper [...] by the physician, the nurse and the special education secretary in the procedure room. Mental Status Examination: [...] was minimal. DD: MARTHA 03/26/2016 1353 DT: PROVATION 03/26/2016 1353 DS: MARTHA 03/26/2016 1624 N/A N/A 03/26/2016 13:53:00 CREATININE 1.1 mg/dL 0.6 -1.3 No Flag 12/11/2015 08:36:00 ALT 41 U/L No Flag 12/11/2015 08:36:00 WHITE BLOOD COUNT [...] Observed Smoking Status Former smoker, [SNOME D-CT: [id number]], 0.50 pk yrs/5.00 yrs quit 09/07/2014 - 09/07/2014 TREATMENT PLAN Encounter Date Planned Care 04/26/2020 08:59:14 Plan printed and provided to [...] # 45, RF: 0. (Transmitted by Amparo Elisa, [employer]) (MDD 8 tab) PRESCRIBE: ALPRAZolam 0.5 mg oral tablet, one or one half po qid prn anxiety MDD4, # 120, RF: 0. (Transmitted by Amparo Elisa, [employer]) 02/25/2020 09:27:14 PRESCRIBE: hydrocodone-acetaminophen 5 mg-325 mg oral tablet, one or two po qid prn pain, # 45, RF: 0. (Transmitted by Amparo Lawrence, [employer]) (MDD 8 tab) PRESCRIBE: ALPRAZolam 0.5 mg oral tablet, one or one half po qid prn anxiety MDD4, # 120, RF: 0. (Transmitted by AmparoPoshmarkelizabeth [employer]) 12/27/2019 09:18:25 PRESCRIBE: hydrocodone-acetaminophen 5 mg-325 mg oral tablet, one or two po qid prn pain, # 45, RF: 0. (Transmitted by Amparo ElisaDO elizabeth) (MDD 8 tab) PRESCRIBE: ALPRAZolam 0.5 mg oral tablet, one or one half po qid prn anxiety MDD4, # 120, RF: 0. (Transmitted by Amparo LawrenceDO elizabeth) Be kind, be calm, be safe. phone/video 15min 12/27/2019 09:18:25 PRESCRIBE: hydrocodone-acetaminophen 5 mg-325 mg oral tablet, one or two po qid prn pain, # 45, RF: 0. (Transmitted by Amparo LawrenceDO elizabeth) (MDD 8 tab) PRESCRIBE: ALPRAZolam 0.5 mg oral tablet, one or one half po qid prn anxiety MDD4, # 120, RF: 0. (Transmitted by AmparoPoshmarkelizabeth [employer]) Be kind, be calm, be safe. phone/video 15min 12/27/2019 09:18:25 PRESCRIBE: hydrocodone-acetaminophen 5 mg-325 mg oral tablet, one or two po qid prn pain, # 45, RF: 0. (Transmitted by Amparo Pérez DO) (MDD 8 tab) PRESCRIBE: ALPRAZolam 0.5 mg oral tablet, one or one half po qid prn anxiety MDD4, # 120, RF: 0. (Transmitted by Amparo Pérez, ) Be kind, be calm, be safe. phone/video [...] necessary. "Social communication with physical isolation. " [facility] [phone] [facility] [phone] 10/27/2019 09:14:09 PRESCRIBE: spironolactone 25 mg oral [...] RF: 0. (Transmitted by Amparo Pérez, DO) (MDD 8 tab) PRESCRIBE: ALPRAZolam 0.5 mg oral tablet, one or one half po qid prn anxiety MDD4, # 120, RF: 0. (Transmitted by Amparo Pérez, DO) I have discussed with this patient [...] necessary. "Social communication with physical isolation. " [facility] [phone] [facility] [phone] 10/27/2019 09:14:09 PRESCRIBE: spironolactone 25 mg oral tablet, one po daily, # 30, RF: 5. (Transmitted by Amparo Pérez, DO) PRESCRIBE: mirtazapine 30 mg oral tablet, one po hs daily, # 30, RF: 5. (Transmitted by Amparo éPrez, DO) PRESCRIBE: Metoprolol Succinate ER 100 mg [...] RF: 0. (Transmitted by Amparo Pérez, DO) (MDD 8 tab) PRESCRIBE: ALPRAZolam 0.5 mg oral tablet, one or one half po qid prn anxiety MDD4, # 120, RF: 0. (Transmitted by Amparo Pérez, DO) I have discussed with this patient [...] necessary. "Social communication with physical isolation. " [facility] [phone] [facility] [phone] 08/20/2019 09:14:36 Plan printed and provided to [...] 0. (Transmitted by Amparo Pérez, DO) PRESCRIBE: spironolactone 25 mg oral tablet, [...] RF: 1. (Transmitted by Amparo Pérez, ) PRESCRIBE: Metoprolol [...] RF: 1. (Transmitted by Amparo Pérez, ) PRESCRIBE: atorvastatin [...] Left Deltoid (Mfg: [employer] lot no. [id number], expires 06/13/2020) 10/21/2018 09:10:09 Plan printed and [...] ml IM in the Left Deltoid (Mfg: [employer] lot no. [id number], expires 06/13/2020) 10/21/2018 09:10:09 Plan printed and [...] ml IM in the Left Deltoid (Mfg: [employer] lot no. [id number], expires 06/13/2020) 08/24/2018 09:32:54 Plan printed and [...] He had some annual labs in february of this year that were all normal. He [...] RF: 11. (Transmitted by Amparo Pérez, DO) ORDERED/ADVISED: Order Date 03-20-2018 - CBC [...] ac, # 60, RF: 5. (Transmitted by Aircrmard, DO) PRESCRIBE: glucometer, use as directed ac bid, # 1, RF: 0. (Transmitted by [employer]irc[employer], DO) PRESCRIBE: glucose testing strips, use as directed bid ac, # 60 , RF: 5. PRESCRIBE: glucometer, use as directed ac bid, # 1 , RF: 0. Plan printed and provided to patient: PRESCRIBE: metFORMIN 500 mg oral tablet, extended release, one half po after largest meal, # 45, RF: 2. (Transmitted by Superbac, [employer]) PRESCRIBE: ALPRAZolam 0.5 mg oral tablet, one or one half po qid prn anxiety MDD4, # 120, RF: 0. PROVIDED HM: DSME Given: Ask: Did you know? For every 1% decrease in HGBAC, there is evidence for 21% decrease in diabetes related complication....14% decrease in risk of UT.....12%decrease risk of stroke...and a 37% decrease risk [...] we have to work with? Time/Travel/Tastes/Treatments?? Arrange: Plaster Tender? www.eatright.org Instructor Dramatic Arts?www.diabeteseducator.org Pharmacy/Pharmacy benefits Literature? Recipes Diabetes [place] www.diabetes.org www.ncbde.org www.diabeeseducator.org/deap www.ndep.nih.gov www.diabetes.org www.learningaboutdiabetes.org www.diabeticconnect.com www.Brille24noSurgeonKidz.[employer] www.diabeteswhattBostwick Laboratoriesnow.com www.peersforprogress.org 7 ruiz areas PROVIDED HM: Recommendations [...] ac, # 60, RF: 5. (Transmitted by AmparoPoshmarkard, DO) PRESCRIBE: glucometer, use as directed ac bid, # 1, RF: 0. (Transmitted by Aircrmard, DO) PRESCRIBE: glucose testing strips, use as directed bid ac, # 60 , RF: 5. PRESCRIBE: glucometer, use as directed ac bid, # 1 , RF: 0. Plan printed and provided to patient: PRESCRIBE: metFORMIN 500 mg oral tablet, extended release, one half po after largest meal, # 45, RF: 2. (Transmitted by Aircrmard, DO) PRESCRIBE: ALPRAZolam 0.5 mg oral tablet, one or one half po qid prn anxiety MDD4, # 120, RF: 0. PROVIDED HM: DSME Given: Ask: Did you know? For every 1% decrease in HGBAC, there is evidence for 21% decrease in diabetes related complication....14% decrease in risk of UT.....12%decrease risk of stroke...and a 37% decrease risk [...] we have to work with? Time/Travel/Tastes/Treatments?? Arrange: Plaster Tender? www.eatright.org Instructor Dramatic Arts?www.diabeteseducator.org Pharmacy/Pharmacy benefits Literature? Recipes Diabetes [place] www.diabetes.org www.ncbde.org www.diabeeseducator.org/deap www.ndep.nih.gov www.diabetes.org www.learningaboutdiabetes.org www.diabeticconnect.com www.[employer] www.diabeteswhattBostwick LaboratoriesnoSurgeonKidz.com www.peersforprogress.org 7 ruiz areas PROVIDED HM: Recommendations [...] ac, # 60, RF: 5. (Transmitted by Superbac, DO) PRESCRIBE: glucometer, use as directed ac bid, # 1, RF: 0. (Transmitted by Superbac, DO) PRESCRIBE: glucose testing strips, use as directed bid ac, # 60 , RF: 5. PRESCRIBE: glucometer, use as directed ac bid, # 1 , RF: 0. Plan printed and provided to patient: PRESCRIBE: metFORMIN 500 mg oral tablet, extended release, one half po after largest meal, # 45, RF: 2. (Transmitted by [employer], [employer]) PRESCRIBE: ALPRAZolam 0.5 mg oral tablet, one or one half po qid prn anxiety MDD4, # 120, RF: 0. PROVIDED HM: DSME Given: Ask: Did you know? For every 1% decrease in HGBAC, there is evidence for 21% decrease in diabetes related complication....14% decrease in risk of UT.....12%decrease risk of stroke...and a 37% decrease risk [...] we have to work with? Time/Travel/Tastes/Treatments?? Arrange: Plaster Tender? www.eatright.org Instructor Dramatic Arts?www.diabeteseducator.org Pharmacy/Pharmacy benefits Literature? Recipes Diabetes [place] www.diabetes.org www.ncbde.org www.diabeeseducator.org/deap www.ndep.nih.gov www.diabetes.org www.learningaboutdiabetes.org www.diabeticconnect.com www.Brille24now.[employer] www.diabeteswhattoknow.com www.peersforprogress.org 7 ruiz areas PROVIDED HM: [...] PROVIDED HM: Diabetes Prevention Program Given: Maura Manley....[phone] [facility]...[phone] ( Anita Frye) [facility]....[phone] [id number] (Aleishalily Short) [facility]....[phone] (Maura Grissom) PROVIDED HM: medication adherence Given: [...] PROVIDED HM: Diabetes Prevention Program Given: Maura Manley....[phone] [employer] [facility]...[phone] ( Anita Wilbermeghna) [facility]....[phone] [id number] (Haley Short) [facility]....[phone] (Maura Grissom) PROVIDED HM: medication adherence Given: [...] PROVIDED HM: Diabetes Prevention Program Given: Maura Manley....[phone] [facility]...[phone] ( Anita Frye) [facility]....[phone] [id number] (Haley Short) [facility]....[phone] (Maura Grissom) PROVIDED HM: medication adherence Given: [...] RF: 5. (Transmitted by Amparo Pérez DO) Date Prescribed: 03/13/2016 12/25/2016 09:02:26 Plan printed and provided to patient: PRESCRIBE: ALPRAZolam 0.5 mg oral tablet, one or one half po qid prn anxiety MDD4, # 120, RF: 0. REMOVED from Current Meds: DULoxetine 60 mg oral delayed release capsule, one po daily for a week then two po daily, # 60, RF: 5. (Transmitted by Amparo Pérez DO) Date Prescribed: 03/13/2016 12/25/2016 09:02:26 Plan printed and provided to patient: PRESCRIBE: ALPRAZolam 0.5 mg oral tablet, one or one half po qid prn anxiety MDD4, # 120, RF: 0. REMOVED from Current Meds: DULoxetine 60 mg oral delayed release capsule, one po daily for a week then two po daily, # 60, RF: 5. (Transmitted by Amparo Pérez DO) Date Prescribed: 03/13/2016 10/09/2016 09:02:56 Plan [...] # 30, RF: 5. (Transmitted by Amparo [employer]) PRESCRIBE: DULoxetine 30 mg oral delayed release capsule, one po daily, # 30, RF: 5. (Transmitted by Amparo El[employer]) [employer] (tens units) 08/28/2016 08:58:27 Plan printed and provided to patient: PRESCRIBE: ALPRAZolam 0.5 mg oral tablet, one or one half po qid prn anxiety MDD4, # 120, RF: 0. PRESCRIBE: metoprolol succinate 100 mg oral tablet, extended release, one po daily, # 30, RF: 5. (Transmitted by Amparo [employer]) PRESCRIBE: atorvastatin 40 mg oral tablet, one po daily, # 30, RF: 5. (Transmitted by Amparo [employer]) PRESCRIBE: DULoxetine 30 mg oral delayed release capsule, one po daily, # 30, RF: 5. (Transmitted by Aircrmelizabeth [employer]) [employer] (tens units) 08/28/2016 08:58:27 Plan printed and provided to patient: PRESCRIBE: ALPRAZolam 0.5 mg oral tablet, one or one half po qid prn anxiety MDD4, # 120, RF: 0. PRESCRIBE: metoprolol succinate 100 mg oral tablet, extended release, one po daily, # 30, RF: 5. (Transmitted by Amparo Elisa, [employer]) PRESCRIBE: atorvastatin 40 mg oral tablet, one po daily, # 30, RF: 5. (Transmitted by [employer]rmard[employer]) PRESCRIBE: DULoxetine 30 mg oral delayed release capsule, one po daily, # 30, RF: 5. (Transmitted by Aircrmelizabeth [employer]) [employer] (tens units) 07/17/2016 08:58:45 Plan printed and [...] support/Move your body/Think positive/Be good to yourself/ [place] [employer]abetic Educators....7 behaviors for diabetes self m anagement. PROVIDED HM: DPP Given: Maura Manley....[phone] [facility]...[phone] ( Anita Frye) [facility]....[phone] [id number] ([facility]....[phone] (Maura Grissom) [facility] Diabetes education [phone] 07/17/2016 08:58:45 Plan printed and provided to [...] support/Move your body/Think positive/Be good to yourself/ [place] [employer] Educators....7 behaviors for diabetes self m anagement. PROVIDED HM: DPP Given: Maura Manley....[phone] [facility]...[phone] ( Anita Wilbermeghna) [facility]....[phone] [id number] (Haley Short) [facility]....[phone] (Maura Grissom) [facility] Diabetes education [phone] 07/17/2016 08:58:45 Plan printed and provided to [...] support/Move your body/Think positive/Be good to yourself/ [place] [employer] Educators....7 behaviors for diabetes self m anagement. PROVIDED HM: DPP Given: Maura Manley....[phone] [facility]...[phone] ( Anita Frye) [facility]....[phone] [id number] (Haley Short) [facility]....[phone] (Maura Grissom) [facility] Diabetes education [phone] 06/05/2016 09:32:15 Plan printed and provided to [...] daily, # 30, RF: 5. (Transmitted by Ampaor Pérez DO) PRESCRIBE: ALPRAZolam 0.5 mg oral tablet, one or one half po qid prn anxiety MDD4, # 120, RF: 0. PROVIDED VACCINATION: 1 dose of Fluvirin, 0.5 mL IM in the Left Deltoid (Mfg: OT HER lot no. [id number], expires 11/13/2016) PPD .1 intradermal [id number] 03/13/2016 10:04:03 Plan printed and provided to [...] Left Deltoid (Mfg: OT HER lot no. [id number], expires 11/13/2016) PPD .1 intradermal [id number] 03/13/2016 10:04:03 Plan printed and provided to [...] Left Deltoid (Mfg: OT HER lot no. [id number], expires 11/13/2016) PPD .1 intradermal [id number] 01/31/2016 08:59:31 Plan printed and provided to [...] RF: 5. (Transmitted by Amparo Pérez, ) DISCONTINUE: Augmentin 875 mg-125 mg oral tablet [...] 60, RF: 0. PPD .1ml Left forearm [id number] Exp 10/13 implanted The following text was added by Alex Pérez, [facility], [place] on Tuesday November 04, 2014 12:00 PM: [...] 5. (Transmitted by Amparo Pérez DO) PRESCRIBE: Vitamin D3 2000 intl units oral [...] 530.11, 714.0, 401.9) ORDERED/ADVISED: - Blood Draw [employer] site consulted prior to scheduled drug prescription. 12/13/2013 09:01:43 Instructions printed and provided to patient: PRESCRIBE: Xanax 0.25 mg oral tablet, One or two tablets po qid prn anxiety MDD #6, # 180, RF: 0. PRESCRIBE: Vicodin 5 mg-500 mg oral tablet, one or two po daily prn pain, # 60, RF: 0. [employer] site consulted prior to scheduled drug prescription. ORDERED/ADVISED: - Urine for cytology (x3) ICD9 Codes (599.72) ORDERED/ADVISED: - Ultrasound, kidneys and bladder ICD9 Codes (599.72) .1 ml sq left forearm Lot [id number] Exp 11/11 PPD ORDERED/ADVISED: - Ultrasound, kidneys [...] daily prn pain, # 60, RF: 0. [employer] site consulted prior to scheduled drug prescription. [...] daily prn pain, # 60, RF: 0. [employer] site consulted prior to scheduled drug prescription. 05/17/2013 10:00:23 Instructions printed and provided to patient: PRESCRIBE: Vicodin 5 mg-500 mg oral tablet, one or two po daily prn pain, # 60, RF: 0. PRESCRIBE: XANAX TABLETS 0.25 MG, One tablet po qid prn anxiety MDD #4, # 120, RF: NONE. [employer] site consulted prior to scheduled drug prescription. [...] ml IM in the L DELTOID (Mfg: L lot no. [id number], expires 12/17/2013) [employer] site consulted prior to scheduled drug prescription. 02/08/2013 11:26:02 Instructions printed and provided to patient: PRESCRIBE: XANAX TABLETS 0.25 MG, One tablet po qid prn anxiety MDD #4, # 120, RF: NONE. PRESCRIBE: Vicodin 5 mg-500 mg oral tablet, one or two po daily prn pain, # 60, RF: 0. 12/14/2012 10:21:27 Instructions printed and provided to patient: [id number] .1 ml left forearm exp 12/11 sanofi [...] the L DELTOID (Mfg: NOVARTIS lot no. [id number], expires 12/18/2012) 02/03/2012 08:29:20 Instructions printed and provided to patient: PRESCRIBE: Zostavax subcutaneous injection, one dose now, # 1, RF: 0. PRESCRIBE: metoprolol succinate 100 mg oral tablet, extended release, one po daily, # 30, RF: 5. (Transmitted by Amparo Pérez, ) PRESCRIBE: Lipitor 40 mg oral tablet, one po daily, # 30, RF: 5. (Transmitted by Amparo Pérez, ) PRESCRIBE: XANAX TABLETS 0.25 MG, One tablet [...] # 120, RF: NONE. PPD planted left [id number] .1ml 10/25/2011 12:22:42 PRESCRIBE: XANAX TABLETS 0.25 MG, One tablet po qid prn anxiety MDD #4, # 120, RF: NONE. 07/24/2011 11:25:11 Instructions printed and provided to patient: PRESCRIBE: XANAX TABLETS 0.25 MG, One tablet po qid prn anxiety MDD #4, # 120, RF: NONE. PRESCRIBE: Denavir 1% topical cream, use as directed prn, # 1, RF: 5. (Transmitted by Amparo Pérez, ) PRESCRIBE: VALTREX CAPLETS 1 GM, two po now then one bid for 12 hours, # 4, RF: 5. (Transmitted by Amparo Pérez, ) PRESCRIBE: Prozac 20 mg oral capsule, one po daily, # 30, RF: 5. (Transmitted by Amparo Pérez, ) PRESCRIBE: metoprolol succinate 100 mg oral tablet, extended release, one po daily, # 30, RF: 5. (Transmitted by Amparo Pérez DO) PRESCRIBE: Lipitor 40 mg oral tablet, one po daily, # 30, RF: 5. (Transmitted by Amparo Pérez DO) PROVIDED HM: Aspirin for the Primary [...] Ears irrigated. 09/05/2010 09:43:38 PPD planted left forearm,[id number] Exp 09/08 The following text was added by Alex Pérez [facility], [place] on 09/07/2010 3:45:36 PM: PPD [...] ml IM in the Left deltoid (Mfg: [employer] lot no. [id number], expires 12/27/2009) 04/14/2009 10:58:27 PRESCRIBE: Toprol XL [...]
--- OUTSIDE RECORDS SUMMARY | 2020-07-11 09:08 | CCD ---
Author Author [facility] Organization [facility] Address Unknown Phone Unavailable Care Team Providers Care Comic Writer Name Role Phone GRAHAM GRAY MD Unavailable Unavailable GRAHAM GRAY MD Unavailable Unavailable GRAHAM GRAY MD Unavailable Unavailable GRAHAM GRAY MD Unavailable Unavailable GRAHAM GRAY MD Unavailable Unavailable GRAHAM GRAY MD Unavailable Unavailable GRAHAM GRAY MD Unavailable Unavailable GRAHAM GRAY MD Unavailable Unavailable GRAHAM GRAY MD Unavailable Unavailable GRAHAM GRAY MD Unavailable Unavailable GRAHAM GRAY MD Unavailable Unavailable GRAHAM GRAY MD Unavailable Unavailable GRAHAM GRAY MD Unavailable Unavailable GRAHAM GRAY MD Unavailable Unavailable GRAHAM GRAY MD Unavailable Unavailable GRAHAM GRAY MD Unavailable Unavailable GRAHAM GRAY MD Unavailable Unavailable GRAHAM GRAY MD Unavailable Unavailable GRAHAM GRAY MD Unavailable Unavailable GRAHAM GRAY MD Unavailable Unavailable GRAHAM GRAY MD Unavailable Unavailable GRAHAM GRAY MD Unavailable Unavailable GRAHAM GRAY MD Unavailable Unavailable GRAHAM GRAY MD Unavailable Unavailable GRAHAM GRAY MD Unavailable Unavailable GRAHAM GRAY MD Unavailable Unavailable GRAHAM GRAY MD Unavailable Unavailable GRAHAM GRAY MD Unavailable Unavailable GRAHAM GRAY MD Unavailable Unavailable GRAHAM GRAY MD Unavailable Unavailable GRAHAM GRAY MD Unavailable Unavailable KHAIRALLAH, RAMZI MD Unavailable Unavailable KHAIRALLAH, RAMZI MD Unavailable Unavailable KHAIRALLAH, RAMZI MD Unavailable Unavailable KHAIRALLAH, RAMZI MD Unavailable Unavailable KHAIRALLAH, RAMZI MD Unavailable Unavailable KHAIRALLAH, RAMZI MD Unavailable Unavailable KHAIRALLAH, RAMZI MD Unavailable Unavailable KHAIRALLAH, RAMZI MD Unavailable Unavailable KHAIRALLAH, RAMZI MD Unavailable Unavailable KHAIRALLAH, RAMZI MD Unavailable Unavailable KHAIRALLAH, RAMZI MD Unavailable Unavailable KHAIRALLAH, RAMZI MD Unavailable Unavailable KHAIRALLAH, RAMZI MD Unavailable Unavailable KHAIRALLAH, RAMZI MD Unavailable Unavailable KHAIRALLAH, RAMZI MD Unavailable Unavailable KHAIRALLAH, RAMZI MD Unavailable Unavailable KHAIRALLAH, RAMZI MD Unavailable Unavailable KHAIRALLAH, RAMZI MD Unavailable Unavailable KHAIRALLAH, RAMZI MD Unavailable Unavailable KHAIRALLAH, RAMZI MD Unavailable Unavailable KHAIRALLAH, RAMZI MD Unavailable Unavailable KHAIRALLAH, RAMZI MD Unavailable Unavailable KHAIRALLAH, RAMZI MD Unavailable Unavailable KHAIRALLAH, RAMZI MD Unavailable Unavailable KHAIRALLAH, RAMZI MD Unavailable Unavailable KHAIRALLAH, RAMZI MD Unavailable Unavailable KHAIRALLAH, RAMZI MD Unavailable Unavailable KHAIRALLAH, RAMZI MD Unavailable Unavailable KHAIRALLAH, RAMZI MD Unavailable Unavailable KHAIRALLAH, RAMZI MD Unavailable Unavailable KHAIRALLAH, RAMZI MD Unavailable Unavailable KHAIRALLAH, RAMZI MD Unavailable Unavailable KHAIRALLAH, RAMZI MD Unavailable Unavailable KHAIRALLAH, RAMZI MD Unavailable Unavailable KHAIRALLAH, RAMZI MD Unavailable Unavailable KHAIRALLAH, RAMZI MD Unavailable Unavailable KHAIRALLAH, RAMZI MD Unavailable Unavailable KHAIRALLAH, RAMZI MD Unavailable Unavailable KHAIRALLAH, RAMZI MD Unavailable Unavailable KHAIRALLAH, RAMZI MD Unavailable Unavailable KHAIRALLAH, RAMZI MD Unavailable Unavailable KHAIRALLAH, RAMZI MD Unavailable Unavailable KHAIRALLAH, RAMZI MD Unavailable Unavailable KHAIRALLAH, RAMZI MD Unavailable Unavailable KHAIRALLAH, RAMZI MD Unavailable Unavailable KHAIRALLAH, RAMZI MD Unavailable Unavailable KHAIRALLAH, RAMZI MD Unavailable Unavailable KHAIRALLAH, RAMZI MD Unavailable Unavailable KHAIRALLAH, RAMZI MD Unavailable Unavailable KHAIRALLAH, RAMZI MD Unavailable Unavailable KHAIRALLAH, RAMZI MD Unavailable Unavailable KHAIRALLAHGRAHAM MD Unavailable Unavailable KHALLAH, GRAHAM SRINIVASAN Unavailable Unavailable KHALLAHGRAHAM MD Unavailable Unavailable ANDREEA, A CARLOS DO Unavailable Unavailable ANDREEA, A CARLOS DO Unavailable Unavailable ANDREEA, A CARLOS DO Unavailable Unavailable ANDREEA, A CARLOS DO Unavailable Unavailable ANDREEA, A CARLOS DO Unavailable Unavailable ANDREEA, A CARLOS DO Unavailable Unavailable ANDREEA, A CARLOS DO Unavailable Unavailable ANDREEA, A CARLOS DO Unavailable Unavailable ANDREEA, A CARLOS DO Unavailable Unavailable ANDREEA, A CARLOS DO Unavailable Unavailable ANDREEA, A CARLOS DO Unavailable Unavailable ANDREEA, A CARLOS DO Unavailable Unavailable ANDREEA, A CARLOS DO Unavailable Unavailable ANDREEA, A CARLOS DO Unavailable Unavailable ANDREEA, A CARLOS DO Unavailable Unavailable ANDREEA, A CARLOS DO Unavailable Unavailable ANDREEA, A CARLOS DO Unavailable Unavailable ANDREEA, A CARLOS DO Unavailable Unavailable ANDREEA, A CARLOS DO Unavailable Unavailable ANDREEA, A CARLOS DO Unavailable Unavailable ANDREEA, A CARLOS DO Unavailable Unavailable ANDREEA, A CARLOS DO Unavailable Unavailable ANDREEA, A CARLOS DO Unavailable Unavailable ANDREEA, A CARLOS DO Unavailable Unavailable ANDREEA, A CARLOS DO Unavailable Unavailable ANDREEA, A CARLOS DO Unavailable Unavailable ANDREEA, A CARLOS DO Unavailable Unavailable ANDREEA, A CARLOS DO Unavailable Unavailable ANDREEA, A CARLOS DO Unavailable Unavailable NADREEA, A CARLOS DO Unavailable Unavailable ANDREEA, A CARLOS DO Unavailable Unavailable ANDREEA, A CARLOS DO Unavailable Unavailable ANDREEA, A CARLOS DO Unavailable Unavailable ANDREEA, A CARLOS DO Unavailable Unavailable ANDREEA, A CARLOS DO Unavailable Unavailable ANDREEA, A CARLOS DO Unavailable Unavailable ANDREEA, A CARLOS DO Unavailable Unavailable ANDREEA, A CARLOS DO Unavailable Unavailable ANDREEA, A CARLOS DO Unavailable Unavailable ANDREEA, A CARLOS DO Unavailable Unavailable ANDREEA, A CARLOS DO Unavailable Unavailable ANDREEA, A CARLOS DO Unavailable Unavailable ANDREEA, A CARLOS DO Unavailable Unavailable ANDREEA, A CARLOS DO Unavailable Unavailable ANDREEA, A CARLOS DO Unavailable Unavailable ANDREEA, A CARLOS DO Unavailable Unavailable ANDREEA, A CARLOS DO Unavailable Unavailable ANDREEA, A CARLOS DO Unavailable Unavailable ANDREEA, A CARLOS DO Unavailable Unavailable ANDREEA, A CARLOS DO Unavailable Unavailable ANDREEA, A CARLOS DO Unavailable Unavailable ANDREEA, A CARLOS DO Unavailable Unavailable ANDREEA, A CARLOS DO Unavailable Unavailable ANDREEA, A CARLOS DO Unavailable Unavailable ANDREEA, A CARLOS DO Unavailable Unavailable ANDREEA, A CARLOS DO Unavailable Unavailable ANDREEA, A CARLOS DO Unavailable Unavailable ANDREEA, A CARLOS DO Unavailable Unavailable ANDREEA, A CARLOS DO Unavailable Unavailable ANDREEA, A CARLOS DO Unavailable Unavailable ANDREEA, A CARLOS DO Unavailable Unavailable ANDREEA, A CARLOS DO Unavailable Unavailable ANDREEA, A CARLOS DO Unavailable Unavailable Cochran, America RPA-C Unavailable Unavailable Koby, America RPA-C Unavailable Unavailable Cochran, America RPA-C Unavailable Unavailable Koby, America RPA-C Unavailable Unavailable Cochran, America RPA-C Unavailable Unavailable Cochran, America RPA-C Unavailable Unavailable Koby, America RPA-C Unavailable Unavailable Koby, America RPA-C Unavailable Unavailable Koby, America RPA-C Unavailable Unavailable Koby, America RPA-C Unavailable Unavailable Cochran, September RPA-C Unavailable Unavailable Cochran, September RPA-C Unavailable Unavailable Cochran, September RPA-C Unavailable Unavailable Cochran, September RPA-C Unavailable Unavailable Koby, America RPA-C Unavailable Unavailable Koby, America RPA-C Unavailable Unavailable Cochran, America RPA-C Unavailable Unavailable Koby, America RPA-C Unavailable Unavailable Koby, America RPA-C Unavailable Unavailable Koby, America RPA-C Unavailable Unavailable Koby, America RPA-C Unavailable Unavailable Koby, America RPA-C Unavailable Unavailable Cochran, America RPA-C Unavailable Unavailable Koby, America RPA-C Unavailable Unavailable Cochran, America RPA-C Unavailable Unavailable Koby, America RPA-C Unavailable Unavailable Koby, America RPA-C Unavailable Unavailable Koby, America RPA-C Unavailable Unavailable Koby, America RPA-C Unavailable Unavailable Koby, America RPA-C Unavailable Unavailable Cochran, America RPA-C Unavailable Unavailable Koby, America RPA-C Unavailable Unavailable Koby, America RPA-C Unavailable Unavailable Koby, America RPA-C Unavailable Unavailable Koby, America RPA-C Unavailable Unavailable Cochran, America RPA-C Unavailable Unavailable Cochran, America RPA-C Unavailable Unavailable Koby, America RPA-C Unavailable Unavailable Cochran, America RPA-C Unavailable Unavailable Cochran, America RPA-C Unavailable Unavailable Cochran, America RPA-C Unavailable Unavailable Cochran, America RPA-C Unavailable Unavailable Koby, America RPA-C Unavailable Unavailable Cochran, America RPA-C Unavailable Unavailable Cochran, America RPA-C Unavailable Unavailable Koby, America RPA-C Unavailable Unavailable Koby, America RPA-C Unavailable Unavailable Cochran, America RPA-C Unavailable Unavailable Koby, America RPA-C Unavailable Unavailable Koby, America RPA-C Unavailable Unavailable Cochran, America RPA-C Unavailable Unavailable Cochran, America RPA-C Unavailable Unavailable Cochran, America RPA-C Unavailable Unavailable Cochran, America RPA-C Unavailable Unavailable Koby, America RPA-C Unavailable Unavailable Koby, America RPA-C Unavailable Unavailable Cochran, America RPA-C Unavailable Unavailable Koby, America RPA-C Unavailable Unavailable Cochran, America RPA-C Unavailable Unavailable Cochran, America RPA-C Unavailable Unavailable Koby, America RPA-C Unavailable Unavailable Cochran, America RPA-C Unavailable Unavailable Koby, America RPA-C Unavailable Unavailable Koby, America RPA-C Unavailable Unavailable AbdTammie mathew MD Unavailable Unavailable AbdulkyTammie MD Unavailable Unavailable AbdulkyTammie MD Unavailable Unavailable AbdulkyTammie MD Unavailable Unavailable AbdulkyTammie MD Unavailable Unavailable AbdulkyTammie MD Unavailable Unavailable AbdulkyTammie MD Unavailable Unavailable AbdulkyTammie MD Unavailable Unavailable AbdulkyTammie MD Unavailable Unavailable AbdulkyTammie MD Unavailable Unavailable AbdulkyTammie MD Unavailable Unavailable AbdulkyTammie MD Unavailable Unavailable AbdulTammei sam MD Unavailable Unavailable AbdulkyTammei MD Unavailable Unavailable AbdulkyTammie MD Unavailable Unavailable AbdulkyTammie MD Unavailable Unavailable AbdulkyTammie MD Unavailable Unavailable AbdulkyTammie MD Unavailable Unavailable AbdulkyTammie MD Unavailable Unavailable AbdulkyTammie MD Unavailable Unavailable AbdulTammie sam MD Unavailable Unavailable AbdulkyTammie MD Unavailable Unavailable AbdulkyTammie MD Unavailable Unavailable AbdulkyTammie MD Unavailable Unavailable AbdulkyTammie MD Unavailable Unavailable AbdulkyTammie MD Unavailable Unavailable AbdulkyTammie MD Unavailable Unavailable AbdulkyTammie MD Unavailable Unavailable AbdulkyTammie MD Unavailable Unavailable AbdulkyTammie MD Unavailable Unavailable Abdulky, Tammie SRINIVASAN Unavailable Unavailable Abdulky, Tammie SRINIVASAN Unavailable Unavailable AbdulkyTammie MD Unavailable Unavailable Abdulky, Tammie SRINIVASAN Unavailable Unavailable AbdulkyTammie MD Unavailable Unavailable AbdulkyTammie MD Unavailable Unavailable Abdulky, Tammie SRINIVASAN Unavailable Unavailable AbdulkyTammie MD Unavailable Unavailable Abdulky, Tammie SRINIVASAN Unavailable Unavailable Abdulky, Tammie SRINIVASAN Unavailable Unavailable Abdulky, Tammie MD Unavailable Unavailable Abdulky, Tammie MD Unavailable Unavailable Abdulky, Tammie MD Unavailable Unavailable Abdulky, Tammie MD Unavailable Unavailable Abdulky, Tammie MD Unavailable Unavailable Abdulky, Tammie MD Unavailable Unavailable Abdulky, Tammie MD Unavailable Unavailable Abdulky, Tammie MD Unavailable Unavailable Abdulky, Tammie MD Unavailable Unavailable Abdulky, Tammie MD Unavailable Unavailable Abdulky, Tammie MD Unavailable Unavailable Abdulky, Tammie MD Unavailable Unavailable Abdulky, Tammie MD Unavailable Unavailable Abdulky, Tammie MD Unavailable Unavailable Abdulky, Tammie MD Unavailable Unavailable Abdulky, Tammie MD Unavailable Unavailable Abdulky, Tammie MD Unavailable Unavailable Abdulky, Tammie MD Unavailable Unavailable Abdulky, Tammie MD Unavailable Unavailable Abdulky, Tammie MD Unavailable Unavailable Abdulky, Tammie MD Unavailable Unavailable Abdulky, Tammie MD Unavailable Unavailable Abdulky, Tammie MD Unavailable Unavailable Abdulky, Tammie MD Unavailable Unavailable Abdulky, Tammie MD Unavailable Unavailable Abdulky, Tammie MD Unavailable Unavailable Abdulky, Tammie MD Unavailable Unavailable Abdulky, Tammie MD Unavailable Unavailable Abdulky, Tammie MD Unavailable Unavailable Abdulky, Tammie MD Unavailable Unavailable Abdulky, Tammie MD Unavailable Unavailable Abdulky, Tammie MD Unavailable Unavailable Abdulky, Tammie MD Unavailable Unavailable Abdulky, Tammie MD Unavailable Unavailable Abdulky, Tammie MD Unavailable Unavailable Abdulky, Tammie MD Unavailable Unavailable Abdulky, Tammie MD Unavailable Unavailable Abdulky, Tammie MD Unavailable Unavailable Abdulky, Tammie MD Unavailable Unavailable Abdulky, Tammie MD Unavailable Unavailable Abdulky, Tammie MD Unavailable Unavailable Abdulky, Tammie MD Unavailable Unavailable Abdulky, Tammie MD Unavailable Unavailable Abdulky, Tammie MD Unavailable Unavailable Abdulky, Tammie MD Unavailable Unavailable Abdulky, Tammie MD Unavailable Unavailable Abdulky, Tammie MD Unavailable Unavailable Abdulky, Tammie MD Unavailable Unavailable Abdulky, Tammie MD Unavailable Unavailable Abdulky, Tammie MD Unavailable Unavailable Abdulky, Tammie MD Unavailable Unavailable Abdulky, Tammie MD Unavailable Unavailable Abdulky, Tammie MD Unavailable Unavailable Abdulky, Tammie MD Unavailable Unavailable Abdulky, Tammie MD Unavailable Unavailable Abdulky, Tammie MD Unavailable Unavailable Abdulky, Tammie MD Unavailable Unavailable Abdulky, Tammie MD Unavailable Unavailable Machovec, B Anay PA-C Unavailable Unavailable Machovec, B Anay PA-C Unavailable Unavailable Machovec, B Anay PA-C Unavailable Unavailable Machovec, B Anay PA-C Unavailable Unavailable Machovec, B Anay PA-C Unavailable Unavailable Machovec, B Anay PA-C Unavailable Unavailable Machovec, B Anay PA-C Unavailable Unavailable Machovec, B Anay PA-C Unavailable Unavailable Machovec, B Anay PA-C Unavailable Unavailable Machovec, B Anay PA-C Unavailable Unavailable Machovec, B Anay PA-C Unavailable Unavailable Machovec, B Anay PA-C Unavailable Unavailable Machovec, B Anay PA-C Unavailable Unavailable Machovec, B Anay PA-C Unavailable Unavailable Machovec, B Anay PA-C Unavailable Unavailable Machovec, B Anay PA-C Unavailable Unavailable Machovec, B Anay PA-C Unavailable Unavailable Machovec, B Anay PA-C Unavailable Unavailable Machovec, B Anay PA-C Unavailable Unavailable Machovec, B Anay PA-C Unavailable Unavailable Machovec, B Anay PA-C Unavailable Unavailable Machovec, B Anay PA-C Unavailable Unavailable Machovec, B Anay PA-C Unavailable Unavailable Machovec, B Anay PA-C Unavailable Unavailable Machovec, B Anay PA-C Unavailable Unavailable Machovec, B Anay PA-C Unavailable Unavailable Machovec, B Anay PA-C Unavailable Unavailable Machovec, B Anay PA-C Unavailable Unavailable Machovec, B Anay PA-C Unavailable Unavailable Machovec, B Anay PA-C Unavailable Unavailable Machovec, B Anay PA-C Unavailable Unavailable Machovec, B Anay PA-C Unavailable Unavailable Machovec, B Anay PA-C Unavailable Unavailable Machovec, B Anay PA-C Unavailable Unavailable Machovec, B Anay PA-C Unavailable Unavailable Machovec, B Anay PA-C Unavailable Unavailable Machovec, B Anay PA-C Unavailable Unavailable Machovec, B Anay PA-C Unavailable Unavailable Machovec, B Anay PA-C Unavailable Unavailable Machovec, B Anay PA-C Unavailable Unavailable Machovec, B Anay PA-C Unavailable Unavailable Machovec, B Anay PA-C Unavailable Unavailable Machovec, B Anay PA-C Unavailable Unavailable Machovec, B Anay PA-C Unavailable Unavailable Machovec, B Anay PA-C Unavailable Unavailable Machovec, B Anay PA-C Unavailable Unavailable Machovec, B Anay PA-C Unavailable Unavailable Machovec, B Anay PA-C Unavailable Unavailable Machovec, B Anay PA-C Unavailable Unavailable Machovec, B Anay PA-C Unavailable Unavailable Re-disclosure Warning The records that you are about to access may contain information from federally-assisted alcohol or drug abuse programs. If such information is present, then the following federally mandated warning applies: This information has been disclosed to you from records protected by federal confidentiality rules (42 CFR part 2). The federal rules prohibit you from making any further disclosure of this information unless further disclosure is expressly permitted by the written consent of the person to whom it pertains or as otherwise permitted by 42 CFR part 2. A general authorization for the release of medical or other information is NOT sufficient for this purpose. The Federal rules restrict any use of the information to criminally investigate or prosecute any alcohol or drug abuse patient.The records that you are about to access may contain highly sensitive health information, the redisclosure of which is protected by Article 27-F of the [facility] Public Health law. If you continue you may have access to information: Regarding HIV / AIDS; Provided by facilities licensed or operated by the [facility] Office of Mental Health; or Provided by the [facility] Office for People With Developmental Disabilities. If such information is present, then the following [facility] mandated warning applies: This information has been disclosed to you from confidential records which are protected by state law. State law prohibits you from making any further disclosure of this information without the specific written consent of the person to whom it pertains, or as otherwise permitted by law. Any unauthorized further disclosure in violation of state law may result in a fine or fci sentence or both. A general authorization for the release of medical or other information is NOT sufficient authorization for further disc losure. Family History Family Member Name Family Member Gender Family Member Status Date o f Status Description Data Source(s) Unknown Male Problem (finding) 09/17/2017 12:00:00 AM EDT [facility] ([facility]) Unknown Unknown Problem [facility] ([facility]) Unknown Male Problem [facility] ([facility]) Unknown Female Problem MEDENT ([facility] ) Encounters Encounter Providers Location Date Indications Data Source(s ) OutpatientOFFICE/OUTPATIENT VISIT, EST Attender: Anay Fontaine PA-C [facility] 06/20/2020 10:23:00 AM EST - 06/20/2020 10:23:00 AM ES T Other detention (current) drug therapyRheumatoid arthritis with rheumatoid factor of multiple sites without organ or systems involvement [facility] ([facility]) Other detention (current) drug therapy Rheumatoid arthritis with rheumatoid fac tor of multiple sites without organ or systems involvement [facility] 10:00:00 AM EST - 05/29/2020 10:00:00 AM EST Rheu arthritis w rheu factor mult site w /o org/sys involv [facility] ([facility]) Rheu arthritis w rheu factor mult site w /o org/sys involv Attender: [facility] 04/03/2020 10:00:00 AM EDT - 04/03/2020 10:00:00 AM EDT Rheu arthritis w rheu factor mult site w /o org/sys involv [facility] ([facility]) Rheu arthritis w rheu factor mult site w /o org/sys involv OutpatientOFFICE/OUTPATIENT VISIT, EST Attender: Anay Fontaine PA-C [facility] 03/23/2020 10:00:00 AM EDT - 03/23/2020 10:00:00 AM ED T Other detention (current) drug therapyRheu arthritis w rheu factor mult site w/o org/sys involv [facility] ([facility]) Other detention (current) drug therapy Rheu arthritis w rheu factor mult site w /o org/sys involv Attender: [facility]ala [facility] 02/07/2020 10:00:00 AM EDT - 02/07/2020 10:00:00 AM EDT Rheu arthritis w rheu factor mult site w /o org/sys involv [facility] ([facility]) Rheu arthritis w rheu factor mult site w /o org/sys involv Attender: GRAHAM GRAY MD [facility] 02/03/2020 09:10:00 AM EDT - 02/03/2020 09:10:00 AM EDT [facility] ( [facility]) OutpatientOFFICE/OUTPATIENT VISIT, EST Attender: [facility] 12/21/2019 10:00:00 AM EDT - 12/21/2019 10:00:00 AM EDT 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 animal 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 (current) drug therapyRh eu arthritis w rheu factor mult site w/o org/sys involv [facility] ([facility]) Other detention (current) drug therapy Rheu arthritis w rheu factor mult site w /o org/sys involv Attender: [facility]RAHAM [facility]RAY [facility] 10:00:00 AM EDT - 12/13/2019 10:00:00 AM EDT Rheu arthritis w rheu factor mult site w/o org/sys involv [facility] ([facility]) Rheu arthritis w rheu factor mult site w /o org/sys involv Attender: [facility] 12/08/2019 03:39:00 PM EDT - 12/08/2019 03:39:00 PM EDT [facility] ( [facility]) Attender: GRAHAM GRAY MD [facility] 10/18/2019 10:00:00 AM EDT - 10/18/2019 10:00:00 AM EDT Rheu arthritis w rheu factor mult site w/o org/sys involv [facility] ([facility]) Rheu arthritis w rheu factor mult site w /o org/sys involv Attender: GRAHAM GRAY MD [facility] 10/14/2019 01:22:00 PM EDT - 10/14/2019 01:22:00 PM EDT [facility] ( [facility]) OutpatientOFFICE/OUTPATIENT VISIT, EST Attender: [facility] 09/21/2019 10:00:00 AM EDT - 09/21/2019 10:00:00 AM EDT 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 animal 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 (current) drug therapyRh eu arthritis w rheu factor mult site w/o org/sys involv [facility] ([facility]) Other detention (current) drug therapy Rheu arthritis w rheu factor mult site w /o org/sys involv 09/06/2019 12:41:00 PM EDT - 020 12:41:00 PM EDT [facility] ([facility]) Attender: GRAHAM GRAY MD [facility] 08/23/2019 10:00:00 AM EST - 08/23/2019 10:00:00 AM EST Rheu arthritis w rheu factor mult site w/o org/sys involv [facility] ([facility]) Rheu arthritis w rheu factor mult site w /o org/sys involv Attender: [facility]RAY [facility] 08/18/2019 10:06:00 AM EST - 08/18/2019 10:06:00 AM EST [facility] ( [facility]) Attender: [facility]RAHAM GRAY [facility] 06/28/2019 12:40:00 PM EST - 06/28/2019 12:40:00 PM EST Rheu arthritis w rheu factor mult site w/o org/sys involv [facility] ([facility]) Rheu arthritis w rheu factor mult site w /o org/sys involv OutpatientOFFICE/OUTPATIENT VISIT, EST Attender: Anay Fontaine PA-C [facility] 06/21/2019 03:20:00 PM EST - 06/21/2019 03:20:00 PM ES T 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 animal 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 (current) drug therapyRheu arthritis w rheu factor mult site w/o org/sys involv [facility] ([facility]) Other detention (current) drug therapy Rheu arthritis w rheu factor mult site w /o org/sys involv Attender: America GAO [facility] 06/11/2019 10:16:00 AM EST - 06/11/2019 10:16:00 AM EST [facility] ( [facility]) Outpatient Attender: CARLOS Salaserrer: CARLOS DORAN DO EMERGENCY ROOM-LABOTHPROV 04/26/2019 09:43:00 AM EDT - 04/26/2019 09:43:00 AM EDT [facility] Immunizations Vaccine Date Status Description Data Source(s) pneumococcal polysaccharide PPV23 03/21/2020 12:00:00 AM EDT com pleted Pneumo (2 yrs or older) (PPV23) [facility] ([facility]) Source: Other Provider Influenza, injectable, MDCK, preservative free, irais valent 03/21/2020 12:00:00 AM EDT completed Flucelvax [facility]Gen ([facility]) Source: Other Provider Medications Medication Brand Name Start Date Product Form Dose Route Admi nistrative Instructions Pharmacy Instructions Status Indications Reaction Description Data Source(s) 17.5-3.13-1.6 gram 07/04/2020 12:00:00 AM EST recon soln 354 TAKE PER DOCTOR'S BOWEL PREP INSTRUCTIONS TAKE PER DOCTOR'S BOWEL PREP INSTRUCTIONS SOLD: 07/07/2020 [facility] 5-325 mg 06/26/2020 12:00:00 AM EST tablet 45 TAKE ONE TO TWO TABLETS BY MOUTH FOUR TIMES A DAY NEEDED FOR PAIN MAX=8TABS/DAY TAKE ONE TO TWO TABLETS BY MOUTH FOUR TIMES A DAY NEEDED FOR PAIN MAX=8TABS/DAY SOLD: 06/27/2020 [facility] Alprazolam 0.5 MG Oral Tablet ALPRAZOLAM 06/26/2020 12:00:00 AM EST t ablet 120 TAKE 1/2 OR 1 TABLET BY MOUTH FOUR TIMES A DAY NEEDED FOR ANXIETY MAX=4TABS/DAY TAKE 1/2 OR 1 TABLET BY MOUTH FOUR TIMES A DAY NEEDED FOR ANXIETY MAX=4TABS/DAY SOLD: 06/27/2020 [facility] Alprazolam 0.5 MG Oral Tablet ALPRAZOLAM 05/26/2020 12:00:00 AM EST t ablet 120 TAKE 1 & 1/2 TABLETS BY MOUTH FOUR TIMES A DAY NEEDED FOR ANXIETY MAXIMUM DAILY DOSE = 4 TABLETS TAKE 1 & 1/2 TABLETS BY MOUTH FOUR TIMES A DAY NEEDED FOR ANXIETY MAXIMUM DAILY DOSE = 4 TABLETS SOLD: 05/27/2020 [facility] 25 mg 04/26/2020 12:00:00 AM EDT tablet 30 TAKE ONE TABLET BY MOUTH DAILY TAKE ONE TABLET BY MOUTH DAILY SOLD: 04/27/2020 [facility] 30 mg 04/26/2020 12:00:00 AM EDT tablet 30 TAKE ONE TABLET BY MOUTH AT BEDTIME TAKE ONE TABLET BY MOUTH AT BEDTIME SOLD: 06/25/2020 [facility] 100 mg 04/26/2020 12:00:00 AM EDT tablet extended release 24 hr 30 TAKE ONE TABLET BY MOUTH DAILY TAKE ONE TABLET BY MOUTH DAILY SOLD: 06/25/2020 [facility] 5-325 mg 04/26/2020 12:00:00 AM EDT tablet 45 TAKE 1-2 TABLETS BY MOUTH FOUR TIMES A DAY MAXIMUM DAILY DOSE = 8 TABLETS TAKE 1-2 TABLETS BY MOUTH FOUR TIMES A DAY MAXIMUM DAILY DOSE = 8 TABLETS SOLD: 04/27/2020 [facility] 30 mg 04/26/2020 12:00:00 AM EDT tablet 30 TAKE ONE TABLET BY MOUTH AT BEDTIME TAKE ONE TABLET BY MOUTH AT BEDTIME SOLD: 04/27/2020 [facility] 30 mg 04/26/2020 12:00:00 AM EDT tablet 30 TAKE ONE TABLET BY MOUTH AT BEDTIME TAKE ONE TABLET BY MOUTH AT BEDTIME SOLD: 05/27/2020 [facility] 100 mg 04/26/2020 12:00:00 AM EDT tablet extended release 24 hr 30 TAKE ONE TABLET BY MOUTH DAILY TAKE ONE TABLET BY MOUTH DAILY SOLD: 04/27/2020 [facility] Alprazolam 0.5 MG Oral Tablet ALPRAZOLAM 04/26/2020 12:00:00 AM EDT t ablet 120 TAKE 1/2 TO 1 TABLET BY MOUTH FOUR TIMES A DAY NEEDED ANXIETY MAXIMUM DAILY DOSE = 4 TABLETS TAKE 1/2 TO 1 TABLET BY MOUTH FOUR TIMES A DAY NEEDED ANXIETY MAXIMUM DAILY DOSE = 4 TABLETS SOLD: 04/27/2020 [facility] 100 mg 04/26/2020 12:00:00 AM EDT tablet extended release 24 hr 30 TAKE ONE TABLET BY MOUTH DAILY TAKE ONE TABLET BY MOUTH DAILY SOLD: 05/27/2020 [facility] 25 mg 04/26/2020 12:00:00 AM EDT tablet 30 TAKE ONE TABLET BY MOUTH DAILY TAKE ONE TABLET BY MOUTH DAILY SOLD: 05/27/2020 [facility] atorvastatin 40 MG Oral Tablet ATORVASTATIN CALCIUM 04/26/2020 1 2:00:00 AM EDT tablet 30 TAKE ONE TABLET BY MOUTH DAILY TAKE ONE T ABLET BY MOUTH DAILY SOLD: 06/25/2020 [facility] atorvastatin 40 MG Oral Tablet ATORVASTATIN CALCIUM 04/26/2020 1 2:00:00 AM EDT tablet 30 TAKE ONE TABLET BY MOUTH DAILY TAKE ONE T ABLET BY MOUTH DAILY SOLD: 05/27/2020 [facility] atorvastatin 40 MG Oral Tablet ATORVASTATIN CALCIUM 04/26/2020 1 2:00:00 AM EDT tablet 30 TAKE ONE TABLET BY MOUTH DAILY TAKE ONE T ABLET BY MOUTH DAILY SOLD: 04/27/2020 [facility] Alprazolam 0.5 MG Oral Tablet ALPRAZOLAM 03/28/2020 12:00:00 AM EDT t ablet 120 TAKE ONE OR ONE HALF TABLET BY MOUTH FOU R TIMES DAILY NEEDED FOR ANXIETY MAXIMUM DAILY DOSE = FOUR TABLETS TAKE ONE OR ONE HALF TABLET BY MOUTH FOU R TIMES DAILY NEEDED FOR ANXIETY MAXIMUM DAILY DOSE = FOUR TABLETS SOLD: 03/28/2020 [facility] Alprazolam 0.5 MG Oral Tablet ALPRAZOLAM 02/25/2020 12:00:00 AM EDT t ablet 120 TAKE 1/2 OR 1 TABLET BY MOUTH FOUR TIMES A DAY NEEDED FOR ANXIETY MAX=4TABS/DAY TAKE 1/2 OR 1 TABLET BY MOUTH FOUR TIMES A DAY NEEDED FOR ANXIETY MAX=4TABS/DAY SOLD: 02/26/2020 [facility] 5-325 mg 02/25/2020 12:00:00 AM EDT tablet 45 TAKE ONE TO TWO TABLETS BY MOUTH FOUR TIMES A DAY NEEDED FOR PAIN MAX=8TABS/DAY TAKE ONE TO TWO TABLETS BY MOUTH FOUR TIMES A DAY NEEDED FOR PAIN MAX=8TABS/DAY SOLD: 02/26/2020 [facility] Alprazolam 0.5 MG Oral Tablet ALPRAZOLAM 01/26/2020 12:00:00 AM EDT t ablet 120 TAKE 1/2 - 1 TABLET BY MOUTH FOUR TIMES A DAY NEEDED FOR ANXIETY MAX=4TABS/DAY TAKE 1/2 - 1 TABLET BY MOUTH FOUR TIMES A DAY NEEDED FOR ANXIETY MAX=4TABS/DAY SOLD: 01/27/2020 [facility] 5-325 mg 12/27/2019 12:00:00 AM EDT tablet 45 TAKE ONE TO TWO TABLETS BY MOUTH FOUR TIMES A DAY NEEDED FOR PAIN MAXIMUM DAILY DOSE = 8 TABLETS TAKE ONE TO TWO TABLETS BY MOUTH FOUR TIMES A DAY NEEDED FOR PAIN MAXIMUM DAILY DOSE = 8 TABLETS SOLD: 12/28/2019 [facility] Alprazolam 0.5 MG Oral Tablet ALPRAZOLAM 12/27/2019 12:00:00 AM EDT t ablet 120 TAKE 1/2 OR 1 TABLET BY MOUTH FOUR TIMES A DAY NEEDED FOR ANXIETY MAXIMUM DAILY DOSE = 4 TABLETS TAKE 1/2 OR 1 TABLET BY MOUTH FOUR TIMES A DAY NEEDED FOR ANXIETY MAXIMUM DAILY DOSE = 4 TABLETS SOLD: 12/28/2019 [facility] infliximab 100 MG Injection [Remicade] Remicade 100 mg intravenous solution Remicade 100 mg intravenous solution 12/13/2019 12:00:00 AM EDT 800 mg INTRAVENOUS active infliximab 100 MG Injection [Remicade] [facility] ([facility]) Alprazolam 0.5 MG Oral Tablet ALPRAZOLAM 11/26/2019 12:00:00 AM EDT t ablet 120 TAKE 1/2 - 1 TABLET BY MOUTH FOUR TIMES A DAY NEEDED FOR ANXIETY MAXIMUM DAILY DOSE = 4 TABLETS TAKE 1/2 - 1 TABLET BY MOUTH FOUR TIMES A DAY NEEDED FOR ANXIETY MAXIMUM DAILY DOSE = 4 TABLETS SOLD: 11/27/2019 [facility] 30 mg 10/28/2019 12:00:00 AM EDT tablet 30 TAKE ONE TABLET BY MOUTH AT BEDTIME TAKE ONE TABLET BY MOUTH AT BEDTIME SOLD: 10/29/2019 [facility] 30 mg 10/28/2019 12:00:00 AM EDT tablet 30 TAKE ONE TABLET BY MOUTH AT BEDTIME TAKE ONE TABLET BY MOUTH AT BEDTIME SOLD: 03/25/2020 [facility] Mirtazapine 30 MG Oral Tablet MIRTAZAPINE 10/28/2019 12:00:00 AM EDT tablet 30 TAKE ONE TABLET BY MOUTH AT BEDTIME TAKE ONE TABLET BY MOUTH AT BEDTIME SOLD: 11/25/2019 [facility] 30 mg 10/28/2019 12:00:00 AM EDT tablet 30 TAKE ONE TABLET BY MOUTH AT BEDTIME TAKE ONE TABLET BY MOUTH AT BEDTIME SOLD: 12/25/2019 [facility] 30 mg 10/28/2019 12:00:00 AM EDT tablet 30 TAKE ONE TABLET BY MOUTH AT BEDTIME TAKE ONE TABLET BY MOUTH AT BEDTIME SOLD: 01/24/2020 [facility] 30 mg 10/28/2019 12:00:00 AM EDT tablet 30 TAKE ONE TABLET BY MOUTH AT BEDTIME TAKE ONE TABLET BY MOUTH AT BEDTIME SOLD: 02/23/2020 [facility] 100 mg 10/27/2019 12:00:00 AM EDT tablet extended release 24 hr 30 TAKE ONE TABLET BY MOUTH EVERY DAY TAKE ONE TABLET BY MOUTH EVERY DAY SOLD: 12/25/2019 [facility] Alprazolam 0.5 MG Oral Tablet ALPRAZOLAM 10/27/2019 12:00:00 AM EDT t ablet 120 TAKE 1/2 TO ONE TABLET BY MOUTH FOUR CAREN ES A DAY NEEDED ANXIETY MAXIMUM DAILY DOSE = 4 TABLETS TAKE 1/2 TO ONE TABLET BY MOUTH FOUR CAREN ES A DAY NEEDED ANXIETY MAXIMUM DAILY DOSE = 4 TABLETS SOLD: 10/28/2019 [facility] atorvastatin 40 MG Oral Tablet ATORVASTATIN CALCIUM 10/27/2019 1 2:00:00 AM EDT tablet 30 TAKE ONE TABLET BY MOUTH EVERY D AY TAKE ONE TABLET BY MOUTH EVERY DAY SOLD: 03/25/2020 [facility] 25 mg 10/27/2019 12:00:00 AM EDT tablet 30 TAKE ONE TABLET BY MOUTH EVERY DAY TAKE ONE TABLET BY MOUTH EVERY DAY SOLD: 10/28/2019 [facility] 40 mg 10/27/2019 12:00:00 AM EDT tablet 30 TAKE ONE TABLET BY MOUTH EVERY DAY TAKE ONE TABLET BY MOUTH EVERY DAY SOLD: 10/28/2019 [facility] 100 mg 10/27/2019 12:00:00 AM EDT tablet extended release 24 hr 30 TAKE ONE TABLET BY MOUTH EVERY DAY TAKE ONE TABLET BY MOUTH EVERY DAY SOLD: 01/24/2020 [facility] 25 mg 10/27/2019 12:00:00 AM EDT tablet 30 TAKE ONE TABLET BY MOUTH EVERY DAY TAKE ONE TABLET BY MOUTH EVERY DAY SOLD: 03/25/2020 [facility] 100 mg 10/27/2019 12:00:00 AM EDT tablet extended release 24 hr 30 TAKE ONE TABLET BY MOUTH EVERY DAY TAKE ONE TABLET BY MOUTH EVERY DAY SOLD: 02/23/2020 [facility] atorvastatin 40 MG Oral Tablet ATORVASTATIN CALCIUM 10/27/2019 1 2:00:00 AM EDT tablet 30 TAKE ONE TABLET BY MOUTH EVERY D AY TAKE ONE TABLET BY MOUTH EVERY DAY SOLD: 02/23/2020 [facility] 40 mg 10/27/2019 12:00:00 AM EDT tablet 30 TAKE ONE TABLET BY MOUTH EVERY DAY TAKE ONE TABLET BY MOUTH EVERY DAY SOLD: 11/25/2019 [facility] 100 mg 10/27/2019 12:00:00 AM EDT tablet extended release 24 hr 30 TAKE ONE TABLET BY MOUTH EVERY DAY TAKE ONE TABLET BY MOUTH EVERY DAY SOLD: 03/25/2020 [facility] atorvastatin 40 MG Oral Tablet ATORVASTATIN CALCIUM 10/27/2019 1 2:00:00 AM EDT tablet 30 TAKE ONE TABLET BY MOUTH EVERY D AY TAKE ONE TABLET BY MOUTH EVERY DAY SOLD: 12/25/2019 [facility] 25 mg 10/27/2019 12:00:00 AM EDT tablet 30 TAKE ONE TABLET BY MOUTH EVERY DAY TAKE ONE TABLET BY MOUTH EVERY DAY SOLD: 12/25/2019 [facility] 25 mg 10/27/2019 12:00:00 AM EDT tablet 30 TAKE ONE TABLET BY MOUTH EVERY DAY TAKE ONE TABLET BY MOUTH EVERY DAY SOLD: 11/25/2019 [facility] atorvastatin 40 MG Oral Tablet ATORVASTATIN CALCIUM 10/27/2019 1 2:00:00 AM EDT tablet 30 TAKE ONE TABLET BY MOUTH EVERY D AY TAKE ONE TABLET BY MOUTH EVERY DAY SOLD: 01/24/2020 [facility] 25 mg 10/27/2019 12:00:00 AM EDT tablet 30 TAKE ONE TABLET BY MOUTH EVERY DAY TAKE ONE TABLET BY MOUTH EVERY DAY SOLD: 01/24/2020 [facility] 100 mg 10/27/2019 12:00:00 AM EDT tablet extended release 24 hr 30 TAKE ONE TABLET BY MOUTH EVERY DAY TAKE ONE TABLET BY MOUTH EVERY DAY SOLD: 10/28/2019 [facility] 5-325 mg 10/27/2019 12:00:00 AM EDT tablet 45 TAKE ONE TO TWO TABLETS BY MOUTH FOUR TIMES A DAY NEEDED FOR PAIN MAXIMUM DAILY DOSE = 8 TABLETS TAKE ONE TO TWO TABLETS BY MOUTH FOUR TIMES A DAY NEEDED FOR PAIN MAXIMUM DAILY DOSE = 8 TABLETS SOLD: 10/28/2019 [facility] 100 mg 10/27/2019 12:00:00 AM EDT tablet extended release 24 hr 30 TAKE ONE TABLET BY MOUTH EVERY DAY TAKE ONE TABLET BY MOUTH EVERY DAY SOLD: 11/25/2019 [facility] 25 mg 10/27/2019 12:00:00 AM EDT tablet 30 TAKE ONE TABLET BY MOUTH EVERY DAY TAKE ONE TABLET BY MOUTH EVERY DAY SOLD: 02/23/2020 [facility] Alprazolam 0.5 MG Oral Tablet ALPRAZOLAM 09/27/2019 12:00:00 AM EDT t ablet 120 TAKE 1/2 OR 1 TABLET BY MOUTH FOUR TIMES A DAY NEEDED FOR ANXIETY MAXIMUM DAILY DOSE = 4 TABLETS TAKE 1/2 OR 1 TABLET BY MOUTH FOUR TIMES A DAY NEEDED FOR ANXIETY MAXIMUM DAILY DOSE = 4 TABLETS SOLD: 09/27/2019 [facility] Alprazolam 0.5 MG Oral Tablet ALPRAZOLAM 08/27/2019 12:00:00 AM EST t ablet 120 TAKE 1/2 TO 1 TABLET FOUR TIMES A DAY NEEDED ANXIETY MAXIMUM DAILY DOSE = 4 TABLETS TAKE 1/2 TO 1 TABLET FOUR TIMES A DAY NEEDED ANXIETY MAXIMUM DAILY DOSE = 4 TABLETS SOLD: 08/29/2019 [facility] Alprazolam 0.5 MG Oral Tablet ALPRAZOLAM 07/29/2019 12:00:00 AM EST t ablet 120 TAKE 1/2 OR 1 TABLET BY MOUTH FOUR TIMES A DAY NEEDED FOR ANXIETY MAXIMUM DAILY DOSE = 4 TABLETS TAKE 1/2 OR 1 TABLET BY MOUTH FOUR TIMES A DAY NEEDED FOR ANXIETY MAXIMUM DAILY DOSE = 4 TABLETS SOLD: 07/29/2019 [facility] Alprazolam 0.5 MG Oral Tablet ALPRAZOLAM 06/25/2019 12:00:00 AM EST t ablet 120 TAKE 1/2 TO 1 TABLET BY MOUTH FOUR TIMES A DAY NEEDED FOR ANXIETY MAXIMUM DAILY DOSE = 4 TABLETS TAKE 1/2 TO 1 TABLET BY MOUTH FOUR TIMES A DAY NEEDED FOR ANXIETY MAXIMUM DAILY DOSE = 4 TABLETS SOLD: 06/27/2019 [facility] 5-325 mg 06/18/2019 12:00:00 AM EST tablet 45 TAKE ONE TO TWO TABLETS BY MOUTH FOUR TIMES A DAY NEEDED FOR PAIN MAXIMUM DAILY DOSE = 8 TAKE ONE TO TWO TABLETS BY MOUTH FOUR TIMES A DAY NEEDED FOR PAIN MAXIMUM DAILY DOSE = 8 SOLD: 06/19/2019 [facility] 0.5 mg 05/26/2019 12:00:00 AM EST tablet 120 TAKE 1/2 OR 1 TABLET BY MOUTH FOUR TIMES A DAY NEEDED FOR ANXIETY MAXIMUM DAILY DOSE = 4 TABLETS TAKE 1/2 OR 1 TABLET BY MOUTH FOUR TIMES A DAY NEEDED FOR ANXIETY MAXIMUM DAILY DOSE = 4 TABLETS SOLD: 05/28/2019 [facility] 100 mg 05/25/2019 12:00:00 AM EST tablet extended release 24 hr 30 TAKE ONE TABLET BY MOUTH EVERY DAY TAKE ONE TABLET BY MOUTH EVERY DAY SOLD: 10/21/2019 [facility] 40 mg 05/25/2019 12:00:00 AM EST tablet 30 TAKE ONE TABLET BY MOUTH EVERY DAY TAKE ONE TABLET BY MOUTH EVERY DAY SOLD: 07/25/2019 [facility] 100 mg 05/25/2019 12:00:00 AM EST tablet extended release 24 hr 30 TAKE ONE TABLET BY MOUTH EVERY DAY TAKE ONE TABLET BY MOUTH EVERY DAY SOLD: 06/25/2019 [facility] 100 mg 05/25/2019 12:00:00 AM EST tablet extended release 24 hr 30 TAKE ONE TABLET BY MOUTH EVERY DAY TAKE ONE TABLET BY MOUTH EVERY DAY SOLD: 07/25/2019 [facility] 100 mg 05/25/2019 12:00:00 AM EST tablet extended release 24 hr 30 TAKE ONE TABLET BY MOUTH EVERY DAY TAKE ONE TABLET BY MOUTH EVERY DAY SOLD: 08/25/2019 [facility] 100 mg 05/25/2019 12:00:00 AM EST tablet extended release 24 hr 30 TAKE ONE TABLET BY MOUTH EVERY DAY TAKE ONE TABLET BY MOUTH EVERY DAY SOLD: 09/23/2019 [facility] 100 mg 05/25/2019 12:00:00 AM EST tablet extended release 24 hr 30 TAKE ONE TABLET BY MOUTH EVERY DAY TAKE ONE TABLET BY MOUTH EVERY DAY SOLD: 05/26/2019 [facility] 40 mg 05/25/2019 12:00:00 AM EST tablet 30 TAKE ONE TABLET BY MOUTH EVERY DAY TAKE ONE TABLET BY MOUTH EVERY DAY SOLD: 06/25/2019 [facility] 40 mg 05/25/2019 12:00:00 AM EST tablet 30 TAKE ONE TABLET BY MOUTH EVERY DAY TAKE ONE TABLET BY MOUTH EVERY DAY SOLD: 10/21/2019 [facility] 40 mg 05/25/2019 12:00:00 AM EST tablet 30 TAKE ONE TABLET BY MOUTH EVERY DAY TAKE ONE TABLET BY MOUTH EVERY DAY SOLD: 08/25/2019 [facility] 40 mg 05/25/2019 12:00:00 AM EST tablet 30 TAKE ONE TABLET BY MOUTH EVERY DAY TAKE ONE TABLET BY MOUTH EVERY DAY SOLD: 05/26/2019 [facility] 40 mg 05/25/2019 12:00:00 AM EST tablet 30 TAKE ONE TABLET BY MOUTH EVERY DAY TAKE ONE TABLET BY MOUTH EVERY DAY SOLD: 09/23/2019 [facility] 30 mg 04/26/2019 12:00:00 AM EDT tablet 30 TAKE ONE TABLET BY MOUTH AT BEDTIME TAKE ONE TABLET BY MOUTH AT BEDTIME SOLD: 07/25/2019 [facility] 30 mg 04/26/2019 12:00:00 AM EDT tablet 30 TAKE ONE TABLET BY MOUTH AT BEDTIME TAKE ONE TABLET BY MOUTH AT BEDTIME SOLD: 08/25/2019 [facility] Mirtazapine 30 MG Oral Tablet MIRTAZAPINE 04/26/2019 12:00:00 AM EDT tablet 30 TAKE ONE TABLET BY MOUTH AT BEDTIME TAKE ONE TABLET BY MOUTH AT BEDTIME SOLD: 09/23/2019 [facility] 25 mg 04/26/2019 12:00:00 AM EDT tablet 30 TAKE ONE TABLET BY MOUTH EVERY DAY TAKE ONE TABLET BY MOUTH EVERY DAY SOLD: 07/25/2019 [facility] 25 mg 04/26/2019 12:00:00 AM EDT tablet 30 TAKE ONE TABLET BY MOUTH EVERY DAY TAKE ONE TABLET BY MOUTH EVERY DAY SOLD: 08/25/2019 [facility] 25 mg 04/26/2019 12:00:00 AM EDT tablet 30 TAKE ONE TABLET BY MOUTH EVERY DAY TAKE ONE TABLET BY MOUTH EVERY DAY SOLD: 05/26/2019 [facility] 30 mg 04/26/2019 12:00:00 AM EDT tablet 30 TAKE ONE TABLET BY MOUTH AT BEDTIME TAKE ONE TABLET BY MOUTH AT BEDTIME SOLD: 05/29/2019 [facility] 25 mg 04/26/2019 12:00:00 AM EDT tablet 30 TAKE ONE TABLET BY MOUTH EVERY DAY TAKE ONE TABLET BY MOUTH EVERY DAY SOLD: 06/25/2019 [facility] 30 mg 04/26/2019 12:00:00 AM EDT tablet 30 TAKE ONE TABLET BY MOUTH AT BEDTIME TAKE ONE TABLET BY MOUTH AT BEDTIME SOLD: 06/27/2019 [facility] 25 mg 04/26/2019 12:00:00 AM EDT tablet 30 TAKE ONE TABLET BY MOUTH EVERY DAY TAKE ONE TABLET BY MOUTH EVERY DAY SOLD: 09/23/2019 [facility] infliximab 100 MG Injection [Remicade] Remicade 100 mg intravenous solution Remicade 100 mg intravenous solution 05/25/2018 12:00:00 AM EST 700 mg INTRAVENOUS completed infliximab 100 MG Injection [Remicade] [facility] ([facility]) Insurance Providers Payer name Policy type / Coverage type Policy ID Covered green party ID Covered green party's relationship to pacheco Policy [place] Plan Information MEDICARE [id number] SP [id number] [facility] HE[facility] CARE OPTIONS [id number] SP [id number] MEDICARE [id number] SP [id number] [employer] MEDICARE 1 [id number] 1 [id number] AARP 2 [id number] AARP HEALTH CARE OPTIONS [id number] S [id number] [facility] MEDICARE DIVISION [id number] S [id number] [place]ICARE [place] [id number] S [id number] [employer] MEDICARE 1 [id number] 1 [id number] AARP HEALTH CARE OPTIONS [id number] S [id number] [place] MED[place] [id number] S [id number] [place]IC[place] [id number] S [id number] [place] [id number] S [id number] AARP HEALTH CARE OPTIONS -O/P [id number] 18 [id number] MEDICARE PART A -O/P [id number] 18 [id number] [place] Medigap Part B [id number] Self [id number] [place] Medigap Part B [id number] Self [id number] [facility] Options Medigap Part B [id number] Self [id number] [place] Primary [id number] Self [id number] MEDICARE C [id number] S [id number] A AARP O [id number] S [id number] BS [place] Medigap Part B [id number] Self [id number] [place] Medigap Part B [id number] Self [id number] [facility] [facility] Medigap Part B [id number] Self [id number] [place] Medicare Primary [id number] Self [id number] [facility] Options Medigap Part B [id number] Self [id number] Medicare [place] Gov[place] Medicare Primary [id number] Self [id number] AARP HEALTH CARE OPTIONS [id number] SP [id number] [place] Medigap Part B [id number] Self [id number] [place] Medigap Part B [id number] Self [id number] [facility] [facility] Medigap Part B [id number] Self [id number] [place] Primary [id number] Self [id number] [place] Medigap Part B [id number] Self [id number] [place] Medig[place] Part B [id number] Self [id number] [facility] Medigap Part B [id number] Self [id number] [place] Medicare Primary [id number] Self [id number] BS [place] Medigap Part B [id number] Self [id number] [place] Medigap Part B [id number] Self [id number] [facility] Options Medigap Part B [id number] Self [id number] [place] Medicare Primary [id number] Self [id number] [facility] Medigap Part B Self Medicare [place] Medicare Primary Self [place] PPO [phone] [id number] SP [id number] [place] PPO 302/307 [id number] SP [id number] [place] PPO 302/307 [id number] SP [id number] [place] BC [id number] S [id number] Surgeries/Procedures Procedure Description Date Indications Data Source(s) OFFICE/OUTPATIENT VISIT, EST 06/20/2020 12:00:00 AM EST - 06/20/2020 12:00:00 AM EST [facility] ([facility]) Normal saline solution infus 05/29/2020 12:00:00 AM EST - 05/29/2020 12:00:00 AM EST [facility] ([facility]) Infliximab injection Remicade 05/29/2020 12:00:00 AM EST - 05/29/2020 12:00:00 AM EST [facility] ([facility]) CHEMO, IV INFUSION, ADDL HR 05/29/2020 1 2:00:00 AM EST - 05/29/2020 12:00:00 AM EST [facility] ([facility]) CHEMO, IV INFUSION, 1 HR 05/29/2020 12:0 0:00 AM EST - 05/29/2020 12:00:00 AM EST [facility] ([facility]) ALANINE AMINO (ALT) (SGPT) 03/23/2020 12 :00:00 AM EDT - 03/23/2020 12:00:00 AM EDT [facility] ([facility]) TRANSFERASE (AST) (SGOT) 03/23/2020 12:0 0:00 AM EDT - 03/23/2020 12:00:00 AM EDT [facility] ([facility]) ASSAY OF CREATININE 03/23/2020 12:00:00 AM EDT - 03/23 12:00:00 AM EDT [facility] ([facility]) C-REACTIVE PROTEIN 03/23/2020 12:00:00 AM EDT - 2019 12:00:00 AM EDT [facility] ([facility]) RBC SED RATE, AUTOMATED 03/23/2020 12:00 :00 AM EDT - 03/23/2020 12:00:00 AM EDT [facility] ([facility]) COMPLETE CBC W/AUTO DIFF WBC 03/23/2020 12:00:00 AM EDT - 03/23/2020 12:00:00 AM EDT [facility] ([facility]) ROUTINE VENIPUNCTURE 03/23/2020 12:00:00 AM EDT - 03/23/2020 12:00:[facility] OFFICE/OUTPATIENT VISIT, EST 03/23/2020 12:00:00 AM EDT - 03/23/2020 12:00:00 AM EDT [facility] ([facility]) Normal saline solution infus 02/07/2020 12:00:00 AM EDT - 02/07/2020 12:00:00 AM EDT [facility] ([facility]) Infliximab injection Remicade 02/07/2020 12:00:00 AM EDT - 02/07/2020 12:00:00 AM EDT [facility] ([facility]) CHEMO, IV INFUSION, ADDL HR 02/07/2020 1 2:00:00 AM EDT - 02/07/2020 12:00:00 AM EDT [facility] ([facility]) CHEMO, IV INFUSION, 1 HR 02/07/2020 12:0 0:00 AM EDT - 02/07/2020 12:00:00 AM EDT [facility] ([facility]) OFFICE/OUTPATIENT VISIT, EST 12/21/2019 12:00:00 AM EDT - 12/21/2019 12:00:00 AM EDT [facility] ([facility]) ALANINE AMINO (ALT) (SGPT) 12/21/2019 12 :00:00 AM EDT - 12/21/2019 12:00:00 AM EDT [facility] ([facility]) TRANSFERASE (AST) (SGOT) 12/21/2019 12:0 0:00 AM EDT - 12/21/2019 12:00:00 AM EDT [facility] ([facility]) ASSAY OF CREATININE 12/21/2019 12:00:00 AM EDT - 12/20 12:00:00 AM EDT [facility] ([facility]) C-REACTIVE PROTEIN 12/21/2019 12:00:00 AM EDT - 2019 12:00:00 AM EDT [facility] ([facility]) RBC SED RATE, AUTOMATED 12/21/2019 12:00 :00 AM EDT - 12/21/2019 12:00:00 AM EDT [facility] ([facility]) COMPLETE CBC W/AUTO DIFF WBC 12/21/2019 12:00:00 AM EDT - 12/21/2019 12:00:00 AM EDT [facility] ([facility]) ROUTINE VENIPUNCTURE 12/21/2019 12:00:00 AM EDT - 12/21/2019 12:00:00 AM EDT [facility] ([facility]) Normal saline solution infus 12/13/2019 12:00:00 AM EDT - 12/13/2019 12:00:00 AM EDT [facility] ([facility]) Infliximab injection Remicade 12/13/2019 12:00:00 AM EDT - 12/13/2019 12:00:00 AM EDT [facility] ([facility]) CHEMO, IV INFUSION, ADDL HR 12/13/2019 1 2:00:00 AM EDT - 12/13/2019 12:00:00 AM EDT [facility] ([facility]) CHEMO, IV INFUSION, 1 HR 12/13/2019 12:0 0:00 AM EDT - 12/13/2019 12:00:00 AM EDT [facility] ([facility]) Normal saline solution infus 10/18/2019 12:00:00 AM EDT - 10/18/2019 12:00:00 AM EDT [facility] ([facility]) Infliximab injection Remicade 10/18/2019 12:00:00 AM EDT - 10/18/2019 12:00:00 AM EDT [facility] ([facility]) CHEMO, IV INFUSION, ADDL HR 10/18/2019 1 2:00:00 AM EDT - 10/18/2019 12:00:00 AM EDT [facility] ([facility]) CHEMO, IV INFUSION, 1 HR 10/18/2019 12:0 0:00 AM EDT - 10/18/2019 12:00:00 AM EDT [facility] ([facility]) OFFICE/OUTPATIENT VISIT, EST 09/21/2019 12:00:00 AM EDT - 09/21/2019 12:00:00 AM EDT [facility] ([facility]) ALANINE AMINO (ALT) (SGPT) 09/21/2019 12 :00:00 AM EDT - 09/21/2019 12:00:00 AM EDT [facility] ([facility]) TRANSFERASE (AST) (SGOT) 09/21/2019 12:0 0:00 AM EDT - 09/21/2019 12:00:00 AM EDT [facility] ([facility]) ASSAY OF CREATININE 09/21/2019 12:00:00 AM EDT - 09/20 12:00:00 AM EDT [facility] ([facility]) C-REACTIVE PROTEIN 09/21/2019 12:00:00 AM EDT - 2019 12:00:00 AM EDT [facility] ([facility]) RBC SED RATE, AUTOMATED 09/21/2019 12:00 :00 AM EDT - 09/21/2019 12:00:00 AM EDT [facility] ([facility]) COMPLETE CBC W/AUTO DIFF WBC 09/21/2019 12:00:00 AM EDT - 09/21/2019 12:00:00 AM EDT [facility] ([facility]) ROUTINE VENIPUNCTURE 09/21/2019 12:00:00 AM EDT - 09/21/2019 12:00:00 AM EDT [facility] ([facility]) Normal saline solution infus 08/23/2019 12:00:00 AM EST - 08/23/2019 12:00:00 AM EST [facility] ([facility]) Infliximab injection Remicade 08/23/2019 12:00:00 AM EST - 08/23/2019 12:00:00 AM EST [facility] ([facility]) CHEMO, IV INFUSION, ADDL HR 08/23/2019 1 2:00:00 AM EST - 08/23/2019 12:00:00 AM EST [facility] ([facility]) CHEMO, IV INFUSION, 1 HR 08/23/2019 12:0 0:00 AM EST - 08/23/2019 12:00:00 AM EST [facility] ([facility] Normal saline solution infus 06/28/2019 12:00:00 AM EST - 06/28/2019 12:00:00 AM EST [facility] ([facility]) Infliximab injection Remicade 06/28/2019 12:00:00 AM EST - 06/28/2019 12:00:00 AM EST [facility] ([facility]) CHEMO, IV INFUSION, ADDL HR 06/28/2019 1 2:00:00 AM EST - 06/28/2019 12:00:00 AM EST [facility] ([facility]) CHEMO, IV INFUSION, 1 HR 06/28/2019 12:0 0:00 AM EST - 06/28/2019 12:00:00 AM EST [facility] ([facility]) OFFICE/OUTPATIENT VISIT, EST 06/21/2019 12:00:00 AM EST - 06/21/2019 12:00:00 AM EST [facility] ([facility]) Results ID Date Data Source [id number] 07/06/2020 10:30:00 AM EST [facility] Name Value Range Interpretation Code Description Data Yamini rce(s) Supporting Document(s) SARS coronavirus 2 RNA Not Detected [facility] [place] This lab was ordered by [facility] and reported by [facility]. ID Date Data Source [id number] 03/23/2020 10:28:00 AM EDT [facility] ([facility]) Name Value Range Interpretation Code Description Data Yamini rce(s) Supporting Document(s) <0.2 0.0-0.5 CRP [facility] ([facility]) ID Date Data Source [id number] 03/23/2020 10:28:00 AM EDT [facility] ([facility]) Name Value Range Interpretation Code Description Data Yamini rce(s) Supporting Document(s) <0.2 0.0-0.5 CRP [facility] ([facility]) ID Date Data Source [id number] 03/23/2020 10:28:00 AM EDT [facility] ([facility]) Name Value Range Interpretation Code Description Data Yamini rce(s) Supporting Document(s) 54.6 mL/min/1.73m eGFR [facility] ([facility]) 1.3 mg/dL 0.9-1.2 Above high normal CREATININE [facility] ([facility]) ID Date Data Source [id number] 03/23/2020 10:28:00 AM EDT [facility] ([facility]) Name Value Range Interpretation Code Description Data Yamini rce(s) Supporting Document(s) 1.3 mg/dL 0.9-1.2 Above high normal CREATININE [facility] ([facility]) 54.6 mL/min/1.73m eGFR [facility] ([facility]) ID Date Data Source [id number] 03/23/2020 10:28:00 AM EDT [facility] ([facility]) Name Value Range Interpretation Code Description Data Yamini rce(s) Supporting Document(s) 19 U/L 15-37 AST [facility] ([facility]) ID Date Data Source [id number] 03/23/2020 10:28:00 AM EDT [facility] ([facility]) Name Value Range Interpretation Code Description Data Yamini rce(s) Supporting Document(s) 19 U/L 15-37 AST [facility] ([facility]) ID Date Data Source [id number] 03/23/2020 10:28:00 AM EDT [facility] ([facility]) Name Value Range Interpretation Code Description Data Yamini rce(s) Supporting Document(s) 28 U/L 30-65 Below low normal ALT [facility] ([facility]) ID Date Data Source [id number] 03/23/2020 10:28:00 AM EDT [facility] ([facility]) Name Value Range Interpretation Code Description Data Yamini rce(s) Supporting Document(s) 28 U/L 30-65 Below low normal ALT [facility] ([facility]) ID Date Data Source [id number] 03/23/2020 10:28:00 AM EDT [facility] ([facility]) Name Value Range Interpretation Code Description Data Yamini rce(s) Supporting Document(s) 10 mm/Hr 0-20 ESR [facility] ([facility]) ID Date Data Source [id number] 03/23/2020 10:28:00 AM EDT [facility] ([facility]) Name Value Range Interpretation Code Description Data Yamini rce(s) Supporting Document(s) 10 mm/Hr 0-20 ESR [facility] ([facility]) ID Date Data Source [id number] 03/23/2020 10:28:00 AM EDT [facility] ([facility]) Name Value Range Interpretation Code Description Data Yamini rce(s) Supporting Document(s) 8.2 10*3/uL 3.7-10.1 WBC [facility] ([facility]) 5.75 10*6/uL 4.00-5.90 RBC [facility] ([facility]) 16.7 g/dL 13.9-18.0 HGB [facility] ([facility]) 52.6 % 39.0-55.0 HCT [facility] 91.5 fL 70.0-100.0 MCV [facility] ([facility]) 29.0 pg 26.0-34.0 MCH [facility]) 31.7 g/dL 31.0-37.0 MCHC [facility] ([facility]) 298 10*3/uL 150-500 PLATELETS [facility] ([facility]) 8.1 fL 6.0-10.0 MPV [facility] ([facility]) 11.5 % 10.0-15.0 RDW [facility] ([facility]) 2.20 10*3/uL 1.00-5.00 LYM# [facility] ([facility]) 4.92 10*3/uL 2.10-8.00 GHASSAN# [facility] ([facility]) 0.2 10*3/uL 0.0-0.5 EOS# [facility] ([facility]) 0.69 10*3/uL 0.10-1.00 MONO# [facility] ([facility]) 60.0 % 50.0-80.0 GHASSAN% [facility] 0.1 10*3/uL 0.0-0.2 BASO# [facility] ([facility]) 26.8 % 25.0-50.0 LYM% [facility] 8.4 % 2.0-10.0 MONO% [facility] ([facility] 3.0 % 0.0-5.0 EOS% [facility]) 1.7 % 0.0-4.0 BASO% [facility]) ID Date Data Source [id number] 03/23/2020 10:28:00 AM EDT [facility] ([facility]) Name Value Range Interpretation Code Description Data Yamini rce(s) Supporting Document(s) 8.2 10*3/uL 3.7-10.1 WBC [facility] ([facility]) 5.75 10*6/uL 4.00-5.90 RBC [facility] ([facility]) 16.7 g/dL 13.9-18.0 HGB [facility]) 91.5 fL 70.0-100.0 MCV [facility] ([facility]) 52.6 % 39.0-55.0 HCT [facility]) 31.7 g/dL 31.0-37.0 MCHC [facility] ([facility]) 29.0 pg 26.0-34.0 MCH [facility] ([facility]) 298 10*3/uL 150-500 PLATELETS [facility] ([facility]) 11.5 % 10.0-15.0 RDW [facility] ([facility]) 4.92 10*3/uL 2.10-8.00 GHASSAN# [facility]) 8.1 fL 6.0-10.0 MPV [facility] ([facility]) 2.20 10*3/uL 1.00-5.00 LYM# [facility] ([facility]) 0.69 10*3/uL 0.10-1.00 MONO# [facility] ([facility]) 0.2 10*3/uL 0.0-0.5 EOS# [facility] ([facility]) 0.1 10*3/uL 0.0-0.2 BASO# [facility] ([facility]) 26.8 % 25.0-50.0 LYM% [facility]) 60.0 % 50.0-80.0 GHASSAN% [facility] ([facility] 3.0 % 0.0-5.0 EOS% [facility]) 8.4 % 2.0-10.0 MONO% [facility] ([facility]) 1.7 % 0.0-4.0 BASO% [facility]) ID Date Data Source [id number] 12/21/2019 10:12:00 AM EDT [facility] ([facility]) Name Value Range Interpretation Code Description Data Yamini rce(s) Supporting Document(s) <0.2 0.0-0.5 CRP [facility] ([facility]) ID Date Data Source [id number] 12/21/2019 10:12:00 AM EDT [facility] ([facility]) Name Value Range Interpretation Code Description Data Yamini rce(s) Supporting Document(s) >60 eGFR [facility] ([facility]) 1.1 mg/dL 0.9-1.2 CREATININE [facility] ([facility]) ID Date Data Source [id number] 12/21/2019 10:12:00 AM EDT [facility] ([facility]) Name Value Range Interpretation Code Description Data Yamini rce(s) Supporting Document(s) 19 U/L 15-37 AST [facility] ([facility]) ID Date Data Source [id number] 12/21/2019 10:12:00 AM EDT [facility] ([facility]) Name Value Range Interpretation Code Description Data Yamini rce(s) Supporting Document(s) 29 U/L 30-65 Below low normal ALT [facility] ([facility]) ID Date Data Source [id number] 12/21/2019 10:12:00 AM EDT [facility] ([facility]) Name Value Range Interpretation Code Description Data Yamini rce(s) Supporting Document(s) 2 mm/Hr 0-20 ESR [facility] ([facility]) ID Date Data Source [id number] 12/21/2019 10:12:00 AM EDT [facility] ([facility]) Name Value Range Interpretation Code Description Data Yamini rce(s) Supporting Document(s) 9.0 10*3/uL 3.7-10.1 WBC [facility] ([facility]) 5.57 10*6/uL 4.00-5.90 RBC [facility] ([facility]) 92.9 fL 70.0-100.0 MCV [facility] ([facility]) 51.7 % 39.0-55.0 HCT [facility] 16.6 g/dL 13.9-18.0 HGB [facility]) 29.9 pg 26.0-34.0 MCH [facility] ([facility]) 12.1 % 10.0-15.0 RDW [facility] ([facility]) 32.2 g/dL 31.0-37.0 MCHC [facility] ([facility]) 5.81 10*3/uL 2.10-8.00 GHASSAN# [facility]) 7.9 fL 6.0-10.0 MPV [facility]) 269 10*3/uL 150-500 PLATELETS [facility] ([facility]) 0.2 10*3/uL 0.0-0.5 EOS# [facility] ([facility]) 0.70 10*3/uL 0.10-1.00 MONO# [facility] ([facility]) 2.09 10*3/uL 1.00-5.00 LYM# [facility] ([facility]) 23.3 % 25.0-50.0 Below low normal LYM% [facility] 64.7 % 50.0-80.0 GHASSAN% [facility] 0.1 10*3/uL 0.0-0.2 BASO# [facility] ([facility]) 7.8 % 2.0-10.0 MONO% [facility] 2.6 % 0.0-5.0 EOS% [facility] 1.6 % 0.0-4.0 BASO% [facility]) ID Date Data Source [id number] 09/21/2019 10:40:00 AM EDT [facility] ([facility]) Name Value Range Interpretation Code Description Data Yamini rce(s) Supporting Document(s) <0.2 0.0-1.0 CRP [facility] ([facility]) ID Date Data Source [id number] 09/21/2019 10:40:00 AM EDT [facility] ([facility]) Name Value Range Interpretation Code Description Data Yamini rce(s) Supporting Document(s) 1.3 mg/dL 0.9-1.2 Above high normal CREATININE [facility] ([facility]) 54.7 mL/min/1.73m eGFR [facility] ([facility]) ID Date Data Source [id number] 09/21/2019 10:40:00 AM EDT [facility] ([facility]) Name Value Range Interpretation Code Description Data Yamini rce(s) Supporting Document(s) 21 U/L 15-37 AST [facility] ([facility]) ID Date Data Source [id number] 09/21/2019 10:40:00 AM EDT [facility] ([facility]) Name Value Range Interpretation Code Description Data Yamini rce(s) Supporting Document(s) 29 U/L 30-65 Below low normal ALT [facility] ([facility]) ID Date Data Source [id number] 09/21/2019 10:40:00 AM EDT [facility] ([facility]) Name Value Range Interpretation Code Description Data Yamini rce(s) Supporting Document(s) 6 mm/Hr 0-20 ESR [facility] ([facility]) ID Date Data Source [id number] 09/21/2019 10:40:00 AM EDT [facility] ([facility]) Name Value Range Interpretation Code Description Data Yamini rce(s) Supporting Document(s) 5.99 10*6/uL 4.00-5.90 Above high normal RBC [facility] ([facility]) 8.7 10*3/uL 3.7-10.1 WBC [facility] ([facility]) 17.7 g/dL 13.9-18.0 HGB [facility] ([facility]) 91.6 fL 70.0-100.0 MCV [facility] ([facility]) 54.9 % 39.0-55.0 HCT [facility]) 29.5 pg 26.0-34.0 MCH [facility] ([facility]) 32.2 g/dL 31.0-37.0 MCHC [facility] ([facility]) 284 10*3/uL 150-500 PLATELETS [facility] ([facility]) 12.1 % 10.0-15.0 RDW [facility] ([facility]) 5.30 10*3/uL 2.10-8.00 GHASSAN# [facility] 2.37 10*3/uL 1.00-5.00 LYM# [facility] ([facility]) 8.0 fL 6.0-10.0 MPV [facility] ([facility]) 0.2 10*3/uL 0.0-0.5 EOS# [facility] ([facility]) 0.62 10*3/uL 0.10-1.00 MONO# [facility] ([facility]) 0.1 10*3/uL 0.0-0.2 BASO# [facility] ([facility]) 27.4 % 25.0-50.0 LYM% [facility] 7.2 % 2.0-10.0 MONO% [facility] ([facility]) 61.2 % 50.0-80.0 GHASSAN% [facility] 1.4 % 0.0-4.0 BASO% [facility] ([facility]) 2.8 % 0.0-5.0 EOS% [facility] Procedure Social History Code Duration Value Status Description Data Source(s ) Caffeine Use Details 06/20/2020 12:00:00 AM EST completed [facility] ([facility]) Smoking 06/20/2020 12:00:00 AM EST Unknown if ever smoked comp leted Unknown if ever smoked [facility] ([facility]) 03/23/2020 12:00:00 AM EDT Current non-smoker completed C urrent non-smoker [facility] ([facility]) Caffeine Use Details 09/21/2019 12:00:00 AM EDT completed [facility] ([facility]) Vital Signs ID Date Data Source UNK Name Value Range Interpretation Code Description Data Source(s) Body surface area Derived from formula 2.21 m2 2.21 m2 [facility] ([facility]) Body weight 109.431 kg 109.431 kg [facility] ([facility]) [place] body weight 140 [lb_av] 140 [lb_av] [facility] ([facility]) Body mass index (BMI) [Ratio] 36.7 kg/m2 36.7 k g/m2 [facility] ([facility]) Body weight 241.25 [lb_av] 241.25 [[facility]_av] [facility] Body height 68 [in_i] 68 [in_i] [facility] ([facility]) 5'8" Diastolic blood pressure 86 mm[Hg] 86 mm[Hg] [facility]) Systolic blood pressure 142 mm[Hg] 142 [facility] Diastolic blood pressure 80 mm[Hg] 80 mm[Hg] [facility] ([facility]) Systolic blood pressure 136 mm[Hg] 136 mm[Hg] N [facility] ([facility]) Respiratory rate 17 /min 17 /min [facility] ([facility]) Body temperature 36.11 Vanessa 36.11 Vanessa [facility] ([facility]) Heart rate 78 /min 78 /min [facility] Diastolic blood pressure 82 mm[Hg] 82 mm[Hg] [facility] ([facility]) Systolic blood pressure 138 mm[Hg] 138 mm[Hg] N [facility] ([facility]) Body weight 109.769 kg 109.769 kg [facility] Body mass index (BMI) [Ratio] 36.04 kg/m2 Overweight 36.04 kg/m2 [facility] ([facility]) Diastolic blood pressure 80 mm[Hg] 80 mm[Hg] [facility] ([facility]) Systolic blood pressure 132 mm[Hg] 132 mm[Hg] N [facility] ([facility]) Body weight 107.501 kg 107.501 kg [facility] ([facility]) Body height 172.72 cm 172.72 cm [facility] ([facility]) Diastolic blood pressure 70 mm[Hg] 70 mm[Hg] [facility] ([facility]) Systolic blood pressure 120 mm[Hg] 120 mm[Hg] N [facility] ([facility]) Respiratory rate 16 /min 16 /min [facility] ([facility]) Body temperature 36.11 Vanessa 36.11 Vanessa [facility] ([facility]) Heart rate 68 /min 68 /min [facility] Diastolic blood pressure 70 mm[Hg] 70 mm[Hg] [facility] ([facility]) Systolic blood pressure 122 mm[Hg] 122 mm[Hg] N [facility] ([facility]) Body weight 109.769 kg 109.769 kg [facility] Body mass index (BMI) [Ratio] 36.64 kg/m2 Overweight 36.64 kg/m2 [facility] ([facility]) Diastolic blood pressure 64 mm[Hg] 64 mm[Hg] [facility] ([facility]) Systolic blood pressure 128 mm[Hg] 128 mm[Hg] N [facility] ([facility]) Body weight 109.316 kg 109.316 kg [facility] Body height 172.72 cm 172.72 cm [facility] Diastolic blood pressure 70 mm[Hg] 70 mm[Hg] [facility] ([facility]) Systolic blood pressure 118 mm[Hg] 118 mm[Hg] N [facility] ([facility]) Respiratory rate 16 /min 16 /min [facility] ([facility]) Body temperature 36.11 Vanessa 36.11 Vanessa [facility] ([facility]) Heart rate 60 /min 60 /min [facility] ([facility]) Diastolic blood pressure 70 mm[Hg] 70 mm[Hg] [facility] ([facility]) Systolic blood pressure 112 mm[Hg] 112 mm[Hg] N [facility] ([facility]) Body weight 109.769 kg 109.769 kg [facility] Diastolic blood pressure 72 mm[Hg] 72 mm[Hg] [facility] ([facility]) Systolic blood pressure 118 mm[Hg] 118 mm[Hg] N [facility] ([facility]) Body mass index (BMI) [Ratio] 36.80 kg/m2 Overweight 36.80 kg/m2 [facility] ([facility]) Respiratory rate 16 /min 16 /min [facility] ([facility]) Body temperature 36.28 Vanessa 36.28 Vanessa [facility] ([facility]) Heart rate 74 /min 74 /min [facility] ([facility] Diastolic blood pressure 78 mm[Hg] 78 mm[Hg] [facility] ([facility]) Systolic blood pressure 110 mm[Hg] 110 mm[Hg] N [facility] ([facility]) Body weight 109.769 kg 109.769 kg [facility] Body height 172.72 cm 172.72 cm [facility] Body mass index (BMI) [Ratio] 36.04 kg/m2 Overweight 36.04 kg/m2 [facility] ([facility]) Diastolic blood pressure 78 mm[Hg] 78 mm[Hg] [facility] ([facility]) Systolic blood pressure 128 mm[Hg] 128 mm[Hg] N [facility] ([facility]) Body weight 107.501 kg 107.501 kg [facility] Body height 172.72 cm 172.72 cm [facility] Diastolic blood pressure 64 mm[Hg] 64 mm[Hg] [facility] ([facility]) Systolic blood pressure 100 mm[Hg] 100 mm[Hg] N [facility] ([facility]) Body mass index (BMI) [Ratio] 36.95 kg/m2 Overweight 36.95 kg/m2 [facility] ([facility]) Respiratory rate 16 /min 16 /min [facility] ([facility]) Body temperature 36.11 Vanessa 36.11 Vanessa [facility] ([facility]) Heart rate 82 /min 82 /min [facility] Diastolic blood pressure 84 mm[Hg] 84 mm[Hg] [facility] ([facility]) Systolic blood pressure 132 mm[Hg] 132 mm[Hg] N [facility] ([facility]) Body weight 110.223 kg 110.223 kg [facility] Body height 172.72 cm 172.72 cm [facility] Diastolic blood pressure 80 mm[Hg] 80 mm[Hg] [facility] ([facility]) Systolic blood pressure 110 mm[Hg] 110 mm[Hg] N [facility] ([facility]) Body mass index (BMI) [Ratio] 37.10 kg/m2 Overweight 37.10 kg/m2 [facility] ([facility]) Respiratory rate 14 /min 14 /min [facility] ([facility]) Body temperature 36.06 Vanessa 36.06 Vanessa [facility] ([facility]) Heart rate 76 /min 76 /min [facility] Diastolic blood pressure 68 mm[Hg] 68 mm[Hg] [facility] ([facility]) Systolic blood pressure 122 mm[Hg] 122 mm[Hg] N [facility] ([facility]) Body weight 110.677 kg 110.677 kg [facility] Body height 172.72 cm 172.72 cm [facility] Systolic blood pressure 104 mm[Hg] 104 mm[Hg] N [facility] ([facility]) Body weight 106.594 kg 106.594 kg [facility] Body height 172.72 cm 172.72 cm [facility] Body mass index (BMI) [Ratio] 35.73 kg/m2 Overweight 35.73 kg/m2 [facility] ([facility]) Diastolic blood pressure 66 mm[Hg] 66 mm[Hg] [facility] ([facility]) Patient Treatment Plan of Care Planned Activity Planned Date Details Description Data Source (s) infliximab 100 MG Injection [Remicade] 12/13/2019 12:00:00 AM EDT [facility] ([facility]) infliximab 100 MG Injection [Remicade] 05/25/2018 12:00:00 AM EST [facility] ([facility])
[2020-07-11] MEDS ORDERED: NS 1,000 ML IV ONE (09:30)
--- NOTE | 2020-07-11 10:29 | ROOR ---
Patient Name: Tommy Busch Procedure Date: 07/11/2020 9:46 AM Date of : 1950 Age: 69 Room: [facility] Gender: Male Note Status: Finalized Procedure: Colonoscopy Indications: Last colonoscopy: September 2011, Positive Cologuard test Providers: Sloan Curiel MD Referring MD: Amparo Pérez DO Requesting Provider: Medicines: Monitored Anesthesia Care Complications: No immediate complications. Procedure: Pre-Anesthesia Assessment: - Prior to the procedure, a History and Physical was performed, and patient medications and allergies were reviewed. The patient is competent. The risks and benefits of the procedure and the sedation options and risks were discussed with the patient. All questions were answered and informed consent was obtained. Patient identification and proposed procedure were verified by the physician, the nurse and the elevated work platform operator in the procedure room. Mental Status Examination: alert and oriented. Airway Examination: normal oropharyngeal airway and neck mobility. Prophylactic Antibiotics: The patient does not require prophylactic antibiotics. Prior Anticoagulants: The patient has taken no previous anticoagulant or antiplatelet agents. ASA Grade Assessment: III - A patient with severe systemic disease. After reviewing the risks and benefits, the patient was deemed in satisfactory condition to undergo the procedure. The anesthesia plan was to use monitored anesthesia care (MAC). Immediately prior to administration of medications, the patient was re-assessed for adequacy to receive sedatives. The heart rate, respiratory rate, oxygen saturations, blood pressure, adequacy of pulmonary ventilation, and response to care were monitored throughout the procedure. The physical status of the patient was re-assessed after the procedure. The Colonoscope was introduced through the anus and advanced to the cecum, identified by appendiceal orifice and ileocecal valve. The colonoscopy was performed without difficulty. The patient tolerated the procedure well. The quality of the bowel preparation was excellent. Findings: The perianal and digital rectal examinations were normal. Many medium-mouthed diverticula were found in the sigmoid colon. The exam was otherwise without abnormality. Impression: - Diverticulosis in the sigmoid colon. - The examination was otherwise normal. - No specimens collected. Recommendation: - Discharge patient to home. - Resume previous diet. - Continue present medications. - Return to primary care physician. Procedure Code(s): --- Professional --- 83407, Colonoscopy, flexible; diagnostic, including collection of specimen(s) by brushing or washing, when performed (separate procedure) Diagnosis Code(s): --- Professional --- R19.5, Other fecal abnormalities K57.30, Diverticulosis of large intestine without perforation or abscess without bleeding CPT copyright 2019 [employer]. All rights reserved. The codes documented in this report are preliminary and upon van helper review may be revised to meet current compliance requirements. Sloan Curiel MD Sloan Curiel MD 07/11/2020 10:29:00 AM Electronically signed by Sloan Curiel MD Number of Addenda: 0 Note Initiated On: 07/11/2020 9:46 AM Estimated Blood Loss: Estimated blood loss: none.
[2020-07-11 10:45] VITALS: BP 112/77
== END 2020-07-11 10:55 | disposition home or self-care (01) ==
LOC: M OPP 08:59
PROVIDERS: ATTEND Surgery
DX: R19.5 Other fecal abnormalities (principal); Z86.010 Personal history of colon polyps; K57.30 Diverticulosis of large intestine without perforation or abscess without bleeding; I10 Essential (primary) hypertension; E78.5 Hyperlipidemia, unspecified; M06.9 Rheumatoid arthritis, unspecified; F41.9 Anxiety disorder, unspecified; F32.9 Major depressive disorder, single episode, unspecified; Z87.891 Personal history of nicotine dependence; Z79.899 Other long term (current) drug therapy

== ENCOUNTER → 2022-03-14 | Outpatient (REF) | payer MEDICARE ==
[~2022-03-14] MED LIST changes: -LIDOCAINE 2% 100MG/5ML SDV (FOR ANES.) As Ordered ONE; -propofoL 200 MG/20 ML VIAL As Ordered ONE
== END ==
LOC: M SFHCDERM 13:09
PROVIDERS: ATTEND Nurse Practitioner Family
DX: D22.4 Melanocytic nevi of scalp and neck (principal)

== ENCOUNTER → 2022-04-30 | Outpatient (REF) | payer MEDICARE | LOC: M SFHCDERM 11:29 | PROVIDERS: ATTEND Dermatology | DX: L90.5 Scar conditions and fibrosis of skin (principal) ==

== ENCOUNTER → 2022-10-24 | Outpatient (REF) | payer MEDICARE | LOC: M SFHCDERM 08:35 | PROVIDERS: ATTEND Nurse Practitioner Family | DX: D03.59 Melanoma in situ of other part of trunk (principal) ==

== ENCOUNTER → 2022-11-08 | Outpatient (REF) | payer MEDICARE | LOC: M SFHCDERM 08:20 | PROVIDERS: ATTEND Physician Assistant | DX: L90.5 Scar conditions and fibrosis of skin (principal) ==